=== PATIENT | female | born 1945 | race African-American/Black ===

== ENCOUNTER 2020-07-02 15:27 | Inpatient (IN) | payer MEDICARE ==
[~2020-07-02] VITALS: Ht 170.2 cm; Wt 148.5 kg
[2020-07-02 16:36] LABS: BASO # 0.1 x10^3/uL (0.0-0.2); BASO % 1 % (0-3); EOS # 0.3 x10^3/uL (0.0-0.7); EOS % 4 % (0-3); HEMATOCRIT 42.4 % (36.0-47.0); HEMOGLOBIN 13.6 g/dL (12.0-15.5); LYMPH # 0.8 x10^3/uL (1.0-4.8); LYMPH % 10 % (24-48); MEAN CORPUSCULAR HEMOGLOBIN 27 pg (25-35); MEAN CORPUSCULAR HGB CONC 32 g/dL (31-37); MEAN CORPUSCULAR VOLUME 83 fL (79-100); MONO # 0.7 x10^3/uL (0.0-1.1); MONO % 9 % (0-9); NEUT # 6.1 x10^3/uL (1.8-7.7); NEUT % 76 % (31-73); PLATELET COUNT 202 x10^3/uL (140-400); WHITE BLOOD COUNT 8.1 x10^3/uL (4.0-11.0)
[2020-07-02 16:52] LABS: CALCIUM 9.5 mg/dL (8.5-10.1); CREATININE 0.8 mg/dL (0.6-1.0); GFR 84.2; POTASSIUM 3.9 mmol/L (3.5-5.1)
--- NOTE | 2020-07-02 16:52 | RAD ---
AP chest. HISTORY: Short of air AP view was taken of the chest. Heart is normal in size. There is no effusion. There is arthritis in both shoulders. There are mild interstitial changes from interstitial infiltrates or edema or fibrosi s. IMPRESSION: 1. Bilateral bilateral interstitial changes from infiltrates or fibrosis, previous study unavailable for comparison. Electronically signed by: Lexx Villafana MD (07/02/2020 4:49 PM) [id number]
[2020-07-02 17:00] LABS: ALBUMIN 3.5 g/dL (3.4-5.0); ALBUMIN/GLOBULIN RATIO 0.7 (1.0-1.7); MAGNESIUM 2.1 mg/dL (1.8-2.4); TOTAL BILIRUBIN 0.3 mg/dL (0.2-1.0); TOTAL PROTEIN 8.2 g/dL (6.4-8.2)
[2020-07-02 17:16] LABS: BILIRUBIN,URINE NEGATIVE (NEG); CLARITY,URINE CLEAR; COLOR,URINE YELLOW; NITRITE,URINE NEGATIVE (NEG); PROTEIN,URINE NEGATIVE (NEG-TRACE)
[2020-07-02 17:23] LABS: BACTERIA,URINE MODERATE /HPF (0-FEW); RBC,URINE 0 /HPF (0-2); WBC,URINE OCC /HPF (0-4)
[2020-07-02 17:24] LABS: BARBITURATES NEG (NEG); BENZODIAZEPINES NEG (NEG); CANNABINOIDS NEG (NEG); COCAINE NEG (NEG); METHADONE NEG (NEG); OPIATES NEG (NEG); PHENCYCLIDINE NEG (NEG)
[2020-07-02 17:25] LABS: AMPHETAMINE/METHAMPHETAMINE NEG (NEG)
[2020-07-02] MEDS ORDERED: IBUP200T44 PO (18:34)
[2020-07-02] MEDS ORDERED: GABA600T PO (18:34)
[2020-07-02] MEDS ORDERED: ONDANSETRON PF 4 MG/2 ML VIAL. IV PRN (19:00)
[2020-07-02] MEDS ORDERED: IBUPROFEN 200 MG TABLET. PO ONE (19:00)
[2020-07-02] MEDS ORDERED: cefTRIAXone IV Push 1 GM VIAL. IVP ONE (19:00)
[2020-07-02] MEDS ORDERED: MORPHINE SULFATE 4 MG/ML VIAL. IV PRN (19:00)
[2020-07-02] MEDS ORDERED: ACETAMINOPHEN 325 MG TABLET. PO PRN (19:00)
--- NOTE | 2020-07-02 19:03 | PHYS DOC ---
Past Medical History Past Medical History: Arthritis, CHF, COPD, Hypertension Past Surgical History: Hip Replacement Smoking Status: Former Smoker Alcohol Use: None General Adult EDM: Chief Complaint: SHORTNESS OF BREATH HPI: HPI: Patient is a 75 year old female with history of CHF, COPD on oxygen 2 L at home. Hypertension, who presents to the ED today complaining of shortness of breath for 2 months. Patient states symptoms got worse in the last 1 to 2 weeks. Denies any fever, denies any chest pain. She is also complaining of left eye redness for 1 week. Review of Systems: Review of Systems: Constitutional: Denies fever or chills. [] Eyes: Reports left eye redness. Denies change in visual acuity. [] HENT: Denies nasal congestion or sore throat. [] Respiratory: Reports shortness of breath, reports cough Cardiovascular: Denies any chest pain GI: Denies abdominal pain, nausea, vomiting, bloody stools or diarrhea. [] : Denies dysuria. [] Musculoskeletal: Denies back pain or joint pain. [] Integument: Denies rash. [] Neurologic: Denies headache, focal weakness or sensory changes. [] Psychiatric: Denies depression or anxiety. [] Heart Score: Risk Factors: Risk Factors: DM, Current or recent (<one month) smoker, HTN, HLP, family history of CAD, obesity. Risk Scores: Score 0 - 3: 2.5% MACE over next 6 weeks - Discharge Home Score 4 - 6: 20.3% MACE over next 6 weeks - Admit for Clinical Observation Score 7 - 10: 72.7% MACE over next 6 weeks - Early Invasive Strategies Current Medications: Current Medications Medications (Trade) Dose Ordered Sig/Mehul Start Time Stop Time Status Last Admin Dose Admin Acetaminophen (Tylenol) 650 mg PRN Q4HRS PRN 07/02/20 19:00 07/03/20 18:59 UNV Azithromycin 250 ml @ 250 mls/hr 1X ONCE 07/02/20 19:00 07/02/20 19:59 UNV Ceftriaxone Sodium (Rocephin) 1 gm 1X ONCE 07/02/20 19:00 07/02/20 19:01 UNV Ibuprofen (Motrin) 600 mg 1X ONCE 07/02/20 19:00 07/02/20 19:01 UNV Morphine Sulfate (Morphine Sulfate) 4 mg PRN Q2HR PRN 07/02/20 19:00 07/03/20 18:59 UNV Ondansetron HCl (Zofran) 4 mg PRN Q8HRS PRN 07/02/20 19:00 07/03/20 18:59 UNV Physical Exam: PE: Constitutional: Well developed, well nourished, no acute distress, non-toxic appearance. [] HENT: Normocephalic, atraumatic, bilateral external ears normal, oropharynx moist, no oral exudates, nose normal. [] Eyes: PERRLA, EOMI, left conjunctive is moderately injected, no discharge. [] Neck: Normal range of motion, no tenderness, supple, no stridor. [] Cardiovascular:Heart rate regular rhythm, no murmur [] Lungs & Thorax: Coarse lung sounds Abdomen: Bowel sounds normal, soft, no tenderness, no masses, no pulsatile masses. [] Skin: Warm, dry, no erythema, no rash. [] Back: No tenderness, no CVA tenderness. [] Extremities: No tenderness, no cyanosis, no clubbing, ROM intact, no edema. [] Neurologic: Alert and oriented X 3, normal motor function, normal sensory function, no focal deficits noted. [] Psychologic: Affect normal, judgement normal, mood normal. [] Current Patient Data: Labs: Laboratory Tests Test 07/02/20 15:45 07/02/20 16:25 07/02/20 16:50 Lactic Acid Level 1.1 mmol/L (0.4-2.0) White Blood Count 8.1 x10^3/uL (4.0-11.0) Red Blood Count 5.10 x10^6/uL (3.50-5.40) Hemoglobin 13.6 g/dL (12.0-15.5) Hematocrit 42.4 % (36.0-47.0) Mean Corpuscular Volume 83 fL (79-100) Mean Corpuscular Hemoglobin 27 pg (25-35) Mean Corpuscular Hemoglobin Concent 32 g/dL (31-37) Red Cell Distribution Width 16.0 % (11.5-14.5) H Platelet Count 202 x10^3/uL (140-400) Neutrophils (%) (Auto) 76 % (31-73) H Lymphocytes (%) (Auto) 10 % (24-48) L Monocytes (%) (Auto) 9 % (0-9) Eosinophils (%) (Auto) 4 % (0-3) H Basophils (%) (Auto) 1 % (0-3) Neutrophils # (Auto) 6.1 x10^3/uL (1.8-7.7) Lymphocytes # (Auto) 0.8 x10^3/uL (1.0-4.8) L Monocytes # (Auto) 0.7 x10^3/uL (0.0-1.1) Eosinophils # (Auto) 0.3 x10^3/uL (0.0-0.7) Basophils # (Auto) 0.1 x10^3/uL (0.0-0.2) Sodium Level 145 mmol/L (136-145) Potassium Level 3.9 mmol/L (3.5-5.1) Chloride Level 103 mmol/L (98-107) Carbon Dioxide Level 35 mmol/L (21-32) H Anion Gap 7 (6-14) Blood Urea Nitrogen 23 mg/dL (7-20) H Creatinine 0.8 mg/dL (0.6-1.0) Estimated GFR (Cockcroft-Gault) 84.2 BUN/Creatinine Ratio 29 (6-20) H Glucose Level 105 mg/dL (70-99) H Calcium Level 9.5 mg/dL (8.5-10.1) Magnesium Level 2.1 mg/dL (1.8-2.4) Total Bilirubin 0.3 mg/dL (0.2-1.0) Aspartate Amino Transferase (AST) 21 U/L (15-37) Alanine Aminotransferase (ALT) 26 U/L (14-59) Alkaline Phosphatase 114 U/L (46-116) Creatine Kinase 365 U/L (26-192) H Creatine Kinase MB (Mass) 4.3 ng/mL (0.0-3.6) H Creatine Kinase MB Relative Index 1.2 % (0-4) Troponin I Quantitative 0.152 ng/mL (0.000-0.055) LK-Qfz-J-Type Natriuretic Peptide 648 pg/mL (0-449) H Total Protein 8.2 g/dL (6.4-8.2) Albumin 3.5 g/dL (3.4-5.0) Albumin/Globulin Ratio 0.7 (1.0-1.7) L Urine Collection Type Unknown Urine Color Yellow Urine Clarity Clear Urine pH 6.0 (<5.0-8.0) Urine Specific [place] 1.020 (1.000-1.030) Urine Protein Negative mg/dL (NEG-TRACE) Urine Glucose (UA) Negative mg/dL (NEG) Urine Ketones (Stick) Negative mg/dL (NEG) Urine Blood Negative (NEG) Urine Nitrite Negative (NEG) Urine Bilirubin Negative (NEG) Urine Urobilinogen Dipstick 1.0 mg/dL (0.2 mg/dL) Urine Leukocyte Esterase Negative (NEG) Urine RBC 0 /HPF (0-2) Urine WBC Occ /HPF (0-4) Urine Squamous Epithelial Cells Mod /LPF Urine Bacteria Moderate /HPF (0-FEW) Urine Opiates Screen Neg (NEG) Urine Methadone Screen Neg (NEG) Urine Barbiturates Neg (NEG) Urine Phencyclidine Screen Neg (NEG) Urine Amphetamine/Methamphetamine Neg (NEG) Urine Benzodiazepines Screen Neg (NEG) Urine Cocaine Screen Neg (NEG) Urine Cannabinoids Screen Neg (NEG) Urine Ethyl Alcohol Neg (NEG) Laboratory Tests 07/02/20 16:25 Laboratory Tests 07/02/20 16:25 Vital Signs: Vital Signs Date Time Temp Pulse Resp B/P (MAP) Pulse Ox O2 Delivery O2 Flow Rate FiO2 07/02/20 16:09 98.9 87 22 149/67 (94) 92 Nasal Cannula 2.0 98.9 EKG: EK interpreted by Dr. Brizuela sinus rhythm heart rate 85 no STEMI [] Radiology/Procedures: Radiology/Procedures: []PROCEDURE: PORTABLE CHEST 1V AP chest. HISTORY: Short of air AP view was taken of the chest. Heart is normal in size. There is no effusion. There is arthritis in both shoulders. There are mild interstitial changes from interstitial infiltrates or edema or fibrosis. IMPRESSION: 1. Bilateral bilateral interstitial changes from infiltrates or fibrosis, previo us study unavailable for comparison. Electronically signed by: Lexx Villafana MD (07/02/2020 4:49 PM) [id number] DICTATED and SIGNED BY: LEXX VILLAFANA MD DATE: 07/02/20 [id number] Course & Med Decision Making: Course & Med Decision Making Pertinent Labs and Imaging studies reviewed. (See chart for details) This is a 75-year-old female patient presenting to the ED today complaining of shortness of breath for 2 months and left eye redness for 1 week. Patient is afebrile on arrival to the ED. Currently on oxygen 2 L which she uses during the night but not during the day, O2 sats 92%. CBC, CMP with no acute findings. Chest x-ray noted for bilateral interstitial infiltrates. Tested for COVID-19. Troponin 0.152, patient does not have any chest pain. I spoke to the terminal operations supervisor Dr. Fang they will f/u with patient in AM Dragon Disclaimer: Dragbillie Disclaimer: This electronic medical record was generated, in whole or in part, using a voice recognition dictation system. Departure Departure Impression: Primary Impression: Bilateral pulmonary infiltrates on chest x-ray Additional Impressions: Person under investigation for COVID-19 Bacterial conjunctivitis of left eye Elevated troponin Disposition: ADMITTED INPT THIS HOSP Condition: STABLE Referrals: UNKNOWN PCP NAME (PCP) CLAUDIA PETERSEN APRN Jul 02, 2020 19:03
[2020-07-02] MEDS ORDERED: AZITHRMYCN 500MG IVPB FOR OMNI 250 ML IV ONE (20:00)
[2020-07-02] MEDS: TOBRAMYCIN 0.3% OPHTH SOLUTION 5ML BOTTLE. OS SCH (20:19)
[2020-07-02] MEDS ORDERED: IV NORMAL SALINE 1000ML BAG 1,000 ML IV ONE (21:30)
[2020-07-02] MEDS ORDERED: MAGNESIUM HYDROXIDE 2,400 MG/30 ML ORAL.SUSP. PO PRN (21:30)
[2020-07-02] MEDS ORDERED: ZOLPIDEM 5 MG TABLET. PO PRN (21:30)
[2020-07-02] MEDS ORDERED: BISACODYL 10 MG SUPP.RECT. PR PRN (21:30)
[2020-07-02] MEDS ORDERED: HYDROmorphone 2 MG/ML VIAL IV PRN (21:30)
--- NOTE | 2020-07-02 21:31 | PDOC1 ---
History and Physical Date of Admission Date of Admission DATE: 07/02/20 TIME: 21:11 Identification/Chief Complaint Chief Complaint Cough, shortness of breath Source Source: Patient History of Present Illness History of Present Illness Patient 75-year-old female with past medical history of undiagnosed COPD on 2 L at night, CHF, who presents to the ER with complaints of shortness of breath for the past 2 months. She states her symptoms are worsening over the past 2 weeks. She reports associated productive cough over this time. Patient admits to roughly 10-year history of smoking in the 60's. Of note she also complains of left arm erythema with clear drainage for the past week. Upon evaluation in the ED patient's troponin was initially elevated at 0.152, with repeat 0.158. Cardiology was notified in the ED, and recommended medicine admit for further evaluation. Patient denies any chest pain or known sick contacts. Past Medical History Past Medical History Obesity, COPD, CHF, depression, hypertension, hyperlipidemia, hypothyroidism, seizures, schizophrenia Past Surgical History Past Surgical History Bilateral hip replacement Family History Family History: Coronary Artery Disease Social History Smoke: Quit ALCOHOL: none Drugs: None Current Problem List Problem List Problems Medical Problems: (1) Bacterial conjunctivitis of left eye Status: Acute (2) Bilateral pulmonary infiltrates on chest x-ray Status: Acute (3) Elevated troponin Status: Acute (4) Person under investigation for COVID-19 Status: Acute Current Medications Current Medications Current Medications Ceftriaxone Sodium (Rocephin) 1 gm 1X ONCE IVP Last administered on 07/02/20at 20:17; Start 07/02/20 at 19:00; Stop 07/02/20 at 20:04; Status DC Azithromycin 250 ml @ 250 mls/hr 1X ONCE IV Last administered on 07/02/20at 20:19; Start 07/02/20 at 20:00; Stop 07/02/20 at 20:59; Status DC Ibuprofen (Motrin) 600 mg 1X ONCE PO ; Start 07/02/20 at 19:00; Stop 07/02/20 at 20:04; Status DC Ondansetron HCl (Zofran) 4 mg PRN Q8HRS PRN IV NAUSEA/VOMITING; Start 07/02/20 at 19:00; Stop 07/03/20 at 18:59 Morphine Sulfate (Morphine Sulfate) 4 mg PRN Q2HR PRN IV PAIN; Start 07/02/20 at 19:00; Stop 07/03/20 at 18:59 Acetaminophen (Tylenol) 650 mg PRN Q4HRS PRN PO FEVER > 100.3'F; Start 07/02/20 at 19:00; Stop 07/03/20 at 18:59 Tobramycin Sulfate (Tobrex Ophth Soln) 1 drop Q4HRS W/A OS Last administered on 07/02/20at 20:19; Start 07/02/20 at 20:00 Albuterol Sulfate (Ventolin Hfa) 2 puff PRN Q4HRS PRN INH WHEEZES; Start 07/02/20 at 21:15 Active Scripts Active Reported Motrin Ib (Ibuprofen) 200 Mg Tablet 600 Mg PO Q6HRS PRN Neurontin (Gabapentin) 600 Mg Tablet 900 Mg PO TID Allergies Allergies: Coded Allergies: No Known Drug Allergies (Unverified , 07/02/20) ROS Review of System GENERAL: No history of weight change, weakness or fevers. SKIN: No bruising, hair changes or rashes. EYES: No blurred, double or loss of vision. NOSE AND THROAT: No history of nosebleeds, hoarseness or sore throat. HEART: Denies chest pain, denies palpitations. LUNGS: Cough, shortness of breath. Denies hemoptysis. GASTROINTESTINAL: Denies nausea, vomiting, abdominal pain. GENITOURINARY: Denies dysuria, frequency, urgency, hematuria. NEUROLOGIC: Denies history of numbness, tingling, tremor or weakness. PSYCHIATRIC: Denies anxiety, denies depression. ENDOCRINE: No history of heat or cold intolerance, polyuria or polydipsia. EXTREMITIES: Denies muscle weakness, joint pain, pain on walking or stiffness. Physical Exam Physical Exam General: Alert, Oriented X3, Cooperative, mild distress, morbidly obese HEENT: Atraumatic, EOMI Lungs: Bilateral expiratory wheezing, bibasilar rales Heart: RRR, no rubs Cardiovascular: S1, S2 Abdomen: Normal bowel sounds, Soft, No tenderness Extremities: +1 bilateral leg edema Skin: No breakdown, No significant lesion Neuro: Normal speech, Sensation intact Psych/Mental Status: Mental status NL, Mood NL Vitals Vitals Vital Signs Date Time Temp Pulse Resp B/P (MAP) Pulse Ox O2 Delivery O2 Flow Rate FiO2 07/02/20 20:10 86 135/76 (95) 93 Nasal Cannula 2.0 07/02/20 16:09 98.9 22 98.9 Labs Labs Laboratory Tests Test 07/02/20 15:45 07/02/20 16:25 07/02/20 16:50 07/02/20 19:15 Lactic Acid Level 1.1 mmol/L (0.4-2.0) White Blood Count 8.1 x10^3/uL (4.0-11.0) Red Blood Count 5.10 x10^6/uL (3.50-5.40) Hemoglobin 13.6 g/dL (12.0-15.5) Hematocrit 42.4 % (36.0-47.0) Mean Corpuscular Volume 83 fL (79-100) Mean Corpuscular Hemoglobin 27 pg (25-35) Mean Corpuscular Hemoglobin Concent 32 g/dL (31-37) Red Cell Distribution Width 16.0 % (11.5-14.5) Platelet Count 202 x10^3/uL (140-400) Neutrophils (%) (Auto) 76 % (31-73) Lymphocytes (%) (Auto) 10 % (24-48) Monocytes (%) (Auto) 9 % (0-9) Eosinophils (%) (Auto) 4 % (0-3) Basophils (%) (Auto) 1 % (0-3) Neutrophils # (Auto) 6.1 x10^3/uL (1.8-7.7) Lymphocytes # (Auto) 0.8 x10^3/uL (1.0-4.8) Monocytes # (Auto) 0.7 x10^3/uL (0.0-1.1) Eosinophils # (Auto) 0.3 x10^3/uL (0.0-0.7) Basophils # (Auto) 0.1 x10^3/uL (0.0-0.2) Sodium Level 145 mmol/L (136-145) Potassium Level 3.9 mmol/L (3.5-5.1) Chloride Level 103 mmol/L (98-107) Carbon Dioxide Level 35 mmol/L (21-32) Anion Gap 7 (6-14) Blood Urea Nitrogen 23 mg/dL (7-20) Creatinine 0.8 mg/dL (0.6-1.0) Estimated GFR (Cockcroft-Gault) 84.2 BUN/Creatinine Ratio 29 (6-20) Glucose Level 105 mg/dL (70-99) Calcium Level 9.5 mg/dL (8.5-10.1) Magnesium Level 2.1 mg/dL (1.8-2.4) Total Bilirubin 0.3 mg/dL (0.2-1.0) Aspartate Amino Transf (AST/SGOT) 21 U/L (15-37) Alanine Aminotransferase (ALT/SGPT) 26 U/L (14-59) Alkaline Phosphatase 114 U/L (46-116) Creatine Kinase 365 U/L (26-192) Creatine Kinase MB (Mass) 4.3 ng/mL (0.0-3.6) Creatine Kinase MB Relative Index 1.2 % (0-4) Troponin I Quantitative 0.152 ng/mL (0.000-0.055) 0.158 ng/mL (0.000-0.055) VJ-Hil-H-Type Natriuretic Peptide 648 pg/mL (0-449) Total Protein 8.2 g/dL (6.4-8.2) Albumin 3.5 g/dL (3.4-5.0) Albumin/Globulin Ratio 0.7 (1.0-1.7) Urine Collection Type Unknown Urine Color Yellow Urine Clarity Clear Urine pH 6.0 (<5.0-8.0) Urine Specific [place] 1.020 (1.000-1.030) Urine Protein Negative mg/dL (NEG-TRACE) Urine Glucose (UA) Negative mg/dL (NEG) Urine Ketones (Stick) Negative mg/dL (NEG) Urine Blood Negative (NEG) Urine Nitrite Negative (NEG) Urine Bilirubin Negative (NEG) Urine Urobilinogen Dipstick 1.0 mg/dL (0.2 mg/dL) Urine Leukocyte Esterase Negative (NEG) Urine RBC 0 /HPF (0-2) Urine WBC Occ /HPF (0-4) Urine Squamous Epithelial Cells Mod /LPF Urine Bacteria Moderate /HPF (0-FEW) Urine Opiates Screen Neg (NEG) Urine Methadone Screen Neg (NEG) Urine Barbiturates Neg (NEG) Urine Phencyclidine Screen Neg (NEG) Urine Amphetamine/Methamphetamine Neg (NEG) Urine Benzodiazepines Screen Neg (NEG) Urine Cocaine Screen Neg (NEG) Urine Cannabinoids Screen Neg (NEG) Urine Ethyl Alcohol Neg (NEG) Laboratory Tests Test 07/02/20 15:45 07/02/20 16:25 07/02/20 16:50 07/02/20 19:15 Lactic Acid Level 1.1 mmol/L (0.4-2.0) White Blood Count 8.1 x10^3/uL (4.0-11.0) Red Blood Count 5.10 x10^6/uL (3.50-5.40) Hemoglobin 13.6 g/dL (12.0-15.5) Hematocrit 42.4 % (36.0-47.0) Mean Corpuscular Volume 83 fL (79-100) Mean Corpuscular Hemoglobin 27 pg (25-35) Mean Corpuscular Hemoglobin Concent 32 g/dL (31-37) Red Cell Distribution Width 16.0 % (11.5-14.5) Platelet Count 202 x10^3/uL (140-400) Neutrophils (%) (Auto) 76 % (31-73) Lymphocytes (%) (Auto) 10 % (24-48) Monocytes (%) (Auto) 9 % (0-9) Eosinophils (%) (Auto) 4 % (0-3) Basophils (%) (Auto) 1 % (0-3) Neutrophils # (Auto) 6.1 x10^3/uL (1.8-7.7) Lymphocytes # (Auto) 0.8 x10^3/uL (1.0-4.8) Monocytes # (Auto) 0.7 x10^3/uL (0.0-1.1) Eosinophils # (Auto) 0.3 x10^3/uL (0.0-0.7) Basophils # (Auto) 0.1 x10^3/uL (0.0-0.2) Sodium Level 145 mmol/L (136-145) Potassium Level 3.9 mmol/L (3.5-5.1) Chloride Level 103 mmol/L (98-107) Carbon Dioxide Level 35 mmol/L (21-32) Anion Gap 7 (6-14) Blood Urea Nitrogen 23 mg/dL (7-20) Creatinine 0.8 mg/dL (0.6-1.0) Estimated GFR (Cockcroft-Gault) 84.2 BUN/Creatinine Ratio 29 (6-20) Glucose Level 105 mg/dL (70-99) Calcium Level 9.5 mg/dL (8.5-10.1) Magnesium Level 2.1 mg/dL (1.8-2.4) Total Bilirubin 0.3 mg/dL (0.2-1.0) Aspartate Amino Transf (AST/SGOT) 21 U/L (15-37) Alanine Aminotransferase (ALT/SGPT) 26 U/L (14-59) Alkaline Phosphatase 114 U/L (46-116) Creatine Kinase 365 U/L (26-192) Creatine Kinase MB (Mass) 4.3 ng/mL (0.0-3.6) Creatine Kinase MB Relative Index 1.2 % (0-4) Troponin I Quantitative 0.152 ng/mL (0.000-0.055) 0.158 ng/mL (0.000-0.055) PR-Bgt-R-Type Natriuretic Peptide 648 pg/mL (0-449) Total Protein 8.2 g/dL (6.4-8.2) Albumin 3.5 g/dL (3.4-5.0) Albumin/Globulin Ratio 0.7 (1.0-1.7) Urine Collection Type Unknown Urine Color Yellow Urine Clarity Clear Urine pH 6.0 (<5.0-8.0) Urine Specific [place] 1.020 (1.000-1.030) Urine Protein Negative mg/dL (NEG-TRACE) Urine Glucose (UA) Negative mg/dL (NEG) Urine Ketones (Stick) Negative mg/dL (NEG) Urine Blood Negative (NEG) Urine Nitrite Negative (NEG) Urine Bilirubin Negative (NEG) Urine Urobilinogen Dipstick 1.0 mg/dL (0.2 mg/dL) Urine Leukocyte Esterase Negative (NEG) Urine RBC 0 /HPF (0-2) Urine WBC Occ /HPF (0-4) Urine Squamous Epithelial Cells Mod /LPF Urine Bacteria Moderate /HPF (0-FEW) Urine Opiates Screen Neg (NEG) Urine Methadone Screen Neg (NEG) Urine Barbiturates Neg (NEG) Urine Phencyclidine Screen Neg (NEG) Urine Amphetamine/Methamphetamine Neg (NEG) Urine Benzodiazepines Screen Neg (NEG) Urine Cocaine Screen Neg (NEG) Urine Cannabinoids Screen Neg (NEG) Urine Ethyl Alcohol Neg (NEG) Images Images AP chest. HISTORY: Short of air AP view was taken of the chest. Heart is normal in size. There is no effusion. There is arthritis in both shoulders. There are mild interstitial changes from interstitial infiltrates or edema or fibrosis. IMPRESSION: 1. Bilateral bilateral interstitial changes from infiltrates or fibrosis, previous study unavailable for comparison. VTE Prophylaxis Ordered VTE Prophylaxis Devices: No VTE Pharmacological Prophylaxi: Yes Assessment/Plan Assessment/Plan COPD exacerbation Acute respiratory failure with hypoxia Elevated troponins COVID-19 PUI Conjunctivitis Dehydration Plan: Consultations placed to cardiology for evaluation of elevated troponins; likely demand ischemia as to troponins have been elevated but stable Continue to trend troponins We will treat patient with antibiotics and steroids COVID-19 pending Doxycycline 100 mg twice daily, Decadron 6 mg daily Consult to pulmonology for further recommendations Oxygen and supportive care Will consider initiating remdesivir when confirmed COVID-19 positive, however patient was insistent upon leaving the hospital before Tima We will order 6-minute walk for the morning and patient may be able to discharge home on home oxygen. Influenza pending IV normal saline FEN - Cardiac diet PPX - Lovenox FULL CODE Dispo - inpatient for above Justifications for Admission Other Justification THAIS BAUTISTA MD Jul 02, 2020 21:31
[2020-07-02] MEDS: ENOXAPARIN 40 MG/0.4 ML SYRINGE. SQ SCH (21:38)
[2020-07-02 23:20] VITALS: BP 147/72
[2020-07-03] VITALS (7 sets, daily range): BP systolic 101–145; BP diastolic 60–87
[2020-07-03] MEDS ORDERED: guaiFENesin ORAL 200 MG/10 ML LIQUID. PO PRN
[2020-07-03] MEDS: IBUPROFEN 200 MG TABLET. PO PRN ×4 (00:25→22:10)
[2020-07-03] MEDS ORDERED: METF-658 PO (01:39)
[2020-07-03] MEDS ORDERED: ASCO500C PO (01:39)
[2020-07-03] MEDS ORDERED: FURO-69 PO (01:39)
[2020-07-03] MEDS ORDERED: VITA400C37 PO (01:39)
[2020-07-03] MEDS ORDERED: ASPI-630 PO (01:39)
[2020-07-03] MEDS ORDERED: VITAMIN D PO (01:39)
[2020-07-03] MEDS ORDERED: DILT360C PO (01:39)
[2020-07-03] MEDS ORDERED: LISI10TA16 PO (01:39)
[2020-07-03] MEDS ORDERED: HYDR-2145 PO (01:39)
[2020-07-03] MEDS: TOBRAMYCIN 0.3% OPHTH SOLUTION 5ML BOTTLE. OS SCH ×6 (01:57→22:00)
[2020-07-03] MEDS: ALBUTEROL SULFATE 8GM INHALER. INH PRN ×4 (01:57→17:22)
[2020-07-03] MEDS: GABAPENTIN 300 MG CAPSULE. PO SCH ×4 (01:57→20:45)
[2020-07-03] MEDS: BENZONATATE 100 MG CAPSULE. PO PRN (01:57)
[2020-07-03] MEDS ORDERED: DEXTROSE 50% 25 GM / 50ML DISP.SYRIN. IV PRN (02:30)
[2020-07-03] MEDS ORDERED: ROPI5TAB4 PO (02:32)
[2020-07-03] MEDS: PRAMIPEXOLE 0.25 MG TABLET. PO SCH ×2 (05:34→20:45)
[2020-07-03] MEDS: INSULIN LISPRO 300 UNITS/3 ML VIAL. SQ SCH ×3 (08:00→17:00)
[2020-07-03] MEDS: ASPIRIN CHEWABLE 81 MG TABLET. PO SCH (09:01)
[2020-07-03] MEDS: FUROSEMIDE 20 MG TABLET PO SCH (09:01)
[2020-07-03] MEDS: LISINOPRIL 10 MG TABLET PO SCH (09:01)
[2020-07-03] MEDS: hydroCHLOROthiazide 25 MG TABLET PO SCH (09:01)
[2020-07-03] MEDS: DOXYCYCLINE HYCLATE 100 MG TABLET PO SCH ×2 (09:02→20:45)
[2020-07-03] MEDS: MORPHINE SULFATE 2 MG/ML VIAL. IV PRN ×2 (09:16→20:49)
[2020-07-03] MEDS ORDERED: methylPREDNISolone SOD SUCC PF 125 MG/2 ML VIAL. IV ONE (10:30)
[2020-07-03] MEDS ORDERED: FUROSEMIDE 40 MG/4 ML VIAL. IVP ONE (10:30)
[2020-07-03] MEDS ORDERED: POTASSIUM CHLORIDE 20 MEQ TABLET.ER. PO ONE (10:30)
--- NOTE | 2020-07-03 10:36 | CONS ---
DATE OF CONSULTATION: PULMONARY CONSULTATION ATTENDING PHYSICIAN: Dr. Carlos Reese. REASON FOR CONSULTATION: Dyspnea, respiratory failure, audible wheezing. HISTORY OF PRESENT ILLNESS: The patient is a 75-year-old obese patient with a BMI of 53. She has history of questionable COPD. She is on oxygen 2 liters at night and history of congestive heart failure. She was brought into the hospital with increasing shortness of breath for the last 2 months. The symptoms have worsened in the last 2 weeks. There is cough, which has been nonproductive. No fever, no chills. She said she only smoked for about 10 years in her 60s. The patient was noted to have audible wheezing when we arrived in the room. She has been receiving albuterol inhaler as she is a COVID suspect. The patient's saturations were 89-95% on 3 liters. She is afebrile. Denies any chest pain, no headache, no nausea, vomiting or diarrhea. Consultation requested for further evaluation and management. PAST MEDICAL HISTORY: Significant for morbid obesity; history of congestive heart failure, unknown EF; morbid obesity with a BMI of 53; depression; hypertension; hyperlipidemia; hypothyroidism; and schizophrenia. PAST SURGICAL HISTORY: Bilateral hip replacement. FAMILY HISTORY: Coronary artery disease. Noncontributory to the lungs. SOCIAL HISTORY: Smoked for 10 years, quit in the 60s. REVIEW OF SYSTEMS: Twelve-point system obtained. Pertinent positives discussed in my history of present illness, otherwise noncontributory. All systems that were negative were reviewed as well. MEDICATIONS: All reviewed as listed in the MRAD. PHYSICAL EXAMINATION: VITAL SIGNS: Reviewed. Blood pressure is 136/74, afebrile, pulse ox is 89-95% on 3 liters. NECK: Supple. LUNGS: With audible wheezing. CARDIOVASCULAR: With a regular rate. ABDOMEN: Soft, obese. EXTREMITIES: With trace pitting edema. LABORATORY DATA: Reviewed. White cell count 8.1, hemoglobin 13.6, platelets are 202. BUN 23 and creatinine 0.8. CPK 365. Troponin 0.158. IMPRESSION: 1. Acute hypoxic respiratory failure with audible wheezing and chest x-ray consistent with bilateral interstitial infiltrates. The findings are highly suggestive of cardiac asthma. She has no significant history of pulmonary asthma and no significant tobacco history. 2. Abnormal chest x-ray with bilateral interstitial infiltrates. No old x-ray available for comparison. This is likely secondary to congestive heart failure. 3. Morbid obesity with a body mass index of 53. She is at risk for sleep apnea. She also likely has obesity hypoventilation syndrome. Her bicarbonate is 35. I suspect she may have worsening hypercapnia. will get ABG 4. History of diastolic heart failure, details unknown. We will obtain an echocardiogram. 5. Low suspicion for COVID. RECOMMENDATIONS: 1. I will continue with present oxygen to keep saturation 92 and above. 2. Obtain arterial blood gases stat/ Will likely need BIPAP 3. IV Solu-Medrol. 4. Albuterol 2 puffs q. 4 hours until wheezing gets better and once COVID ruled out, start nebulizer. 5. We will discontinue oral Lasix and give her IV Lasix. 6. Empiric antibiotics for now. 7. Obtain echocardiogram. 8. Lovenox for DVT prophylaxis. 9. d/w RN/RT in detail 10. She would benefit from sleep study as an outpatient. Discussed with RN. SAMANTHA MARSH MD DR: MILTON/kortney JOB#: [id number] / [id number] CARLO
[2020-07-03 10:54] LABS: BASO # 0.1 x10^3/uL (0.0-0.2); BASO % 1 % (0-3); EOS # 0.4 x10^3/uL (0.0-0.7); EOS % 6 % (0-3); HEMATOCRIT 41.5 % (36.0-47.0); HEMOGLOBIN 12.9 g/dL (12.0-15.5); LYMPH # 0.7 x10^3/uL (1.0-4.8); LYMPH % 11 % (24-48); MEAN CORPUSCULAR HEMOGLOBIN 26 pg (25-35); MEAN CORPUSCULAR HGB CONC 31 g/dL (31-37); MEAN CORPUSCULAR VOLUME 84 fL (79-100); MONO # 0.7 x10^3/uL (0.0-1.1); MONO % 11 % (0-9); NEUT # 4.6 x10^3/uL (1.8-7.7); NEUT % 71 % (31-73); PLATELET COUNT 195 x10^3/uL (140-400); RED BLOOD COUNT 4.96 x10^6/uL (3.50-5.40); WHITE BLOOD COUNT 6.4 x10^3/uL (4.0-11.0)
[2020-07-03 11:07] LABS: BASE EXCESS ABG 5 mmol/L (-3-3); HCO3 ABG 36 mmol/L (21-28); PO2 ABG 62 mmHg (65-108); SAT O2 ABG 90 % (92-99)
[2020-07-03] MEDS: IPRATROPIUM/ALBUTEROL 20/100mcg/INH INHALER. INH SCH ×2 (11:28→17:22)
[2020-07-03 11:31] LABS: FIO2 ABG 32: SIMPLE MASK; PCO2 ABG 86 mmHg (35-46)
[2020-07-03 11:33] LABS: ALBUMIN/GLOBULIN RATIO 0.7 (1.0-1.7); CALCIUM 8.5 mg/dL (8.5-10.1); CREATININE 0.6 mg/dL (0.6-1.0); GFR 117.3; POTASSIUM 4.3 mmol/L (3.5-5.1); TOTAL BILIRUBIN 0.3 mg/dL (0.2-1.0); TOTAL PROTEIN 7.5 g/dL (6.4-8.2)
[2020-07-03] MEDS: LACTOBACILLUS RHAMNOSUS GG 1 CAPSULE. PO SCH ×2 (12:00→20:45)
--- NOTE | 2020-07-03 12:23 | PDOC ---
[employer] PROGRESS NOTE Date of Service DOS: DATE: 07/03/20 TIME: 12:21 Chief Complaint Chief Complaint COPD exacerbation Acute respiratory failure with hypoxia Elevated troponins COVID-19 PUI Conjunctivitis Dehydration Plan: Consultations placed to cardiology for evaluation of elevated troponins; likely demand ischemia as to troponins have been elevated but stable Continue to trend troponins We will treat patient with antibiotics and steroids COVID-19 pending Doxycycline 100 mg twice daily, Decadron 6 mg daily Appreciate pulmonology recommendationsstart IV steroids, IV Lasix, pending echocardiogram, Combivent inhaler until Covid negative then start nebulizer if negative Oxygen and supportive care Will consider initiating remdesivir when confirmed COVID-19 positive, however patient was insistent upon leaving the hospital before [facility] We will order 6-minute walk for the morning and patient may be able to discharge home on home oxygen. Influenza pending IV normal saline FEN - Cardiac diet PPX - Lovenox FULL CODE Dispo - inpatient for above History of Present Illness History of Present Illness 07/03/2020 No acute events overnight. Patient continues to be short of breath and wheezing. Currently on 10 L nonrebreathing mask. Patient's chart, labs, images were reviewed and discussed with RN 75-year-old female with past medical history of undiagnosed COPD on 2 L at night, CHF, who presents to the ER with complaints of shortness of breath for the past 2 months. She states her symptoms are worsening over the past 2 weeks. She reports associated productive cough over this time. Patient admits to roughly 10-year history of smoking in the 60's. Of note she also complains of left arm erythema with clear drainage for the past week. Upon evaluation in the ED patient's troponin was initially elevated at 0.152, with repeat 0.158. Cardiology was notified in the ED, and recommended medicine admit for further evaluation. Patient denies any chest pain or known sick contacts. Vitals/I&O Vitals/I&O: Vital Signs Date Time Temp Pulse Resp B/P (MAP) Pulse Ox O2 Delivery O2 Flow Rate FiO2 07/03/20 11:13 97.9 93 16 126/67 (86) 82 Simple Mask 3.0 97.9 I & O 07/02/20 07/02/20 07/03/20 15:00 23:00 07:00 Intake Total 360 ml Output Total 750 ml Balance -390 ml Physical Exam General: Alert, Oriented X3, Cooperative Heart: No murmurs Lungs: Wheezing Abdomen: No tenderness, No hepatosplenomegaly Extremities: No edema Skin: No significant lesion Labs Labs: Laboratory Tests Test 07/02/20 15:45 07/02/20 16:25 07/02/20 16:50 07/02/20 19:15 Lactic Acid Level 1.1 mmol/L (0.4-2.0) White Blood Count 8.1 x10^3/uL (4.0-11.0) Red Blood Count 5.10 x10^6/uL (3.50-5.40) Hemoglobin 13.6 g/dL (12.0-15.5) Hematocrit 42.4 % (36.0-47.0) Mean Corpuscular Volume 83 fL (79-100) Mean Corpuscular Hemoglobin 27 pg (25-35) Mean Corpuscular Hemoglobin Concent 32 g/dL (31-37) Red Cell Distribution Width 16.0 % (11.5-14.5) Platelet Count 202 x10^3/uL (140-400) Neutrophils (%) (Auto) 76 % (31-73) Lymphocytes (%) (Auto) 10 % (24-48) Monocytes (%) (Auto) 9 % (0-9) Eosinophils (%) (Auto) 4 % (0-3) Basophils (%) (Auto) 1 % (0-3) Neutrophils # (Auto) 6.1 x10^3/uL (1.8-7.7) Lymphocytes # (Auto) 0.8 x10^3/uL (1.0-4.8) Monocytes # (Auto) 0.7 x10^3/uL (0.0-1.1) Eosinophils # (Auto) 0.3 x10^3/uL (0.0-0.7) Basophils # (Auto) 0.1 x10^3/uL (0.0-0.2) Sodium Level 145 mmol/L (136-145) Potassium Level 3.9 mmol/L (3.5-5.1) Chloride Level 103 mmol/L (98-107) Carbon Dioxide Level 35 mmol/L (21-32) Anion Gap 7 (6-14) Blood Urea Nitrogen 23 mg/dL (7-20) Creatinine 0.8 mg/dL (0.6-1.0) Estimated GFR (Cockcroft-Gault) 84.2 BUN/Creatinine Ratio 29 (6-20) Glucose Level 105 mg/dL (70-99) Calcium Level 9.5 mg/dL (8.5-10.1) Magnesium Level 2.1 mg/dL (1.8-2.4) Total Bilirubin 0.3 mg/dL (0.2-1.0) Aspartate Amino Transf (AST/SGOT) 21 U/L (15-37) Alanine Aminotransferase (ALT/SGPT) 26 U/L (14-59) Alkaline Phosphatase 114 U/L (46-116) Creatine Kinase 365 U/L (26-192) Creatine Kinase MB (Mass) 4.3 ng/mL (0.0-3.6) Creatine Kinase MB Relative Index 1.2 % (0-4) Troponin I Quantitative 0.152 ng/mL (0.000-0.055) 0.158 ng/mL (0.000-0.055) [id number]-Type Natriuretic Peptide 648 pg/mL (0-449) Total Protein 8.2 g/dL (6.4-8.2) Albumin 3.5 g/dL (3.4-5.0) Albumin/Globulin Ratio 0.7 (1.0-1.7) Urine Collection Type Unknown Urine Color Yellow Urine Clarity Clear Urine pH 6.0 (<5.0-8.0) Urine Specific [place] 1.020 (1.000-1.030) Urine Protein Negative mg/dL (NEG-TRACE) Urine Glucose (UA) Negative mg/dL (NEG) Urine Ketones (Stick) Negative mg/dL (NEG) Urine Blood Negative (NEG) Urine Nitrite Negative (NEG) Urine Bilirubin Negative (NEG) Urine Urobilinogen Dipstick 1.0 mg/dL (0.2 mg/dL) Urine Leukocyte Esterase Negative (NEG) Urine RBC 0 /HPF (0-2) Urine WBC Occ /HPF (0-4) Urine Squamous Epithelial Cells Mod /LPF Urine Bacteria Moderate /HPF (0-FEW) Urine Opiates Screen Neg (NEG) Urine Methadone Screen Neg (NEG) Urine Barbiturates Neg (NEG) Urine Phencyclidine Screen Neg (NEG) Urine Amphetamine/Methamphetamine Neg (NEG) Urine Benzodiazepines Screen Neg (NEG) Urine Cocaine Screen Neg (NEG) Urine Cannabinoids Screen Neg (NEG) Urine Ethyl Alcohol Neg (NEG) Test 07/03/20 00:23 07/03/20 09:59 07/03/20 10:43 Troponin I Quantitative 0.146 ng/mL (0.000-0.055) White Blood Count 6.4 x10^3/uL (4.0-11.0) Red Blood Count 4.96 x10^6/uL (3.50-5.40) Hemoglobin 12.9 g/dL (12.0-15.5) Hematocrit 41.5 % (36.0-47.0) Mean Corpuscular Volume 84 fL (79-100) Mean Corpuscular Hemoglobin 26 pg (25-35) Mean Corpuscular Hemoglobin Concent 31 g/dL (31-37) Red Cell Distribution Width 16.0 % (11.5-14.5) Platelet Count 195 x10^3/uL (140-400) Neutrophils (%) (Auto) 71 % (31-73) Lymphocytes (%) (Auto) 11 % (24-48) Monocytes (%) (Auto) 11 % (0-9) Eosinophils (%) (Auto) 6 % (0-3) Basophils (%) (Auto) 1 % (0-3) Neutrophils # (Auto) 4.6 x10^3/uL (1.8-7.7) Lymphocytes # (Auto) 0.7 x10^3/uL (1.0-4.8) Monocytes # (Auto) 0.7 x10^3/uL (0.0-1.1) Eosinophils # (Auto) 0.4 x10^3/uL (0.0-0.7) Basophils # (Auto) 0.1 x10^3/uL (0.0-0.2) Sodium Level 144 mmol/L (136-145) Potassium Level 4.3 mmol/L (3.5-5.1) Chloride Level 105 mmol/L (98-107) Carbon Dioxide Level 33 mmol/L (21-32) Anion Gap 6 (6-14) Blood Urea Nitrogen 16 mg/dL (7-20) Creatinine 0.6 mg/dL (0.6-1.0) Estimated GFR (Cockcroft-Gault) 117.3 BUN/Creatinine Ratio 27 (6-20) Glucose Level 107 mg/dL (70-99) Calcium Level 8.5 mg/dL (8.5-10.1) Total Bilirubin 0.3 mg/dL (0.2-1.0) Aspartate Amino Transf (AST/SGOT) 18 U/L (15-37) Alanine Aminotransferase (ALT/SGPT) 25 U/L (14-59) Alkaline Phosphatase 109 U/L (46-116) Total Protein 7.5 g/dL (6.4-8.2) Albumin 3.0 g/dL (3.4-5.0) Albumin/Globulin Ratio 0.7 (1.0-1.7) O2 Saturation 90 % (92-99) Arterial Blood pH 7.24 (7.35-7.45) Arterial Blood pCO2 at Patient Temp 86 mmHg (35-46) Arterial Blood pO2 at Patient Temp 62 mmHg (65-108) Arterial Blood HCO3 36 mmol/L (21-28) Arterial Blood Base Excess 5 mmol/L (-3-3) FiO2 32: simple mask Assessment and Plan Assessmemt and Plan Problems Medical Problems: (1) Bacterial conjunctivitis of left eye Status: Acute (2) Bilateral pulmonary infiltrates on chest x-ray Status: Acute (3) Elevated troponin Status: Acute (4) Person under investigation for COVID-19 Status: Acute Comment Review of Relevant I have reviewed the following items tucker (where applicable) has been applied. Medications: Current Medications Medications (Trade) Dose Ordered Sig/Mehul Route PRN Reason Start Time Stop Time Status Last Admin Dose Admin Ceftriaxone Sodium (Rocephin) 1 gm 1X ONCE IVP 07/02/20 19:00 07/02/20 20:04 DC 07/02/20 20:17 Azithromycin 250 ml @ 250 mls/hr 1X ONCE IV 07/02/20 20:00 07/02/20 20:59 DC 07/02/20 20:19 Acetaminophen (Tylenol) 650 mg PRN Q4HRS PRN PO FEVER > 100.3'F 07/02/20 19:00 07/03/20 02:35 DC 07/02/20 21:49 Tobramycin Sulfate (Tobrex Ophth Soln) 1 drop Q4HRS W/A OS 07/02/20 20:00 07/03/20 09:03 Albuterol Sulfate (Ventolin Hfa) 2 puff PRN Q4HRS PRN INH WHEEZES 07/02/20 21:15 07/03/20 09:16 Doxycycline Hyclate (Vibra-Tab) 100 mg BID PO 07/03/20 09:00 07/08/20 08:59 07/03/20 09:02 Sodium Chloride 1,000 ml @ 100 mls/hr 1X ONCE IV 07/02/20 21:30 07/03/20 07:29 DC 07/02/20 21:39 Enoxaparin Sodium (Lovenox 40mg Syringe) 40 mg Q24H SQ 07/02/20 21:30 07/02/20 21:38 Ibuprofen (Motrin) 600 mg PRN Q6HRS PRN PO INFLAMMATION 07/02/20 23:00 07/03/20 05:32 Gabapentin (Neurontin) 900 mg TID PO 07/03/20 01:30 07/03/20 09:01 Pramipexole Dihydrochloride (miraPEX) 0.25 mg QHS PO 07/03/20 05:30 07/03/20 05:34 Benzonatate (Tessalon Perle) 100 mg PRN TID PRN PO COUGH 0900 1400 2100 07/03/20 00:00 07/03/20 01:57 Lorazepam (Ativan) 1 mg PRN Q6HRS PRN PO ANXIETY / AGITATION 07/03/20 01:45 07/03/20 01:57 Aspirin (Aspirin Chewable) 81 mg DAILYWBKFT PO 07/03/20 08:00 07/03/20 09:01 Furosemide (Lasix) 20 mg DAILY PO 07/03/20 09:00 07/03/20 09:01 Hydrochlorothiazide (Hydrodiuril) 25 mg DAILY PO 07/03/20 09:00 07/03/20 09:01 Lisinopril (Prinivil) 10 mg DAILY PO 07/03/20 09:00 07/03/20 09:01 Diltiazem HCl (Cardizem 24hr Cd) 360 mg DAILY PO 07/03/20 09:00 07/03/20 09:01 Albuterol/ Ipratropium (Combivent Respimat 20-100 Mcg) 1 puff Q6HRS INH 07/03/20 12:00 07/03/20 11:28 Methylprednisolone Sodium Succinate (SOLU-Medrol 125MG VIAL) 125 mg 1X ONCE IV 07/03/20 10:30 07/03/20 10:31 DC 07/03/20 11:26 Furosemide (Lasix) 60 mg 1X ONCE IVP 07/03/20 10:30 07/03/20 10:31 DC 07/03/20 11:27 Potassium Chloride (Klor-Con) 20 meq 1X ONCE PO 07/03/20 10:30 07/03/20 10:31 DC 07/03/20 11:27 Justifications for Admission Other Justification Acute respiratory failure with hypoxia, COVID-19 JJ LÓPEZ MD Jul 03, 2020 12:22
--- NOTE | 2020-07-03 12:37 | PDOC2 ---
RYAN LU REFINING STILL OPERATOR 07/03/20 1236: CARDIAC CONSULT DATE OF CONSULT Date of Consult DATE: 07/03/20 TIME: 12:23 REASON FOR CONSULT Reason for Consult: Elevated troponin REFERRING PHYSICIAN Referring Physician: Romeo SOURCE Source: Chart review, Patient HISTORY OF PRESENT ILLNESS HISTORY OF PRESENT ILLNESS This is a pleasant 75 yo female admitted for complains of shortness of breath. Her SOA started after Thanksgiving and it got worse about a week ago with coughing and also increased wheezing. No chest pain. Even with inhalers she has been short of breath. She has not been tested for CODY. She is basically lives alone and has a caregiver that helps her with errands. She does not see any outp corrugator operator. She has been gaining wt and is WC bound and debilitated due to bad OA to her hip and back pain. Denies any chest pain or palpitations but intermittently has leg swelling. No hx of VTE, CAD and no arrhythmias. Denies any fever or chills and no anosmia or ageusia. PAST MEDICAL HISTORY Cardiovascular: HTN Pulmonary: COPD CENTRAL NERVOUS SYSTEM: Periperal neuropathy, Other (No pertinent history) GI: No pertinent hx Heme/Onc: No pertinent hx Hepatobiliary: No pertinent hx Psych: No pertinent hx Musculoskeletal: low back pain, Osteoarthritis, Other (WC bound) Rheumatologic: No pertinent hx Infectious disease: No pertinent hx ENT: No pertinent hx, Other (conjunctivitis) Renal/: No pertinent hx Endocrine: Diabetes (2) Dermatology: No pertinent hx PAST SURGICAL HISTORY Past Surgical History: Total hip replacement (right) FAMILY HISTORY Family History: Heart Disease SOCIAL HISTORY Smoke: Quit (remotely) ALCOHOL: none Drugs: None Lives: Alone CURRENT MEDICATIONS CURRENT MEDICATIONS Current Medications Medications (Trade) Dose Ordered Sig/Mehul Route PRN Reason Start Time Stop Time Status Last Admin Dose Admin Ceftriaxone Sodium (Rocephin) 1 gm 1X ONCE IVP 07/02/20 19:00 07/02/20 20:04 DC 07/02/20 20:17 Azithromycin 250 ml @ 250 mls/hr 1X ONCE IV 07/02/20 20:00 07/02/20 20:59 DC 07/02/20 20:19 Acetaminophen (Tylenol) 650 mg PRN Q4HRS PRN PO FEVER > 100.3'F 07/02/20 19:00 07/03/20 02:35 DC 07/02/20 21:49 Tobramycin Sulfate (Tobrex Ophth Soln) 1 drop Q4HRS W/A OS 07/02/20 20:00 07/03/20 09:03 Albuterol Sulfate (Ventolin Hfa) 2 puff PRN Q4HRS PRN INH WHEEZES 07/02/20 21:15 07/03/20 09:16 Doxycycline Hyclate (Vibra-Tab) 100 mg BID PO 07/03/20 09:00 07/08/20 08:59 07/03/20 09:02 Sodium Chloride 1,000 ml @ 100 mls/hr 1X ONCE IV 07/02/20 21:30 07/03/20 07:29 DC 07/02/20 21:39 Enoxaparin Sodium (Lovenox 40mg Syringe) 40 mg Q24H SQ 07/02/20 21:30 07/02/20 21:38 Ibuprofen (Motrin) 600 mg PRN Q6HRS PRN PO INFLAMMATION 07/02/20 23:00 07/03/20 05:32 Gabapentin (Neurontin) 900 mg TID PO 07/03/20 01:30 07/03/20 09:01 Pramipexole Dihydrochloride (miraPEX) 0.25 mg QHS PO 07/03/20 05:30 07/03/20 05:34 Benzonatate (Tessalon Perle) 100 mg PRN TID PRN PO COUGH 0900 1400 2100 07/03/20 00:00 07/03/20 01:57 Lorazepam (Ativan) 1 mg PRN Q6HRS PRN PO ANXIETY / AGITATION 07/03/20 01:45 07/03/20 01:57 Aspirin (Aspirin Chewable) 81 mg DAILYWBKFT PO 07/03/20 08:00 07/03/20 09:01 Furosemide (Lasix) 20 mg DAILY PO 07/03/20 09:00 07/03/20 09:01 Hydrochlorothiazide (Hydrodiuril) 25 mg DAILY PO 07/03/20 09:00 07/03/20 09:01 Lisinopril (Prinivil) 10 mg DAILY PO 07/03/20 09:00 07/03/20 09:01 Diltiazem HCl (Cardizem 24hr Cd) 360 mg DAILY PO 07/03/20 09:00 07/03/20 09:01 Albuterol/ Ipratropium (Combivent Respimat 20-100 Mcg) 1 puff Q6HRS INH 07/03/20 12:00 07/03/20 11:28 Methylprednisolone Sodium Succinate (SOLU-Medrol 125MG VIAL) 125 mg 1X ONCE IV 07/03/20 10:30 07/03/20 10:31 DC 07/03/20 11:26 Furosemide (Lasix) 60 mg 1X ONCE IVP 07/03/20 10:30 07/03/20 10:31 DC 07/03/20 11:27 Potassium Chloride (Klor-Con) 20 meq 1X ONCE PO 07/03/20 10:30 07/03/20 10:31 DC 07/03/20 11:27 ALLERGIES ALLERGIES: Coded Allergies: No Known Drug Allergies (Unverified , 07/02/20) ROS Review of System 14 point ROS evaluated with pertinent positives noted per HPI PHYSICAL EXAM General: Alert, Oriented X3, Cooperative, No acute distress HEENT: Atraumatic, Mucous membr. moist/pink Lungs: Other (diminished with crackles) Heart: Regular rate (SR no ectopies), Other (distant heart sounds) Extremities: No cyanosis, Other (trace to 1+ bilateral LE pitting edema) Skin: No breakdown, No significant lesion Neuro: Normal speech, Sensation intact Psych/Mental Status: Mental status NL, Mood NL MUSCULOSKELETAL: Osteoarthritic changes both hands VITALS/I&O VITALS/I&O: Vital Signs Date Time Temp Pulse Resp B/P (MAP) Pulse Ox O2 Delivery O2 Flow Rate FiO2 07/03/20 11:13 97.9 93 16 126/67 (86) 82 Simple Mask 3.0 97.9 I & O 07/02/20 07/02/20 07/03/20 15:00 23:00 07:00 Intake Total 360 ml Output Total 750 ml Balance -390 ml LABS Lab: Laboratory Tests Test 07/02/20 15:45 07/02/20 16:25 07/02/20 16:50 07/02/20 19:15 Lactic Acid Level 1.1 mmol/L (0.4-2.0) White Blood Count 8.1 x10^3/uL (4.0-11.0) Red Blood Count 5.10 x10^6/uL (3.50-5.40) Hemoglobin 13.6 g/dL (12.0-15.5) Hematocrit 42.4 % (36.0-47.0) Mean Corpuscular Volume 83 fL (79-100) Mean Corpuscular Hemoglobin 27 pg (25-35) Mean Corpuscular Hemoglobin Concent 32 g/dL (31-37) Red Cell Distribution Width 16.0 % (11.5-14.5) H Platelet Count 202 x10^3/uL (140-400) Neutrophils (%) (Auto) 76 % (31-73) H Lymphocytes (%) (Auto) 10 % (24-48) L Monocytes (%) (Auto) 9 % (0-9) Eosinophils (%) (Auto) 4 % (0-3) H Basophils (%) (Auto) 1 % (0-3) Neutrophils # (Auto) 6.1 x10^3/uL (1.8-7.7) Lymphocytes # (Auto) 0.8 x10^3/uL (1.0-4.8) L Monocytes # (Auto) 0.7 x10^3/uL (0.0-1.1) Eosinophils # (Auto) 0.3 x10^3/uL (0.0-0.7) Basophils # (Auto) 0.1 x10^3/uL (0.0-0.2) Sodium Level 145 mmol/L (136-145) Potassium Level 3.9 mmol/L (3.5-5.1) Chloride Level 103 mmol/L (98-107) Carbon Dioxide Level 35 mmol/L (21-32) H Anion Gap 7 (6-14) Blood Urea Nitrogen 23 mg/dL (7-20) H Creatinine 0.8 mg/dL (0.6-1.0) Estimated GFR (Cockcroft-Gault) 84.2 BUN/Creatinine Ratio 29 (6-20) H Glucose Level 105 mg/dL (70-99) H Calcium Level 9.5 mg/dL (8.5-10.1) Magnesium Level 2.1 mg/dL (1.8-2.4) Total Bilirubin 0.3 mg/dL (0.2-1.0) Aspartate Amino Transferase (AST) 21 U/L (15-37) Alanine Aminotransferase (ALT) 26 U/L (14-59) Alkaline Phosphatase 114 U/L (46-116) Creatine Kinase 365 U/L (26-192) H Creatine Kinase MB (Mass) 4.3 ng/mL (0.0-3.6) H Creatine Kinase MB Relative Index 1.2 % (0-4) Troponin I Quantitative 0.152 ng/mL (0.000-0.055) 0.158 ng/mL (0.000-0.055) [id number]-Type Natriuretic Peptide 648 pg/mL (0-449) H Total Protein 8.2 g/dL (6.4-8.2) Albumin 3.5 g/dL (3.4-5.0) Albumin/Globulin Ratio 0.7 (1.0-1.7) L Urine Collection Type Unknown Urine Color Yellow Urine Clarity Clear Urine pH 6.0 (<5.0-8.0) Urine Specific [place] 1.020 (1.000-1.030) Urine Protein Negative mg/dL (NEG-TRACE) Urine Glucose (UA) Negative mg/dL (NEG) Urine Ketones (Stick) Negative mg/dL (NEG) Urine Blood Negative (NEG) Urine Nitrite Negative (NEG) Urine Bilirubin Negative (NEG) Urine Urobilinogen Dipstick 1.0 mg/dL (0.2 mg/dL) Urine Leukocyte Esterase Negative (NEG) Urine RBC 0 /HPF (0-2) Urine WBC Occ /HPF (0-4) Urine Squamous Epithelial Cells Mod /LPF Urine Bacteria Moderate /HPF (0-FEW) Urine Opiates Screen Neg (NEG) Urine Methadone Screen Neg (NEG) Urine Barbiturates Neg (NEG) Urine Phencyclidine Screen Neg (NEG) Urine Amphetamine/Methamphetamine Neg (NEG) Urine Benzodiazepines Screen Neg (NEG) Urine Cocaine Screen Neg (NEG) Urine Cannabinoids Screen Neg (NEG) Urine Ethyl Alcohol Neg (NEG) Test 07/03/20 00:23 07/03/20 09:59 07/03/20 10:43 Troponin I Quantitative 0.146 ng/mL (0.000-0.055) White Blood Count 6.4 x10^3/uL (4.0-11.0) Red Blood Count 4.96 x10^6/uL (3.50-5.40) Hemoglobin 12.9 g/dL (12.0-15.5) Hematocrit 41.5 % (36.0-47.0) Mean Corpuscular Volume 84 fL (79-100) Mean Corpuscular Hemoglobin 26 pg (25-35) Mean Corpuscular Hemoglobin Concent 31 g/dL (31-37) Red Cell Distribution Width 16.0 % (11.5-14.5) H Platelet Count 195 x10^3/uL (140-400) Neutrophils (%) (Auto) 71 % (31-73) Lymphocytes (%) (Auto) 11 % (24-48) L Monocytes (%) (Auto) 11 % (0-9) H Eosinophils (%) (Auto) 6 % (0-3) H Basophils (%) (Auto) 1 % (0-3) Neutrophils # (Auto) 4.6 x10^3/uL (1.8-7.7) Lymphocytes # (Auto) 0.7 x10^3/uL (1.0-4.8) L Monocytes # (Auto) 0.7 x10^3/uL (0.0-1.1) Eosinophils # (Auto) 0.4 x10^3/uL (0.0-0.7) Basophils # (Auto) 0.1 x10^3/uL (0.0-0.2) Sodium Level 144 mmol/L (136-145) Potassium Level 4.3 mmol/L (3.5-5.1) Chloride Level 105 mmol/L (98-107) Carbon Dioxide Level 33 mmol/L (21-32) H Anion Gap 6 (6-14) Blood Urea Nitrogen 16 mg/dL (7-20) Creatinine 0.6 mg/dL (0.6-1.0) Estimated GFR (Cockcroft-Gault) 117.3 BUN/Creatinine Ratio 27 (6-20) H Glucose Level 107 mg/dL (70-99) H Calcium Level 8.5 mg/dL (8.5-10.1) Total Bilirubin 0.3 mg/dL (0.2-1.0) Aspartate Amino Transferase (AST) 18 U/L (15-37) Alanine Aminotransferase (ALT) 25 U/L (14-59) Alkaline Phosphatase 109 U/L (46-116) Total Protein 7.5 g/dL (6.4-8.2) Albumin 3.0 g/dL (3.4-5.0) L Albumin/Globulin Ratio 0.7 (1.0-1.7) L O2 Saturation 90 % (92-99) L Arterial Blood pH 7.24 (7.35-7.45) L Arterial Blood pCO2 at Patient Temp 86 mmHg (35-46) *H Arterial Blood pO2 at Patient Temp 62 mmHg (65-108) L Arterial Blood HCO3 36 mmol/L (21-28) H Arterial Blood Base Excess 5 mmol/L (-3-3) H FiO2 32: simple mask Laboratory Tests 07/02/20 16:25 07/03/20 09:59 Laboratory Tests 07/02/20 16:25 07/03/20 09:59 ASSESSMENT/PLAN ASSESSMENT/PLAN 1. Acute on chronic hypercapnic respiratory failure: likely underlying CODY 2. Possible underlying COPD 3. PUI: + for dyspnea and conjunctivitis. Covid-19 pending 4. Mild acute likely on chronic diastolic CHF 5. Mild troponin elevation : peaked at 0.15, no acute EKG changes and no CP. S uspect demand mediated 5. HTN: controlled 6. DM2 7. Morbid obesity with significant debility: lives alone Recommendations 1. SS consult, will likely need SNU placement 2. Continue home secondary prevention measures. ASA 3. TTE if covid negative. Check TSH, lipids 4. Will outpt CODY workup 5. Will need outpt ischemic workup given her risk factors. HENRI RAYMOND MD 07/03/20 1240: CARDIAC CONSULT ASSESSMENT/PLAN ASSESSMENT/PLAN Patient seen and evaluated Acute on chronic hypercapnic respiratory failure. Covid testing pending. Underlying COPD. Continuing present treatment. Pulmonary evaluation pending. PUI. Testing pending. Minimally elevated troponin at 0.15. No ischemic EKG changes. No chest pain. Consistent with demand mediated ischemia. We will continue present medications. Future echo depending on Covid testing. Controlled hypertension. Continue present medications. Morbid obesity. Diabetes mellitus. As per the primary service. Thank you for allowing us to participate in the care of your patient. RYAN LU APRN Jul 03, 2020 12:36 HENRI RAYMOND MD Jul 03, 2020 12:40
[2020-07-03 12:39] LABS: INFLUENZA A PATIENT NEGATIVE (NEGATIVE); INFLUENZA B PATIENT NEGATIVE (NEGATIVE)
[2020-07-03 13:07] LABS: CHOLESTEROL/HDL RATIO 3.9
--- NOTE | 2020-07-03 14:07 | NUR ---
SW following for discharge planning. Spoke with RN and reviewed chart. SW consulted as pt lives alone and is at high risk for readmission. SW requested PT/OT orders. Pt is COVID pending, 3l 02, IV pain medication. Pt has home 02 per RN. AI attempted to call daughter Chiara ([phone]) but there was no answer. AI following. Addendum: 07/07/20 at 1347 by LYNNETTE CLOUD COVID result negative. Pt transferred to CVICU. yair Harris to follow.
[2020-07-03] MEDS: methylPREDNISolone SOD SUCC PF 40 MG/ML VIAL. IV SCH ×2 (14:11→22:00)
[2020-07-03 15:56] LABS: BASE EXCESS ABG 4 mmol/L (-3-3); HCO3 ABG 34 mmol/L (21-28); PO2 ABG 75 mmHg (65-108); SAT O2 ABG 94 % (92-99)
[2020-07-03 15:59] LABS: FIO2 ABG 50% BIPAP; PCO2 ABG 79 mmHg (35-46)
[2020-07-03 19:38] LABS: BASE EXCESS ABG 5 mmol/L (-3-3); HCO3 ABG 33 mmol/L (21-28); PO2 ABG 73 mmHg (65-108); SAT O2 ABG 95 % (92-99)
[2020-07-03 19:43] LABS: PCO2 ABG 63 mmHg (35-46)
[2020-07-03 19:44] LABS: FIO2 ABG 40
[2020-07-03] MEDS: ENOXAPARIN 40 MG/0.4 ML SYRINGE. SQ SCH (20:46)
[2020-07-03 23:13] LABS: HEMOGLOBIN A1C 6.1 % (4.8-5.6)
--- NOTE | 2020-07-04 01:03 | NUR ---
UPON ARRIVAL TO CHECK ON PT'S BIPAP PT WAS OFF BIPAP ON 4 LNC. RN WAS GIVING PT COFFEE. PER EDY BORGES PT HAD BEEN OFF BIPAP SINCE AROUND 2100, DR MARSH SAID SHE COULD BE OFF FOR MEALS; AND NEEDS TO WEAR BIPAP AT NIGHT. WILL CONTINUE TO MONITOR
[2020-07-04 03:00] VITALS: BP 117/73
[2020-07-04 05:41] LABS: BASO % 0 % (0-3); EOS % 0 % (0-3); HEMATOCRIT 41.9 % (36.0-47.0); HEMOGLOBIN 12.9 g/dL (12.0-15.5); LYMPH # 0.5 x10^3/uL (1.0-4.8); LYMPH % 8 % (24-48); MEAN CORPUSCULAR HEMOGLOBIN 26 pg (25-35); MEAN CORPUSCULAR HGB CONC 31 g/dL (31-37); MEAN CORPUSCULAR VOLUME 84 fL (79-100); MONO # 0.1 x10^3/uL (0.0-1.1); MONO % 1 % (0-9); NEUT # 6.2 x10^3/uL (1.8-7.7); NEUT % 91 % (31-73); PLATELET COUNT 231 x10^3/uL (140-400); RED CELL DISTRIBUTION WIDTH 15.9 % (11.5-14.5); WHITE BLOOD COUNT 6.8 x10^3/uL (4.0-11.0)
[2020-07-04 05:57] LABS: CALCIUM 9.1 mg/dL (8.5-10.1); CREATININE 0.9 mg/dL (0.6-1.0); GFR 73.5; POTASSIUM 4.7 mmol/L (3.5-5.1)
[2020-07-04] MEDS: TOBRAMYCIN 0.3% OPHTH SOLUTION 5ML BOTTLE. OS SCH ×5 (05:59→22:00)
[2020-07-04] MEDS: IPRATROPIUM/ALBUTEROL 20/100mcg/INH INHALER. INH SCH ×4 (06:00→17:40)
[2020-07-04] MEDS: methylPREDNISolone SOD SUCC PF 40 MG/ML VIAL. IV SCH ×3 (06:05→21:02)
[2020-07-04 07:00] VITALS: BP 158/76
--- NOTE | 2020-07-04 08:22 | PDOC ---
PULMONARY PROGRESS NOTES DATE: 07/04/20 TIME: 08:18 Subjective feels better used BIPAP most of yesterday ABG better Vitals Vital Signs Date Time Temp Pulse Resp B/P (MAP) Pulse Ox O2 Delivery O2 Flow Rate FiO2 07/04/20 05:21 91 BiPAP/CPAP 07/04/20 04:00 3.0 07/04/20 03:00 97.9 74 20 117/73 (88) 97.9 General: Alert, No acute distress Lungs: Wheezing (improved) Cardiovascular: S1 Abdomen: Soft, Other (obese) Extremities: Other (trace) Skin: Warm Labs Laboratory Tests Test 07/02/20 15:45 07/02/20 15:50 07/02/20 16:25 07/02/20 16:50 Lactic Acid Level 1.1 mmol/L (0.4-2.0) Coronavirus (PCR) Not detected (Not Detected) Influenza Type A Antigen Negative (NEGATIVE) Influenza Type B Antigen Negative (NEGATIVE) White Blood Count 8.1 x10^3/uL (4.0-11.0) Red Blood Count 5.10 x10^6/uL (3.50-5.40) Hemoglobin 13.6 g/dL (12.0-15.5) Hematocrit 42.4 % (36.0-47.0) Mean Corpuscular Volume 83 fL (79-100) Mean Corpuscular Hemoglobin 27 pg (25-35) Mean Corpuscular Hemoglobin Concent 32 g/dL (31-37) Red Cell Distribution Width 16.0 % (11.5-14.5) Platelet Count 202 x10^3/uL (140-400) Neutrophils (%) (Auto) 76 % (31-73) Lymphocytes (%) (Auto) 10 % (24-48) Monocytes (%) (Auto) 9 % (0-9) Eosinophils (%) (Auto) 4 % (0-3) Basophils (%) (Auto) 1 % (0-3) Neutrophils # (Auto) 6.1 x10^3/uL (1.8-7.7) Lymphocytes # (Auto) 0.8 x10^3/uL (1.0-4.8) Monocytes # (Auto) 0.7 x10^3/uL (0.0-1.1) Eosinophils # (Auto) 0.3 x10^3/uL (0.0-0.7) Basophils # (Auto) 0.1 x10^3/uL (0.0-0.2) Sodium Level 145 mmol/L (136-145) Potassium Level 3.9 mmol/L (3.5-5.1) Chloride Level 103 mmol/L (98-107) Carbon Dioxide Level 35 mmol/L (21-32) Anion Gap 7 (6-14) Blood Urea Nitrogen 23 mg/dL (7-20) Creatinine 0.8 mg/dL (0.6-1.0) Estimated GFR (Cockcroft-Gault) 84.2 BUN/Creatinine Ratio 29 (6-20) Glucose Level 105 mg/dL (70-99) Calcium Level 9.5 mg/dL (8.5-10.1) Magnesium Level 2.1 mg/dL (1.8-2.4) Total Bilirubin 0.3 mg/dL (0.2-1.0) Aspartate Amino Transf (AST/SGOT) 21 U/L (15-37) Alanine Aminotransferase (ALT/SGPT) 26 U/L (14-59) Alkaline Phosphatase 114 U/L (46-116) Creatine Kinase 365 U/L (26-192) Creatine Kinase MB (Mass) 4.3 ng/mL (0.0-3.6) Creatine Kinase MB Relative Index 1.2 % (0-4) Troponin I Quantitative 0.152 ng/mL (0.000-0.055) ZD-Uca-R-Type Natriuretic Peptide 648 pg/mL (0-449) Total Protein 8.2 g/dL (6.4-8.2) Albumin 3.5 g/dL (3.4-5.0) Albumin/Globulin Ratio 0.7 (1.0-1.7) Urine Collection Type Unknown Urine Color Yellow Urine Clarity Clear Urine pH 6.0 (<5.0-8.0) Urine Specific [place] 1.020 (1.000-1.030) Urine Protein Negative mg/dL (NEG-TRACE) Urine Glucose (UA) Negative mg/dL (NEG) Urine Ketones (Stick) Negative mg/dL (NEG) Urine Blood Negative (NEG) Urine Nitrite Negative (NEG) Urine Bilirubin Negative (NEG) Urine Urobilinogen Dipstick 1.0 mg/dL (0.2 mg/dL) Urine Leukocyte Esterase Negative (NEG) Urine RBC 0 /HPF (0-2) Urine WBC Occ /HPF (0-4) Urine Squamous Epithelial Cells Mod /LPF Urine Bacteria Moderate /HPF (0-FEW) Urine Opiates Screen Neg (NEG) Urine Methadone Screen Neg (NEG) Urine Barbiturates Neg (NEG) Urine Phencyclidine Screen Neg (NEG) Urine Amphetamine/Methamphetamine Neg (NEG) Urine Benzodiazepines Screen Neg (NEG) Urine Cocaine Screen Neg (NEG) Urine Cannabinoids Screen Neg (NEG) Urine Ethyl Alcohol Neg (NEG) Test 07/02/20 19:15 07/03/20 00:23 07/03/20 09:59 07/03/20 10:43 Troponin I Quantitative 0.158 ng/mL (0.000-0.055) 0.146 ng/mL (0.000-0.055) White Blood Count 6.4 x10^3/uL (4.0-11.0) Red Blood Count 4.96 x10^6/uL (3.50-5.40) Hemoglobin 12.9 g/dL (12.0-15.5) Hematocrit 41.5 % (36.0-47.0) Mean Corpuscular Volume 84 fL (79-100) Mean Corpuscular Hemoglobin 26 pg (25-35) Mean Corpuscular Hemoglobin Concent 31 g/dL (31-37) Red Cell Distribution Width 16.0 % (11.5-14.5) Platelet Count 195 x10^3/uL (140-400) Neutrophils (%) (Auto) 71 % (31-73) Lymphocytes (%) (Auto) 11 % (24-48) Monocytes (%) (Auto) 11 % (0-9) Eosinophils (%) (Auto) 6 % (0-3) Basophils (%) (Auto) 1 % (0-3) Neutrophils # (Auto) 4.6 x10^3/uL (1.8-7.7) Lymphocytes # (Auto) 0.7 x10^3/uL (1.0-4.8) Monocytes # (Auto) 0.7 x10^3/uL (0.0-1.1) Eosinophils # (Auto) 0.4 x10^3/uL (0.0-0.7) Basophils # (Auto) 0.1 x10^3/uL (0.0-0.2) Sodium Level 144 mmol/L (136-145) Potassium Level 4.3 mmol/L (3.5-5.1) Chloride Level 105 mmol/L (98-107) Carbon Dioxide Level 33 mmol/L (21-32) Anion Gap 6 (6-14) Blood Urea Nitrogen 16 mg/dL (7-20) Creatinine 0.6 mg/dL (0.6-1.0) Estimated GFR (Cockcroft-Gault) 117.3 BUN/Creatinine Ratio 27 (6-20) Glucose Level 107 mg/dL (70-99) Hemoglobin A1c 6.1 % (4.8-5.6) Calcium Level 8.5 mg/dL (8.5-10.1) Total Bilirubin 0.3 mg/dL (0.2-1.0) Aspartate Amino Transf (AST/SGOT) 18 U/L (15-37) Alanine Aminotransferase (ALT/SGPT) 25 U/L (14-59) Alkaline Phosphatase 109 U/L (46-116) Total Protein 7.5 g/dL (6.4-8.2) Albumin 3.0 g/dL (3.4-5.0) Albumin/Globulin Ratio 0.7 (1.0-1.7) Triglycerides Level 133 mg/dL (0-150) Cholesterol Level 211 mg/dL (0-200) LDL Cholesterol, Calculated 130 mg/dL (0-100) VLDL Cholesterol, Calculated 27 mg/dL (0-40) Non-HDL Cholesterol Calculated 157 mg/dL (0-129) HDL Cholesterol 54 mg/dL (40-60) Cholesterol/HDL Ratio 3.9 Thyroid Stimulating Hormone (TSH) 1.819 uIU/mL (0.358-3.74) O2 Saturation 90 % (92-99) Arterial Blood pH 7.24 (7.35-7.45) Arterial Blood pCO2 at Patient Temp 86 mmHg (35-46) Arterial Blood pO2 at Patient Temp 62 mmHg (65-108) Arterial Blood HCO3 36 mmol/L (21-28) Arterial Blood Base Excess 5 mmol/L (-3-3) FiO2 32: simple mask Test 07/03/20 15:40 07/03/20 19:35 07/03/20 20:47 07/04/20 04:30 O2 Saturation 94 % (92-99) 95 % (92-99) Arterial Blood pH 7.26 (7.35-7.45) 7.34 (7.35-7.45) Arterial Blood pCO2 at Patient Temp 79 mmHg (35-46) 63 mmHg (35-46) Arterial Blood pO2 at Patient Temp 75 mmHg (65-108) 73 mmHg (65-108) Arterial Blood HCO3 34 mmol/L (21-28) 33 mmol/L (21-28) Arterial Blood Base Excess 4 mmol/L (-3-3) 5 mmol/L (-3-3) FiO2 50% bipap 40 Glucose (Fingerstick) 198 mg/dL (70-99) White Blood Count 6.8 x10^3/uL (4.0-11.0) Red Blood Count 5.00 x10^6/uL (3.50-5.40) Hemoglobin 12.9 g/dL (12.0-15.5) Hematocrit 41.9 % (36.0-47.0) Mean Corpuscular Volume 84 fL (79-100) Mean Corpuscular Hemoglobin 26 pg (25-35) Mean Corpuscular Hemoglobin Concent 31 g/dL (31-37) Red Cell Distribution Width 15.9 % (11.5-14.5) Platelet Count 231 x10^3/uL (140-400) Neutrophils (%) (Auto) 91 % (31-73) Lymphocytes (%) (Auto) 8 % (24-48) Monocytes (%) (Auto) 1 % (0-9) Eosinophils (%) (Auto) 0 % (0-3) Basophils (%) (Auto) 0 % (0-3) Neutrophils # (Auto) 6.2 x10^3/uL (1.8-7.7) Lymphocytes # (Auto) 0.5 x10^3/uL (1.0-4.8) Monocytes # (Auto) 0.1 x10^3/uL (0.0-1.1) Eosinophils # (Auto) 0.0 x10^3/uL (0.0-0.7) Basophils # (Auto) 0.0 x10^3/uL (0.0-0.2) Sodium Level 141 mmol/L (136-145) Potassium Level 4.7 mmol/L (3.5-5.1) Chloride Level 103 mmol/L (98-107) Carbon Dioxide Level 33 mmol/L (21-32) Anion Gap 5 (6-14) Blood Urea Nitrogen 25 mg/dL (7-20) Creatinine 0.9 mg/dL (0.6-1.0) Estimated GFR (Cockcroft-Gault) 73.5 Glucose Level 146 mg/dL (70-99) Calcium Level 9.1 mg/dL (8.5-10.1) Laboratory Tests Test 07/03/20 09:59 07/03/20 10:43 07/03/20 15:40 07/03/20 19:35 White Blood Count 6.4 x10^3/uL (4.0-11.0) Red Blood Count 4.96 x10^6/uL (3.50-5.40) Hemoglobin 12.9 g/dL (12.0-15.5) Hematocrit 41.5 % (36.0-47.0) Mean Corpuscular Volume 84 fL (79-100) Mean Corpuscular Hemoglobin 26 pg (25-35) Mean Corpuscular Hemoglobin Concent 31 g/dL (31-37) Red Cell Distribution Width 16.0 % (11.5-14.5) Platelet Count 195 x10^3/uL (140-400) Neutrophils (%) (Auto) 71 % (31-73) Lymphocytes (%) (Auto) 11 % (24-48) Monocytes (%) (Auto) 11 % (0-9) Eosinophils (%) (Auto) 6 % (0-3) Basophils (%) (Auto) 1 % (0-3) Neutrophils # (Auto) 4.6 x10^3/uL (1.8-7.7) Lymphocytes # (Auto) 0.7 x10^3/uL (1.0-4.8) Monocytes # (Auto) 0.7 x10^3/uL (0.0-1.1) Eosinophils # (Auto) 0.4 x10^3/uL (0.0-0.7) Basophils # (Auto) 0.1 x10^3/uL (0.0-0.2) Sodium Level 144 mmol/L (136-145) Potassium Level 4.3 mmol/L (3.5-5.1) Chloride Level 105 mmol/L (98-107) Carbon Dioxide Level 33 mmol/L (21-32) Anion Gap 6 (6-14) Blood Urea Nitrogen 16 mg/dL (7-20) Creatinine 0.6 mg/dL (0.6-1.0) Estimated GFR (Cockcroft-Gault) 117.3 BUN/Creatinine Ratio 27 (6-20) Glucose Level 107 mg/dL (70-99) Hemoglobin A1c 6.1 % (4.8-5.6) Calcium Level 8.5 mg/dL (8.5-10.1) Total Bilirubin 0.3 mg/dL (0.2-1.0) Aspartate Amino Transf (AST/SGOT) 18 U/L (15-37) Alanine Aminotransferase (ALT/SGPT) 25 U/L (14-59) Alkaline Phosphatase 109 U/L (46-116) Total Protein 7.5 g/dL (6.4-8.2) Albumin 3.0 g/dL (3.4-5.0) Albumin/Globulin Ratio 0.7 (1.0-1.7) Triglycerides Level 133 mg/dL (0-150) Cholesterol Level 211 mg/dL (0-200) LDL Cholesterol, Calculated 130 mg/dL (0-100) VLDL Cholesterol, Calculated 27 mg/dL (0-40) Non-HDL Cholesterol Calculated 157 mg/dL (0-129) HDL Cholesterol 54 mg/dL (40-60) Cholesterol/HDL Ratio 3.9 Thyroid Stimulating Hormone (TSH) 1.819 uIU/mL (0.358-3.74) O2 Saturation 90 % (92-99) 94 % (92-99) 95 % (92-99) Arterial Blood pH 7.24 (7.35-7.45) 7.26 (7.35-7.45) 7.34 (7.35-7.45) Arterial Blood pCO2 at Patient Temp 86 mmHg (35-46) 79 mmHg (35-46) 63 mmHg (35-46) Arterial Blood pO2 at Patient Temp 62 mmHg (65-108) 75 mmHg (65-108) 73 mmHg (65-108) Arterial Blood HCO3 36 mmol/L (21-28) 34 mmol/L (21-28) 33 mmol/L (21-28) Arterial Blood Base Excess 5 mmol/L (-3-3) 4 mmol/L (-3-3) 5 mmol/L (-3-3) FiO2 32: simple mask 50% bipap 40 Test 07/03/20 20:47 07/04/20 04:30 Glucose (Fingerstick) 198 mg/dL (70-99) White Blood Count 6.8 x10^3/uL (4.0-11.0) Red Blood Count 5.00 x10^6/uL (3.50-5.40) Hemoglobin 12.9 g/dL (12.0-15.5) Hematocrit 41.9 % (36.0-47.0) Mean Corpuscular Volume 84 fL (79-100) Mean Corpuscular Hemoglobin 26 pg (25-35) Mean Corpuscular Hemoglobin Concent 31 g/dL (31-37) Red Cell Distribution Width 15.9 % (11.5-14.5) Platelet Count 231 x10^3/uL (140-400) Neutrophils (%) (Auto) 91 % (31-73) Lymphocytes (%) (Auto) 8 % (24-48) Monocytes (%) (Auto) 1 % (0-9) Eosinophils (%) (Auto) 0 % (0-3) Basophils (%) (Auto) 0 % (0-3) Neutrophils # (Auto) 6.2 x10^3/uL (1.8-7.7) Lymphocytes # (Auto) 0.5 x10^3/uL (1.0-4.8) Monocytes # (Auto) 0.1 x10^3/uL (0.0-1.1) Eosinophils # (Auto) 0.0 x10^3/uL (0.0-0.7) Basophils # (Auto) 0.0 x10^3/uL (0.0-0.2) Sodium Level 141 mmol/L (136-145) Potassium Level 4.7 mmol/L (3.5-5.1) Chloride Level 103 mmol/L (98-107) Carbon Dioxide Level 33 mmol/L (21-32) Anion Gap 5 (6-14) Blood Urea Nitrogen 25 mg/dL (7-20) Creatinine 0.9 mg/dL (0.6-1.0) Estimated GFR (Cockcroft-Gault) 73.5 Glucose Level 146 mg/dL (70-99) Calcium Level 9.1 mg/dL (8.5-10.1) Medications Active Scripts Medications Dose Route/Sig Max Daily Dose Days Date Category [Vitamin D] PO DAILY 07/03/20 Reported Vitamin E (Vitamin E Acetate) 400 Unit Capsule 400 Unit PO DAILY 07/03/20 Reported Vitamin C (Ascorbic Acid) 500 Mg Capsule.er 1 Cap PO DAILY 30 07/03/20 Reported Metformin Hcl Er (Metformin Hcl) 500 Mg Tab.er.24h 500 Mg PO DAILYWBKFT 07/03/20 Reported Lasix (Furosemide) 20 Mg Tablet 1 Tab PO DAILY 30 07/03/20 Reported Aspirin 81 Mg Tab.chew 1 Tab PO DAILY 07/03/20 Reported Cardizem Cd (Diltiazem Hcl) 360 Mg Cap.er.24h 1 Cap PO DAILY 07/03/20 Reported Lisinopril 10 Mg Tablet 1 Tab PO DAILY 07/03/20 Reported Hydrochlorothiazide Tablet (Hydrochlorothiazide) 25 Mg Tablet 25 Mg PO DAILY 07/03/20 Reported Motrin Ib (Ibuprofen) 200 Mg Tablet 600 Mg PO Q6HRS PRN 07/02/20 Reported Neurontin (Gabapentin) 600 Mg Tablet 900 Mg PO TID 07/02/20 Reported Impression . 1. Acute hypoxic and acute on chronic hypercapnic respiratory failure with audible wheezing and chest x-ray consistent with bilateral interstitial infiltrates. The findings are highly suggestive of cardiac asthma. She has no significant history of pulmonary asthma and no significant tobacco history. 2. Abnormal chest x-ray with bilateral interstitial infiltrates. No old x-ray available for comparison. This is likely secondary to congestive heart failure. 3. Morbid obesity with a body mass index of 53. She is at risk for sleep apnea. She also likely has obesity hypoventilation syndrome. Her bicarbonate is 35. had worsening hypercapnia. Rx with BIPAP 4. History of diastolic heart failure, details unknown. We will obtain an echocardiogram. 5. Low suspicion for COVID. Plan . : 1. I will continue with present oxygen to keep saturation 92 and above.bipap qhs and prn 2. ABG improved 3. IV Solu-Medrol. 4. Albuterol 2 puffs q. 4 hours until wheezing gets better COVID ruled out, start nebulizer. 5. prn IV Lasix. f/u cxr today 6. Empiric antibiotics for now. 7. Obtain echocardiogram. 8. Lovenox for DVT prophylaxis. 9. d/w RN/RT in detail 10. She would benefit from sleep study as an outpatient. Discussed with RN. SAMANTHA MARSH MD Jul 04, 2020 08:22
[2020-07-04] MEDS: INSULIN LISPRO 300 UNITS/3 ML VIAL. SQ SCH ×3 (09:30→16:57)
[2020-07-04] MEDS: LACTOBACILLUS RHAMNOSUS GG 1 CAPSULE. PO SCH ×2 (09:32→21:01)
[2020-07-04] MEDS: ASPIRIN CHEWABLE 81 MG TABLET. PO SCH (09:33)
[2020-07-04] MEDS: LISINOPRIL 10 MG TABLET PO SCH (09:34)
[2020-07-04] MEDS: hydroCHLOROthiazide 25 MG TABLET PO SCH (09:34)
[2020-07-04] MEDS: GABAPENTIN 300 MG CAPSULE. PO SCH ×3 (09:34→21:00)
[2020-07-04] MEDS: DOXYCYCLINE HYCLATE 100 MG TABLET PO SCH ×2 (09:34→21:01)
[2020-07-04] MEDS: FUROSEMIDE 20 MG TABLET PO SCH (09:36)
--- NOTE | 2020-07-04 10:14 | RAD ---
EXAM: CHEST 1 VIEW History: Shortness of breath COMPARISON: 07/02/2020 TECHNIQUE: Single portable radiograph of the chest FINDINGS: Mild cardiomegaly. Patchy bilateral lung airspace opacities likely improved since prior ex am. The costophrenic sulci are clear and well demarcated. IMPRESSION: 1. Patchy bilateral lung airspace opacities likely improved since prior exam. Follow-up to complete resolution. 2. Mild cardiomegaly. Electronically signed by: Sukhdeep Balderas MD (07/04/2020 10:12 AM) [id number]
[2020-07-04 10:31] VITALS: BP 175/90
--- NOTE | 2020-07-04 13:24 | PDOC ---
[facility] PROGRESS NOTE Date of Service DOS: DATE: 07/04/20 TIME: 13:22 Chief Complaint Chief Complaint COPD exacerbation Acute respiratory failure with hypoxia Elevated troponins COVID-19 PUI Conjunctivitis Dehydration Plan: Consultations placed to cardiology for evaluation of elevated troponins; likely demand ischemia as to troponins have been elevated but stable Continue to trend troponins We will treat patient with antibiotics and steroids COVID-19 pending Doxycycline 100 mg twice daily, Decadron 6 mg daily Appreciate pulmonology recommendationsstart IV steroids, IV Lasix, pending echocardiogram, Combivent inhaler until Covid negative then start nebulizer if negative Oxygen and supportive care Will consider initiating remdesivir when confirmed COVID-19 positive, however patient was insistent upon leaving the hospital before T[facility] We will order 6-minute walk for the morning and patient may be able to discharge home on home oxygen. Influenza pending IV normal saline FEN - Cardiac diet PPX - Lovenox FULL CODE Dispo - inpatient for above History of Present Illness History of Present Illness 07/04/2020 Patient needs to be on BiPAP through the day. Improved ABG. Still having some wheezing. Patient's chart, labs, images were reviewed and discussed with RN 07/03/2020 No acute events overnight. Patient continues to be short of breath and wheezing. Currently on 10 L nonrebreathing mask. Patient's chart, labs, images were reviewed and discussed with RN 75-year-old female with past medical history of undiagnosed COPD on 2 L at night, CHF, who presents to the ER with complaints of shortness of breath for the past 2 months. She states her symptoms are worsening over the past 2 weeks. She reports associated productive cough over this time. Patient admits to roughly 10-year history of smoking in the 60's. Of note she also complains of left arm erythema with clear drainage for the past week. Upon evaluation in the ED patient's troponin was initially elevated at 0.152, with repeat 0.158. Cardiology was notified in the ED, and recommended medicine admit for further evaluation. Patient denies any chest pain or known sick contacts. Vitals/I&O Vitals/I&O: Vital Signs Date Time Temp Pulse Resp B/P (MAP) Pulse Ox O2 Delivery O2 Flow Rate FiO2 07/04/20 12:00 3.0 07/04/20 10:31 96.1 83 18 175/90 (118 90 96.1 07/04/20 08:00 Nasal Cannula I & O 07/03/20 07/03/20 07/04/20 15:00 23:00 07:00 Intake Total 360 ml 240 ml 720 ml Output Total 400 ml 800 ml Balance -40 ml -560 ml 720 ml Physical Exam General: Alert, Oriented X3, Cooperative, No acute distress Heart: Regular rate, Other Lungs: Wheezing (improved) Abdomen: No tenderness, No hepatosplenomegaly Extremities: No cyanosis, Other Skin: No breakdown, No significant lesion Labs Labs: Laboratory Tests Test 07/03/20 15:40 07/03/20 19:35 07/03/20 20:47 07/04/20 04:30 O2 Saturation 94 % (92-99) 95 % (92-99) Arterial Blood pH 7.26 (7.35-7.45) 7.34 (7.35-7.45) Arterial Blood pCO2 at Patient Temp 79 mmHg (35-46) 63 mmHg (35-46) Arterial Blood pO2 at Patient Temp 75 mmHg (65-108) 73 mmHg (65-108) Arterial Blood HCO3 34 mmol/L (21-28) 33 mmol/L (21-28) Arterial Blood Base Excess 4 mmol/L (-3-3) 5 mmol/L (-3-3) FiO2 50% bipap 40 Glucose (Fingerstick) 198 mg/dL (70-99) White Blood Count 6.8 x10^3/uL (4.0-11.0) Red Blood Count 5.00 x10^6/uL (3.50-5.40) Hemoglobin 12.9 g/dL (12.0-15.5) Hematocrit 41.9 % (36.0-47.0) Mean Corpuscular Volume 84 fL (79-100) Mean Corpuscular Hemoglobin 26 pg (25-35) Mean Corpuscular Hemoglobin Concent 31 g/dL (31-37) Red Cell Distribution Width 15.9 % (11.5-14.5) Platelet Count 231 x10^3/uL (140-400) Neutrophils (%) (Auto) 91 % (31-73) Lymphocytes (%) (Auto) 8 % (24-48) Monocytes (%) (Auto) 1 % (0-9) Eosinophils (%) (Auto) 0 % (0-3) Basophils (%) (Auto) 0 % (0-3) Neutrophils # (Auto) 6.2 x10^3/uL (1.8-7.7) Lymphocytes # (Auto) 0.5 x10^3/uL (1.0-4.8) Monocytes # (Auto) 0.1 x10^3/uL (0.0-1.1) Eosinophils # (Auto) 0.0 x10^3/uL (0.0-0.7) Basophils # (Auto) 0.0 x10^3/uL (0.0-0.2) Sodium Level 141 mmol/L (136-145) Potassium Level 4.7 mmol/L (3.5-5.1) Chloride Level 103 mmol/L (98-107) Carbon Dioxide Level 33 mmol/L (21-32) Anion Gap 5 (6-14) Blood Urea Nitrogen 25 mg/dL (7-20) Creatinine 0.9 mg/dL (0.6-1.0) Estimated GFR (Cockcroft-Gault) 73.5 Glucose Level 146 mg/dL (70-99) Calcium Level 9.1 mg/dL (8.5-10.1) Test 07/04/20 11:06 Glucose (Fingerstick) 178 mg/dL (70-99) Assessment and Plan Assessmemt and Plan Problems Medical Problems: (1) Bacterial conjunctivitis of left eye Status: Acute (2) Bilateral pulmonary infiltrates on chest x-ray Status: Acute (3) Elevated troponin Status: Acute (4) Person under investigation for COVID-19 Status: Acute Comment Review of Relevant I have reviewed the following items tucker (where applicable) has been applied. Medications: Current Medications Medications (Trade) Dose Ordered Sig/Mehul Route PRN Reason Start Time Stop Time Status Last Admin Dose Admin Methylprednisolone Sodium Succinate (SOLU-Medrol 40MG VIAL) 60 mg Q8HRS IV 07/03/20 14:00 07/04/20 06:05 Justifications for Admission Other Justification Acute respiratory failure with hypoxia, COVID-19 JJ LÓPEZ MD Jul 04, 2020 13:24
[2020-07-04] MEDS: MORPHINE SULFATE 2 MG/ML VIAL. IV PRN (14:04)
[2020-07-04 14:32] VITALS: BP 148/74
--- NOTE | 2020-07-04 14:39 | PDOC ---
PROGRESS NOTES Date of Service: DATE: 07/04/20 TIME: 14:35 Subjective Subjective Patient needing BiPAP Objective Objective Vital Signs Date Time Temp Pulse Resp B/P (MAP) Pulse Ox O2 Delivery O2 Flow Rate FiO2 07/04/20 14:32 97.0 86 18 148/74 (98) 90 3.0 97.0 07/04/20 08:00 Nasal Cannula Intake and Output 07/04/20 07:00 Intake Total 1320 ml Output Total 1200 ml Balance 120 ml Intake Oral 1320 ml Output Urine Total 1200 ml Physical Exam Abdomen: Soft Heart: Regular rate, Other Extremities: No cyanosis, Other General: Alert HEENT: Atraumatic Lungs: Other Neuro: Normal speech Psych/Mental Status: Mood NL Skin: No breakdown, No significant lesion Assessment Assessment 1. Acute on chronic hypercapnic respiratory failure: Covid test pending. Pulmonary team following. 2. Acute on chronic diastolic heart failure, improving with diuresis. Check 2D echo if Covid negative 3. Mild troponin elevation : Most probably demand ischemia. Patient denied any chest pain. Ischemic work-up could be considered as an outpatient. 4. HTN: controlled 5. DM2 6. Morbid obesity with significant debility: lives alone Plan Plan of Care Problems Medical Problems: (1) Bacterial conjunctivitis of left eye Status: Acute (2) Bilateral pulmonary infiltrates on chest x-ray Status: Acute (3) Elevated troponin Status: Acute (4) Person under investigation for COVID-19 Status: Acute Comment Review of Relevant I have reviewed the following items tucker (where applicable) has been applied. Labs Laboratory Tests Test 07/03/20 15:40 07/03/20 19:35 07/03/20 20:47 07/04/20 04:30 O2 Saturation 94 % (92-99) 95 % (92-99) Arterial Blood pH 7.26 (7.35-7.45) 7.34 (7.35-7.45) Arterial Blood pCO2 at Patient Temp 79 mmHg (35-46) 63 mmHg (35-46) Arterial Blood pO2 at Patient Temp 75 mmHg (65-108) 73 mmHg (65-108) Arterial Blood HCO3 34 mmol/L (21-28) 33 mmol/L (21-28) Arterial Blood Base Excess 4 mmol/L (-3-3) 5 mmol/L (-3-3) FiO2 50% bipap 40 Glucose (Fingerstick) 198 mg/dL (70-99) White Blood Count 6.8 x10^3/uL (4.0-11.0) Red Blood Count 5.00 x10^6/uL (3.50-5.40) Hemoglobin 12.9 g/dL (12.0-15.5) Hematocrit 41.9 % (36.0-47.0) Mean Corpuscular Volume 84 fL (79-100) Mean Corpuscular Hemoglobin 26 pg (25-35) Mean Corpuscular Hemoglobin Concent 31 g/dL (31-37) Red Cell Distribution Width 15.9 % (11.5-14.5) Platelet Count 231 x10^3/uL (140-400) Neutrophils (%) (Auto) 91 % (31-73) Lymphocytes (%) (Auto) 8 % (24-48) Monocytes (%) (Auto) 1 % (0-9) Eosinophils (%) (Auto) 0 % (0-3) Basophils (%) (Auto) 0 % (0-3) Neutrophils # (Auto) 6.2 x10^3/uL (1.8-7.7) Lymphocytes # (Auto) 0.5 x10^3/uL (1.0-4.8) Monocytes # (Auto) 0.1 x10^3/uL (0.0-1.1) Eosinophils # (Auto) 0.0 x10^3/uL (0.0-0.7) Basophils # (Auto) 0.0 x10^3/uL (0.0-0.2) Sodium Level 141 mmol/L (136-145) Potassium Level 4.7 mmol/L (3.5-5.1) Chloride Level 103 mmol/L (98-107) Carbon Dioxide Level 33 mmol/L (21-32) Anion Gap 5 (6-14) Blood Urea Nitrogen 25 mg/dL (7-20) Creatinine 0.9 mg/dL (0.6-1.0) Estimated GFR (Cockcroft-Gault) 73.5 Glucose Level 146 mg/dL (70-99) Calcium Level 9.1 mg/dL (8.5-10.1) Test 07/04/20 11:06 Glucose (Fingerstick) 178 mg/dL (70-99) Microbiology 07/03/20 Blood Culture - Preliminary, Resulted NO GROWTH AFTER 1 DAY 07/02/20 Urine Culture - Preliminary, Resulted Vitals/I & O Vital Sign - Last 24 Hours 07/03/20 07/03/20 07/03/20 07/03/20 15:14 15:38 16:00 16:16 Temp 97.8 97.8 Pulse 76 Resp 16 28 B/P (MAP) 101/60 (74) Pulse Ox 93 94 O2 Delivery Simple Mask BiPAP/CPAP BiPAP/CPAP O2 Flow Rate 3.0 3.0 07/03/20 07/03/20 07/03/20 07/03/20 16:46 19:00 19:30 20:00 Temp 98.4 98.4 Pulse 83 Resp 26 20 B/P (MAP) 128/72 (90) Pulse Ox 98 97 O2 Delivery BiPAP/CPAP BiPAP/CPAP O2 Flow Rate 3.0 07/03/20 07/03/20 07/03/20 07/03/20 20:00 20:49 21:19 23:00 Temp 99.4 99.4 Pulse 93 Resp 20 20 20 B/P (MAP) 123/68 (86) Pulse Ox 92 93 O2 Delivery Bi-pap BiPAP/CPAP Nasal Cannula O2 Flow Rate 4.0 07/04/20 07/04/20 07/04/20 07/04/20 00:00 00:40 02:14 03:00 Temp 97.9 97.9 Pulse 74 Resp 20 B/P (MAP) 117/73 (88) Pulse Ox 92 91 98 O2 Delivery Nasal Cannula BiPAP/CPAP O2 Flow Rate 3.0 4.0 07/04/20 07/04/20 07/04/20 07/04/20 04:00 05:21 07:00 07:00 Temp 98.0 98.0 Pulse 90 Resp 18 B/P (MAP) 158/76 (103) Pulse Ox 91 100 O2 Delivery BiPAP/CPAP O2 Flow Rate 3.0 3.0 07/04/20 07/04/20 07/04/20 07/04/20 08:00 08:00 09:33 09:34 Pulse 90 90 B/P (MAP) 158/76 158/76 O2 Delivery Nasal Cannula O2 Flow Rate 5.0 3.0 07/04/20 07/04/20 07/04/20/25/20 10:31 10:31 12:00 14:32 Temp 96.1 97.0 96.1 97.0 Pulse 83 86 Resp 18 18 B/P (MAP) 175/90 (118) 148/74 (98) Pulse Ox 90 90 O2 Flow Rate 3.0 3.0 3.0 Intake and Output 07/03/20 07/03/20 07/04/20 15:00 23:00 07:00 Intake Total 360 ml 240 ml 720 ml Output Total 400 ml 800 ml Balance -40 ml -560 ml 720 ml GAURAV VENEGAS MD Jul 04, 2020 14:39
[2020-07-04] MEDS: IBUPROFEN 200 MG TABLET. PO PRN (16:53)
[2020-07-04 19:00] VITALS: BP 127/66
[2020-07-04] MEDS: BENZONATATE 100 MG CAPSULE. PO PRN (21:00)
[2020-07-04] MEDS: PRAMIPEXOLE 0.25 MG TABLET. PO SCH (21:01)
[2020-07-04] MEDS: ENOXAPARIN 40 MG/0.4 ML SYRINGE. SQ SCH (21:01)
[2020-07-04] MEDS: ALBUTEROL SULFATE 8GM INHALER. INH PRN (21:03)
[2020-07-04 23:00] VITALS: BP 136/83
[2020-07-05 03:00] VITALS: BP 154/70
[2020-07-05 05:04] LABS: BASO % 0 % (0-3); EOS % 0 % (0-3); HEMATOCRIT 43.7 % (36.0-47.0); HEMOGLOBIN 13.4 g/dL (12.0-15.5); LYMPH # 0.4 x10^3/uL (1.0-4.8); LYMPH % 5 % (24-48); MEAN CORPUSCULAR HEMOGLOBIN 26 pg (25-35); MEAN CORPUSCULAR HGB CONC 31 g/dL (31-37); MEAN CORPUSCULAR VOLUME 84 fL (79-100); MONO # 0.2 x10^3/uL (0.0-1.1); MONO % 3 % (0-9); NEUT # 8.5 x10^3/uL (1.8-7.7); NEUT % 93 % (31-73); PLATELET COUNT 237 x10^3/uL (140-400); RED BLOOD COUNT 5.19 x10^6/uL (3.50-5.40); WHITE BLOOD COUNT 9.2 x10^3/uL (4.0-11.0)
[2020-07-05] MEDS: IPRATROPIUM/ALBUTEROL 20/100mcg/INH INHALER. INH SCH ×5 (05:49→22:55)
[2020-07-05] MEDS: TOBRAMYCIN 0.3% OPHTH SOLUTION 5ML BOTTLE. OS SCH ×5 (05:49→20:17)
[2020-07-05] MEDS: methylPREDNISolone SOD SUCC PF 40 MG/ML VIAL. IV SCH ×3 (05:49→20:16)
[2020-07-05 05:58] LABS: % BANDS 1 % (0-9); % LYMPHS 4 % (24-48); % MONOS 1 % (0-10); % SEGS 94 % (35-66); PLT ESTIMATE ADEQUATE (ADEQUATE)
[2020-07-05 07:59] VITALS: BP 135/80
[2020-07-05] MEDS: INSULIN LISPRO 300 UNITS/3 ML VIAL. SQ SCH ×3 (08:00→17:00)
[2020-07-05] MEDS: IBUPROFEN 200 MG TABLET. PO PRN ×2 (08:27→20:16)
[2020-07-05] MEDS: ACETAMINOPHEN 325 MG TABLET. PO PRN ×2 (08:27→20:17)
[2020-07-05] MEDS: LISINOPRIL 10 MG TABLET PO SCH (09:00)
[2020-07-05] MEDS: DOXYCYCLINE HYCLATE 100 MG TABLET PO SCH ×2 (09:00→20:16)
[2020-07-05] MEDS: FUROSEMIDE 20 MG TABLET PO SCH (09:01)
[2020-07-05] MEDS: LACTOBACILLUS RHAMNOSUS GG 1 CAPSULE. PO SCH ×2 (09:01→20:16)
[2020-07-05] MEDS: hydroCHLOROthiazide 25 MG TABLET PO SCH (09:01)
[2020-07-05] MEDS: GABAPENTIN 300 MG CAPSULE. PO SCH ×3 (09:02→20:17)
[2020-07-05] MEDS: ASPIRIN CHEWABLE 81 MG TABLET. PO SCH (09:02)
--- NOTE | 2020-07-05 09:28 | PDOC ---
PROGRESS NOTES Date of Service: DATE: 07/05/20 TIME: 09:27 Subjective Subjective No new complaints, saturating at 93% on 3 L oxygen Objective Objective Vital Signs Date Time Temp Pulse Resp B/P (MAP) Pulse Ox O2 Delivery O2 Flow Rate FiO2 07/05/20 09:01 58 154/70 07/05/20 07:20 93 Nasal Cannula 5.0 07/05/20 03:00 98.6 18 98.6 Intake and Output 07/05/20 07:00 Output Total 900 ml Balance -900 ml Output Urine Total 900 ml # Voids 1 Physical Exam Abdomen: Soft Heart: Regular rate, Other Extremities: No cyanosis, Other General: Alert HEENT: Atraumatic Lungs: Other Neuro: Normal speech Psych/Mental Status: Mood NL Skin: No breakdown, No significant lesion Assessment Assessment 1. Acute on chronic hypercapnic respiratory failure: Covid test negative. Pulmonary team following. 2. Acute on chronic diastolic heart failure, improving with diuresis. Check 2D echo to assess LV systolic function 3. Mild troponin elevation : Most probably demand ischemia. Patient denied any chest pain. Ischemic work-up could be considered as an outpatient. 4. HTN: controlled 5. DM2: Per IM 6. Morbid obesity with significant debility: lives alone Plan Plan of Care Problems Medical Problems: (1) Bacterial conjunctivitis of left eye Status: Acute (2) Bilateral pulmonary infiltrates on chest x-ray Status: Acute (3) Elevated troponin Status: Acute (4) Person under investigation for COVID-19 Status: Acute Comment Review of Relevant I have reviewed the following items tucker (where applicable) has been applied. Labs Laboratory Tests Test 07/04/20 11:06 07/04/20 16:06 07/04/20 20:08 07/05/20 04:30 Glucose (Fingerstick) 178 mg/dL (70-99) 162 mg/dL (70-99) 272 mg/dL (70-99) White Blood Count 9.2 x10^3/uL (4.0-11.0) Red Blood Count 5.19 x10^6/uL (3.50-5.40) Hemoglobin 13.4 g/dL (12.0-15.5) Hematocrit 43.7 % (36.0-47.0) Mean Corpuscular Volume 84 fL (79-100) Mean Corpuscular Hemoglobin 26 pg (25-35) Mean Corpuscular Hemoglobin Concent 31 g/dL (31-37) Red Cell Distribution Width 16.0 % (11.5-14.5) Platelet Count 237 x10^3/uL (140-400) Neutrophils (%) (Auto) 93 % (31-73) Lymphocytes (%) (Auto) 5 % (24-48) Monocytes (%) (Auto) 3 % (0-9) Eosinophils (%) (Auto) 0 % (0-3) Basophils (%) (Auto) 0 % (0-3) Neutrophils # (Auto) 8.5 x10^3/uL (1.8-7.7) Lymphocytes # (Auto) 0.4 x10^3/uL (1.0-4.8) Monocytes # (Auto) 0.2 x10^3/uL (0.0-1.1) Eosinophils # (Auto) 0.0 x10^3/uL (0.0-0.7) Basophils # (Auto) 0.0 x10^3/uL (0.0-0.2) Segmented Neutrophils % 94 % (35-66) Band Neutrophils % 1 % (0-9) Lymphocytes % 4 % (24-48) Monocytes % 1 % (0-10) Platelet Estimate Adequate (ADEQUATE) Microbiology 07/03/20 Blood Culture - Preliminary, Resulted NO GROWTH AFTER 2 DAYS 07/02/20 Urine Culture - Final, Complete 07/02/20 Antimicrobic Susceptibility - Final, Complete Vitals/I & O Vital Sign - Last 24 Hours 07/04/20 07/04/20 07/04/20 07/04/20 09:33 09:34 10:31 10:31 Temp 96.1 96.1 Pulse 90 90 83 Resp 18 B/P (MAP) 158/76 158/76 175/90 (118) Pulse Ox 90 O2 Flow Rate 3.0 07/04/20 07/04/20 07/04/20 07/04/20 12:00 14:32 16:00 19:00 Temp 97.0 98.6 97.0 98.6 Pulse 86 83 Resp 18 18 B/P (MAP) 148/74 (98) 127/66 (86) Pulse Ox 90 94 O2 Delivery Nasal Cannula O2 Flow Rate 3.0 3.0 3.0 3.0 07/04/20 07/04/20 07/05/20 07/05/20 20:00 23:00 00:15 03:00 Temp 98.6 98.6 Pulse 80 58 Resp 18 18 B/P (MAP) 136/83 (100) 154/70 (98) Pulse Ox 94 94 93 O2 Delivery Room Air Nasal Cannula Nasal Cannula Room Air O2 Flow Rate 3.0 4.0 4.0 07/05/20 07/05/20 07/05/20 07/05/20 04:09 07:20 09:00 09:01 Pulse 58 58 B/P (MAP) 154/70 154/70 Pulse Ox 91 93 O2 Delivery BiPAP/CPAP Nasal Cannula O2 Flow Rate 5.0 Intake and Output 07/04/20 07/04/20 07/05/20 15:00 23:00 07:00 Output Total 900 ml Balance -900 ml GAURAV VENEGAS MD Jul 05, 2020 09:28
--- NOTE | 2020-07-05 10:06 | PDOC ---
PULMONARY PROGRESS NOTES DATE: 07/05/20 TIME: 10:04 Subjective no increase soa used BIPAP 4hrs last night Vitals Vital Signs Date Time Temp Pulse Resp B/P (MAP) Pulse Ox O2 Delivery O2 Flow Rate FiO2 07/05/20 09:01 58 154/70 07/05/20 07:59 97.5 22 93 Nasal Cannula 5.0 97.5 General: Alert, No acute distress Lungs: Wheezing (improved) Cardiovascular: S1 Abdomen: Soft, Other (obese) Extremities: Other (trace) Skin: Warm Labs Laboratory Tests Test 07/03/20 10:43 07/03/20 15:40 07/03/20 19:35 07/03/20 20:47 O2 Saturation 90 % (92-99) 94 % (92-99) 95 % (92-99) Arterial Blood pH 7.24 (7.35-7.45) 7.26 (7.35-7.45) 7.34 (7.35-7.45) Arterial Blood pCO2 at Patient Temp 86 mmHg (35-46) 79 mmHg (35-46) 63 mmHg (35-46) Arterial Blood pO2 at Patient Temp 62 mmHg (65-108) 75 mmHg (65-108) 73 mmHg (65-108) Arterial Blood HCO3 36 mmol/L (21-28) 34 mmol/L (21-28) 33 mmol/L (21-28) Arterial Blood Base Excess 5 mmol/L (-3-3) 4 mmol/L (-3-3) 5 mmol/L (-3-3) FiO2 32: simple mask 50% bipap 40 Glucose (Fingerstick) 198 mg/dL (70-99) Test 07/04/20 04:30 07/04/20 08:00 07/04/20 11:06 07/04/20 16:06 White Blood Count 6.8 x10^3/uL (4.0-11.0) Red Blood Count 5.00 x10^6/uL (3.50-5.40) Hemoglobin 12.9 g/dL (12.0-15.5) Hematocrit 41.9 % (36.0-47.0) Mean Corpuscular Volume 84 fL (79-100) Mean Corpuscular Hemoglobin 26 pg (25-35) Mean Corpuscular Hemoglobin Concent 31 g/dL (31-37) Red Cell Distribution Width 15.9 % (11.5-14.5) Platelet Count 231 x10^3/uL (140-400) Neutrophils (%) (Auto) 91 % (31-73) Lymphocytes (%) (Auto) 8 % (24-48) Monocytes (%) (Auto) 1 % (0-9) Eosinophils (%) (Auto) 0 % (0-3) Basophils (%) (Auto) 0 % (0-3) Neutrophils # (Auto) 6.2 x10^3/uL (1.8-7.7) Lymphocytes # (Auto) 0.5 x10^3/uL (1.0-4.8) Monocytes # (Auto) 0.1 x10^3/uL (0.0-1.1) Eosinophils # (Auto) 0.0 x10^3/uL (0.0-0.7) Basophils # (Auto) 0.0 x10^3/uL (0.0-0.2) Sodium Level 141 mmol/L (136-145) Potassium Level 4.7 mmol/L (3.5-5.1) Chloride Level 103 mmol/L (98-107) Carbon Dioxide Level 33 mmol/L (21-32) Anion Gap 5 (6-14) Blood Urea Nitrogen 25 mg/dL (7-20) Creatinine 0.9 mg/dL (0.6-1.0) Estimated GFR (Cockcroft-Gault) 73.5 Glucose Level 146 mg/dL (70-99) Calcium Level 9.1 mg/dL (8.5-10.1) Glucose (Fingerstick) 202 mg/dL (70-99) 178 mg/dL (70-99) 162 mg/dL (70-99) Test 07/04/20 20:08 07/05/20 04:30 Glucose (Fingerstick) 272 mg/dL (70-99) White Blood Count 9.2 x10^3/uL (4.0-11.0) Red Blood Count 5.19 x10^6/uL (3.50-5.40) Hemoglobin 13.4 g/dL (12.0-15.5) Hematocrit 43.7 % (36.0-47.0) Mean Corpuscular Volume 84 fL (79-100) Mean Corpuscular Hemoglobin 26 pg (25-35) Mean Corpuscular Hemoglobin Concent 31 g/dL (31-37) Red Cell Distribution Width 16.0 % (11.5-14.5) Platelet Count 237 x10^3/uL (140-400) Neutrophils (%) (Auto) 93 % (31-73) Lymphocytes (%) (Auto) 5 % (24-48) Monocytes (%) (Auto) 3 % (0-9) Eosinophils (%) (Auto) 0 % (0-3) Basophils (%) (Auto) 0 % (0-3) Neutrophils # (Auto) 8.5 x10^3/uL (1.8-7.7) Lymphocytes # (Auto) 0.4 x10^3/uL (1.0-4.8) Monocytes # (Auto) 0.2 x10^3/uL (0.0-1.1) Eosinophils # (Auto) 0.0 x10^3/uL (0.0-0.7) Basophils # (Auto) 0.0 x10^3/uL (0.0-0.2) Segmented Neutrophils % 94 % (35-66) Band Neutrophils % 1 % (0-9) Lymphocytes % 4 % (24-48) Monocytes % 1 % (0-10) Platelet Estimate Adequate (ADEQUATE) Laboratory Tests Test 07/04/20 11:06 07/04/20 16:06 07/04/20 20:08 07/05/20 04:30 Glucose (Fingerstick) 178 mg/dL (70-99) 162 mg/dL (70-99) 272 mg/dL (70-99) White Blood Count 9.2 x10^3/uL (4.0-11.0) Red Blood Count 5.19 x10^6/uL (3.50-5.40) Hemoglobin 13.4 g/dL (12.0-15.5) Hematocrit 43.7 % (36.0-47.0) Mean Corpuscular Volume 84 fL (79-100) Mean Corpuscular Hemoglobin 26 pg (25-35) Mean Corpuscular Hemoglobin Concent 31 g/dL (31-37) Red Cell Distribution Width 16.0 % (11.5-14.5) Platelet Count 237 x10^3/uL (140-400) Neutrophils (%) (Auto) 93 % (31-73) Lymphocytes (%) (Auto) 5 % (24-48) Monocytes (%) (Auto) 3 % (0-9) Eosinophils (%) (Auto) 0 % (0-3) Basophils (%) (Auto) 0 % (0-3) Neutrophils # (Auto) 8.5 x10^3/uL (1.8-7.7) Lymphocytes # (Auto) 0.4 x10^3/uL (1.0-4.8) Monocytes # (Auto) 0.2 x10^3/uL (0.0-1.1) Eosinophils # (Auto) 0.0 x10^3/uL (0.0-0.7) Basophils # (Auto) 0.0 x10^3/uL (0.0-0.2) Segmented Neutrophils % 94 % (35-66) Band Neutrophils % 1 % (0-9) Lymphocytes % 4 % (24-48) Monocytes % 1 % (0-10) Platelet Estimate Adequate (ADEQUATE) Medications Active Scripts Medications Dose Route/Sig Max Daily Dose Days Date Category [Vitamin D] PO DAILY 07/03/20 Reported Vitamin E (Vitamin E Acetate) 400 Unit Capsule 400 Unit PO DAILY 07/03/20 Reported Vitamin C (Ascorbic Acid) 500 Mg Capsule.er 1 Cap PO DAILY 30 07/03/20 Reported Metformin Hcl Er (Metformin Hcl) 500 Mg Tab.er.24h 500 Mg PO DAILYWBKFT 07/03/20 Reported Lasix (Furosemide) 20 Mg Tablet 1 Tab PO DAILY 30 07/03/20 Reported Aspirin 81 Mg Tab.chew 1 Tab PO DAILY 07/03/20 Reported Cardizem Cd (Diltiazem Hcl) 360 Mg Cap.er.24h 1 Cap PO DAILY 07/03/20 Reported Lisinopril 10 Mg Tablet 1 Tab PO DAILY 07/03/20 Reported Hydrochlorothiazide Tablet (Hydrochlorothiazide) 25 Mg Tablet 25 Mg PO DAILY 07/03/20 Reported Motrin Ib (Ibuprofen) 200 Mg Tablet 600 Mg PO Q6HRS PRN 07/02/20 Reported Neurontin (Gabapentin) 600 Mg Tablet 900 Mg PO TID 07/02/20 Reported Impression . 1. Acute hypoxic and acute on chronic hypercapnic respiratory failure with audible wheezing and chest x-ray consistent with bilateral interstitial infiltrates. The findings are highly suggestive of cardiac asthma. She has no significant history of pulmonary asthma and no significant tobacco history. better with diuresis 2. Abnormal chest x-ray with bilateral interstitial infiltrates. No old x-ray available for comparison. This is likely secondary to diastolic congestive heart failure. 3. Morbid obesity with a body mass index of 53. She is at risk for sleep apnea. She also likely has obesity hypoventilation syndrome. Her bicarbonate is 35. had worsening hypercapnia. Rx with BIPAP 4. History of diastolic heart failure, details unknown. We will obtain an echocardiogram. 5. Low suspicion for COVID., ruled out Plan . : 1. I will continue with present oxygen to keep saturation 92 and above.bipap qhs and prn 2. ABG improved 3. IV Solu-Medrol. 4. Albuterol nebs 5. prn IV Lasix. f/u cxr 07/04 ,improving CHF 6. Empiric antibiotics for now. 7. Obtain echocardiogram. 8. Lovenox for DVT prophylaxis. 9. d/w RN 10. She would benefit from sleep study as an outpatient. Discussed with RN. SAMANTHA MARSH MD Jul 05, 2020 10:06
--- NOTE | 2020-07-05 10:37 | PDOC ---
[facility] PROGRESS NOTE Date of Service DOS: DATE: 07/05/20 TIME: 10:36 Chief Complaint Chief Complaint COPD exacerbation Acute respiratory failure with hypoxia Elevated troponins COVID-19 PUInegative PCR Conjunctivitis Dehydration OHS/OSApatient would benefit from outpatient polysomnography Plan: Consultations placed to cardiology for evaluation of elevated troponins; likely demand ischemia as to troponins have been elevated but stable Continue to trend troponins We will treat patient with antibiotics and steroids COVID-19 pending Doxycycline 100 mg twice daily, Decadron 6 mg daily Appreciate pulmonology recommendationsstart IV steroids, IV Lasix, pending echocardiogram, Combivent inhaler until Covid negative then start nebulizer if negative Oxygen and supportive care Will consider initiating remdesivir when confirmed COVID-19 positive, however patient was insistent upon leaving the hospital before T[facility] We will order 6-minute walk for the morning and patient may be able to discharge home on home oxygen. Influenza pending IV normal saline FEN - Cardiac diet PPX - Lovenox FULL CODE Dispo - inpatient for above okay to transfer out of the Covid unit History of Present Illness History of Present Illness 07/05/2020 No acute events overnight. Patient is tolerating BiPAP at night for at least 4 hours as reported. Patient is currently on 93% on 3 L nasal cannula. Patient's chart, labs, images were reviewed and discussed with RN 07/04/2020 Patient needs to be on BiPAP through the day. Improved ABG. Still having some wheezing. Patient's chart, labs, images were reviewed and discussed with RN 07/03/2020 No acute events overnight. Patient continues to be short of breath and wheezing. Currently on 10 L nonrebreathing mask. Patient's chart, labs, images were reviewed and discussed with RN 75-year-old female with past medical history of undiagnosed COPD on 2 L at night, CHF, who presents to the ER with complaints of shortness of breath for the past 2 months. She states her symptoms are worsening over the past 2 weeks. She reports associated productive cough over this time. Patient admits to roughly 10-year history of smoking in the 60's. Of note she also complains of left arm erythema with clear drainage for the past week. Upon evaluation in the ED patient's troponin was initially elevated at 0.152, with repeat 0.158. Cardiology was notified in the ED, and recommended medicine admit for further evaluation. Patient denies any chest pain or known sick contacts. Vitals/I&O Vitals/I&O: Vital Signs Date Time Temp Pulse Resp B/P (MAP) Pulse Ox O2 Delivery O2 Flow Rate FiO2 07/05/20 09:01 58 154/70 07/05/20 07:59 97.5 22 93 Nasal Cannula 5.0 97.5 I & O 07/04/20 07/04/20 07/05/20 14:59 22:59 06:59 Output Total 900 ml Balance -900 ml Physical Exam General: Alert Heart: Regular rate, Other Lungs: Wheezing (improved) Abdomen: Soft Extremities: No cyanosis, Other Skin: No breakdown, No significant lesion Labs Labs: Laboratory Tests Test 07/04/20 11:06 07/04/20 16:06 07/04/20 20:08 07/05/20 04:30 Glucose (Fingerstick) 178 mg/dL (70-99) 162 mg/dL (70-99) 272 mg/dL (70-99) White Blood Count 9.2 x10^3/uL (4.0-11.0) Red Blood Count 5.19 x10^6/uL (3.50-5.40) Hemoglobin 13.4 g/dL (12.0-15.5) Hematocrit 43.7 % (36.0-47.0) Mean Corpuscular Volume 84 fL (79-100) Mean Corpuscular Hemoglobin 26 pg (25-35) Mean Corpuscular Hemoglobin Concent 31 g/dL (31-37) Red Cell Distribution Width 16.0 % (11.5-14.5) Platelet Count 237 x10^3/uL (140-400) Neutrophils (%) (Auto) 93 % (31-73) Lymphocytes (%) (Auto) 5 % (24-48) Monocytes (%) (Auto) 3 % (0-9) Eosinophils (%) (Auto) 0 % (0-3) Basophils (%) (Auto) 0 % (0-3) Neutrophils # (Auto) 8.5 x10^3/uL (1.8-7.7) Lymphocytes # (Auto) 0.4 x10^3/uL (1.0-4.8) Monocytes # (Auto) 0.2 x10^3/uL (0.0-1.1) Eosinophils # (Auto) 0.0 x10^3/uL (0.0-0.7) Basophils # (Auto) 0.0 x10^3/uL (0.0-0.2) Segmented Neutrophils % 94 % (35-66) Band Neutrophils % 1 % (0-9) Lymphocytes % 4 % (24-48) Monocytes % 1 % (0-10) Platelet Estimate Adequate (ADEQUATE) Assessment and Plan Assessmemt and Plan Problems Medical Problems: (1) Bacterial conjunctivitis of left eye Status: Acute (2) Bilateral pulmonary infiltrates on chest x-ray Status: Acute (3) Elevated troponin Status: Acute (4) Person under investigation for COVID-19 Status: Acute Comment Review of Relevant I have reviewed the following items tucker (where applicable) has been applied. Justifications for Admission Other Justification Acute respiratory failure with hypoxia, COVID-19 JJ LÓPEZ MD Jul 05, 2020 10:37
[2020-07-05 11:59] VITALS: BP 131/69
[2020-07-05] MEDS: ALBUTEROL SULFATE 8GM INHALER. INH PRN ×2 (12:59→23:04)
[2020-07-05 15:59] VITALS: BP 143/97
[2020-07-05] MEDS ORDERED: PRAMIPEXOLE 0.25 MG TABLET. PO ONE (16:00)
[2020-07-05 19:54] VITALS: BP 125/56
[2020-07-05] MEDS: ENOXAPARIN 40 MG/0.4 ML SYRINGE. SQ SCH (20:15)
[2020-07-05] MEDS: BENZONATATE 100 MG CAPSULE. PO PRN (20:17)
[2020-07-05] MEDS: PRAMIPEXOLE 0.25 MG TABLET. PO SCH (20:17)
[2020-07-05] MEDS: CALCIUM CARBONATE 500 MG TAB.CHEW PO PRN (21:10)
[2020-07-05] MEDS: ONDANSETRON PF 4 MG/2 ML VIAL. IVP PRN (21:56)
[2020-07-05] MEDS: MAG HYDROX/ALUMINUM HYD/SIMETH 30 ML ORAL.SUSP PO PRN (22:54)
[2020-07-05 23:58] VITALS: BP 176/74
[2020-07-06] MEDS: CALCIUM CARBONATE 500 MG TAB.CHEW PO PRN (00:15)
--- NOTE | 2020-07-06 00:38 | NUR ---
Pt. notified of transfer to [facility] due to negative covid result. Report given to Galilea.
--- NOTE | 2020-07-06 00:40 | NUR ---
pt transferred via bed accompanied by staff to rm [id number] from [id number] d/t covid negative test. pt is a/ox4 denies pain at this time vss, assessment same as previous, call light in place will cont to monitor pt safe and status. pmrn
[2020-07-06 03:35] VITALS: BP 131/76
[2020-07-06] MEDS: TOBRAMYCIN 0.3% OPHTH SOLUTION 5ML BOTTLE. OS SCH ×5 (06:10→21:52)
[2020-07-06] MEDS: IPRATROPIUM/ALBUTEROL 20/100mcg/INH INHALER. INH SCH ×3 (06:10→18:03)
[2020-07-06] MEDS: IBUPROFEN 200 MG TABLET. PO PRN ×2 (06:11→21:51)
[2020-07-06] MEDS: methylPREDNISolone SOD SUCC PF 40 MG/ML VIAL. IV SCH ×3 (06:13→21:47)
[2020-07-06 07:59] VITALS: BP 136/75
[2020-07-06] MEDS: INSULIN LISPRO 300 UNITS/3 ML VIAL. SQ SCH ×3 (08:00→17:00)
[2020-07-06 08:55] LABS: BASO % 0 % (0-3); EOS % 0 % (0-3); HEMATOCRIT 44.6 % (36.0-47.0); HEMOGLOBIN 13.7 g/dL (12.0-15.5); LYMPH # 0.3 x10^3/uL (1.0-4.8); LYMPH % 4 % (24-48); MEAN CORPUSCULAR HEMOGLOBIN 26 pg (25-35); MEAN CORPUSCULAR HGB CONC 31 g/dL (31-37); MEAN CORPUSCULAR VOLUME 84 fL (79-100); MONO # 0.2 x10^3/uL (0.0-1.1); MONO % 3 % (0-9); NEUT % 93 % (31-73); PLATELET COUNT 249 x10^3/uL (140-400); RED BLOOD COUNT 5.31 x10^6/uL (3.50-5.40); RED CELL DISTRIBUTION WIDTH 16.1 % (11.5-14.5); WHITE BLOOD COUNT 7.6 x10^3/uL (4.0-11.0)
[2020-07-06] MEDS: LISINOPRIL 10 MG TABLET PO SCH (09:24)
[2020-07-06] MEDS: GABAPENTIN 300 MG CAPSULE. PO SCH ×3 (09:24→21:46)
[2020-07-06] MEDS: FUROSEMIDE 20 MG TABLET PO SCH (09:24)
[2020-07-06] MEDS: ASPIRIN CHEWABLE 81 MG TABLET. PO SCH (09:25)
[2020-07-06] MEDS: hydroCHLOROthiazide 25 MG TABLET PO SCH (09:25)
[2020-07-06] MEDS: LACTOBACILLUS RHAMNOSUS GG 1 CAPSULE. PO SCH ×2 (09:25→21:46)
[2020-07-06] MEDS: DOXYCYCLINE HYCLATE 100 MG TABLET PO SCH ×2 (09:25→21:47)
[2020-07-06] MEDS: ACETAMINOPHEN 325 MG TABLET. PO PRN (09:31)
[2020-07-06 10:09] LABS: CALCIUM 9.4 mg/dL (8.5-10.1); CREATININE 0.7 mg/dL (0.6-1.0); GFR 98.2; MAGNESIUM 3.1 mg/dL (1.8-2.4); POTASSIUM 4.9 mmol/L (3.5-5.1)
[2020-07-06 11:59] VITALS: BP 148/89
--- NOTE | 2020-07-06 12:04 | PDOC ---
PROGRESS NOTES Date of Service: DATE: 07/06/20 TIME: 12:03 Subjective Subjective c/o dyspnea, denied any chest pain Objective Objective Vital Signs Date Time Temp Pulse Resp B/P (MAP) Pulse Ox O2 Delivery O2 Flow Rate FiO2 07/06/20 09:26 70 136/75 07/06/20 07:59 98.2 20 96 Nasal Cannula 5.0 98.2 Intake and Output 07/06/20 07:00 Intake Total 100 ml Output Total 1150 ml Balance -1050 ml Intake Oral 100 ml Output Urine Total 1150 ml # Voids 1 Physical Exam Abdomen: Soft Heart: Regular rate, Other Extremities: No cyanosis, Other General: Alert HEENT: Atraumatic Lungs: Other (Bilateral expiratory rhonchi) Neuro: Normal speech Psych/Mental Status: Mood NL Skin: No breakdown, No significant lesion Assessment Assessment 1. Acute on chronic hypercapnic respiratory failure: Covid test negative. Pulmonary team following. 2. Acute on chronic diastolic heart failure, improved with diuresis. Check 2D echo to assess LV systolic function 3. Mild troponin elevation : Most probably demand ischemia. Patient denied any chest pain. Ischemic work-up could be considered as an outpatient. 4. HTN: controlled 5. DM2: Per IM 6. Morbid obesity with significant debility: lives alone Plan Plan of Care Problems Medical Problems: (1) Bacterial conjunctivitis of left eye Status: Acute (2) Bilateral pulmonary infiltrates on chest x-ray Status: Acute (3) Elevated troponin Status: Acute (4) Person under investigation for COVID-19 Status: Acute Comment Review of Relevant I have reviewed the following items tucker (where applicable) has been applied. Labs Laboratory Tests Test 07/05/20 12:28 07/06/20 08:35 07/06/20 08:37 Glucose (Fingerstick) 134 mg/dL (70-99) 147 mg/dL (70-99) White Blood Count 7.6 x10^3/uL (4.0-11.0) Red Blood Count 5.31 x10^6/uL (3.50-5.40) Hemoglobin 13.7 g/dL (12.0-15.5) Hematocrit 44.6 % (36.0-47.0) Mean Corpuscular Volume 84 fL (79-100) Mean Corpuscular Hemoglobin 26 pg (25-35) Mean Corpuscular Hemoglobin Concent 31 g/dL (31-37) Red Cell Distribution Width 16.1 % (11.5-14.5) Platelet Count 249 x10^3/uL (140-400) Neutrophils (%) (Auto) 93 % (31-73) Lymphocytes (%) (Auto) 4 % (24-48) Monocytes (%) (Auto) 3 % (0-9) Eosinophils (%) (Auto) 0 % (0-3) Basophils (%) (Auto) 0 % (0-3) Neutrophils # (Auto) 7.0 x10^3/uL (1.8-7.7) Lymphocytes # (Auto) 0.3 x10^3/uL (1.0-4.8) Monocytes # (Auto) 0.2 x10^3/uL (0.0-1.1) Eosinophils # (Auto) 0.0 x10^3/uL (0.0-0.7) Basophils # (Auto) 0.0 x10^3/uL (0.0-0.2) Sodium Level 144 mmol/L (136-145) Potassium Level 4.9 mmol/L (3.5-5.1) Chloride Level 104 mmol/L (98-107) Carbon Dioxide Level 35 mmol/L (21-32) Anion Gap 5 (6-14) Blood Urea Nitrogen 37 mg/dL (7-20) Creatinine 0.7 mg/dL (0.6-1.0) Estimated GFR (Cockcroft-Gault) 98.2 Glucose Level 154 mg/dL (70-99) Calcium Level 9.4 mg/dL (8.5-10.1) Magnesium Level 3.1 mg/dL (1.8-2.4) Microbiology 07/03/20 Blood Culture - Preliminary, Resulted NO GROWTH AFTER 3 DAYS 07/02/20 Urine Culture - Final, Complete 07/02/20 Antimicrobic Susceptibility - Final, Complete Medications Current Medications Pramipexole Dihydrochloride (miraPEX) 0.125 mg 1X ONCE PO Last administered on 07/05/20at 16:24; Start 07/05/20 at 16:00; Stop 07/05/20 at 16:01; Status DC Pramipexole Dihydrochloride (miraPEX) 0.125 mg 1X PRN PO RESTLESS LEGS; Start 07/06/20 at 11:45 Vitals/I & O Vital Sign - Last 24 Hours 07/05/20 07/05/20 07/05/20 07/05/20 15:59 19:00 19:54 21:20 Temp 97.6 98.4 97.6 98.4 Pulse 79 74 Resp 22 18 B/P (MAP) 143/97 (112) 125/56 (79) Pulse Ox 91 91 96 O2 Delivery Nasal Cannula Nasal Cannula Nasal Cannula O2 Flow Rate 2.0 5.0 3.0 5.0 07/05/20 07/05/20 07/06/20 07/06/20 23:58 23:58 03:35 07:56 Temp 98.0 98.0 98.0 98.0 Pulse 72 75 Resp 18 18 B/P (MAP) 176/74 (108) 176/ 131/76 (94) Pulse Ox 93 93 96 O2 Delivery Nasal Cannula Nasal Cannula Nasal Cannula O2 Flow Rate 3.0 5.0 5.0 07/06/20 07/06/20 07/06/20 07:59 09:24 09:26 Temp 98.2 98.2 Pulse 70 70 70 Resp 20 B/P (MAP) 136/75 (95) 136/75 136/75 Pulse Ox 96 O2 Delivery Nasal Cannula O2 Flow Rate 5.0 Intake and Output 07/05/20 07/05/20 07/06/20 15:00 23:00 07:00 Intake Total 100 ml Output Total 1150 ml Balance -1050 ml GAURAV VENEGAS MD Jul 06, 2020 12:04
--- NOTE | 2020-07-06 12:05 | PDOC ---
[employer] PROGRESS NOTE Date of Service DOS: DATE: 07/06/20 TIME: 12:04 Chief Complaint Chief Complaint COPD exacerbation Acute respiratory failure with hypoxia Elevated troponins COVID-19 PUInegative PCR Conjunctivitis Dehydration OHS/OSApatient would benefit from outpatient polysomnography Plan: Consultations placed to cardiology for evaluation of elevated troponins; likely demand ischemia as to troponins have been elevated but stable Continue to trend troponins We will treat patient with antibiotics and steroids COVID-19 pending Doxycycline 100 mg twice daily, Decadron 6 mg daily Appreciate pulmonology recommendationsstart IV steroids, IV Lasix, pending echocardiogram, Combivent inhaler until Covid negative then start nebulizer if negative Oxygen and supportive care Will consider initiating remdesivir when confirmed COVID-19 positive, however patient was insistent upon leaving the hospital before Tima We will order 6-minute walk for the morning and patient may be able to discharge home on home oxygen. Influenza pending IV normal saline FEN - Cardiac diet PPX - Lovenox FULL CODE Dispo - inpatient for above okay to transfer out of the [facility] unit History of Present Illness History of Present Illness 07/06/[address] from [facility] floor to ICU overnight. Patient is tolerating 96% on 5 L nasal cannula. Patient's chart, labs, images were reviewed and discussed with RN 07/05/2020 No acute events overnight. Patient is tolerating BiPAP at night for at least 4 hours as reported. Patient is currently on 93% on 3 L nasal cannula. Patient's chart, labs, images were reviewed and discussed with RN 07/04/2020 Patient needs to be on BiPAP through the day. Improved ABG. Still having some wheezing. Patient's chart, labs, images were reviewed and discussed with RN 07/03/2020 No acute events overnight. Patient continues to be short of breath and wheezing. Currently on 10 L nonrebreathing mask. Patient's chart, labs, images were reviewed and discussed with RN 75-year-old female with past medical history of undiagnosed COPD on 2 L at night, CHF, who presents to the ER with complaints of shortness of breath for the past 2 months. She states her symptoms are worsening over the past 2 weeks. She reports associated productive cough over this time. Patient admits to roughly 10-year history of smoking in the 60's. Of note she also complains of left arm erythema with clear drainage for the past week. Upon evaluation in the ED patient's troponin was initially elevated at 0.152, with repeat 0.158. Cardiology was notified in the ED, and recommended medicine admit for further evaluation. Patient denies any chest pain or known sick contacts. Vitals/I&O Vitals/I&O: Vital Signs Date Time Temp Pulse Resp B/P (MAP) Pulse Ox O2 Delivery O2 Flow Rate FiO2 07/06/20 09:26 70 136/75 07/06/20 07:59 98.2 20 96 Nasal Cannula 5.0 98.2 I & O 07/05/20 07/05/20 07/06/20 15:00 23:00 07:00 Intake Total 100 ml Output Total 1150 ml Balance -1050 ml Physical Exam General: Alert Heart: Regular rate, Other Lungs: Wheezing (improved) Abdomen: Soft Extremities: No cyanosis, Other Skin: No breakdown, No significant lesion Labs Labs: Laboratory Tests Test 07/05/20 12:28 07/06/20 08:35 07/06/20 08:37 Glucose (Fingerstick) 134 mg/dL (70-99) 147 mg/dL (70-99) White Blood Count 7.6 x10^3/uL (4.0-11.0) Red Blood Count 5.31 x10^6/uL (3.50-5.40) Hemoglobin 13.7 g/dL (12.0-15.5) Hematocrit 44.6 % (36.0-47.0) Mean Corpuscular Volume 84 fL (79-100) Mean Corpuscular Hemoglobin 26 pg (25-35) Mean Corpuscular Hemoglobin Concent 31 g/dL (31-37) Red Cell Distribution Width 16.1 % (11.5-14.5) Platelet Count 249 x10^3/uL (140-400) Neutrophils (%) (Auto) 93 % (31-73) Lymphocytes (%) (Auto) 4 % (24-48) Monocytes (%) (Auto) 3 % (0-9) Eosinophils (%) (Auto) 0 % (0-3) Basophils (%) (Auto) 0 % (0-3) Neutrophils # (Auto) 7.0 x10^3/uL (1.8-7.7) Lymphocytes # (Auto) 0.3 x10^3/uL (1.0-4.8) Monocytes # (Auto) 0.2 x10^3/uL (0.0-1.1) Eosinophils # (Auto) 0.0 x10^3/uL (0.0-0.7) Basophils # (Auto) 0.0 x10^3/uL (0.0-0.2) Sodium Level 144 mmol/L (136-145) Potassium Level 4.9 mmol/L (3.5-5.1) Chloride Level 104 mmol/L (98-107) Carbon Dioxide Level 35 mmol/L (21-32) Anion Gap 5 (6-14) Blood Urea Nitrogen 37 mg/dL (7-20) Creatinine 0.7 mg/dL (0.6-1.0) Estimated GFR (Cockcroft-Gault) 98.2 Glucose Level 154 mg/dL (70-99) Calcium Level 9.4 mg/dL (8.5-10.1) Magnesium Level 3.1 mg/dL (1.8-2.4) Assessment and Plan Assessmemt and Plan Problems Medical Problems: (1) Bacterial conjunctivitis of left eye Status: Acute (2) Bilateral pulmonary infiltrates on chest x-ray Status: Acute (3) Elevated troponin Status: Acute (4) Person under investigation for COVID-19 Status: Acute Comment Review of Relevant I have reviewed the following items tucker (where applicable) has been applied. Medications: Current Medications Medications (Trade) Dose Ordered Sig/Mehul Route PRN Reason Start Time Stop Time Status Last Admin Dose Admin Pramipexole Dihydrochloride (miraPEX) 0.125 mg 1X ONCE PO 07/05/20 16:00 07/05/20 16:01 DC 07/05/20 16:24 Justifications for Admission Other Justification Acute respiratory failure with hypoxia, COVID-19 JJ LÓEPZ MD Jul 06, 2020 12:05
[2020-07-06 15:59] VITALS: BP 158/88
[2020-07-06 19:00] VITALS: BP 138/54
[2020-07-06] MEDS: PRAMIPEXOLE 0.25 MG TABLET. PO SCH (21:46)
[2020-07-06] MEDS: ENOXAPARIN 40 MG/0.4 ML SYRINGE. SQ SCH (21:47)
[2020-07-06] MEDS: BENZONATATE 100 MG CAPSULE. PO PRN (21:51)
[2020-07-06 23:00] VITALS: BP 134/71
[2020-07-07] MEDS: IPRATROPIUM/ALBUTEROL 20/100mcg/INH INHALER. INH SCH ×4 (00:50→17:10)
[2020-07-07 03:00] VITALS: BP 166/80
[2020-07-07] MEDS: TOBRAMYCIN 0.3% OPHTH SOLUTION 5ML BOTTLE. OS SCH ×5 (06:02→21:30)
[2020-07-07] MEDS: methylPREDNISolone SOD SUCC PF 40 MG/ML VIAL. IV SCH ×3 (06:02→21:52)
[2020-07-07 07:00] VITALS: BP 141/89
[2020-07-07] MEDS: hydroCHLOROthiazide 25 MG TABLET PO SCH (08:36)
[2020-07-07] MEDS: ASPIRIN CHEWABLE 81 MG TABLET. PO SCH (08:36)
[2020-07-07] MEDS: LACTOBACILLUS RHAMNOSUS GG 1 CAPSULE. PO SCH ×2 (08:36→20:55)
[2020-07-07] MEDS: LISINOPRIL 10 MG TABLET PO SCH (08:37)
[2020-07-07] MEDS: DOXYCYCLINE HYCLATE 100 MG TABLET PO SCH ×2 (08:37→20:56)
[2020-07-07] MEDS: GABAPENTIN 300 MG CAPSULE. PO SCH ×3 (08:37→20:55)
[2020-07-07] MEDS: BENZONATATE 100 MG CAPSULE. PO PRN (08:37)
[2020-07-07] MEDS: FUROSEMIDE 20 MG TABLET PO SCH (08:38)
[2020-07-07] MEDS: INSULIN LISPRO 300 UNITS/3 ML VIAL. SQ SCH ×4 (08:40→21:33)
[2020-07-07 10:11] LABS: BASO % 0 % (0-3); EOS % 0 % (0-3); HEMATOCRIT 45.1 % (36.0-47.0); HEMOGLOBIN 13.9 g/dL (12.0-15.5); LYMPH # 0.3 x10^3/uL (1.0-4.8); LYMPH % 4 % (24-48); MEAN CORPUSCULAR HEMOGLOBIN 26 pg (25-35); MEAN CORPUSCULAR HGB CONC 31 g/dL (31-37); MEAN CORPUSCULAR VOLUME 85 fL (79-100); MONO # 0.2 x10^3/uL (0.0-1.1); MONO % 4 % (0-9); NEUT # 5.8 x10^3/uL (1.8-7.7); NEUT % 92 % (31-73); PLATELET COUNT 224 x10^3/uL (140-400); RED BLOOD COUNT 5.32 x10^6/uL (3.50-5.40); RED CELL DISTRIBUTION WIDTH 16.1 % (11.5-14.5); WHITE BLOOD COUNT 6.4 x10^3/uL (4.0-11.0)
--- NOTE | 2020-07-07 10:21 | PDOC ---
PULMONARY PROGRESS NOTES DATE: 07/07/20 TIME: 10:17 Subjective Remains on N/ C oxygen did not wear BIPAP overnight, states she can't handle the pressure no increased cough or SOA Vitals Vital Signs Date Time Temp Pulse Resp B/P (MAP) Pulse Ox O2 Delivery O2 Flow Rate FiO2 07/07/20 08:37 71 141/89 07/07/20 07:00 97.3 16 96 Nasal Cannula 5.0 97.3 ROS: No Nausea, No Chest Pain, No Increase Cough General: Alert, No acute distress Lungs: Wheezing (improved) Cardiovascular: S1 Abdomen: Soft, Other (obese) Extremities: Other (trace) Skin: Warm Labs Laboratory Tests Test 07/05/20 12:28 07/06/20 08:35 07/06/20 08:37 07/06/20 12:08 Glucose (Fingerstick) 134 mg/dL (70-99) 147 mg/dL (70-99) 163 mg/dL (70-99) White Blood Count 7.6 x10^3/uL (4.0-11.0) Red Blood Count 5.31 x10^6/uL (3.50-5.40) Hemoglobin 13.7 g/dL (12.0-15.5) Hematocrit 44.6 % (36.0-47.0) Mean Corpuscular Volume 84 fL (79-100) Mean Corpuscular Hemoglobin 26 pg (25-35) Mean Corpuscular Hemoglobin Concent 31 g/dL (31-37) Red Cell Distribution Width 16.1 % (11.5-14.5) Platelet Count 249 x10^3/uL (140-400) Neutrophils (%) (Auto) 93 % (31-73) Lymphocytes (%) (Auto) 4 % (24-48) Monocytes (%) (Auto) 3 % (0-9) Eosinophils (%) (Auto) 0 % (0-3) Basophils (%) (Auto) 0 % (0-3) Neutrophils # (Auto) 7.0 x10^3/uL (1.8-7.7) Lymphocytes # (Auto) 0.3 x10^3/uL (1.0-4.8) Monocytes # (Auto) 0.2 x10^3/uL (0.0-1.1) Eosinophils # (Auto) 0.0 x10^3/uL (0.0-0.7) Basophils # (Auto) 0.0 x10^3/uL (0.0-0.2) Sodium Level 144 mmol/L (136-145) Potassium Level 4.9 mmol/L (3.5-5.1) Chloride Level 104 mmol/L (98-107) Carbon Dioxide Level 35 mmol/L (21-32) Anion Gap 5 (6-14) Blood Urea Nitrogen 37 mg/dL (7-20) Creatinine 0.7 mg/dL (0.6-1.0) Estimated GFR (Cockcroft-Gault) 98.2 Glucose Level 154 mg/dL (70-99) Calcium Level 9.4 mg/dL (8.5-10.1) Magnesium Level 3.1 mg/dL (1.8-2.4) Test 07/06/20 17:34 07/06/20 20:41 07/07/20 07:35 Glucose (Fingerstick) 174 mg/dL (70-99) 213 mg/dL (70-99) 168 mg/dL (70-99) Laboratory Tests Test 07/06/20 12:08 07/06/20 17:34 07/06/20 20:41 07/07/20 07:35 Glucose (Fingerstick) 163 mg/dL (70-99) 174 mg/dL (70-99) 213 mg/dL (70-99) 168 mg/dL (70-99) Medications Active Scripts Medications Dose Route/Sig Max Daily Dose Days Date Category [Vitamin D] PO DAILY 07/03/20 Reported Vitamin E (Vitamin E Acetate) 400 Unit Capsule 400 Unit PO DAILY 07/03/20 Reported Vitamin C (Ascorbic Acid) 500 Mg Capsule.er 1 Cap PO DAILY 07/03/20 Reported Metformin Hcl Er (Metformin Hcl) 500 Mg Tab.er.24h 500 Mg PO DAILYWBKFT 07/03/20 Reported Lasix (Furosemide) 20 Mg Tablet 1 Tab PO DAILY 30 07/03/20 Reported Aspirin 81 Mg Tab.chew 1 Tab PO DAILY 07/03/20 Reported Cardizem Cd (Diltiazem Hcl) 360 Mg Cap.er.24h 1 Cap PO DAILY 07/03/20 Reported Lisinopril 10 Mg Tablet 1 Tab PO DAILY 12/24/20 Reported Hydrochlorothiazide Tablet (Hydrochlorothiazide) 25 Mg Tablet 25 Mg PO DAILY 07/03/20 Reported Motrin Ib (Ibuprofen) 200 Mg Tablet 600 Mg PO Q6HRS PRN 07/02/20 Reported Neurontin (Gabapentin) 600 Mg Tablet 900 Mg PO TID 07/02/20 Reported Impression . 1. Acute hypoxic and acute on chronic hypercapnic respiratory failure with audible wheezing and chest x-ray consistent with bilateral interstitial infiltrates. The findings are highly suggestive of cardiac asthma. She has no significant history of pulmonary asthma and no significant tobacco history. better with diuresis 2. Abnormal chest x-ray with bilateral interstitial infiltrates. No old x-ray available for comparison. This is likely secondary to diastolic congestive heart failure. 3. Morbid obesity with a body mass index of 53. She is at risk for sleep apnea. She also likely has obesity hypoventilation syndrome. Her bicarbonate is 35. had worsening hypercapnia. Rx with BIPAP 4. History of diastolic heart failure, details unknown. We will obtain an echocardiogram. 5. Low suspicion for COVID., ruled out Plan . Continue Supplemental oxygen to keep sats above 92 %, currently on 4 liters N/C BIPAP at night, will reduce pressure today 14/6 Continue IV steroids with slow taper NEBS Follow cardiology recs---Lasix PRN, obtain ECHO Cont. Doxy for full course PT/OT DVT/GI PPX D/W RN and RT SAMANTHA MARSH MD Jul 07, 2020 10:21
[2020-07-07 11:00] VITALS: BP 160/87
--- NOTE | 2020-07-07 11:56 | PDOC ---
[employer] PROGRESS NOTE Date of Service DOS: DATE: 07/07/20 TIME: 11:54 Chief Complaint Chief Complaint COPD exacerbation Acute respiratory failure with hypoxia Elevated troponins COVID-19 PUInegative PCR Conjunctivitis Dehydration OHS/OSApatient would benefit from outpatient polysomnography Super super morbid obesity Plan: Consultations placed to cardiology for evaluation of elevated troponins; likely demand ischemia as to troponins have been elevated but stable Continue to trend troponins We will treat patient with antibiotics and steroids COVID-19 pending Doxycycline 100 mg twice daily, Decadron 6 mg daily Appreciate pulmonology recommendationsstart IV steroids, IV Lasix, pending echocardiogram, Combivent inhaler until Covid negative then start nebulizer if negative Oxygen and supportive care Will consider initiating remdesivir when confirmed COVID-19 positive, however patient was insistent upon leaving the hospital before Tima We will order 6-minute walk for the morning and patient may be able to discharge home on home oxygen. Influenza pending IV normal saline FEN - Cardiac diet PPX - Lovenox FULL CODE Dispo - inpatient for above okay to transfer out of the [facility] unit History of Present Illness History of Present Illness 06/29/2020 No acute events overnight. Patient is tolerating 96% on 5 L nasal cannula. Did not use any BiPAP overnight. Patient complains of having generalized weakness and will want to have 1 more day in the hospital. Patient has little motivation to ambulate on her own. She mainly uses the walker to transition from bed to her wheelchair. She attributes this disability due to her foot drop. Encouraged patient to lose weight and to follow through with outpatient polysomnography. Patient's chart, labs, images were reviewed and discussed with RN 07/06/2020 Patient transferred from [facility] floor to ICU overnight. Patient is tolerating 96% on 5 L nasal cannula. Patient's chart, labs, images were reviewed and discussed with RN 07/05/2020 No acute events overnight. Patient is tolerating BiPAP at night for at least 4 hours as reported. Patient is currently on 93% on 3 L nasal cannula. Patient's chart, labs, images were reviewed and discussed with RN 07/04/2020 Patient needs to be on BiPAP through the day. Improved ABG. Still having some wheezing. Patient's chart, labs, images were reviewed and discussed with RN 07/03/2020 No acute events overnight. Patient continues to be short of breath and wheezing. Currently on 10 L nonrebreathing mask. Patient's chart, labs, images were reviewed and discussed with RN 75-year-old female with past medical history of undiagnosed COPD on 2 L at night, CHF, who presents to the ER with complaints of shortness of breath for the past 2 months. She states her symptoms are worsening over the past 2 weeks. She reports associated productive cough over this time. Patient admits to roughly 10-year history of smoking in the 60's. Of note she also complains of left arm erythema with clear drainage for the past week. Upon evaluation in the ED patient's troponin was initially elevated at 0.152, with repeat 0.158. Cardiology was notified in the ED, and recommended medicine admit for further evaluation. Patient denies any chest pain or known sick contacts. Vitals/I&O Vitals/I&O: Vital Signs Date Time Temp Pulse Resp B/P (MAP) Pulse Ox O2 Delivery O2 Flow Rate FiO2 07/07/20 11:00 97.0 79 18 160/87 (111) 95 Nasal Cannula 5.0 97.0 I & O 07/06/20 07/06/20 07/07/20 15:00 23:00 07:00 Intake Total 320 ml 350 ml 120 ml Output Total 400 ml 800 ml Balance 320 ml -50 ml -680 ml Physical Exam General: Alert Heart: Regular rate, Other Lungs: Wheezing (improved) Abdomen: Soft Extremities: No cyanosis, Other Skin: No breakdown, No significant lesion Labs Labs: Laboratory Tests Test 07/06/20 12:08 07/06/20 17:34 07/06/20 20:41 07/07/20 07:35 Glucose (Fingerstick) 163 mg/dL (70-99) 174 mg/dL (70-99) 213 mg/dL (70-99) 168 mg/dL (70-99) Test 07/07/20 09:30 07/07/20 11:50 White Blood Count 6.4 x10^3/uL (4.0-11.0) Red Blood Count 5.32 x10^6/uL (3.50-5.40) Hemoglobin 13.9 g/dL (12.0-15.5) Hematocrit 45.1 % (36.0-47.0) Mean Corpuscular Volume 85 fL (79-100) Mean Corpuscular Hemoglobin 26 pg (25-35) Mean Corpuscular Hemoglobin Concent 31 g/dL (31-37) Red Cell Distribution Width 16.1 % (11.5-14.5) Platelet Count 224 x10^3/uL (140-400) Neutrophils (%) (Auto) 92 % (31-73) Lymphocytes (%) (Auto) 4 % (24-48) Monocytes (%) (Auto) 4 % (0-9) Eosinophils (%) (Auto) 0 % (0-3) Basophils (%) (Auto) 0 % (0-3) Neutrophils # (Auto) 5.8 x10^3/uL (1.8-7.7) Lymphocytes # (Auto) 0.3 x10^3/uL (1.0-4.8) Monocytes # (Auto) 0.2 x10^3/uL (0.0-1.1) Eosinophils # (Auto) 0.0 x10^3/uL (0.0-0.7) Basophils # (Auto) 0.0 x10^3/uL (0.0-0.2) Glucose (Fingerstick) 158 mg/dL (70-99) Assessment and Plan Assessmemt and Plan Problems Medical Problems: (1) Bacterial conjunctivitis of left eye Status: Acute (2) Bilateral pulmonary infiltrates on chest x-ray Status: Acute (3) Elevated troponin Status: Acute (4) Person under investigation for COVID-19 Status: Acute Comment Review of Relevant I have reviewed the following items tucker (where applicable) has been applied. Justifications for Admission Other Justification Acute respiratory failure with hypoxia, COVID-19 JJ LÓPEZ MD Jul 07, 2020 11:56
--- NOTE | 2020-07-07 11:59 | NUR ---
SW following. Discussed with RN, pt from home alone, wheelchair bound, 5L oxygen (uses 2L at home), COVID-19 negative. PT/OT recommending SNU. Pt does not want to go to SNU, wants to go home. Dr. Fried advised he plans to discharge pt home tomorrow (07/08/2020) and will order a 6 minute walk prior to discharge to reassess pt's oxygen needs. SW will continue to follow.
--- NOTE | 2020-07-07 12:22 | PDOC ---
SUBHA COON HAND ORNAMENT MAKER 07/07/20 1222: CARDIO Progress Notes Date and Time Date of Service 07/07/20 Time of Evaluation 1220 Subjective Subjective: No Chest Pain, No Palpitations, No Dizziness, Other (SOA better) Vitals Vitals Vital Signs Date Time Temp Pulse Resp B/P (MAP) Pulse Ox O2 Delivery O2 Flow Rate FiO2 07/07/20 11:00 97.0 79 18 160/87 (111) 95 Nasal Cannula 5.0 97.0 Weight Weight [ ] Input and Output Intake and Output Intake and Output 07/07/20 07:00 Intake Total 790 ml Output Total 1200 ml Balance -410 ml Intake Oral 790 ml Output Urine Total 1200 ml Laboratory Labs Laboratory Tests Test 07/06/20 17:34 07/06/20 20:41 07/07/20 07:35 07/07/20 09:30 Glucose (Fingerstick) 174 mg/dL (70-99) 213 mg/dL (70-99) 168 mg/dL (70-99) White Blood Count 6.4 x10^3/uL (4.0-11.0) Red Blood Count 5.32 x10^6/uL (3.50-5.40) Hemoglobin 13.9 g/dL (12.0-15.5) Hematocrit 45.1 % (36.0-47.0) Mean Corpuscular Volume 85 fL (79-100) Mean Corpuscular Hemoglobin 26 pg (25-35) Mean Corpuscular Hemoglobin Concent 31 g/dL (31-37) Red Cell Distribution Width 16.1 % (11.5-14.5) Platelet Count 224 x10^3/uL (140-400) Neutrophils (%) (Auto) 92 % (31-73) Lymphocytes (%) (Auto) 4 % (24-48) Monocytes (%) (Auto) 4 % (0-9) Eosinophils (%) (Auto) 0 % (0-3) Basophils (%) (Auto) 0 % (0-3) Neutrophils # (Auto) 5.8 x10^3/uL (1.8-7.7) Lymphocytes # (Auto) 0.3 x10^3/uL (1.0-4.8) Monocytes # (Auto) 0.2 x10^3/uL (0.0-1.1) Eosinophils # (Auto) 0.0 x10^3/uL (0.0-0.7) Basophils # (Auto) 0.0 x10^3/uL (0.0-0.2) Test 07/07/20 11:50 Glucose (Fingerstick) 158 mg/dL (70-99) Microbiology Micro Microbiology 07/03/20 Blood Culture - Preliminary, Resulted NO GROWTH AFTER 4 DAYS 07/02/20 Urine Culture - Final, Complete 07/02/20 Antimicrobic Susceptibility - Final, Complete Physical Exam HEENT: Neck Supple W Full Motion Chest: Symmetric LUNGS: Other (diminished bases) Heart: RRR Abdomen: Soft N/T Extremities: Other (trace bilateral LE edema ) Neurology: alert, oriented, follow commands Assessment Assessment 1. Acute on chronic hypercapnic respiratory failure: Covid test negative. 2. Acute on chronic diastolic heart failure, improved with diuresis. 3. Mild troponin elevation: peak 0.1. Most probably demand ischemia. CP free. 4. HTN: controlled 5. DM2: Per IM 6. Hyperlipidemia 7. Morbid obesity with significant debility Recommendations Mild diuresis Check 2D echo to assess LV systolic function Continue ASA Add statin Consider outpatient ischemic evaluation Supportive care Justicifation of Admission Dx: Justifications for Admission: Justification of Admission Dx: Yes Comments: Acute on chronic respiratory failure Acute on chronic diastolic CHF HENRI RAYMOND MD 07/07/20 1647: CARDIO Progress Notes Assessment Assessment Patient seen and evaluated. I agree with our nurse practitioners assessment and plan. Acute on chronic hypercapnic respiratory failure: Covid test negative. Clinically improving. Acute on chronic diastolic heart failure, improved with diuresis. Echo pending. Mild troponin elevation: peak 0.1. Consistent with demand ischemia. CP free. HTN: controlled DM2: Per IM Hyperlipidemia. Statin. Morbid obesity with significant debility SUBHA COON APRN Jul 07, 2020 12:22 HENRI RAYMOND MD Jul 07, 2020 16:47
[2020-07-07 14:53] VITALS: BP 144/79
[2020-07-07] MEDS: MAG HYDROX/ALUMINUM HYD/SIMETH 30 ML ORAL.SUSP PO PRN (14:56)
[2020-07-07] MEDS ORDERED: FUROSEMIDE 40 MG/4 ML VIAL. IVP ONE (16:15)
--- NOTE | 2020-07-07 17:08 | CARD ---
MR#: [id number] Date of Study: 07/07/2020 Ordering Physician: SAMANTHA MARSH, Referring Physician: SAMANTHA MARSH, Tech: Lida Lopez APPROVED REPORT EXAM: Two-dimensional and M-mode echocardiogram with Doppler and color Doppler. Other Information Quality : AverageHR: 73bpm INDICATION COPD Congestive Heart Failure RISK FACTORS Hypertension Diabetes 2D DIMENSIONS Left Atrium(2D)3.7 (1.6-4.0cm)IVSd1.4 (0.7-1.1cm) Aortic Root(2D)3.0 (2.0-3.7cm)LVDd5.4 (3.9-5.9cm) LVOT Diameter2.0 (1.8-2.4cm)PWd1.1 (0.7-1.1cm) LVDs2.7 (2.5-4.0cm) Aortic Valve AoV Peak Mike.192.5cm/sAoV VTI41.6cm AO Peak GR.14.8mmHgLVOT VTI 33.92cm AO Mean GR.8mmHg Mitral Valve MV E Jadcqwyy139.6cm/sMV DECEL ODZV307vy MV A Vgkuykdw891.4cm/sE/A Ratio0.9 TDI Lateral E' P. V8.72cm/sMedial E' P. V8.72cm/s E/Lateral E'12.0E/Medial E'12.0 Tricuspid Valve TR P. Iydnhdpr708re/sRAP TDZPCDMG0eaKd TR Peak Gr.80jsLrWPDW14otGh Pulmonary Vein S1 Erbhvnqv62.8cm/sS2 Doedbhrz40.83cm/s D2 Qtvjkhmw65.8cm/s LEFT VENTRICLE The left ventricle is normal size. There is mild to moderate concentric left ventricular hypertrophy. The left ventricular systolic function is normal. The Ejection Fraction is 60%. There is normal LV s egmental wall motion. Transmitral Doppler flow pattern is Grade I-abnormal relaxation pattern. RIGHT VENTRICLE The right ventricle is mildly dilated. There is normal right ventricular wall thickness. The right ve ntricular systolic function is normal. ATRIA The left atrium is mildly dilated. The right atrium is mildly dilated. The interatrial septum is inta ct with no evidence for an atrial septal defect or patent foramen ovale as noted on 2-D or Doppler im aging. AORTIC VALVE The aortic valve is thickened but opens well. Doppler and Color Flow revealed no significant aortic r egurgitation. There is no significant aortic valvular stenosis. Calculated aortic valve area is 2.62 cm2 with maximum pressure gradient of 15 mmHg and mean pressure gradient of 8 mmHg. MITRAL VALVE Mitral annular calcification is mild. There is no evidence of mitral valve prolapse. There is no mitr al valve stenosis. Doppler and Color Flow revealed no mitral valve regurgitation noted. TRICUSPID VALVE The tricuspid valve is not well visualized. Doppler and Color Flow revealed trace tricuspid regurgita tion with an estimated PAP of 39 mmHg. There is no tricuspid valve stenosis. PULMONIC VALVE The pulmonic valve is not well visualized. Doppler and Color Flow revealed trace pulmonic valvular re gurgitation. GREAT VESSELS The aortic root is normal in size. The IVC is normal in size and collapses >50% with inspiration. PERICARDIAL EFFUSION There is no evidence of significant pericardial effusion. Critical Notification Critical Value: No <Conclusion> The left ventricular systolic function is normal. The Ejection Fraction is 60%. There is normal LV segmental wall motion. Transmitral Doppler flow pattern is Grade I-abnormal relaxation pattern. The right ventricle is mildly dilated. Trace tricuspid regurgitation with an estimated PAP of 39 mmHg. There is no evidence of significant pericardial effusion. Signed by : Cj Munson, Electronically Approved : 07/07/2020 17:07:58
[2020-07-07 19:10] VITALS: BP 144/68
[2020-07-07] MEDS: PRAMIPEXOLE 0.25 MG TABLET. PO SCH (20:55)
[2020-07-07] MEDS: ATORVASTATIN CALCIUM 40 MG TABLET. PO SCH (20:56)
[2020-07-07] MEDS: ENOXAPARIN 40 MG/0.4 ML SYRINGE. SQ SCH (20:56)
[2020-07-07] MEDS ORDERED: INSULIN LISPRO 300 UNITS/3 ML VIAL. SQ ONE (21:45)
[2020-07-07] MEDS: ONDANSETRON PF 4 MG/2 ML VIAL. IVP PRN (22:12)
[2020-07-07 23:00] VITALS: BP 124/61
[2020-07-08] MEDS: IPRATROPIUM/ALBUTEROL 20/100mcg/INH INHALER. INH SCH ×4 (00:12→20:17)
[2020-07-08 03:00] VITALS: BP 135/77
[2020-07-08] MEDS: TOBRAMYCIN 0.3% OPHTH SOLUTION 5ML BOTTLE. OS SCH ×5 (06:31→20:53)
[2020-07-08] MEDS: methylPREDNISolone SOD SUCC PF 40 MG/ML VIAL. IV SCH (06:31)
[2020-07-08 07:00] VITALS: BP 128/63
[2020-07-08] MEDS: INSULIN LISPRO 300 UNITS/3 ML VIAL. SQ SCH ×4 (07:30→21:00)
[2020-07-08 08:00] LABS: BASO % 0 % (0-3); EOS % 0 % (0-3); HEMATOCRIT 46.3 % (36.0-47.0); HEMOGLOBIN 14.3 g/dL (12.0-15.5); LYMPH # 0.3 x10^3/uL (1.0-4.8); LYMPH % 5 % (24-48); MEAN CORPUSCULAR HEMOGLOBIN 26 pg (25-35); MEAN CORPUSCULAR HGB CONC 31 g/dL (31-37); MEAN CORPUSCULAR VOLUME 85 fL (79-100); MONO # 0.3 x10^3/uL (0.0-1.1); MONO % 5 % (0-9); NEUT # 6.1 x10^3/uL (1.8-7.7); NEUT % 91 % (31-73); PLATELET COUNT 223 x10^3/uL (140-400); RED BLOOD COUNT 5.47 x10^6/uL (3.50-5.40); RED CELL DISTRIBUTION WIDTH 15.9 % (11.5-14.5); WHITE BLOOD COUNT 6.7 x10^3/uL (4.0-11.0)
[2020-07-08 08:20] LABS: CALCIUM 8.7 mg/dL (8.5-10.1); CREATININE 0.7 mg/dL (0.6-1.0); GFR 98.2; MAGNESIUM 2.9 mg/dL (1.8-2.4); POTASSIUM 4.5 mmol/L (3.5-5.1)
--- NOTE | 2020-07-08 09:07 | PDOC ---
SUBHA COON LEATHER CRAFTSMAN 07/08/20 0907: CARDIO Progress Notes Date and Time Date of Service 07/08/20 Time of Evaluation 1220 Subjective Subjective: No Chest Pain, No Palpitations, No Dizziness, Other (SOA better) Vitals Vitals Vital Signs Date Time Temp Pulse Resp B/P (MAP) Pulse Ox O2 Delivery O2 Flow Rate FiO2 07/08/20 07:00 97.5 73 20 128/63 (84) 94 Nasal Cannula 2.0 97.5 Weight Weight [ ] Input and Output Intake and Output Intake and Output 07/08/20 07:00 Intake Total 980 ml Output Total 1550 ml Balance -570 ml Intake Oral 980 ml Output Urine Total 1450 ml Emesis 100 ml # Voids 1 # Bowel Movements 1 Laboratory Labs Laboratory Tests Test 07/07/20 09:30 07/07/20 11:50 07/07/20 19:57 07/08/20 07:39 White Blood Count 6.4 x10^3/uL (4.0-11.0) 6.7 x10^3/uL (4.0-11.0) Red Blood Count 5.32 x10^6/uL (3.50-5.40) 5.47 x10^6/uL (3.50-5.40) Hemoglobin 13.9 g/dL (12.0-15.5) 14.3 g/dL (12.0-15.5) Hematocrit 45.1 % (36.0-47.0) 46.3 % (36.0-47.0) Mean Corpuscular Volume 85 fL (79-100) 85 fL (79-100) Mean Corpuscular Hemoglobin 26 pg (25-35) 26 pg (25-35) Mean Corpuscular Hemoglobin Concent 31 g/dL (31-37) 31 g/dL (31-37) Red Cell Distribution Width 16.1 % (11.5-14.5) 15.9 % (11.5-14.5) Platelet Count 224 x10^3/uL (140-400) 223 x10^3/uL (140-400) Neutrophils (%) (Auto) 92 % (31-73) 91 % (31-73) Lymphocytes (%) (Auto) 4 % (24-48) 5 % (24-48) Monocytes (%) (Auto) 4 % (0-9) 5 % (0-9) Eosinophils (%) (Auto) 0 % (0-3) 0 % (0-3) Basophils (%) (Auto) 0 % (0-3) 0 % (0-3) Neutrophils # (Auto) 5.8 x10^3/uL (1.8-7.7) 6.1 x10^3/uL (1.8-7.7) Lymphocytes # (Auto) 0.3 x10^3/uL (1.0-4.8) 0.3 x10^3/uL (1.0-4.8) Monocytes # (Auto) 0.2 x10^3/uL (0.0-1.1) 0.3 x10^3/uL (0.0-1.1) Eosinophils # (Auto) 0.0 x10^3/uL (0.0-0.7) 0.0 x10^3/uL (0.0-0.7) Basophils # (Auto) 0.0 x10^3/uL (0.0-0.2) 0.0 x10^3/uL (0.0-0.2) Glucose (Fingerstick) 158 mg/dL (70-99) 354 mg/dL (70-99) Sodium Level 142 mmol/L (136-145) Potassium Level 4.5 mmol/L (3.5-5.1) Chloride Level 102 mmol/L (98-107) Carbon Dioxide Level 36 mmol/L (21-32) Anion Gap 4 (6-14) Blood Urea Nitrogen 38 mg/dL (7-20) Creatinine 0.7 mg/dL (0.6-1.0) Estimated GFR (Cockcroft-Gault) 98.2 Glucose Level 152 mg/dL (70-99) Calcium Level 8.7 mg/dL (8.5-10.1) Magnesium Level 2.9 mg/dL (1.8-2.4) Test 07/08/20 07:47 Glucose (Fingerstick) 148 mg/dL (70-99) Microbiology Micro Microbiology 07/03/20 Blood Culture - Final, Complete NO GROWTH AFTER 5 DAYS 07/02/20 Urine Culture - Final, Complete 07/02/20 Antimicrobic Susceptibility - Final, Complete Physical Exam HEENT: Neck Supple W Full Motion Chest: Symmetric LUNGS: Other (diminished bases) Heart: RRR Abdomen: Soft N/T Extremities: Other (trace bilateral LE edema ) Neurology: alert, oriented, follow commands Assessment Assessment 1. Acute on chronic hypercapnic respiratory failure: Covid test negative. 2. Acute on chronic diastolic heart failure, improved with diuresis. Echo with LVEF 60% 3. Mild troponin elevation: peak 0.1. Most probably demand ischemia. CP free. 4. HTN: controlled 5. DM2: Per IM 6. Hyperlipidemia 7. Morbid obesity with significant debility Recommendations Lasix therapy Continue ASA, statin Consider outpatient ischemic evaluation Supportive care Justicifation of Admission Dx: Justifications for Admission: Justification of Admission Dx: Yes HENRI RAYMOND MD 07/08/20 1750: CARDIO Progress Notes Assessment Assessment Patient seen and examined I agree with our nurse practitioners assessment and plan. Acute on chronic hypercapnic respiratory failure: Covid test negative. Improved today. Acute on chronic diastolic heart failure, improved with diuresis. Echo with LVEF 60% Mild troponin elevation: peak 0.1. Most probably demand ischemia. CP free. Outpatient follow-up. HTN: controlled DM2: Per IM Hyperlipidemia SUBHA COON APRN Jul 08, 2020 09:07 HENRI RAYMOND MD Jul 08, 2020 17:50
[2020-07-08] MEDS: FUROSEMIDE 20 MG TABLET PO SCH (09:21)
[2020-07-08] MEDS: ASPIRIN CHEWABLE 81 MG TABLET. PO SCH (09:21)
[2020-07-08] MEDS: hydroCHLOROthiazide 25 MG TABLET PO SCH (09:21)
[2020-07-08] MEDS: LACTOBACILLUS RHAMNOSUS GG 1 CAPSULE. PO SCH ×2 (09:22→20:14)
[2020-07-08] MEDS: LISINOPRIL 10 MG TABLET PO SCH (09:22)
[2020-07-08] MEDS: GABAPENTIN 300 MG CAPSULE. PO SCH ×3 (09:27→20:15)
[2020-07-08] MEDS: ONDANSETRON PF 4 MG/2 ML VIAL. IVP PRN ×2 (10:07→20:53)
[2020-07-08 10:44] VITALS: BP 118/85
--- NOTE | 2020-07-08 11:56 | PDOC ---
[employer] PROGRESS NOTE Date of Service DOS: DATE: 07/08/20 TIME: 11:54 Chief Complaint Chief Complaint COPD exacerbation Acute respiratory failure with hypoxia Elevated troponins COVID-19 PUInegative PCR Conjunctivitis Dehydration OHS/OSApatient would benefit from outpatient polysomnography Super super morbid obesity Plan: Consultations placed to cardiology for evaluation of elevated troponins; likely demand ischemia as to troponins have been elevated but stable Continue to trend troponins We will treat patient with antibiotics and steroids COVID-19 pending Doxycycline 100 mg twice daily, Decadron 6 mg daily Appreciate pulmonology recommendationsstart IV steroids, IV Lasix, pending echocardiogram, Combivent inhaler until Covid negative then start nebulizer if negative Oxygen and supportive care Will consider initiating remdesivir when confirmed COVID-19 positive, however patient was insistent upon leaving the hospital before T[facility] We will order 6-minute walk for the morning and patient may be able to discharge home on home oxygen. Influenza pending IV normal saline FEN - Cardiac diet PPX - Lovenox FULL CODE Dispo - inpatient for above okay to transfer out of the [facility] unit History of Present Illness History of Present Illness 07/08/2020 No major events overnight. Patient did have an episode nausea vomiting last night. Unable to tolerate breakfast this morning. Will attempt to feed again for lunch. Patient is close to her home baseline oxygen requirements. Saturating 93% at 2-4 liters nasal cannula. Patient's chart, labs, images were reviewed and discussed with RN 07/07/2020 No acute events overnight. Patient is tolerating 96% on 5 L nasal cannula. Did not use any BiPAP overnight. Patient complains of having generalized weakness and will want to have 1 more day in the hospital. Patient has little motivation to ambulate on her own. She mainly uses the walker to transition from bed to her wheelchair. She attributes this disability due to her foot drop. Encouraged patient to lose weight and to follow through with outpatient polysomnography. Patient's chart, labs, images were reviewed and discussed with RN 07/06/2020 Patient transferred from [facility] floor to ICU overnight. Patient is tolerating 96% on 5 L nasal cannula. Patient's chart, labs, images were reviewed and discussed with RN 07/05/2020 No acute events overnight. Patient is tolerating BiPAP at night for at least 4 hours as reported. Patient is currently on 93% on 3 L nasal cannula. Patient's chart, labs, images were reviewed and discussed with RN 07/04/2020 Patient needs to be on BiPAP through the day. Improved ABG. Still having some wheezing. Patient's chart, labs, images were reviewed and discussed with RN 07/03/2020 No acute events overnight. Patient continues to be short of breath and wheezing. Currently on 10 L nonrebreathing mask. Patient's chart, labs, images were reviewed and discussed with RN 75-year-old female with past medical history of undiagnosed COPD on 2 L at night, CHF, who presents to the ER with complaints of shortness of breath for the past 2 months. She states her symptoms are worsening over the past 2 weeks. She reports associated productive cough over this time. Patient admits to roughly 10-year history of smoking in the 60's. Of note she also complains of left arm erythema with clear drainage for the past week. Upon evaluation in the ED patient's troponin was initially elevated at 0.152, with repeat 0.158. Cardiology was notified in the ED, and recommended medicine admit for further evaluation. Patient denies any chest pain or known sick contacts. Vitals/I&O Vitals/I&O: Vital Signs Date Time Temp Pulse Resp B/P (MAP) Pulse Ox O2 Delivery O2 Flow Rate FiO2 07/08/20 10:44 97.5 77 20 118/85 (96) 93 Nasal Cannula 2.0 97.5 I & O 07/07/20 07/07/20 07/08/20 14:59 22:59 06:59 Intake Total 740 ml 240 ml Output Total 1150 ml 400 ml Balance -410 ml -160 ml Physical Exam General: Alert Heart: Regular rate, Other Lungs: Wheezing (improved) Abdomen: Soft Extremities: No cyanosis, Other Skin: No breakdown, No significant lesion Labs Labs: Laboratory Tests Test 07/07/20 19:57 07/08/20 07:39 07/08/20 07:47 07/08/20 11:30 Glucose (Fingerstick) 354 mg/dL (70-99) 148 mg/dL (70-99) 126 mg/dL (70-99) White Blood Count 6.7 x10^3/uL (4.0-11.0) Red Blood Count 5.47 x10^6/uL (3.50-5.40) Hemoglobin 14.3 g/dL (12.0-15.5) Hematocrit 46.3 % (36.0-47.0) Mean Corpuscular Volume 85 fL (79-100) Mean Corpuscular Hemoglobin 26 pg (25-35) Mean Corpuscular Hemoglobin Concent 31 g/dL (31-37) Red Cell Distribution Width 15.9 % (11.5-14.5) Platelet Count 223 x10^3/uL (140-400) Neutrophils (%) (Auto) 91 % (31-73) Lymphocytes (%) (Auto) 5 % (24-48) Monocytes (%) (Auto) 5 % (0-9) Eosinophils (%) (Auto) 0 % (0-3) Basophils (%) (Auto) 0 % (0-3) Neutrophils # (Auto) 6.1 x10^3/uL (1.8-7.7) Lymphocytes # (Auto) 0.3 x10^3/uL (1.0-4.8) Monocytes # (Auto) 0.3 x10^3/uL (0.0-1.1) Eosinophils # (Auto) 0.0 x10^3/uL (0.0-0.7) Basophils # (Auto) 0.0 x10^3/uL (0.0-0.2) Sodium Level 142 mmol/L (136-145) Potassium Level 4.5 mmol/L (3.5-5.1) Chloride Level 102 mmol/L (98-107) Carbon Dioxide Level 36 mmol/L (21-32) Anion Gap 4 (6-14) Blood Urea Nitrogen 38 mg/dL (7-20) Creatinine 0.7 mg/dL (0.6-1.0) Estimated GFR (Cockcroft-Gault) 98.2 Glucose Level 152 mg/dL (70-99) Calcium Level 8.7 mg/dL (8.5-10.1) Magnesium Level 2.9 mg/dL (1.8-2.4) Assessment and Plan Assessmemt and Plan Problems Medical Problems: (1) Bacterial conjunctivitis of left eye Status: Acute (2) Bilateral pulmonary infiltrates on chest x-ray Status: Acute (3) Elevated troponin Status: Acute (4) Person under investigation for COVID-19 Status: Acute Comment Review of Relevant I have reviewed the following items tucker (where applicable) has been applied. Medications: Current Medications Medications (Trade) Dose Ordered Sig/Mehul Route PRN Reason Start Time Stop Time Status Last Admin Dose Admin Furosemide (Lasix) 40 mg 1X ONCE IVP 07/07/20 16:15 07/07/20 16:21 DC 07/07/20 16:53 Insulin Human Lispro (HumaLOG) 20 units 1X ONCE SQ 07/07/20 21:45 07/07/20 21:46 DC 07/07/20 22:00 Justifications for Admission Other Justification Acute respiratory failure with hypoxia, COVID-19 JJ LÓPEZ MD Jul 08, 2020 11:55
--- NOTE | 2020-07-08 12:37 | NUR ---
SS following up with discharge planning. SS reviewed pt chart and discussed with pt RN. Pt is currently requiring oxygen. Pt has home oxygen. PT/OT recommended [facility]. Pt having ECHO today. SS met with pt to discuss discharge planning and [facility] unit. Pt declining [facility] unit stating that she will not go due to COVID19. Pt agreeable to home healthcare with no preference of company. SS will continue to follow for discharge planning.
[2020-07-08 15:00] VITALS: BP 114/61
--- NOTE | 2020-07-08 15:47 | NUR ---
SS following up with discharge planning. Pt agreeable to [facility], ; fax [phone]. Referral phoned and faxed to [facility]. SS will continue to follow for discharge planning.
--- NOTE | 2020-07-08 15:58 | PDOC ---
PULMONARY PROGRESS NOTES DATE: 07/08/20 TIME: 15:55 Subjective Remains on N/ C oxygen did not wear BIPAP overnight N/V this am no increased cough or SOA Vitals Vital Signs Date Time Temp Pulse Resp B/P (MAP) Pulse Ox O2 Delivery O2 Flow Rate FiO2 07/08/20 15:00 97.6 72 22 114/61 (78) 92 Nasal Cannula 2.0 97.6 ROS: No Nausea, No Chest Pain, No Increase Cough General: Alert, No acute distress Lungs: Wheezing (improved) Cardiovascular: S1 Abdomen: Soft, Other (obese) Extremities: Other (trace) Skin: Warm Labs Laboratory Tests Test 07/06/20 17:34 07/06/20 20:41 07/07/20 07:35 07/07/20 09:30 Glucose (Fingerstick) 174 mg/dL (70-99) 213 mg/dL (70-99) 168 mg/dL (70-99) White Blood Count 6.4 x10^3/uL (4.0-11.0) Red Blood Count 5.32 x10^6/uL (3.50-5.40) Hemoglobin 13.9 g/dL (12.0-15.5) Hematocrit 45.1 % (36.0-47.0) Mean Corpuscular Volume 85 fL (79-100) Mean Corpuscular Hemoglobin 26 pg (25-35) Mean Corpuscular Hemoglobin Concent 31 g/dL (31-37) Red Cell Distribution Width 16.1 % (11.5-14.5) Platelet Count 224 x10^3/uL (140-400) Neutrophils (%) (Auto) 92 % (31-73) Lymphocytes (%) (Auto) 4 % (24-48) Monocytes (%) (Auto) 4 % (0-9) Eosinophils (%) (Auto) 0 % (0-3) Basophils (%) (Auto) 0 % (0-3) Neutrophils # (Auto) 5.8 x10^3/uL (1.8-7.7) Lymphocytes # (Auto) 0.3 x10^3/uL (1.0-4.8) Monocytes # (Auto) 0.2 x10^3/uL (0.0-1.1) Eosinophils # (Auto) 0.0 x10^3/uL (0.0-0.7) Basophils # (Auto) 0.0 x10^3/uL (0.0-0.2) Test 07/07/20 11:50 07/07/20 19:57 07/08/20 07:39 07/08/20 07:47 Glucose (Fingerstick) 158 mg/dL (70-99) 354 mg/dL (70-99) 148 mg/dL (70-99) White Blood Count 6.7 x10^3/uL (4.0-11.0) Red Blood Count 5.47 x10^6/uL (3.50-5.40) Hemoglobin 14.3 g/dL (12.0-15.5) Hematocrit 46.3 % (36.0-47.0) Mean Corpuscular Volume 85 fL (79-100) Mean Corpuscular Hemoglobin 26 pg (25-35) Mean Corpuscular Hemoglobin Concent 31 g/dL (31-37) Red Cell Distribution Width 15.9 % (11.5-14.5) Platelet Count 223 x10^3/uL (140-400) Neutrophils (%) (Auto) 91 % (31-73) Lymphocytes (%) (Auto) 5 % (24-48) Monocytes (%) (Auto) 5 % (0-9) Eosinophils (%) (Auto) 0 % (0-3) Basophils (%) (Auto) 0 % (0-3) Neutrophils # (Auto) 6.1 x10^3/uL (1.8-7.7) Lymphocytes # (Auto) 0.3 x10^3/uL (1.0-4.8) Monocytes # (Auto) 0.3 x10^3/uL (0.0-1.1) Eosinophils # (Auto) 0.0 x10^3/uL (0.0-0.7) Basophils # (Auto) 0.0 x10^3/uL (0.0-0.2) Sodium Level 142 mmol/L (136-145) Potassium Level 4.5 mmol/L (3.5-5.1) Chloride Level 102 mmol/L (98-107) Carbon Dioxide Level 36 mmol/L (21-32) Anion Gap 4 (6-14) Blood Urea Nitrogen 38 mg/dL (7-20) Creatinine 0.7 mg/dL (0.6-1.0) Estimated GFR (Cockcroft-Gault) 98.2 Glucose Level 152 mg/dL (70-99) Calcium Level 8.7 mg/dL (8.5-10.1) Magnesium Level 2.9 mg/dL (1.8-2.4) Test 07/08/20 11:30 Glucose (Fingerstick) 126 mg/dL (70-99) Laboratory Tests Test 07/07/20 19:57 07/08/20 07:39 07/08/20 07:47 07/08/20 11:30 Glucose (Fingerstick) 354 mg/dL (70-99) 148 mg/dL (70-99) 126 mg/dL (70-99) White Blood Count 6.7 x10^3/uL (4.0-11.0) Red Blood Count 5.47 x10^6/uL (3.50-5.40) Hemoglobin 14.3 g/dL (12.0-15.5) Hematocrit 46.3 % (36.0-47.0) Mean Corpuscular Volume 85 fL (79-100) Mean Corpuscular Hemoglobin 26 pg (25-35) Mean Corpuscular Hemoglobin Concent 31 g/dL (31-37) Red Cell Distribution Width 15.9 % (11.5-14.5) Platelet Count 223 x10^3/uL (140-400) Neutrophils (%) (Auto) 91 % (31-73) Lymphocytes (%) (Auto) 5 % (24-48) Monocytes (%) (Auto) 5 % (0-9) Eosinophils (%) (Auto) 0 % (0-3) Basophils (%) (Auto) 0 % (0-3) Neutrophils # (Auto) 6.1 x10^3/uL (1.8-7.7) Lymphocytes # (Auto) 0.3 x10^3/uL (1.0-4.8) Monocytes # (Auto) 0.3 x10^3/uL (0.0-1.1) Eosinophils # (Auto) 0.0 x10^3/uL (0.0-0.7) Basophils # (Auto) 0.0 x10^3/uL (0.0-0.2) Sodium Level 142 mmol/L (136-145) Potassium Level 4.5 mmol/L (3.5-5.1) Chloride Level 102 mmol/L (98-107) Carbon Dioxide Level 36 mmol/L (21-32) Anion Gap 4 (6-14) Blood Urea Nitrogen 38 mg/dL (7-20) Creatinine 0.7 mg/dL (0.6-1.0) Estimated GFR (Cockcroft-Gault) 98.2 Glucose Level 152 mg/dL (70-99) Calcium Level 8.7 mg/dL (8.5-10.1) Magnesium Level 2.9 mg/dL (1.8-2.4) Medications Active Scripts Medications Dose Route/Sig Max Daily Dose Days Date Category [Vitamin D] PO DAILY 07/03/20 Reported Vitamin E (Vitamin E Acetate) 400 Unit Capsule 400 Unit PO DAILY 07/03/20 Reported Vitamin C (Ascorbic Acid) 500 Mg Capsule.er 1 Cap PO DAILY 30 07/03/20 Reported Metformin Hcl Er (Metformin Hcl) 500 Mg Tab.er.24h 500 Mg PO DAILYWBKFT 07/03/20 Reported Lasix (Furosemide) 20 Mg Tablet 1 Tab PO DAILY 30 07/03/20 Reported Aspirin 81 Mg Tab.chew 1 Tab PO DAILY 07/03/20 Reported Cardizem Cd (Diltiazem Hcl) 360 Mg Cap.er.24h 1 Cap PO DAILY 07/03/20 Reported Lisinopril 10 Mg Tablet 1 Tab PO DAILY 07/03/20 Reported Hydrochlorothiazide Tablet (Hydrochlorothiazide) 25 Mg Tablet 25 Mg PO DAILY 07/03/20 Reported Motrin Ib (Ibuprofen) 200 Mg Tablet 600 Mg PO Q6HRS PRN 07/02/20 Reported Neurontin (Gabapentin) 600 Mg Tablet 900 Mg PO TID 07/02/20 Reported Comments ECHO <Conclusion> The left ventricular systolic function is normal. The Ejection Fraction is 60%. There is normal LV segmental wall motion. Transmitral Doppler flow pattern is Grade I-abnormal relaxation pattern. The right ventricle is mildly dilated. Trace tricuspid regurgitation with an estimated PAP of 39 mmHg. There is no evidence of significant pericardial effusion Impression . 1. Acute hypoxic and acute on chronic hypercapnic respiratory failure with audible wheezing and chest x-ray consistent with bilateral interstitial infiltrates. The findings are highly suggestive of cardiac asthma. She has no significant history of pulmonary asthma and no significant tobacco history. better with diuresis 2. Abnormal chest x-ray with bilateral interstitial infiltrates. No old x-ray available for comparison. This is likely secondary to diastolic congestive heart failure. 3. Morbid obesity with a body mass index of 53. She is at risk for sleep apnea. She also likely has obesity hypoventilation syndrome. Her bicarbonate is 35. had worsening hypercapnia. Rx with BIPAP 4. History of diastolic heart failure, details unknown. We will obtain an echocardiogram. 5. Low suspicion for COVID., ruled out Plan . Continue Supplemental oxygen to keep sats above 92 %, currently on 2 liters N/C BIPAP at night, as tolerated change steroids to po with taper NEBS Follow cardiology recs---Lasix PRN,ECHO reviewed EF WNL Cont. Doxy for full course Social work for D/C planning -- home health Recomend outpatient sleep study, pt. is unsure if this is something she wishes to do or not PT/OT DVT/GI PPX D/W RN and RT LESA PRADHAN MD Jul 08, 2020 15:58
[2020-07-08 19:56] VITALS: BP 110/88
[2020-07-08] MEDS: ATORVASTATIN CALCIUM 40 MG TABLET. PO SCH (20:14)
[2020-07-08] MEDS: PRAMIPEXOLE 0.25 MG TABLET. PO SCH (20:14)
[2020-07-08] MEDS: ALBUTEROL SULFATE 8GM INHALER. INH PRN (20:16)
[2020-07-08 23:38] VITALS: BP 126/68
[2020-07-09] MEDS: IPRATROPIUM/ALBUTEROL 20/100mcg/INH INHALER. INH SCH ×4 (00:20→16:37)
[2020-07-09 03:23] VITALS: BP 121/65
[2020-07-09] MEDS: TOBRAMYCIN 0.3% OPHTH SOLUTION 5ML BOTTLE. OS SCH ×5 (06:15→21:01)
[2020-07-09] MEDS: ONDANSETRON PF 4 MG/2 ML VIAL. IVP PRN ×3 (06:36→21:01)
[2020-07-09 07:00] VITALS: BP 114/87
[2020-07-09] MEDS: INSULIN LISPRO 300 UNITS/3 ML VIAL. SQ SCH ×4 (07:30→21:09)
[2020-07-09] MEDS: LISINOPRIL 10 MG TABLET PO SCH (08:59)
[2020-07-09] MEDS: LACTOBACILLUS RHAMNOSUS GG 1 CAPSULE. PO SCH ×2 (09:00→21:00)
[2020-07-09] MEDS: GABAPENTIN 300 MG CAPSULE. PO SCH ×3 (09:00→21:00)
[2020-07-09] MEDS: hydroCHLOROthiazide 25 MG TABLET PO SCH (09:00)
[2020-07-09] MEDS: ASPIRIN CHEWABLE 81 MG TABLET. PO SCH (09:01)
[2020-07-09] MEDS: FUROSEMIDE 20 MG TABLET PO SCH (09:01)
[2020-07-09] MEDS: predniSONE 20 MG TABLET PO SCH ×2 (09:01)
[2020-07-09] MEDS: ACETAMINOPHEN 325 MG TABLET. PO PRN (09:03)
[2020-07-09 09:45] LABS: BASE EXCESS ABG 9 mmol/L (-3-3); HCO3 ABG 36 mmol/L (21-28); PCO2 ABG 59 mmHg (35-46); PO2 ABG 64 mmHg (65-108); SAT O2 ABG 93 % (92-99)
[2020-07-09 09:46] LABS: FIO2 ABG 28/2LNC
--- NOTE | 2020-07-09 10:11 | PDOC ---
SUBHA COON MOLDED FRAMES ASSEMBLER 07/09/20 1011: CARDIO Progress Notes Date and Time Date of Service 07/09/20 Time of Evaluation 1015 Subjective Subjective: No Chest Pain, No Palpitations, No Dizziness, Other (SOA better, had BM today) Vitals Vitals Vital Signs Date Time Temp Pulse Resp B/P (MAP) Pulse Ox O2 Delivery O2 Flow Rate FiO2 07/09/20 09:00 70 114/87 07/09/20 08:00 Nasal Cannula 2.0 07/09/20 07:00 97.5 16 91 97.5 Weight Weight [ ] Input and Output Intake and Output Intake and Output 07/09/20 07:00 Intake Total 1080 ml Output Total 1750 ml Balance -670 ml Intake Oral 1080 ml Output Urine Total 1750 ml # Voids 1 # Bowel Movements 1 Laboratory Labs Laboratory Tests Test 07/08/20 11:30 07/08/20 16:34 07/08/20 20:43 07/09/20 07:20 Glucose (Fingerstick) 126 mg/dL (70-99) 125 mg/dL (70-99) 156 mg/dL (70-99) 121 mg/dL (70-99) Test 07/09/20 09:38 O2 Saturation 93 % (92-99) Arterial Blood pH 7.41 (7.35-7.45) Arterial Blood pCO2 at Patient Temp 59 mmHg (35-46) Arterial Blood pO2 at Patient Temp 64 mmHg (65-108) Arterial Blood HCO3 36 mmol/L (21-28) Arterial Blood Base Excess 9 mmol/L (-3-3) FiO2 28/2lnc Microbiology Micro Microbiology 07/03/20 Blood Culture - Final, Complete NO GROWTH AFTER 5 DAYS 07/02/20 Urine Culture - Final, Complete 07/02/20 Antimicrobic Susceptibility - Final, Complete Physical Exam HEENT: Neck Supple W Full Motion Chest: Symmetric LUNGS: Other (diminished bases) Heart: RRR Abdomen: Soft N/T Extremities: No Edema Neurology: alert, oriented, follow commands Assessment Assessment 1. Acute on chronic hypercapnic respiratory failure: Covid test negative. 2. Acute on chronic diastolic heart failure, improved with diuresis. Echo with LVEF 60% 3. Mild troponin elevation: peak 0.1. Most probably demand ischemia. CP free. 4. HTN: controlled 5. DM2: Per IM 6. Hyperlipidemia 7. Morbid obesity with significant debility Recommendations Oral Lasix therapy. Additional PRN Continue ASA, statin Consider outpatient ischemic evaluation Lung optimization as per pulm Follow up in our office with Dr. Raymond as scheduled. Supportive care Justicifation of Admission Dx: Justifications for Admission: Justification of Admission Dx: Yes HENRI RAYMOND MD 07/09/20 1640: CARDIO Progress Notes Assessment Assessment Patient seen and examined I agree with our nurse practitioner as above. Acute on chronic hypercapnic respiratory failure: Covid test negative. Continues to improve Acute on chronic diastolic heart failure, improved with diuresis. Echo with LVEF 60% Mild troponin elevation: peak 0.1. Most probably demand ischemia. CP free. Continue medical treatment. Outpatient follow-up. HTN: controlled Hyperlipidemia SUBHA COON APRN Jul 09, 2020 10:11 HENRI RAYMOND MD Jul 09, 2020 16:40
[2020-07-09 11:00] VITALS: BP 130/54
[2020-07-09] MEDS: CALCIUM CARBONATE 500 MG TAB.CHEW PO PRN ×2 (12:19→20:11)
--- NOTE | 2020-07-09 13:16 | PDOC ---
PULMONARY PROGRESS NOTES DATE: 07/09/20 TIME: 13:14 Subjective Remains on N/ C oxygen no increased cough or SOA Vitals Vital Signs Date Time Temp Pulse Resp B/P (MAP) Pulse Ox O2 Delivery O2 Flow Rate FiO2 07/09/20 11:00 97.7 71 20 130/54 (79) 92 Nasal Cannula 2.0 97.7 ROS: No Nausea, No Chest Pain, No Abdominal Pain, No Increase Cough General: Alert, No acute distress Lungs: Clear Cardiovascular: S1 Abdomen: Soft, Other (obese) Extremities: Other (trace) Skin: Warm Labs Laboratory Tests Test 07/07/20 19:57 07/08/20 07:39 07/08/20 07:47 07/08/20 11:30 Glucose (Fingerstick) 354 mg/dL (70-99) 148 mg/dL (70-99) 126 mg/dL (70-99) White Blood Count 6.7 x10^3/uL (4.0-11.0) Red Blood Count 5.47 x10^6/uL (3.50-5.40) Hemoglobin 14.3 g/dL (12.0-15.5) Hematocrit 46.3 % (36.0-47.0) Mean Corpuscular Volume 85 fL (79-100) Mean Corpuscular Hemoglobin 26 pg (25-35) Mean Corpuscular Hemoglobin Concent 31 g/dL (31-37) Red Cell Distribution Width 15.9 % (11.5-14.5) Platelet Count 223 x10^3/uL (140-400) Neutrophils (%) (Auto) 91 % (31-73) Lymphocytes (%) (Auto) 5 % (24-48) Monocytes (%) (Auto) 5 % (0-9) Eosinophils (%) (Auto) 0 % (0-3) Basophils (%) (Auto) 0 % (0-3) Neutrophils # (Auto) 6.1 x10^3/uL (1.8-7.7) Lymphocytes # (Auto) 0.3 x10^3/uL (1.0-4.8) Monocytes # (Auto) 0.3 x10^3/uL (0.0-1.1) Eosinophils # (Auto) 0.0 x10^3/uL (0.0-0.7) Basophils # (Auto) 0.0 x10^3/uL (0.0-0.2) Sodium Level 142 mmol/L (136-145) Potassium Level 4.5 mmol/L (3.5-5.1) Chloride Level 102 mmol/L (98-107) Carbon Dioxide Level 36 mmol/L (21-32) Anion Gap 4 (6-14) Blood Urea Nitrogen 38 mg/dL (7-20) Creatinine 0.7 mg/dL (0.6-1.0) Estimated GFR (Cockcroft-Gault) 98.2 Glucose Level 152 mg/dL (70-99) Calcium Level 8.7 mg/dL (8.5-10.1) Magnesium Level 2.9 mg/dL (1.8-2.4) Test 07/08/20 16:34 07/08/20 20:43 07/09/20 07:20 07/09/20 09:38 Glucose (Fingerstick) 125 mg/dL (70-99) 156 mg/dL (70-99) 121 mg/dL (70-99) O2 Saturation 93 % (92-99) Arterial Blood pH 7.41 (7.35-7.45) Arterial Blood pCO2 at Patient Temp 59 mmHg (35-46) Arterial Blood pO2 at Patient Temp 64 mmHg (65-108) Arterial Blood HCO3 36 mmol/L (21-28) Arterial Blood Base Excess 9 mmol/L (-3-3) FiO2 28/2lnc Test 07/09/20 11:38 Glucose (Fingerstick) 220 mg/dL (70-99) Laboratory Tests Test 07/08/20 16:34 07/08/20 20:43 07/09/20 07:20 07/09/20 09:38 Glucose (Fingerstick) 125 mg/dL (70-99) 156 mg/dL (70-99) 121 mg/dL (70-99) O2 Saturation 93 % (92-99) Arterial Blood pH 7.41 (7.35-7.45) Arterial Blood pCO2 at Patient Temp 59 mmHg (35-46) Arterial Blood pO2 at Patient Temp 64 mmHg (65-108) Arterial Blood HCO3 36 mmol/L (21-28) Arterial Blood Base Excess 9 mmol/L (-3-3) FiO2 28/2lnc Test 07/09/20 11:38 Glucose (Fingerstick) 220 mg/dL (70-99) Medications Active Scripts Medications Dose Route/Sig Max Daily Dose Days Date Category [Vitamin D] PO DAILY 07/03/20 Reported Vitamin E (Vitamin E Acetate) 400 Unit Capsule 400 Unit PO DAILY 07/03/20 Reported Vitamin C (Ascorbic Acid) 500 Mg Capsule.er 1 Cap PO DAILY 30 07/03/20 Reported Metformin Hcl Er (Metformin Hcl) 500 Mg Tab.er.24h 500 Mg PO DAILYWBKFT 07/03/20 Reported Lasix (Furosemide) 20 Mg Tablet 1 Tab PO DAILY 30 07/03/20 Reported Aspirin 81 Mg Tab.chew 1 Tab PO DAILY 07/03/20 Reported Cardizem Cd (Diltiazem Hcl) 360 Mg Cap.er.24h 1 Cap PO DAILY 07/03/20 Reported Lisinopril 10 Mg Tablet 1 Tab PO DAILY 07/03/20 Reported Hydrochlorothiazide Tablet (Hydrochlorothiazide) 25 Mg Tablet 25 Mg PO DAILY 07/03/20 Reported Motrin Ib (Ibuprofen) 200 Mg Tablet 600 Mg PO Q6HRS PRN 07/02/20 Reported Neurontin (Gabapentin) 600 Mg Tablet 900 Mg PO TID 07/02/20 Reported Comments ECHO <Conclusion> The left ventricular systolic function is normal. The Ejection Fraction is 60%. There is normal LV segmental wall motion. Transmitral Doppler flow pattern is Grade I-abnormal relaxation pattern. The right ventricle is mildly dilated. Trace tricuspid regurgitation with an estimated PAP of 39 mmHg. There is no evidence of significant pericardial effusion Impression . 1. Acute hypoxic and acute on chronic hypercapnic respiratory failure with audible wheezing and chest x-ray consistent with bilateral interstitial infiltrates. The findings are highly suggestive of cardiac asthma. She has no significant history of pulmonary asthma and no significant tobacco history. better with diuresis 2. Abnormal chest x-ray with bilateral interstitial infiltrates. No old x-ray available for comparison. This is likely secondary to diastolic congestive heart failure. 3. Morbid obesity with a body mass index of 53. She is at risk for sleep apnea. She also likely has obesity hypoventilation syndrome. Her bicarbonate is 35. had worsening hypercapnia. Rx with BIPAP 4. History of diastolic heart failure, details unknown. We will obtain an echocardiogram. 5. Low suspicion for COVID., ruled out Plan . Continue Supplemental oxygen to keep sats above 92 %, currently on 2 liters N/C BIPAP at night, as tolerated change steroids to po with taper NEBS Follow cardiology recs---Lasix PRN,ECHO reviewed EF WNL Social work for D/C planning -- home health Recommend outpatient sleep study PT/OT DVT/GI PPX D/W RN and RT LESA PRADHAN MD Jul 09, 2020 13:16
--- NOTE | 2020-07-09 13:45 | NUR ---
SS following up with discharge planning. SS reviewed pt chart and discussed with pt RN. Pt is currently requiring oxygen. Pt has home oxygen at home. COVID19 negative. PT/OT recommended fci unit. Pt declining fci unit and requesting home healthcare. Pt accepted with [facility], ; fax [phone]. SS discussed with physician. Pt having some nausea and dizziness today. Labs and orthostatics were ordered. SS will continue to follow for discharge planning.
--- NOTE | 2020-07-09 13:52 | PDOC ---
[employer] PROGRESS NOTE Date of Service DOS: DATE: 07/09/20 TIME: 13:50 Chief Complaint Chief Complaint COPD exacerbation Acute respiratory failure with hypoxia Elevated troponins COVID-19 PUInegative PCR Conjunctivitis Dehydration OHS/OSApatient would benefit from outpatient polysomnography Super super morbid obesity Plan: Consultations placed to cardiology for evaluation of elevated troponins; likely demand ischemia as to troponins have been elevated but stable Continue to trend troponins We will treat patient with antibiotics and steroids COVID-19 pending Doxycycline 100 mg twice daily, Decadron 6 mg daily Appreciate pulmonology recommendationsstart IV steroids, IV Lasix, pending echocardiogram, Combivent inhaler until Covid negative then start nebulizer if negative Oxygen and supportive care Will consider initiating remdesivir when confirmed COVID-19 positive, however patient was insistent upon leaving the hospital before [facility] We will order 6-minute walk for the morning and patient may be able to discharge home on home oxygen. Influenza pending IV normal saline FEN - Cardiac diet PPX - Lovenox FULL CODE Dispo - inpatient for above okay to transfer out of the Covid unit History of Present Illness History of Present Illness 07/09/2020 No acute events overnight. Patient once again did not wear her BiPAP machine overnight. She woke up with some nausea vomiting and was not able to eat her breakfast. ABG and CBC and labs were ordered. Encourage patient to work with physical therapy and get out of bed to chair at least twice a day. Patient is repeatedly saying I cannot get up and I have a high likelihood of having to come back because I just does not feel good. Patient's chart, labs, images were reviewed and discussed with RN 07/08/2020 No major events overnight. Patient did have an episode nausea vomiting last night. Unable to tolerate breakfast this morning. Will attempt to feed again for lunch. Patient is close to her home baseline oxygen requirements. Saturating 93% at 2-4 liters nasal cannula. Patient's chart, labs, images were reviewed and discussed with RN 07/07/2020 No acute events overnight. Patient is tolerating 96% on 5 L nasal cannula. Did not use any BiPAP overnight. Patient complains of having generalized weakness and will want to have 1 more day in the hospital. Patient has little motivation to ambulate on her own. She mainly uses the walker to transition from bed to her wheelchair. She attributes this disability due to her foot drop. Encouraged patient to lose weight and to follow through with outpatient polysomnography. Patient's chart, labs, images were reviewed and discussed with RN 07/06/2020 Patient transferred from [facility] floor to ICU overnight. Patient is tolerating 96% on 5 L nasal cannula. Patient's chart, labs, images were reviewed and discussed with RN 07/05/2020 No acute events overnight. Patient is tolerating BiPAP at night for at least 4 hours as reported. Patient is currently on 93% on 3 L nasal cannula. Patient's chart, labs, images were reviewed and discussed with RN 07/04/2020 Patient needs to be on BiPAP through the day. Improved ABG. Still having some wheezing. Patient's chart, labs, images were reviewed and discussed with RN 07/03/2020 No acute events overnight. Patient continues to be short of breath and wheezing. Currently on 10 L nonrebreathing mask. Patient's chart, labs, images were reviewed and discussed with RN 75-year-old female with past medical history of undiagnosed COPD on 2 L at night, CHF, who presents to the ER with complaints of shortness of breath for the past 2 months. She states her symptoms are worsening over the past 2 weeks. She reports associated productive cough over this time. Patient admits to roughly 10-year history of smoking in the 60's. Of note she also complains of l eft arm erythema with clear drainage for the past week. Upon evaluation in the ED patient's troponin was initially elevated at 0.152, with repeat 0.158. Cardiology was notified in the ED, and recommended medicine admit for further evaluation. Patient denies any chest pain or known sick contacts. Vitals/I&O Vitals/I&O: Vital Signs Date Time Temp Pulse Resp B/P (MAP) Pulse Ox O2 Delivery O2 Flow Rate FiO2 07/09/20 11:00 97.7 71 20 130/54 (79) 92 Nasal Cannula 2.0 97.7 I & O 07/08/20 07/08/20 07/09/20 15:00 23:00 07:00 Intake Total 480 ml 480 ml 120 ml Output Total 1300 ml 450 ml Balance -820 ml 480 ml -330 ml Physical Exam General: Alert Heart: Regular rate, Other Lungs: Clear Abdomen: Soft Extremities: No cyanosis, Other Skin: No breakdown, No significant lesion Labs Labs: Laboratory Tests Test 07/08/20 16:34 07/08/20 20:43 07/09/20 07:20 07/09/20 09:38 Glucose (Fingerstick) 125 mg/dL (70-99) 156 mg/dL (70-99) 121 mg/dL (70-99) O2 Saturation 93 % (92-99) Arterial Blood pH 7.41 (7.35-7.45) Arterial Blood pCO2 at Patient Temp 59 mmHg (35-46) Arterial Blood pO2 at Patient Temp 64 mmHg (65-108) Arterial Blood HCO3 36 mmol/L (21-28) Arterial Blood Base Excess 9 mmol/L (-3-3) FiO2 28/2lnc Test 07/09/20 11:38 Glucose (Fingerstick) 220 mg/dL (70-99) Assessment and Plan Assessmemt and Plan Problems Medical Problems: (1) Bacterial conjunctivitis of left eye Status: Acute (2) Bilateral pulmonary infiltrates on chest x-ray Status: Acute (3) Elevated troponin Status: Acute (4) Person under investigation for COVID-19 Status: Acute Comment Review of Relevant I have reviewed the following items tukcer (where applicable) has been applied. Medications: Current Medications Medications (Trade) Dose Ordered Sig/Mehul Route PRN Reason Start Time Stop Time Status Last Admin Dose Admin Prednisone (Prednisone) 50 mg DAILY PO 07/09/20 09:00 07/09/20 09:01 Enoxaparin Sodium (Lovenox 60mg Syringe) 60 mg Q12HR SQ 07/08/20 21:00 07/09/20 09:07 Prednisone (Prednisone) 40 mg DAILY PO 07/09/20 09:00 07/12/20 08:59 07/09/20 09:01 Justifications for Admission Other Justification Acute respiratory failure with hypoxia, COVID-19 JJ LÓPEZ MD Jul 09, 2020 13:52
[2020-07-09 15:00] VITALS: BP_SYST 148; BP_SYST 150; BP_DIAS 68; BP_DIAS 71
[2020-07-09 15:25] LABS: BASO % 0 % (0-3); EOS % 0 % (0-3); HEMATOCRIT 47.4 % (36.0-47.0); HEMOGLOBIN 14.8 g/dL (12.0-15.5); LYMPH # 0.3 x10^3/uL (1.0-4.8); LYMPH % 4 % (24-48); MEAN CORPUSCULAR HEMOGLOBIN 26 pg (25-35); MEAN CORPUSCULAR HGB CONC 31 g/dL (31-37); MEAN CORPUSCULAR VOLUME 84 fL (79-100); MONO # 0.3 x10^3/uL (0.0-1.1); MONO % 5 % (0-9); NEUT % 91 % (31-73); PLATELET COUNT 217 x10^3/uL (140-400); RED BLOOD COUNT 5.65 x10^6/uL (3.50-5.40); RED CELL DISTRIBUTION WIDTH 15.8 % (11.5-14.5); WHITE BLOOD COUNT 6.6 x10^3/uL (4.0-11.0)
[2020-07-09 16:30] LABS: CALCIUM 8.7 mg/dL (8.5-10.1); CREATININE 0.9 mg/dL (0.6-1.0); GFR 73.5; MAGNESIUM 2.6 mg/dL (1.8-2.4); PHOSPHORUS 2.4 mg/dL (2.6-4.7); POTASSIUM 4.4 mmol/L (3.5-5.1)
--- NOTE | 2020-07-09 18:40 | NUR ---
Received order from physician to obtain orthostatic vital signs, patient refused to complete.
[2020-07-09 19:00] VITALS: BP 126/68
[2020-07-09] MEDS: PRAMIPEXOLE 0.25 MG TABLET. PO SCH (19:28)
--- NOTE | 2020-07-09 20:34 | NUR ---
Patient wanted assistance to commode and asked patient to do orthostatic blood pressures and patient refused.
[2020-07-09] MEDS: ATORVASTATIN CALCIUM 40 MG TABLET. PO SCH (21:00)
[2020-07-09 22:44] VITALS: BP 131/75
--- NOTE | 2020-07-09 23:07 | NUR ---
Patient has been having nausea and vomiting more in the evening after medications. Reviewed patients medications again and patient stated she did not know atrovastatin was lipitor and said she had previous reaction of not feeling well and arthritis pain.
[2020-07-10 03:00] VITALS: BP 105/57
[2020-07-10] MEDS: PRAMIPEXOLE 0.25 MG TABLET. PO PRN (03:40)
[2020-07-10] MEDS: ACETAMINOPHEN 325 MG TABLET. PO PRN ×2 (03:40→20:28)
[2020-07-10] MEDS: IPRATROPIUM/ALBUTEROL 20/100mcg/INH INHALER. INH SCH ×4 (06:00→18:00)
[2020-07-10] MEDS: TOBRAMYCIN 0.3% OPHTH SOLUTION 5ML BOTTLE. OS SCH ×5 (06:00→20:34)
[2020-07-10 07:00] VITALS: BP 119/63
[2020-07-10] MEDS: INSULIN LISPRO 300 UNITS/3 ML VIAL. SQ SCH ×4 (07:30→20:35)
[2020-07-10] MEDS: predniSONE 20 MG TABLET PO SCH ×2 (09:00→09:03)
[2020-07-10] MEDS: GABAPENTIN 300 MG CAPSULE. PO SCH ×3 (09:00→20:28)
[2020-07-10] MEDS: ASPIRIN CHEWABLE 81 MG TABLET. PO SCH (09:00)
[2020-07-10] MEDS: LISINOPRIL 10 MG TABLET PO SCH (09:00)
[2020-07-10] MEDS: LACTOBACILLUS RHAMNOSUS GG 1 CAPSULE. PO SCH ×2 (09:04→20:28)
[2020-07-10] MEDS: FUROSEMIDE 20 MG TABLET PO SCH (09:05)
--- NOTE | 2020-07-10 09:49 | NUR ---
SS following up with discharge planning. SS reviewed pt chart and discussed with pt RN. Pt is currently requiring oxygen at two liters. Pt has home oxygen at home. COVID19 negative. PT/OT recommended detention unit. Pt declining detention unit and opting for home healthcare with [facility], ; fax [phone]. SS discussed with pt's daughter. Pt is a high readmission risk. Anticipating discharge to home today with [facility]. SS will continue to follow for discharge planning.
[2020-07-10 11:00] VITALS: BP 131/69
[2020-07-10] MEDS ORDERED: ONDA4TAB7 PO (12:22)
--- NOTE | 2020-07-10 12:24 | SNU/HH DC ---
DISCHARGE WITH HOME HEALTH DISCHARGE INFORMATION: Discharge Date: Jul 10, 2020 Final Diagnosis: Problems Medical Problems: (1) Bacterial conjunctivitis of left eye Status: Acute (2) Bilateral pulmonary infiltrates on chest x-ray Status: Acute (3) Elevated troponin Status: Acute (4) Person under investigation for COVID-19 Status: Acute Condition on Discharge: Guarded HOME HEALTH: Face to Face: I certify this patient is under my care and that I, or a nurse practitioner or physician's pharmacy sales assistant working with me, had a face to face encounter that meets the physician face to face encounter requirements with this patient on []. Medical Complications: CHF, Falls, HTN Senior Living For: Assess & Educate Safety, Assess/Skilled Observatio, Medication Management RN For Eval/Treatment: Yes Physical Therapy For: Evalulation/Treatment Home Health Aide For: Self-care Pt Meets Homebound Status: Fatigue w/ amb., Frequent falls w/ injury, Limited distance walking POST DISCHARGE ORDERS: Activity Instructions for Disc: Activity as tolerated Weight Bearing Status after Di: As tolerated DIET AFTER DISCHARGE: ADA CHECKS AFTER DISCHARGE: Checks after discharge: Check blood press - daily, Weigh Yourself Daily FOLLOW-UP: Follow up with: PCP within 2 weeks of discharge Follow Up With: Pulmonology for sleep study DC TO SNF LABS: CBC, CMP TREATMENT/EQUIPMENT ORDERS: Discharge Respiratory Equipmen: Oxygen CERTIFICATION STATEMENT: Certification Statement: Certification Statement: Based on the above finding, I certify that this patient is confined to the home and needs intermittent usp care, physical therapy and/or speech therapy, or continues to need occupational therapy.~ This patient is under my care, and I have initiated the establishment of the plan of care.~ This patient will be followed by myself or a community physician who will periodically review the plan of care. Home Meds Reported Medications [Vitamin D] No Conflict Check, PO DAILY 07/03/20 Vitamin E Acetate (VITAMIN E) 400 Unit Capsule, 400 UNIT PO DAILY for guzman pplement, CAP 07/03/20 Ascorbic Acid (VITAMIN C) 500 Mg Capsule.er, 1 CAP PO DAILY for supplement for 30 Days, #30 CAP 0 Refills 07/03/20 Metformin Hcl (METFORMIN HCL ER) 500 Mg Tab.er.24h, 500 MG PO DAILYWBKFT for ANTI-DIABETIC, TAB 0 Refills 07/03/20 Furosemide (LASIX) 20 Mg Tablet, 1 TAB PO DAILY for HTN for 30 Days, #30 TAB 0 Refills 07/03/20 Aspirin (ASPIRIN) 81 Mg Tab.chew, 1 TAB PO DAILY for heart, #30 TAB 3 Refills 07/03/20 Diltiazem Hcl (CARDIZEM CD) 360 Mg Cap.er.24h, 1 CAP PO DAILY for HTN, #30 CAP 5 Refills 07/03/20 Ibuprofen (MOTRIN IB) 200 Mg Tablet, 600 MG PO Q6HRS PRN for SEE ADMIN INSTRUCTIONS, TAB 07/02/20 Gabapentin (NEURONTIN) 600 Mg Tablet, 900 MG PO TID for NEUROGENIC PAIN, TAB 07/02/20 Discontinued Reported Medications Lisinopril (LISINOPRIL) 10 Mg Tablet, 1 TAB PO DAILY for HTN, #30 TAB 5 Refills 07/03/20 Hydrochlorothiazide (HYDROCHLOROTHIAZIDE TABLET ) 25 Mg Tablet, 25 MG PO DAILY for DIURETIC, TAB 0 Refills 07/03/20 JJ BULLOCK MD Jul 10, 2020 12:24
--- NOTE | 2020-07-10 12:49 | NUR ---
SS following up with discharge planning. Discharge orders for home healthcare received. Discharge orders phoned and faxed to [facility], ; fax [phone]. Pt's RN notified.
--- NOTE | 2020-07-10 13:56 | PDOC ---
PULMONARY PROGRESS NOTES DATE: 07/10/20 TIME: 13:54 Subjective Remains on N/ C oxygen no increased cough or SOA Feeling better today, wants to go home Vitals Vital Signs Date Time Temp Pulse Resp B/P (MAP) Pulse Ox O2 Delivery O2 Flow Rate FiO2 07/10/20 11:00 97.6 73 22 131/69 (89) 95 Nasal Cannula 2.0 97.6 ROS: No Nausea, No Chest Pain, No Abdominal Pain, No Increase Cough General: Alert, No acute distress Lungs: Clear Cardiovascular: S1 Abdomen: Soft, Other (obese) Extremities: Other (trace) Skin: Warm Labs Laboratory Tests Test 07/08/20 16:34 07/08/20 20:43 07/09/20 07:20 07/09/20 09:38 Glucose (Fingerstick) 125 mg/dL (70-99) 156 mg/dL (70-99) 121 mg/dL (70-99) O2 Saturation 93 % (92-99) Arterial Blood pH 7.41 (7.35-7.45) Arterial Blood pCO2 at Patient Temp 59 mmHg (35-46) Arterial Blood pO2 at Patient Temp 64 mmHg (65-108) Arterial Blood HCO3 36 mmol/L (21-28) Arterial Blood Base Excess 9 mmol/L (-3-3) FiO2 28/2lnc Test 07/09/20 11:38 07/09/20 14:22 07/09/20 17:19 07/09/20 19:53 Glucose (Fingerstick) 220 mg/dL (70-99) 142 mg/dL (70-99) 248 mg/dL (70-99) White Blood Count 6.6 x10^3/uL (4.0-11.0) Red Blood Count 5.65 x10^6/uL (3.50-5.40) Hemoglobin 14.8 g/dL (12.0-15.5) Hematocrit 47.4 % (36.0-47.0) Mean Corpuscular Volume 84 fL (79-100) Mean Corpuscular Hemoglobin 26 pg (25-35) Mean Corpuscular Hemoglobin Concent 31 g/dL (31-37) Red Cell Distribution Width 15.8 % (11.5-14.5) Platelet Count 217 x10^3/uL (140-400) Neutrophils (%) (Auto) 91 % (31-73) Lymphocytes (%) (Auto) 4 % (24-48) Monocytes (%) (Auto) 5 % (0-9) Eosinophils (%) (Auto) 0 % (0-3) Basophils (%) (Auto) 0 % (0-3) Neutrophils # (Auto) 6.0 x10^3/uL (1.8-7.7) Lymphocytes # (Auto) 0.3 x10^3/uL (1.0-4.8) Monocytes # (Auto) 0.3 x10^3/uL (0.0-1.1) Eosinophils # (Auto) 0.0 x10^3/uL (0.0-0.7) Basophils # (Auto) 0.0 x10^3/uL (0.0-0.2) Sodium Level 140 mmol/L (136-145) Potassium Level 4.4 mmol/L (3.5-5.1) Chloride Level 100 mmol/L (98-107) Carbon Dioxide Level 38 mmol/L (21-32) Anion Gap 2 (6-14) Blood Urea Nitrogen 34 mg/dL (7-20) Creatinine 0.9 mg/dL (0.6-1.0) Estimated GFR (Cockcroft-Gault) 73.5 Glucose Level 193 mg/dL (70-99) Calcium Level 8.7 mg/dL (8.5-10.1) Phosphorus Level 2.4 mg/dL (2.6-4.7) Magnesium Level 2.6 mg/dL (1.8-2.4) Test 07/10/20 07:23 07/10/20 12:46 Glucose (Fingerstick) 112 mg/dL (70-99) 130 mg/dL (70-99) Laboratory Tests Test 07/09/20 14:22 07/09/20 17:19 07/09/20 19:53 07/10/20 07:23 White Blood Count 6.6 x10^3/uL (4.0-11.0) Red Blood Count 5.65 x10^6/uL (3.50-5.40) Hemoglobin 14.8 g/dL (12.0-15.5) Hematocrit 47.4 % (36.0-47.0) Mean Corpuscular Volume 84 fL (79-100) Mean Corpuscular Hemoglobin 26 pg (25-35) Mean Corpuscular Hemoglobin Concent 31 g/dL (31-37) Red Cell Distribution Width 15.8 % (11.5-14.5) Platelet Count 217 x10^3/uL (140-400) Neutrophils (%) (Auto) 91 % (31-73) Lymphocytes (%) (Auto) 4 % (24-48) Monocytes (%) (Auto) 5 % (0-9) Eosinophils (%) (Auto) 0 % (0-3) Basophils (%) (Auto) 0 % (0-3) Neutrophils # (Auto) 6.0 x10^3/uL (1.8-7.7) Lymphocytes # (Auto) 0.3 x10^3/uL (1.0-4.8) Monocytes # (Auto) 0.3 x10^3/uL (0.0-1.1) Eosinophils # (Auto) 0.0 x10^3/uL (0.0-0.7) Basophils # (Auto) 0.0 x10^3/uL (0.0-0.2) Sodium Level 140 mmol/L (136-145) Potassium Level 4.4 mmol/L (3.5-5.1) Chloride Level 100 mmol/L (98-107) Carbon Dioxide Level 38 mmol/L (21-32) Anion Gap 2 (6-14) Blood Urea Nitrogen 34 mg/dL (7-20) Creatinine 0.9 mg/dL (0.6-1.0) Estimated GFR (Cockcroft-Gault) 73.5 Glucose Level 193 mg/dL (70-99) Calcium Level 8.7 mg/dL (8.5-10.1) Phosphorus Level 2.4 mg/dL (2.6-4.7) Magnesium Level 2.6 mg/dL (1.8-2.4) Glucose (Fingerstick) 142 mg/dL (70-99) 248 mg/dL (70-99) 112 mg/dL (70-99) Test 07/10/20 12:46 Glucose (Fingerstick) 130 mg/dL (70-99) Medications Active Scripts Medications Dose Route/Sig Max Daily Dose Days Date Category [Vitamin D] PO DAILY 07/03/20 Reported Vitamin E (Vitamin E Acetate) 400 Unit Capsule 400 Unit PO DAILY 07/03/20 Reported Vitamin C (Ascorbic Acid) 500 Mg Capsule.er 1 Cap PO DAILY 30 07/03/20 Reported Metformin Hcl Er (Metformin Hcl) 500 Mg Tab.er.24h 500 Mg PO DAILYWBKFT 07/03/20 Reported Lasix (Furosemide) 20 Mg Tablet 1 Tab PO DAILY 30 07/03/20 Reported Aspirin 81 Mg Tab.chew 1 Tab PO DAILY 07/03/20 Reported Cardizem Cd (Diltiazem Hcl) 360 Mg Cap.er.24h 1 Cap PO DAILY 07/03/20 Reported Lisinopril 10 Mg Tablet 1 Tab PO DAILY 07/03/20 Reported Hydrochlorothiazide Tablet (Hydrochlorothiazide) 25 Mg Tablet 25 Mg PO DAILY 07/03/20 Reported Motrin Ib (Ibuprofen) 200 Mg Tablet 600 Mg PO Q6HRS PRN 07/02/20 Reported Neurontin (Gabapentin) 600 Mg Tablet 900 Mg PO TID 07/02/20 Reported Comments ECHO <Conclusion> The left ventricular systolic function is normal. The Ejection Fraction is 60%. There is normal LV segmental wall motion. Transmitral Doppler flow pattern is Grade I-abnormal relaxation pattern. The right ventricle is mildly dilated. Trace tricuspid regurgitation with an estimated PAP of 39 mmHg. There is no evidence of significant pericardial effusion Impression . 1. Acute hypoxic and acute on chronic hypercapnic respiratory failure with audible wheezing and chest x-ray consistent with bilateral interstitial infiltrates. The findings are highly suggestive of cardiac asthma. She has no significant history of pulmonary asthma and no significant tobacco history. better with diuresis 2. Abnormal chest x-ray with bilateral interstitial infiltrates. No old x-ray available for comparison. This is likely secondary to diastolic congestive heart failure. 3. Morbid obesity with a body mass index of 53. She is at risk for sleep apnea. She also likely has obesity hypoventilation syndrome. Her bicarbonate is 35. had worsening hypercapnia. Rx with BIPAP 4. History of diastolic heart failure, details unknown. We will obtain an echocardiogram. 5. Low suspicion for COVID., ruled out Plan . Continue Supplemental oxygen to keep sats above 92 %, currently on 2 liters N/C BIPAP at night, as tolerated change steroids to po with taper NEBS Follow cardiology recs---Lasix PRN,ECHO reviewed EF WNL Social work for D/C planning -- home health Recommend outpatient sleep study-- Follow up outpatient with Dr. Pradhan PT/OT DVT/GI PPX D/W RN and RT ok to Discharge home today LESA PRADHAN MD Jul 10, 2020 13:56
[2020-07-10 14:33] VITALS: BP 161/62
[2020-07-10] MEDS: ONDANSETRON PF 4 MG/2 ML VIAL. IVP PRN (15:49)
[2020-07-10 19:35] VITALS: BP 108/78
[2020-07-10] MEDS: PRAMIPEXOLE 0.25 MG TABLET. PO SCH (20:28)
[2020-07-10] MEDS: CALCIUM CARBONATE 500 MG TAB.CHEW PO PRN (20:34)
[2020-07-10] MEDS: ONDANSETRON ODT 4 MG TAB.RAPDIS. PO PRN (22:47)
[2020-07-10 23:34] VITALS: BP 135/79
[2020-07-11] MEDS: CALCIUM CARBONATE 500 MG TAB.CHEW PO PRN ×2 (02:34→15:28)
[2020-07-11 03:39] VITALS: BP 136/76
[2020-07-11] MEDS: IPRATROPIUM/ALBUTEROL 20/100mcg/INH INHALER. INH SCH ×4 (06:00→18:00)
[2020-07-11] MEDS: TOBRAMYCIN 0.3% OPHTH SOLUTION 5ML BOTTLE. OS SCH (06:00)
[2020-07-11 07:00] VITALS: BP 117/70
[2020-07-11] MEDS: INSULIN LISPRO 300 UNITS/3 ML VIAL. SQ SCH ×4 (07:30→20:48)
--- NOTE | 2020-07-11 08:50 | PDOC ---
[employer] PROGRESS NOTE Date of Service DOS: DATE: 07/11/20 TIME: 08:48 Chief Complaint Chief Complaint COPD exacerbation Acute respiratory failure with hypoxia Elevated troponins COVID-19 negative Conjunctivitis Dehydration OHS/OSAy Morbid obesity History of Present Illness History of Present Illness 07/11/2020 Patient seen and examined in room today Patient asleep upon examination Discussed with RN Discussed with child support case officer Charts reviewed 07/09/2020 No acute events overnight. Patient once again did not wear her BiPAP machine overnight. She woke up with some nausea vomiting and was not able to eat her breakfast. ABG and CBC and labs were ordered. Encourage patient to work with physical therapy and get out of bed to chair at least twice a day. Patient is repeatedly saying I cannot get up and I have a high likelihood of having to come back because I just does not feel good. Patient's chart, labs, images were reviewed and discussed with RN 07/08/2020 No major events overnight. Patient did have an episode nausea vomiting last night. Unable to tolerate breakfast this morning. Will attempt to feed again for lunch. Patient is close to her home baseline oxygen requirements. Saturating 93% at 2-4 liters nasal cannula. Patient's chart, labs, images were reviewed and discussed with RN 07/07/2020 No acute events overnight. Patient is tolerating 96% on 5 L nasal cannula. Did not use any BiPAP overnight. Patient complains of having generalized weakness and will want to have 1 more day in the hospital. Patient has little motivation to ambulate on her own. She mainly uses the walker to transition from bed to her wheelchair. She attributes this disability due to her foot drop. Encouraged patient to lose weight and to follow through with outpatient polysomnography. Patient's chart, labs, images were reviewed and discussed with RN 07/06/2020 Patient transferred from [facility] floor to ICU overnight. Patient is tolerating 96% on 5 L nasal cannula. Patient's chart, labs, images were reviewed and discussed with RN 07/05/2020 No acute events overnight. Patient is tolerating BiPAP at night for at least 4 hours as reported. Patient is currently on 93% on 3 L nasal cannula. Patient's chart, labs, images were reviewed and discussed with RN 07/04/2020 Patient needs to be on BiPAP through the day. Improved ABG. Still having some wheezing. Patient's chart, labs, images were reviewed and discussed with RN 07/03/2020 No acute events overnight. Patient continues to be short of breath and wheezing. Currently on 10 L nonrebreathing mask. Patient's chart, labs, images were reviewed and discussed with RN 75-year-old female with past medical history of undiagnosed COPD on 2 L at night, CHF, who presents to the ER with complaints of shortness of breath for the past 2 months. She states her symptoms are worsening over the past 2 weeks. She reports associated productive cough over this time. Patient admits to roughly 10-year history of smoking in the 60's. Of note she also complains of left arm erythema with clear drainage for the past week. Upon evaluation in the ED patient's troponin was initially elevated at 0.152, with repeat 0.158. Cardiology was notified in the ED, and recommended medicine admit for further evaluation. Patient denies any chest pain or known sick contacts. Vitals/I&O Vitals/I&O: Vital Signs Date Time Temp Pulse Resp B/P (MAP) Pulse Ox O2 Delivery O2 Flow Rate FiO2 07/11/20 03:39 98.9 84 18 136/76 (96) 94 Nasal Cannula 2.0 98.9 I & O 07/10/20 07/10/20 07/11/20 15:00 23:00 07:00 Intake Total 200 ml 800 ml Output Total 350 ml Balance -150 ml 800 ml Physical Exam General: Alert Heart: Regular rate, Other Lungs: Clear Abdomen: Soft Extremities: No cyanosis, Other Skin: No breakdown, No significant lesion Labs Labs: Laboratory Tests Test 07/10/20 12:46 07/10/20 17:53 07/10/20 20:21 07/11/20 08:15 Glucose (Fingerstick) 130 mg/dL (70-99) 149 mg/dL (70-99) 183 mg/dL (70-99) 124 mg/dL (70-99) Assessment and Plan Assessmemt and Plan Problems Medical Problems: (1) Bacterial conjunctivitis of left eye Status: Acute (2) Bilateral pulmonary infiltrates on chest x-ray Status: Acute (3) Elevated troponin Status: Acute (4) Person under investigation for COVID-19 Status: Acute ASSESSMENT COPD exacerbation Acute respiratory failure with hypoxia Elevated troponins COVID-19 negative Conjunctivitis Dehydration OHS/OSAy Morbid obesity PLAN Continue monitoring Continue home meds DVT ppx Trend labs Full code Comment Review of Relevant I have reviewed the following items tucker (where applicable) has been applied. Medications: Current Medications Medications (Trade) Dose Ordered Sig/Mehul Route PRN Reason Start Time Stop Time Status Last Admin Dose Admin Ondansetron HCl (Zofran Odt) 4 mg PRN Q6HRS PRN PO NAUSEA/VOMITING 1ST CHOICE 07/10/20 22:45 07/10/20 22:47 Justifications for Admission Other Justification Acute respiratory failure with hypoxia, COVID-19 PUI KEAGAN HENDERSON III DO Jul 11, 2020 08:50
[2020-07-11] MEDS: LISINOPRIL 10 MG TABLET PO SCH ×2 (09:00→09:29)
[2020-07-11] MEDS: LACTOBACILLUS RHAMNOSUS GG 1 CAPSULE. PO SCH ×3 (09:00→20:48)
[2020-07-11] MEDS: predniSONE 20 MG TABLET PO SCH ×2 (09:00→09:28)
[2020-07-11] MEDS: ASPIRIN CHEWABLE 81 MG TABLET. PO SCH (09:29)
[2020-07-11] MEDS: FUROSEMIDE 20 MG TABLET PO SCH (09:29)
[2020-07-11] MEDS: GABAPENTIN 300 MG CAPSULE. PO SCH ×3 (10:49→20:47)
[2020-07-11 11:00] VITALS: BP 120/69
[2020-07-11 15:00] VITALS: BP 124/64
[2020-07-11] MEDS: PRAMIPEXOLE 0.25 MG TABLET. PO PRN (15:29)
[2020-07-11 19:00] VITALS: BP 117/58
[2020-07-11] MEDS: PRAMIPEXOLE 0.25 MG TABLET. PO SCH (20:47)
[2020-07-11 23:07] VITALS: BP 103/64
[2020-07-12] MEDS: CALCIUM CARBONATE 500 MG TAB.CHEW PO PRN ×4 (01:19→20:31)
[2020-07-12] MEDS: ONDANSETRON ODT 4 MG TAB.RAPDIS. PO PRN ×3 (01:20→20:31)
[2020-07-12 03:25] VITALS: BP 124/74
[2020-07-12] MEDS: ACETAMINOPHEN 325 MG TABLET. PO PRN (03:47)
[2020-07-12] MEDS: IPRATROPIUM/ALBUTEROL 20/100mcg/INH INHALER. INH SCH ×4 (06:00→14:12)
[2020-07-12 07:00] VITALS: BP 118/72
[2020-07-12] MEDS: INSULIN LISPRO 300 UNITS/3 ML VIAL. SQ SCH ×4 (07:30→21:00)
[2020-07-12] MEDS: LISINOPRIL 10 MG TABLET PO SCH (08:31)
[2020-07-12] MEDS: LACTOBACILLUS RHAMNOSUS GG 1 CAPSULE. PO SCH ×2 (09:00→21:00)
[2020-07-12] MEDS: ASPIRIN CHEWABLE 81 MG TABLET. PO SCH (09:02)
[2020-07-12] MEDS: predniSONE 20 MG TABLET PO SCH (09:02)
[2020-07-12] MEDS: FUROSEMIDE 20 MG TABLET PO SCH (09:03)
[2020-07-12] MEDS: predniSONE 10 MG TABLET PO SCH (09:03)
[2020-07-12] MEDS: GABAPENTIN 300 MG CAPSULE. PO SCH ×3 (09:03→20:31)
--- NOTE | 2020-07-12 10:47 | PDOC ---
[employer] PROGRESS NOTE Date of Service DOS: DATE: 07/12/20 TIME: 10:46 Chief Complaint Chief Complaint COPD exacerbation Acute respiratory failure with hypoxia Elevated troponins COVID-19 negative Conjunctivitis Dehydration OHS/OSAy Morbid obesity History of Present Illness History of Present Illness 07/12/2020 Patient seen and examined She is complaining of some nausea this morning Still on O2 per nasal cannula Discussed with RN Chart reviewed 07/11/2020 Patient seen and examined in room today Patient asleep upon examination Discussed with RN Discussed with major case detective Charts reviewed 07/09/2020 No acute events overnight. Patient once again did not wear her BiPAP machine overnight. She woke up with some nausea vomiting and was not able to eat her breakfast. ABG and CBC and labs were ordered. Encourage patient to work with physical therapy and get out of bed to chair at least twice a day. Patient is repeatedly saying I cannot get up and I have a high likelihood of having to come back because I just does not feel good. Patient's chart, labs, images were reviewed and discussed with RN 07/08/2020 No major events overnight. Patient did have an episode nausea vomiting last night. Unable to tolerate breakfast this morning. Will attempt to feed again for lunch. Patient is close to her home baseline oxygen requirements. Saturating 93% at 2-4 liters nasal cannula. Patient's chart, labs, images were reviewed and discussed with RN 07/07/2020 No acute events overnight. Patient is tolerating 96% on 5 L nasal cannula. Did not use any BiPAP overnight. Patient complains of having generalized weakness and will want to have 1 more day in the hospital. Patient has little motivation to ambulate on her own. She mainly uses the walker to transition from bed to her wheelchair. She attributes this disability due to her foot drop. Encouraged patient to lose weight and to follow through with outpatient polysomnography. Patient's chart, labs, images were reviewed and discussed with RN 07/06/2020 Patient transferred from Covid floor to ICU overnight. Patient is tolerating 96% on 5 L nasal cannula. Patient's chart, labs, images were reviewed and d iscussed with RN 07/05/2020 No acute events overnight. Patient is tolerating BiPAP at night for at least 4 hours as reported. Patient is currently on 93% on 3 L nasal cannula. Patient's chart, labs, images were reviewed and discussed with RN 07/04/2020 Patient needs to be on BiPAP through the day. Improved ABG. Still having some wheezing. Patient's chart, labs, images were reviewed and discussed with RN 07/03/2020 No acute events overnight. Patient continues to be short of breath and wheezing. Currently on 10 L nonrebreathing mask. Patient's chart, labs, images were reviewed and discussed with RN 75-year-old female with past medical history of undiagnosed COPD on 2 L at night, CHF, who presents to the ER with complaints of shortness of breath for the past 2 months. She states her symptoms are worsening over the past 2 weeks. She reports associated productive cough over this time. Patient admits to roughly 10-year history of smoking in the 60's. Of note she also complains of left arm erythema with clear drainage for the past week. Upon evaluation in the ED patient's troponin was initially elevated at 0.152, with repeat 0.158. Cardiology was notified in the ED, and recommended medicine admit for further evaluation. Patient denies any chest pain or known sick contacts. Vitals/I&O Vitals/I&O: Vital Signs Date Time Temp Pulse Resp B/P (MAP) Pulse Ox O2 Delivery O2 Flow Rate FiO2 07/12/20 09:03 75 118/72 07/12/20 08:00 Nasal Cannula 2.0 07/12/20 07:00 98.1 14 95 98.1 I & O 07/11/20 07/11/20 07/12/20 15:00 23:00 07:00 Intake Total 700 ml 320 ml 880 ml Balance 700 ml 320 ml 880 ml Physical Exam General: Alert Heart: Regular rate, Other Lungs: Clear Abdomen: Soft Extremities: No cyanosis, Other Skin: No breakdown, No significant lesion Labs Labs: Laboratory Tests Test 07/11/20 11:48 07/11/20 16:42 07/11/20 20:45 07/12/20 07:33 Glucose (Fingerstick) 114 mg/dL (70-99) 137 mg/dL (70-99) 184 mg/dL (70-99) 130 mg/dL (70-99) Assessment and Plan Assessmemt and Plan Problems Medical Problems: (1) Bacterial conjunctivitis of left eye Status: Acute (2) Bilateral pulmonary infiltrates on chest x-ray Status: Acute (3) Elevated troponin Status: Acute (4) Person under investigation for COVID-19 Status: Acute ASSESSMENT COPD exacerbation Acute respiratory failure with hypoxia Elevated troponins COVID-19 negative Conjunctivitis Dehydration OHS/OSAy Morbid obesity PLAN Continue monitoring As needed antiemetics Continue home meds DVT ppx Trend labs Full code Appreciate subspecialist Per pulmonary recommendations please see the following; Continue Supplemental oxygen to keep sats above 92 %, currently on 2 liters N/C BIPAP at night, as tolerated change steroids to po with taper NEBS Follow cardiology recs---Lasix PRN,ECHO reviewed EF WNL Social work for D/C planning -- home health Recommend outpatient sleep study-- Follow up outpatient with Dr. Quiroz PT/OT DVT/GI PPX Comment Review of Relevant I have reviewed the following items tucker (where applicable) has been applied. Medications: Current Medications Medications (Trade) Dose Ordered Sig/Mehul Route PRN Reason Start Time Stop Time Status Last Admin Dose Admin Prednisone (Prednisone) 30 mg DAILY PO 07/12/20 09:00 07/15/20 08:59 07/12/20 09:03 Justifications for Admission Other Justification Acute respiratory failure with hypoxia, COVID-19 KEAGAN ALLEN III DO Jul 12, 2020 10:47
[2020-07-12] MEDS: MAG HYDROX/ALUMINUM HYD/SIMETH 30 ML ORAL.SUSP PO PRN (10:54)
[2020-07-12 11:00] VITALS: BP 111/55
[2020-07-12 15:00] VITALS: BP 147/66
[2020-07-12 19:45] VITALS: BP 99/48
[2020-07-12] MEDS: PRAMIPEXOLE 0.25 MG TABLET. PO SCH (20:31)
[2020-07-12] MEDS ORDERED: ONDANSETRON PF 4 MG/2 ML VIAL. IVP PRN (22:15)
[2020-07-12 23:19] VITALS: BP 131/70
[2020-07-13 03:31] VITALS: BP 124/69
[2020-07-13] MEDS: IPRATROPIUM/ALBUTEROL 20/100mcg/INH INHALER. INH SCH ×4 (06:00→10:33)
[2020-07-13] MEDS: LISINOPRIL 10 MG TABLET PO SCH (06:36)
[2020-07-13 07:00] VITALS: BP 120/51
[2020-07-13] MEDS: INSULIN LISPRO 300 UNITS/3 ML VIAL. SQ SCH ×2 (07:30→11:30)
[2020-07-13] MEDS: ASPIRIN CHEWABLE 81 MG TABLET. PO SCH (08:28)
[2020-07-13] MEDS: FUROSEMIDE 20 MG TABLET PO SCH (08:29)
[2020-07-13] MEDS: predniSONE 20 MG TABLET PO SCH (08:29)
[2020-07-13] MEDS: GABAPENTIN 300 MG CAPSULE. PO SCH ×2 (08:30→11:13)
[2020-07-13] MEDS: predniSONE 10 MG TABLET PO SCH (08:30)
[2020-07-13] MEDS: LACTOBACILLUS RHAMNOSUS GG 1 CAPSULE. PO SCH (08:33)
--- NOTE | 2020-07-13 10:23 | PDOC ---
[employer] PROGRESS NOTE Date of Service DOS: DATE: 07/13/20 TIME: 10:22 Chief Complaint Chief Complaint COPD exacerbation Acute respiratory failure with hypoxia Elevated troponins COVID-19 negative Conjunctivitis Dehydration OHS/OSAy Morbid obesity History of Present Illness History of Present Illness 07/13/2020 Patient seen and examined She is still complaining of heart burn this morning DWRN Chart reviewed 07/12/2020 Patient seen and examined She is complaining of some nausea this morning Still on O2 per nasal cannula Discussed with RN Chart reviewed 07/11/2020 Patient seen and examined in room today Patient asleep upon examination Discussed with RN Discussed with case reviewer Charts reviewed 07/09/2020 No acute events overnight. Patient once again did not wear her BiPAP machine overnight. She woke up with some nausea vomiting and was not able to eat her breakfast. ABG and CBC and labs were ordered. Encourage patient to work with physical therapy and get out of bed to chair at least twice a day. Patient is repeatedly saying I cannot get up and I have a high likelihood of having to come back because I just does not feel good. Patient's chart, labs, images were reviewed and discussed with RN 07/08/2020 No major events overnight. Patient did have an episode nausea vomiting last night. Unable to tolerate breakfast this morning. Will attempt to feed again for lunch. Patient is close to her home baseline oxygen requirements. Saturating 93% at 2-4 liters nasal cannula. Patient's chart, labs, images were reviewed and discussed with RN 07/07/2020 No acute events overnight. Patient is tolerating 96% on 5 L nasal cannula. Did not use any BiPAP overnight. Patient complains of having generalized weakness and will want to have 1 more day in the hospital. Patient has little motivation to ambulate on her own. She mainly uses the walker to transition from bed to her wheelchair. She attributes this disability due to her foot drop. Encouraged patient to lose weight and to follow through with outpatient polysomnography. Patient's chart, labs, images were reviewed and discussed with RN 07/06/2020 Patient transferred from Covid floor to ICU overnight. Patient is tolerating 96% on 5 L nasal cannula. Patient's chart, labs, images were reviewed and discussed with RN 07/05/2020 No acute events overnight. Patient is tolerating BiPAP at night for at least 4 hours as reported. Patient is currently on 93% on 3 L nasal cannula. Patient's chart, labs, images were reviewed and discussed with RN 07/04/2020 Patient needs to be on BiPAP through the day. Improved ABG. Still having some wheezing. Patient's chart, labs, images were reviewed and discussed with RN 07/03/2020 No acute events overnight. Patient continues to be short of breath and wheezing. Currently on 10 L nonrebreathing mask. Patient's chart, labs, images were reviewed and discussed with RN 75-year-old female with past medical history of undiagnosed COPD on 2 L at night, CHF, who presents to the ER with complaints of shortness of breath for the past 2 months. She states her symptoms are worsening over the past 2 weeks. She reports associated productive cough over this time. Patient admits to roughly 10-year history of smoking in the 60's. Of note she also complains of left arm erythema with clear drainage for the past week. Upon evaluation in the ED patient's troponin was initially elevated at 0.152, with repeat 0.158. Cardiology was notified in the ED, and recommended medicine admit for further evaluation. Patient denies any chest pain or known sick contacts. Vitals/I&O Vitals/I&O: Vital Signs Date Time Temp Pulse Resp B/P (MAP) Pulse Ox O2 Delivery O2 Flow Rate FiO2 07/13/20 08:29 70 120/51 07/13/20 08:00 Nasal Cannula 2.0 07/13/20 07:00 98.2 14 94 98.2 I & O 07/12/20 07/12/20 07/13/20 15:00 23:00 07:00 Intake Total 180 ml 240 ml Balance 180 ml 240 ml Physical Exam General: Alert, Oriented X3, Cooperative Heart: Regular rate, Normal S1, Normal S2, Other Lungs: Clear Abdomen: Soft Extremities: No cyanosis, Other Skin: No breakdown, No significant lesion Labs Labs: Laboratory Tests Test 07/12/20 10:29 07/12/20 17:01 07/12/20 20:50 07/13/20 08:02 Glucose (Fingerstick) 130 mg/dL (70-99) 162 mg/dL (70-99) 209 mg/dL (70-99) 124 mg/dL (70-99) Assessment and Plan Assessmemt and Plan Assessment COPD exacerbation Acute respiratory failure with hypoxia Elevated troponins COVID-19 negative Conjunctivitis Dehydration OHS/OSAy Morbid obesity Plan started on clear liquid diet Started on Protonix 40 mg Started on Tobrex eye drops Started on clear liquid diet Discharge disposition pending for now continue the following: Full code DVT PPX PT/OT Continue home meds Trend labs Problems Medical Problems: (1) Bacterial conjunctivitis of left eye Status: Acute (2) Bilateral pulmonary infiltrates on chest x-ray Status: Acute (3) Elevated troponin Status: Acute (4) Person under investigation for COVID-19 Status: Acute Comment Review of Relevant I have reviewed the following items tucker (where applicable) has been applied. Justifications for Admission Other Justification Acute respiratory failure with hypoxia, COVID-19 KEAGAN ALLEN III DO Jul 13, 2020 10:23
[2020-07-13 11:00] VITALS: BP 110/51
[2020-07-13] MEDS ORDERED: PANTOPRAZOLE 40 MG TABLET.DR. PO SCH (11:30)
[2020-07-13] MEDS ORDERED: TOBRAMYCIN 0.3% OPHTH SOLUTION 5ML BOTTLE. OU SCH (12:00)
--- NOTE | 2020-07-13 15:42 | NUR ---
Discharge Note: PRUDENCE KLEIN Discharge instructions and discharge home medications reviewed with Patient and a copy given. All questions have been answered and understanding verbalized. The following instructions and handouts were given: information about medications, plan of care, follow up, home health with [facility], prescriptions to coal picker at [facility], pneumonia, SOA, elevated troponin, etc. Discontinued lines and drains: no IV line present. Patient discharged to home with home health, wheelchair used for mobility to discharge vehicle, grand daughter picked patient up at main entrance.
[2020-07-15] MEDS ORDERED: predniSONE 20 MG TABLET PO SCH (09:00)
--- NOTE | 2020-07-16 10:26 | DS ---
DATE OF DISCHARGE: 07/13/2020 ADMISSION DIAGNOSIS: Pneumonia. DISCHARGE DIAGNOSIS: Resolving pneumonia. HOSPITAL COURSE: The patient is a pleasant 75-year-old female who presented with shortness of breath and was hypoxic. She also had a slight bump in her troponin. We were concerned she could have COVID-19. She was admitted. We ruled out COVID-19. We went ahead and treated her for pneumonia over the next few days. She returned to her baseline. We discharged to home. DISPOSITION: Home. ACTIVITY: As tolerated. DIET: Low sodium. MEDICATIONS: Please see MRAD. TOTAL TIME: 34 minutes. RASHIDL Sriram HENDERSON DO DR: CASPER/kortney JOB#: [id number] / [id number]
--- NOTE | 2020-07-17 15:21 | NUR ---
Phone call from pt requesting a different HH provider. Notified Josy with [facility] to follow up with pt about transferring to another provider as pt on service with [facility].
[2020-07-18] MEDS ORDERED: predniSONE 10 MG TABLET PO SCH (09:00)
[2020-07-21] MEDS ORDERED: predniSONE 5 MG TABLET PO SCH (09:00)
== END 2020-07-13 15:56 | disposition home health service (06) | DRG 291 ==
LOC: ER 15:27 → ED HOLD 20:51 → 6 SOUTH 23:15 → CVICU 07-06 01:07 → 4 NORTH 07-10 18:51
PROVIDERS: ADMIT Family Medicine; ATTEND Family Medicine
PROC: 5A09357 Assistance with Respiratory Ventilation, Less than 24 Consecutive Hours, Continuous Positive Airway Pressure (ICD-10-PCS; principal; 2020-07-03)
PROC: 5A09357 Assistance with Respiratory Ventilation, Less than 24 Consecutive Hours, Continuous Positive Airway Pressure (ICD-10-PCS; 2020-07-04)
PROC: 5A09357 Assistance with Respiratory Ventilation, Less than 24 Consecutive Hours, Continuous Positive Airway Pressure (ICD-10-PCS; 2020-07-05)
DX: I11.0 Hypertensive heart disease with heart failure (principal); J18.9 Pneumonia, unspecified organism; J96.21 Acute and chronic respiratory failure with hypoxia; J96.22 Acute and chronic respiratory failure with hypercapnia; E66.2 Morbid (severe) obesity with alveolar hypoventilation; Z68.43 Body mass index [BMI] 50.0-59.9, adult; J44.1 Chronic obstructive pulmonary disease with (acute) exacerbation; I50.33 Acute on chronic diastolic (congestive) heart failure; E03.9 Hypothyroidism, unspecified; E78.5 Hyperlipidemia, unspecified; E86.0 Dehydration; F20.9 Schizophrenia, unspecified; H10.89 Other conjunctivitis; M19.011 Primary osteoarthritis, right shoulder; M19.012 Primary osteoarthritis, left shoulder; M21.379 Foot drop, unspecified foot; Z96.643 Presence of artificial hip joint, bilateral; F32.9 Major depressive disorder, single episode, unspecified; M19.90 Unspecified osteoarthritis, unspecified site; Z60.2 Problems related to living alone; E11.42 Type 2 diabetes mellitus with diabetic polyneuropathy; Z82.49 Family history of ischemic heart disease and other diseases of the circulatory system; Z87.891 Personal history of nicotine dependence; Z99.3 Dependence on wheelchair; Z99.81 Dependence on supplemental oxygen; Z20.822 Contact with and (suspected) exposure to COVID-19
CPT/HCPCS: 36415; 36600; 71045; 80048; 80053; 80061; 80307; 81001; 82553; 82805; 82962; 83036; 83605; 83735; 83880; 84100; 84443; 84484; 85007; 85025; 87040; 87077; 87086; 87186; 87804; 93005; 93306; 94660; 94760; 96361; 96365; 96375; J0456; J0696; J1650; J1815; J1940; J2270; J2405; J2920; J2930; J7030; J7512; U0003; 97535-GO; 99285-25; G0378

== ENCOUNTER 2020-07-30 13:48 | Inpatient (IN) | payer MEDICARE ==
[~2020-07-30] VITALS: Ht 170.2 cm; Wt 150.3 kg
[~2020-07-30 13:48] MED LIST: ASCO500C PO; ASPI-630 PO; DILT360C PO; FURO-69 PO; GABA600T PO; HYDR-2145 PO; IBUP200T44 PO; LISI10TA16 PO; METF-658 PO; ONDA4TAB7 PO; ROPI5TAB4 PO; VITA400C37 PO; VITAMIN D PO
[2020-07-30 14:20] LABS: BASE EXCESS COOX 3 mmol/L (-3-3); HCO3 COOX 29 mmol/L (21-28); METHEMOGLOBIN 0.3 % (0.0-1.9); OXYHEMOGLOBIN 95.2 %; PCO2 COOX 53 mmHg (35-46); PO2 COOX 94 mmHg (65-108); SAT O2 COOX 97 % (92-99)
[2020-07-30 14:36] LABS: BASO % 1 % (0-3); EOS # 0.2 x10^3/uL (0.0-0.7); EOS % 4 % (0-3); HEMATOCRIT 35.7 % (36.0-47.0); LYMPH # 0.8 x10^3/uL (1.0-4.8); LYMPH % 16 % (24-48); MEAN CORPUSCULAR HEMOGLOBIN 26 pg (25-35); MEAN CORPUSCULAR HGB CONC 31 g/dL (31-37); MEAN CORPUSCULAR VOLUME 83 fL (79-100); MONO # 0.5 x10^3/uL (0.0-1.1); MONO % 11 % (0-9); NEUT # 3.5 x10^3/uL (1.8-7.7); NEUT % 69 % (31-73); PLATELET COUNT 214 x10^3/uL (140-400); RED BLOOD COUNT 4.29 x10^6/uL (3.50-5.40); RED CELL DISTRIBUTION WIDTH 16.5 % (11.5-14.5)
--- NOTE | 2020-07-30 14:43 | EKG ---
[facility] [address] [place] [address] Test Date: 2020-07-30 Test Time: 14:24:41 Pat Name: PRUDENCE KLEIN Department: Room: Gender: F Meter Reader: : 1945 Requested By: LANEY RUTH Order Number: [id number] Reading MD: Measurements Intervals [place] Rate: 87 P: 41 MD: 156 QRS: -13 QRSD: 78 T: 99 QT: 386 QTc: 465 Interpretive Statements SINUS RHYTHM ATRIAL PREMATURE COMPLEX(ES), TRIGEMINY LEFTWARD AXIS T ABNORMALITY IN HIGH LATERAL LEADS ABNORMAL ECG RI6.01 No previous ECG available for comparison
[2020-07-30 14:48] LABS: CALCIUM 8.6 mg/dL (8.5-10.1); CREATININE 0.8 mg/dL (0.6-1.0); GFR 84.2; POTASSIUM 3.8 mmol/L (3.5-5.1)
--- NOTE | 2020-07-30 14:51 | RAD ---
EXAM: Chest, single view. HISTORY: Cough. COMPARISON: 07/04/2020 FINDINGS: A frontal view of the chest obtained. There has been interval increase in diffuse interstit ial prominence. There is no consolidation, pleural effusion or pneumothorax. There is a stable cardia c silhouette. IMPRESSION: Stable diffuse interstitial infiltrate. Electronically signed by: Karen Quintero MD (07/30/2020 2:49 PM) [id number]
[2020-07-30 14:54] LABS: ALBUMIN 2.9 g/dL (3.4-5.0); ALBUMIN/GLOBULIN RATIO 0.7 (1.0-1.7); C-REACTIVE PROTEIN 25.9 mg/L (0-3.3); TOTAL BILIRUBIN 0.4 mg/dL (0.2-1.0); TOTAL PROTEIN 7.2 g/dL (6.4-8.2)
[2020-07-30] MEDS ORDERED: cefTRIAXone IV Push 1 GM VIAL. IVP ONE (15:15)
[2020-07-30] MEDS ORDERED: DEXAMETHASONE SOD PHOS 4 MG/ML VIAL IVP ONE (15:15)
[2020-07-30] MEDS ORDERED: IOHEXOL 350 MG/ML 100 ML VIAL. IV ONE (15:30)
--- NOTE | 2020-07-30 17:26 | PDOC1 ---
History and Physical Date of Admission Date of Admission DATE: 07/30/20 TIME: 17:12 Identification/Chief Complaint Chief Complaint Shortness of breath Source Source: Chart review, Patient History of Present Illness History of Present Illness Patient is a 75-year-old female with past medical history of CHF and likely undiagnosed COPD, who presents to the ER with complaints of shortness of breath over the past few days. She reports associated weakness and nonproductive cough. Upon arrival in the ER she was saturating 80% on room air, which did improve with 4 L nasal cannula. She was recently admitted to our service on 07/02/2024 COPD exacerbation and elevated troponins. At that time troponins were elevated but stable, consistent with demand ischemia. Chest x-ray on 07/02 showed bilateral interstitial infiltrates. She is supposed to have a future appointment with her porcelain technician for pulmonary function test and formal diagnosis of COPD. Repeat chest x-ray today ER showed stable diffuse infiltrates. Will admit patient for further medical management. Past Medical History Cardiovascular: HTN Pulmonary: COPD CENTRAL NERVOUS SYSTEM: Periperal neuropathy, Other GI: No pertinent hx Heme/Onc: No pertinent hx Hepatobiliary: No pertinent hx Psych: No pertinent hx Musculoskeletal: low back pain, Osteoarthritis, Other Rheumatologic: No pertinent hx Infectious disease: No pertinent hx Renal/: No pertinent hx Endocrine: Diabetes Past Surgical History Past Surgical History: Total hip replacement Family History Family History: Heart Disease Social History Smoke: Quit ALCOHOL: none Drugs: None Current Medications Current Medications Current Medications Dexamethasone Sodium Phosphate (Decadron) 10 mg 1X ONCE IVP Last administered on 07/30/20at 15:42; Start 07/30/20 at 15:15; Stop 07/30/20 at 15:22; Status DC Ceftriaxone Sodium (Rocephin) 1 gm 1X ONCE IVP Last administered on 07/30/20at 15:45; Start 07/30/20 at 15:15; Stop 07/30/20 at 15:22; Status DC Iohexol (Omnipaque 350 Mg/ml) 100 ml 1X ONCE IV ; Start 07/30/20 at 15:30; Stop 07/30/20 at 15:31; Status DC Active Scripts Active Zofran (Ondansetron Hcl) 4 Mg Tablet 1 Tab PO Q8HRS PRN 30 Days Reported [Vitamin D] PO DAILY Vitamin E (Vitamin E Acetate) 400 Unit Capsule 400 Unit PO DAILY Vitamin C (Ascorbic Acid) 500 Mg Capsule.er 1 Cap PO DAILY 30 Days Metformin Hcl Er (Metformin Hcl) 500 Mg Tab.er.24h 500 Mg PO DAILYWBKFT Lasix (Furosemide) 20 Mg Tablet 1 Tab PO DAILY 30 Days Aspirin 81 Mg Tab.chew 1 Tab PO DAILY Cardizem Cd (Diltiazem Hcl) 360 Mg Cap.er.24h 1 Cap PO DAILY Motrin Ib (Ibuprofen) 200 Mg Tablet 600 Mg PO Q6HRS PRN Neurontin (Gabapentin) 600 Mg Tablet 900 Mg PO TID Allergies Allergies: Coded Allergies: atorvastatin (Verified Allergy, Mild, Nausea and Vomiting, 07/09/20) ROS Review of System GENERAL: Generalized weakness. No history of weight change, or fevers. SKIN: No bruising, hair changes or rashes. EYES: No blurred, double or loss of vision. NOSE AND THROAT: No history of nosebleeds, hoarseness or sore throat. HEART: Denies chest pain, denies palpitations. LUNGS: Shortness of breath, nonproductive cough.. Denies hemoptysis GASTROINTESTINAL: Denies nausea, vomiting, abdominal pain. GENITOURINARY: Denies dysuria, frequency, urgency, hematuria. NEUROLOGIC: Denies history of numbness, tingling, tremor or weakness. PSYCHIATRIC: Denies anxiety, denies depression. ENDOCRINE: No history of heat or cold intolerance, polyuria or polydipsia. EXTREMITIES: Denies muscle weakness, joint pain, pain on walking or stiffness. Physical Exam Physical Exam General: Alert, Oriented X3, Cooperative, mild distress, morbidly obese HEENT: Atraumatic, EOMI Lungs: Bilateral expiratory wheezing, bibasilar rales Heart: RRR, no rubs Cardiovascular: S1, S2 Abdomen: Normal bowel sounds, Soft, No tenderness Extremities: +1 bilateral leg edema Skin: No breakdown, No significant lesion Neuro: Normal speech, Sensation intact Psych/Mental Status: Mental status NL, Mood NL Vitals Vitals Vital Signs Date Time Temp Pulse Resp B/P (MAP) Pulse Ox O2 Delivery O2 Flow Rate FiO2 07/30/20 13:48 98.7 82 22 143/65 (91) 80 Room Air 98.7 Labs Labs Laboratory Tests Test 07/30/20 14:14 07/30/20 14:20 White Blood Count 5.0 x10^3/uL (4.0-11.0) Red Blood Count 4.29 x10^6/uL (3.50-5.40) Hemoglobin 11.0 g/dL (12.0-15.5) Hematocrit 35.7 % (36.0-47.0) Mean Corpuscular Volume 83 fL (79-100) Mean Corpuscular Hemoglobin 26 pg (25-35) Mean Corpuscular Hemoglobin Concent 31 g/dL (31-37) Red Cell Distribution Width 16.5 % (11.5-14.5) Platelet Count 214 x10^3/uL (140-400) Neutrophils (%) (Auto) 69 % (31-73) Lymphocytes (%) (Auto) 16 % (24-48) Monocytes (%) (Auto) 11 % (0-9) Eosinophils (%) (Auto) 4 % (0-3) Basophils (%) (Auto) 1 % (0-3) Neutrophils # (Auto) 3.5 x10^3/uL (1.8-7.7) Lymphocytes # (Auto) 0.8 x10^3/uL (1.0-4.8) Monocytes # (Auto) 0.5 x10^3/uL (0.0-1.1) Eosinophils # (Auto) 0.2 x10^3/uL (0.0-0.7) Basophils # (Auto) 0.0 x10^3/uL (0.0-0.2) Sodium Level 148 mmol/L (136-145) Potassium Level 3.8 mmol/L (3.5-5.1) Chloride Level 109 mmol/L (98-107) Carbon Dioxide Level 34 mmol/L (21-32) Anion Gap 5 (6-14) Blood Urea Nitrogen 12 mg/dL (7-20) Creatinine 0.8 mg/dL (0.6-1.0) Estimated GFR (Cockcroft-Gault) 84.2 BUN/Creatinine Ratio 15 (6-20) Glucose Level 123 mg/dL (70-99) Calcium Level 8.6 mg/dL (8.5-10.1) Total Bilirubin 0.4 mg/dL (0.2-1.0) Aspartate Amino Transf (AST/SGOT) 24 U/L (15-37) Alanine Aminotransferase (ALT/SGPT) 38 U/L (14-59) Alkaline Phosphatase 109 U/L (46-116) Lactate Dehydrogenase 255 U/L (81-234) Creatine Kinase 159 U/L (26-192) Troponin I Quantitative 0.149 ng/mL (0.000-0.055) C-Reactive Protein, Quantitative 25.9 mg/L (0-3.3) VE-Ghx-I-Type Natriuretic Peptide 771 pg/mL (0-449) Total Protein 7.2 g/dL (6.4-8.2) Albumin 2.9 g/dL (3.4-5.0) Albumin/Globulin Ratio 0.7 (1.0-1.7) O2 Saturation 97 % (92-99) Arterial Blood pH 7.36 (7.35-7.45) Arterial Blood pCO2 at Patient Temp 53 mmHg (35-46) Arterial Blood pO2 at Patient Temp 94 mmHg (65-108) Arterial Blood HCO3 29 mmol/L (21-28) Arterial Blood Base Excess 3 mmol/L (-3-3) Oxyhemoglobin 95.2 % Methemoglobin 0.3 % (0.0-1.9) Carbon Monoxide, Quantitative 1.8 % (0.0-1.9) FiO2 4l nc Laboratory Tests Test 07/30/20 14:14 07/30/20 14:20 White Blood Count 5.0 x10^3/uL (4.0-11.0) Red Blood Count 4.29 x10^6/uL (3.50-5.40) Hemoglobin 11.0 g/dL (12.0-15.5) Hematocrit 35.7 % (36.0-47.0) Mean Corpuscular Volume 83 fL (79-100) Mean Corpuscular Hemoglobin 26 pg (25-35) Mean Corpuscular Hemoglobin Concent 31 g/dL (31-37) Red Cell Distribution Width 16.5 % (11.5-14.5) Platelet Count 214 x10^3/uL (140-400) Neutrophils (%) (Auto) 69 % (31-73) Lymphocytes (%) (Auto) 16 % (24-48) Monocytes (%) (Auto) 11 % (0-9) Eosinophils (%) (Auto) 4 % (0-3) Basophils (%) (Auto) 1 % (0-3) Neutrophils # (Auto) 3.5 x10^3/uL (1.8-7.7) Lymphocytes # (Auto) 0.8 x10^3/uL (1.0-4.8) Monocytes # (Auto) 0.5 x10^3/uL (0.0-1.1) Eosinophils # (Auto) 0.2 x10^3/uL (0.0-0.7) Basophils # (Auto) 0.0 x10^3/uL (0.0-0.2) Sodium Level 148 mmol/L (136-145) Potassium Level 3.8 mmol/L (3.5-5.1) Chloride Level 109 mmol/L (98-107) Carbon Dioxide Level 34 mmol/L (21-32) Anion Gap 5 (6-14) Blood Urea Nitrogen 12 mg/dL (7-20) Creatinine 0.8 mg/dL (0.6-1.0) Estimated GFR (Cockcroft-Gault) 84.2 BUN/Creatinine Ratio 15 (6-20) Glucose Level 123 mg/dL (70-99) Calcium Level 8.6 mg/dL (8.5-10.1) Total Bilirubin 0.4 mg/dL (0.2-1.0) Aspartate Amino Transf (AST/SGOT) 24 U/L (15-37) Alanine Aminotransferase (ALT/SGPT) 38 U/L (14-59) Alkaline Phosphatase 109 U/L (46-116) Lactate Dehydrogenase 255 U/L (81-234) Creatine Kinase 159 U/L (26-192) Troponin I Quantitative 0.149 ng/mL (0.000-0.055) C-Reactive Protein, Quantitative 25.9 mg/L (0-3.3) QA-Nlq-C-Type Natriuretic Peptide 771 pg/mL (0-449) Total Protein 7.2 g/dL (6.4-8.2) Albumin 2.9 g/dL (3.4-5.0) Albumin/Globulin Ratio 0.7 (1.0-1.7) O2 Saturation 97 % (92-99) Arterial Blood pH 7.36 (7.35-7.45) Arterial Blood pCO2 at Patient Temp 53 mmHg (35-46) Arterial Blood pO2 at Patient Temp 94 mmHg (65-108) Arterial Blood HCO3 29 mmol/L (21-28) Arterial Blood Base Excess 3 mmol/L (-3-3) Oxyhemoglobin 95.2 % Methemoglobin 0.3 % (0.0-1.9) Carbon Monoxide, Quantitative 1.8 % (0.0-1.9) FiO2 4l nc Images Images CHEST AP ONLY EXAM: Chest, single view. HISTORY: Cough. COMPARISON: 07/04/2020 FINDINGS: A frontal view of the chest obtained. There has been interval increase in diffuse interstitial prominence. There is no consolidation, pleural effusion or pneumothorax. There is a stable cardiac silhouette. IMPRESSION: Stable diffuse interstitial infiltrate. VTE Prophylaxis Ordered VTE Prophylaxis Devices: No VTE Pharmacological Prophylaxi: Yes Assessment/Plan Assessment/Plan Acute on chronic hypercapnic respiratory failure Acute respiratory failure with hypoxia Acute COPD exacerbation Acute on chronic diastolic heart failure Elevated troponins COVID-19 PUI Malnutrition Plan: Patient recently admitted to our service with similar symptoms, most likely secondary to undiagnosed COPD. Echocardiogram obtained 06/29 showed EF 60%, with normal LV wall motion, elevated PAP. Consultations placed to cardiology for evaluation of elevated troponins; likely demand ischemia Continue to trend troponins; will diurese patient Will treat patient with antibiotics and steroids; patient received Rocephin and Decadron in ED. Wiill continue treatment with Levaquin and Decadron 6 mg daily. COVID-19 pending; influenza pending Consult to pulmonology for further recommendations Oxygen and supportive care Will consider initiating remdesivir when confirmed COVID-19 positive IV normal saline FEN - Cardiac diet PPX - Lovenox FULL CODE Dispo - inpatient for above Justifications for Admission Other Justification Acute respiratory failure with hypoxia, COVID-19 PUI THAIS BAUTISTA MD Jul 30, 2020 17:26
[2020-07-30] MEDS ORDERED: DEXTROSE 50% 25 GM / 50ML DISP.SYRIN. IV PRN (17:45)
--- NOTE | 2020-07-30 17:49 | ED.ADGEN ---
Past Medical History Past Medical History: Arthritis, CHF, COPD, Hypertension Past Surgical History: Hip Replacement Smoking Status: Former Smoker Alcohol Use: None General Adult EDM: Chief Complaint: SHORTNESS OF BREATH HPI: HPI: Patient is a 75-year-old female who presents to the emergency room complaining of generalized weakness and shortness of breath. She states that her symptoms first started a month ago and she was admitted at that time for similar symptoms. When she was discharged home she was feeling significantly better but states that now she is just as bad as she was when she went home. EMS states t hat they thought they smelled gas in her apartment and that she had a gas heater going. She denies any current chest pain. She has not had any known fevers. She has been coughing. She states that she cannot get up and go to the bathroom due to shortness of breath. Review of Systems: Review of Systems: Complete ROS is negative unless otherwise documented in HPI Current Medications: Current Medications Medications (Trade) Dose Ordered Sig/Mehul Start Time Stop Time Status Last Admin Dose Admin Ceftriaxone Sodium (Rocephin) 1 gm 1X ONCE 07/30/20 15:15 07/30/20 15:22 DC 07/30/20 15:45 1 GM Dexamethasone Sodium Phosphate (Decadron) 10 mg 1X ONCE 07/30/20 15:15 07/30/20 15:22 DC 07/30/20 15:42 10 MG Iohexol (Omnipaque 350 Mg/ml) 100 ml 1X ONCE 07/30/20 15:30 07/30/20 15:31 DC 07/30/20 18:40 100 ML Allergies: Allergies: Allergies Coded Allergies Type Severity Reaction Last Updated Verified atorvastatin Allergy Mild Nausea and Vomiting 07/09/20 Yes Physical Exam: PE: General: Awake, alert, NAD. Well Nourished, well hydrated. Cooperative HEENT: Atraumatic, EOMI, PERRL, airway patent, moist oral mucosa Neck: Supple, trachea midline Respiratory: Decreased breath sounds bilaterally with diffuse crackles, normal work of breathing CV: RRR, no murmur, cap refill <2 GI: Soft, nondistended, nontender, no masses MSK: No obvious deformities Skin: Warm, dry, intact Neuro: A&O x3, speech NL, sensory and motor grossly intact, no focal deficits Psych: Normal affect, normal mood, not suicidal or homicidal Current Patient Data: Labs: Laboratory Tests Test 07/30/20 14:14 07/30/20 14:20 07/30/20 16:49 White Blood Count 5.0 x10^3/uL (4.0-11.0) Red Blood Count 4.29 x10^6/uL (3.50-5.40) Hemoglobin 11.0 g/dL (12.0-15.5) L Hematocrit 35.7 % (36.0-47.0) L Mean Corpuscular Volume 83 fL (79-100) Mean Corpuscular Hemoglobin 26 pg (25-35) Mean Corpuscular Hemoglobin Concent 31 g/dL (31-37) Red Cell Distribution Width 16.5 % (11.5-14.5) H Platelet Count 214 x10^3/uL (140-400) Neutrophils (%) (Auto) 69 % (31-73) Lymphocytes (%) (Auto) 16 % (24-48) L Monocytes (%) (Auto) 11 % (0-9) H Eosinophils (%) (Auto) 4 % (0-3) H Basophils (%) (Auto) 1 % (0-3) Neutrophils # (Auto) 3.5 x10^3/uL (1.8-7.7) Lymphocytes # (Auto) 0.8 x10^3/uL (1.0-4.8) L Monocytes # (Auto) 0.5 x10^3/uL (0.0-1.1) Eosinophils # (Auto) 0.2 x10^3/uL (0.0-0.7) Basophils # (Auto) 0.0 x10^3/uL (0.0-0.2) Sodium Level 148 mmol/L (136-145) H Potassium Level 3.8 mmol/L (3.5-5.1) Chloride Level 109 mmol/L (98-107) H Carbon Dioxide Level 34 mmol/L (21-32) H Anion Gap 5 (6-14) L Blood Urea Nitrogen 12 mg/dL (7-20) Creatinine 0.8 mg/dL (0.6-1.0) Estimated GFR (Cockcroft-Gault) 84.2 BUN/Creatinine Ratio 15 (6-20) Glucose Level 123 mg/dL (70-99) H Calcium Level 8.6 mg/dL (8.5-10.1) Total Bilirubin 0.4 mg/dL (0.2-1.0) Aspartate Amino Transferase (AST) 24 U/L (15-37) Alanine Aminotransferase (ALT) 38 U/L (14-59) Alkaline Phosphatase 109 U/L (46-116) Lactate Dehydrogenase 255 U/L (81-234) H Creatine Kinase 159 U/L (26-192) Troponin I Quantitative 0.149 ng/mL (0.000-0.055) C-Reactive Protein, Quantitative 25.9 mg/L (0-3.3) H FY-Dpv-A-Type Natriuretic Peptide 771 pg/mL (0-449) H Total Protein 7.2 g/dL (6.4-8.2) Albumin 2.9 g/dL (3.4-5.0) L Albumin/Globulin Ratio 0.7 (1.0-1.7) L O2 Saturation 97 % (92-99) Arterial Blood pH 7.36 (7.35-7.45) Arterial Blood pCO2 at Patient Temp 53 mmHg (35-46) H Arterial Blood pO2 at Patient Temp 94 mmHg (65-108) Arterial Blood HCO3 29 mmol/L (21-28) H Arterial Blood Base Excess 3 mmol/L (-3-3) Oxyhemoglobin 95.2 % Methemoglobin 0.3 % (0.0-1.9) Carbon Monoxide, Quantitative 1.8 % (0.0-1.9) FiO2 4l nc Coronavirus (PCR) Not detected (Not Detected) Laboratory Tests 07/30/20 14:14 Laboratory Tests 07/30/20 14:14 Vital Signs: Vital Signs Date Time Temp Pulse Resp B/P (MAP) Pulse Ox O2 Delivery O2 Flow Rate FiO2 07/30/20 16:51 98.4 84 30 144/68 (93) 95 Nasal Cannula 4.0 98.4 EKG: EKG: [] Heart Score: Risk Factors: Risk Factors: DM, Current or recent (<one month) smoker, HTN, HLP, family history of CAD, obesity. Risk Scores: Score 0 - 3: 2.5% MACE over next 6 weeks - Discharge Home Score 4 - 6: 20.3% MACE over next 6 weeks - Admit for Clinical Observation Score 7 - 10: 72.7% MACE over next 6 weeks - Early Invasive Strategies Radiology/Procedures: Radiology/Procedures: [] Course & Med Decision Making: Course & Med Decision Making Pertinent Labs and Imaging studies reviewed. (See chart for details) Patient is 75-year-old female presents to the emergency room with shortness of breath. Patient overall is ill-appearing but is not in any distress. ABG with coox was done to rule out carbon monoxide poisoning and was normal. Patient has bilateral infiltrates on her chest x-ray that is similar to prior x-ray. She is requiring 3 L of oxygen does not wear oxygen at home. She will be admitted to the hospital for pulmonology and cardiology consultation. Dragon Disclaimer: Dragon Disclaimer: This electronic medical record was generated, in whole or in part, using a voice recognition dictation system. Departure Departure Impression: Primary Impression: Elevated troponin Additional Impressions: Pneumonia Respiratory failure with hypoxia Disposition: ADMITTED INPT THIS HOSP Condition: STABLE Referrals: UNKNOWN PCP NAME (PCP) Problem Qualifiers LANEY RUTH MD Jul 30, 2020 17:49
--- NOTE | 2020-07-30 19:04 | RAD ---
Exam: CT of chest with contrast INDICATION: Shortness of breath TECHNIQUE: Sequential axial images through the chest obtained following the administration of 100 mL of Omni 350 IV contrast. Sagittal and coronal reformatted images were reconstructed from the axial da ta and reviewed. 3-D reformatted images were reconstructed from the axial data and reviewed. Comparisons: Chest x-ray same day FINDINGS: No enlarged mediastinal lymph nodes are identified. Heart size is normal. No pericardial effusion. Mild coronary artery calcium lesions. Thoracic aorta h as a normal course and caliber. Pulmonary artery is not enlarged. No pulmonary embolus identified wit hin the main, lobar or segmental pulmonary arteries. Airways are patent. No consolidation or pneumothorax. There is mosaic attenuation noted lungs, likely related to air trapping. There is a 8 mm nodule right upper lobe series 4 image 15. There are trace bilateral pleural effusions. Visualized upper abdomen is unremarkable. No suspicious osseous lesions or acute fractures. IMPRESSION: 1. No pulmonary embolus identified within the main, lobar or segmental pulmonary arteries. 2. A 8 mm nodule at the right upper lobe. A 3 month follow-up chest CT is recommended to reassess. Exposure: One or more of the following in the visualized dose reduction techniques were utilized for this examination: 1. Automated exposure control 2. Adjustment of the MA and/or KV according to patient size 3. Use of iterative of reconstructive technique Electronically signed by: Narayan Reilly MD (07/30/2020 7:02 PM) [facility]
[2020-07-30] MEDS ORDERED: IOHEXOL 350 MG/ML 100 ML VIAL. ONE (20:50)
[2020-07-30 20:55] LABS: INFLUENZA A PATIENT NEGATIVE (NEGATIVE); INFLUENZA B PATIENT NEGATIVE (NEGATIVE)
[2020-07-30 22:30] VITALS: BP 143/73
[2020-07-30] MEDS: PRAMIPEXOLE 1 MG TABLET. PO PRN (23:08)
[2020-07-30] MEDS: GABAPENTIN 300 MG CAPSULE. PO SCH (23:08)
--- NOTE | 2020-07-31 00:18 | NUR ---
Admit to [facility] room 248 via [facility]. Transferred self from [place] to bed with 2 person assist. A/O x 4 on arrival. Forgetful. Cooperative. Orientated to unit and call light. Reviewed POC to include tele monitor and COVID isolation. Verbalized understanding. Resting in bed with call light at hand. Bed alarm on.
[2020-07-31] MEDS: ACETAMINOPHEN 500 MG TABLET PO PRN ×3 (00:56→18:09)
[2020-07-31 02:33] VITALS: BP 124/69
[2020-07-31 07:00] VITALS: BP 160/92
[2020-07-31] MEDS ORDERED: ENOXAPARIN 40 MG/0.4 ML SYRINGE. SQ SCH (07:15)
[2020-07-31 07:16] LABS: BASO % 0 % (0-3); EOS % 0 % (0-3); HEMATOCRIT 35.9 % (36.0-47.0); HEMOGLOBIN 10.8 g/dL (12.0-15.5); LYMPH # 0.6 x10^3/uL (1.0-4.8); LYMPH % 15 % (24-48); MEAN CORPUSCULAR HEMOGLOBIN 26 pg (25-35); MEAN CORPUSCULAR HGB CONC 30 g/dL (31-37); MEAN CORPUSCULAR VOLUME 85 fL (79-100); MONO # 0.2 x10^3/uL (0.0-1.1); MONO % 4 % (0-9); NEUT # 3.5 x10^3/uL (1.8-7.7); NEUT % 81 % (31-73); PLATELET COUNT 215 x10^3/uL (140-400); RED BLOOD COUNT 4.22 x10^6/uL (3.50-5.40); RED CELL DISTRIBUTION WIDTH 16.6 % (11.5-14.5); WHITE BLOOD COUNT 4.3 x10^3/uL (4.0-11.0)
--- NOTE | 2020-07-31 07:19 | PDOC ---
[employer] PROGRESS NOTE Date of Service DOS: DATE: 07/31/20 TIME: 07:06 Chief Complaint Chief Complaint A/P: Acute on chronic hypercapnic respiratory failure Acute respiratory failure with hypoxia Acute COPD exacerbation Acute on chronic diastolic heart failure Elevated troponins Hypernatremia COVID-19 PUI Malnutrition FEN - PPX - FULL CODE Dispo - inpatient History of Present Illness History of Present Illness Ms Davidson is a 75-year-old female with past medical history of CHF with preserved ejection fraction, morbid obesity, depression, hypertension, hyperlipidemia, hypothyroidism, and schizophrenia who presents to the ER with complaints of shortness of breath over the past few days. She reports associated weakness and nonproductive cough. Upon arrival in the ER she was saturating 80% on room air, which did improve with 4 L nasal cannula. She was recently admitted to our service on 07/02/2024 COPD exacerbation and elevated troponins. At that time troponins were elevated but stable, consistent with demand ischemia. Chest x-ray on 07/02 showed bilateral interstitial infiltrates. She is supposed to have a future appointment with her pulmonol ogist for pulmonary function test and formal diagnosis of COPD. Repeat chest x- ray 07/30 in the ER showed stable diffuse infiltrates. She underwent CTPA with no pulmonary embolus identified, but 8 mm nodule at the right upper lobe. EKG with lateral t-wave changes, troponin 0.1. Rapid influenza test negative, tested for COVID 19 and admitted for further care. Still very short of breath, trying to take off her O2, c/o dry nares. Feels "terrible". Myalgias and GI upset with nausea currently. Repeat troponin minimally decreased Vitals/I&O Vitals/I&O: Vital Signs Date Time Temp Pulse Resp B/P (MAP) Pulse Ox O2 Delivery O2 Flow Rate FiO2 07/31/20 02:33 97.9 87 20 124/69 (87) 94 Nasal Cannula 4.0 97.9 I & O 07/30/20 07/30/20 07/31/20 15:00 23:00 07:00 Intake Total 320 ml Balance 320 ml Physical Exam General: Alert Lungs: Clear Labs Labs: Laboratory Tests Test 07/30/20 14:14 07/30/20 14:20 07/30/20 20:29 White Blood Count 5.0 x10^3/uL (4.0-11.0) Red Blood Count 4.29 x10^6/uL (3.50-5.40) Hemoglobin 11.0 g/dL (12.0-15.5) Hematocrit 35.7 % (36.0-47.0) Mean Corpuscular Volume 83 fL (79-100) Mean Corpuscular Hemoglobin 26 pg (25-35) Mean Corpuscular Hemoglobin Concent 31 g/dL (31-37) Red Cell Distribution Width 16.5 % (11.5-14.5) Platelet Count 214 x10^3/uL (140-400) Neutrophils (%) (Auto) 69 % (31-73) Lymphocytes (%) (Auto) 16 % (24-48) Monocytes (%) (Auto) 11 % (0-9) Eosinophils (%) (Auto) 4 % (0-3) Basophils (%) (Auto) 1 % (0-3) Neutrophils # (Auto) 3.5 x10^3/uL (1.8-7.7) Lymphocytes # (Auto) 0.8 x10^3/uL (1.0-4.8) Monocytes # (Auto) 0.5 x10^3/uL (0.0-1.1) Eosinophils # (Auto) 0.2 x10^3/uL (0.0-0.7) Basophils # (Auto) 0.0 x10^3/uL (0.0-0.2) Sodium Level 148 mmol/L (136-145) Potassium Level 3.8 mmol/L (3.5-5.1) Chloride Level 109 mmol/L (98-107) Carbon Dioxide Level 34 mmol/L (21-32) Anion Gap 5 (6-14) Blood Urea Nitrogen 12 mg/dL (7-20) Creatinine 0.8 mg/dL (0.6-1.0) Estimated GFR (Cockcroft-Gault) 84.2 BUN/Creatinine Ratio 15 (6-20) Glucose Level 123 mg/dL (70-99) Calcium Level 8.6 mg/dL (8.5-10.1) Total Bilirubin 0.4 mg/dL (0.2-1.0) Aspartate Amino Transf (AST/SGOT) 24 U/L (15-37) Alanine Aminotransferase (ALT/SGPT) 38 U/L (14-59) Alkaline Phosphatase 109 U/L (46-116) Lactate Dehydrogenase 255 U/L (81-234) Creatine Kinase 159 U/L (26-192) Troponin I Quantitative 0.149 ng/mL (0.000-0.055) C-Reactive Protein, Quantitative 25.9 mg/L (0-3.3) IL-Vbx-E-Type Natriuretic Peptide 771 pg/mL (0-449) Total Protein 7.2 g/dL (6.4-8.2) Albumin 2.9 g/dL (3.4-5.0) Albumin/Globulin Ratio 0.7 (1.0-1.7) O2 Saturation 97 % (92-99) Arterial Blood pH 7.36 (7.35-7.45) Arterial Blood pCO2 at Patient Temp 53 mmHg (35-46) Arterial Blood pO2 at Patient Temp 94 mmHg (65-108) Arterial Blood HCO3 29 mmol/L (21-28) Arterial Blood Base Excess 3 mmol/L (-3-3) Oxyhemoglobin 95.2 % Methemoglobin 0.3 % (0.0-1.9) Carbon Monoxide, Quantitative 1.8 % (0.0-1.9) FiO2 4l nc Influenza Type A Antigen Negative (NEGATIVE) Influenza Type B Antigen Negative (NEGATIVE) Assessment and Plan Assessmemt and Plan Problems Medical Problems: (1) Elevated troponin Status: Acute (2) Pneumonia Status: Acute (3) Respiratory failure with hypoxia Status: Acute Comment Review of Relevant I have reviewed the following items tucker (where applicable) has been applied. Medications: Current Medications Medications (Trade) Dose Ordered Sig/Mehul Route PRN Reason Start Time Stop Time Status Last Admin Dose Admin Dexamethasone Sodium Phosphate (Decadron) 10 mg 1X ONCE IVP 07/30/20 15:15 07/30/20 15:22 DC 07/30/20 15:42 Ceftriaxone Sodium (Rocephin) 1 gm 1X ONCE IVP 07/30/20 15:15 07/30/20 15:22 DC 07/30/20 15:45 Iohexol (Omnipaque 350 Mg/ml) 100 ml 1X ONCE IV 07/30/20 15:30 07/30/20 15:31 DC 07/30/20 18:40 Gabapentin (Neurontin) 900 mg TID PO 07/30/20 21:00 07/30/20 23:08 Levofloxacin/ Dextrose 150 ml @ 100 mls/hr Q24H IV 07/30/20 18:00 08/03/20 19:29 07/30/20 19:09 Pramipexole Dihydrochloride (miraPEX) 1 mg PRN QHS PRN PO RESTLESS LEG 07/30/20 23:00 07/30/20 23:08 Acetaminophen (Tylenol) 1,000 mg PRN Q6HRS PRN PO MILD PAIN / TEMP > 100.3'F 07/31/20 00:45 07/31/20 00:56 Justifications for Admission Other Justification Acute respiratory failure with hypoxia, COVID-19 AIDAN MATSON MD Jul 31, 2020 07:19
[2020-07-31 07:23] LABS: CALCIUM 8.8 mg/dL (8.5-10.1); CREATININE 0.6 mg/dL (0.6-1.0); GFR 117.3; POTASSIUM 4.5 mmol/L (3.5-5.1)
[2020-07-31] MEDS: INSULIN LISPRO 300 UNITS/3 ML VIAL. SQ SCH ×3 (08:00→17:00)
[2020-07-31] MEDS: GABAPENTIN 300 MG CAPSULE. PO SCH ×4 (08:57→20:03)
[2020-07-31] MEDS: ASPIRIN CHEWABLE 81 MG TABLET. PO SCH (08:57)
[2020-07-31] MEDS ORDERED: FUROSEMIDE 20 MG TABLET PO SCH (09:00)
[2020-07-31] MEDS: DEXAMETHASONE SOD PHOS 4 MG/ML VIAL IVP SCH (09:00)
[2020-07-31] MEDS: PRAMIPEXOLE 1 MG TABLET. PO PRN ×2 (09:23→19:57)
--- NOTE | 2020-07-31 09:44 | PDOC2 ---
CARDIAC CONSULT DATE OF CONSULT Date of Consult DATE: 07/31/20 TIME: 09:29 REASON FOR CONSULT Reason for Consult: Elevated trop, Diastolic CHF REFERRING PHYSICIAN Referring Physician: Mary Ann SOURCE Source: Chart review, Patient HISTORY OF PRESENT ILLNESS HISTORY OF PRESENT ILLNESS This is a pleasant 75 yo female admitted for complains of shortness of breath. This has been going on for about a week. Worse with exertion. No palpitations and no chest pain. She uses O2 at 2L at home but still in the 80s when EMS chec ked her. She has been having nonproductive cough with some mild leg swelling. No fever or chills. NO loss of taste or smell. She was here in 06/2020 and negative for covid-19 at that time with mild troponin treated for CHF and COPD. She has not been tested for sleep apnea but again uses oxygen at home. PAST MEDICAL HISTORY Past Medical History Cardiovascular: HTN, HLP Pulmonary: COPD CENTRAL NERVOUS SYSTEM: Periperal neuropathy, Other (No pertinent history) GI: No pertinent hx Heme/Onc: No pertinent hx Hepatobiliary: No pertinent hx Psych: No pertinent hx Musculoskeletal: low back pain, Osteoarthritis, Other (WC bound) Rheumatologic: No pertinent hx Infectious disease: No pertinent hx ENT: No pertinent hx, Other (conjunctivitis) Renal/: No pertinent hx Endocrine: Diabetes (2) Dermatology: No pertinent hx PAST SURGICAL HISTORY Past Surgical History Total hip replacement (right) FAMILY HISTORY Family History: Heart Disease SOCIAL HISTORY Smoke: Quit ALCOHOL: none Drugs: None Lives: with Family CURRENT MEDICATIONS CURRENT MEDICATIONS Current Medications Medications (Trade) Dose Ordered Sig/Mehul Route PRN Reason Start Time Stop Time Status Last Admin Dose Admin Dexamethasone Sodium Phosphate (Decadron) 10 mg 1X ONCE IVP 07/30/20 15:15 07/30/20 15:22 DC 07/30/20 15:42 Ceftriaxone Sodium (Rocephin) 1 gm 1X ONCE IVP 07/30/20 15:15 07/30/20 15:22 DC 07/30/20 15:45 Iohexol (Omnipaque 350 Mg/ml) 100 ml 1X ONCE IV 07/30/20 15:30 07/30/20 15:31 DC 07/30/20 18:40 Aspirin (Aspirin Chewable) 81 mg DAILY PO 07/31/20 09:00 07/31/20 08:57 Furosemide (Lasix) 20 mg DAILY PO 07/31/20 09:00 07/31/20 08:57 Diltiazem HCl (Cardizem 24hr Cd) 360 mg DAILY PO 07/31/20 09:00 07/31/20 08:59 Gabapentin (Neurontin) 900 mg TID PO 07/30/20 21:00 07/31/20 08:57 Levofloxacin/ Dextrose 150 ml @ 100 mls/hr Q24H IV 07/30/20 18:00 08/03/20 19:29 07/30/20 19:09 Dexamethasone Sodium Phosphate (Decadron) 6 mg DAILY IVP 07/31/20 09:00 07/31/20 09:00 Pramipexole Dihydrochloride (miraPEX) 1 mg PRN QHS PRN PO RESTLESS LEG 07/30/20 23:00 07/31/20 09:23 Acetaminophen (Tylenol) 1,000 mg PRN Q6HRS PRN PO MILD PAIN / TEMP > 100.3'F 07/31/20 00:45 07/31/20 09:18 Enoxaparin Sodium (Lovenox 60mg Syringe) 60 mg Q12HR SQ 07/31/20 09:00 07/31/20 09:01 ALLERGIES ALLERGIES: Coded Allergies: atorvastatin (Verified Allergy, Mild, Nausea and Vomiting, 07/09/20) ROS Review of System 14 point ROS evaluated with pertinent positives noted per HPI PHYSICAL EXAM General: Alert, Oriented X3, Cooperative, No acute distress HEENT: Atraumatic, Mucous membr. moist/pink Lungs: Other (diminished) Heart: Regular rate (SR), Other (distant heart sounds) Abdomen: Soft, No tenderness, Other (obese) Extremities: No cyanosis, Other (1+ bilateral LE pitting edema) Skin: No breakdown, No significant lesion Neuro: Normal speech, Sensation intact Psych/Mental Status: Mental status NL, Mood NL MUSCULOSKELETAL: Osteoarthritic changes both hands VITALS/I&O VITALS/I&O: Vital Signs Date Time Temp Pulse Resp B/P (MAP) Pulse Ox O2 Delivery O2 Flow Rate FiO2 07/31/20 08:59 80 160/92 07/31/20 07:00 97.9 20 99 Nasal Cannula 4.0 97.9 I & O 07/30/20 07/30/20 07/31/20 15:00 23:00 07:00 Intake Total 320 ml Balance 320 ml LABS Lab: Laboratory Tests Test 07/30/20 14:14 07/30/20 14:20 07/30/20 20:29 07/31/20 06:29 White Blood Count 5.0 x10^3/uL (4.0-11.0) 4.3 x10^3/uL (4.0-11.0) Red Blood Count 4.29 x10^6/uL (3.50-5.40) 4.22 x10^6/uL (3.50-5.40) Hemoglobin 11.0 g/dL (12.0-15.5) L 10.8 g/dL (12.0-15.5) L Hematocrit 35.7 % (36.0-47.0) L 35.9 % (36.0-47.0) L Mean Corpuscular Volume 83 fL (79-100) 85 fL (79-100) Mean Corpuscular Hemoglobin 26 pg (25-35) 26 pg (25-35) Mean Corpuscular Hemoglobin Concent 31 g/dL (31-37) 30 g/dL (31-37) L Red Cell Distribution Width 16.5 % (11.5-14.5) H 16.6 % (11.5-14.5) H Platelet Count 214 x10^3/uL (140-400) 215 x10^3/uL (140-400) Neutrophils (%) (Auto) 69 % (31-73) 81 % (31-73) H Lymphocytes (%) (Auto) 16 % (24-48) L 15 % (24-48) L Monocytes (%) (Auto) 11 % (0-9) H 4 % (0-9) Eosinophils (%) (Auto) 4 % (0-3) H 0 % (0-3) Basophils (%) (Auto) 1 % (0-3) 0 % (0-3) Neutrophils # (Auto) 3.5 x10^3/uL (1.8-7.7) 3.5 x10^3/uL (1.8-7.7) Lymphocytes # (Auto) 0.8 x10^3/uL (1.0-4.8) L 0.6 x10^3/uL (1.0-4.8) L Monocytes # (Auto) 0.5 x10^3/uL (0.0-1.1) 0.2 x10^3/uL (0.0-1.1) Eosinophils # (Auto) 0.2 x10^3/uL (0.0-0.7) 0.0 x10^3/uL (0.0-0.7) Basophils # (Auto) 0.0 x10^3/uL (0.0-0.2) 0.0 x10^3/uL (0.0-0.2) Sodium Level 148 mmol/L (136-145) H 143 mmol/L (136-145) Potassium Level 3.8 mmol/L (3.5-5.1) 4.5 mmol/L (3.5-5.1) Chloride Level 109 mmol/L (98-107) H 105 mmol/L (98-107) Carbon Dioxide Level 34 mmol/L (21-32) H 34 mmol/L (21-32) H Anion Gap 5 (6-14) L 4 (6-14) L Blood Urea Nitrogen 12 mg/dL (7-20) 16 mg/dL (7-20) Creatinine 0.8 mg/dL (0.6-1.0) 0.6 mg/dL (0.6-1.0) Estimated GFR (Cockcroft-Gault) 84.2 117.3 BUN/Creatinine Ratio 15 (6-20) Glucose Level 123 mg/dL (70-99) H 135 mg/dL (70-99) H Calcium Level 8.6 mg/dL (8.5-10.1) 8.8 mg/dL (8.5-10.1) Total Bilirubin 0.4 mg/dL (0.2-1.0) Aspartate Amino Transferase (AST) 24 U/L (15-37) Alanine Aminotransferase (ALT) 38 U/L (14-59) Alkaline Phosphatase 109 U/L (46-116) Lactate Dehydrogenase 255 U/L (81-234) H Creatine Kinase 159 U/L (26-192) Troponin I Quantitative 0.149 ng/mL (0.000-0.055) 0.136 ng/mL (0.000-0.055) C-Reactive Protein, Quantitative 25.9 mg/L (0-3.3) H IP-[id number]-[id number]-Type Natriuretic Peptide 771 pg/mL (0-449) H Total Protein 7.2 g/dL (6.4-8.2) Albumin 2.9 g/dL (3.4-5.0) L Albumin/Globulin Ratio 0.7 (1.0-1.7) L O2 Saturation 97 % (92-99) Arterial Blood pH 7.36 (7.35-7.45) Arterial Blood pCO2 at Patient Temp 53 mmHg (35-46) H Arterial Blood pO2 at Patient Temp 94 mmHg (65-108) Arterial Blood HCO3 29 mmol/L (21-28) H Arterial Blood Base Excess 3 mmol/L (-3-3) Oxyhemoglobin 95.2 % Methemoglobin 0.3 % (0.0-1.9) Carbon Monoxide, Quantitative 1.8 % (0.0-1.9) FiO2 4l nc Influenza Type A Antigen Negative (NEGATIVE) Influenza Type B Antigen Negative (NEGATIVE) Procalcitonin < 0.10 ng/mL (0.00-0.10) Laboratory Tests 07/30/20 14:14 07/31/20 06:29 Laboratory Tests 07/30/20 14:14 07/31/20 06:29 ECHOCARDIOGRAM ECHOCARDIOGRAM <Conclusion> The left ventricular systolic function is normal. The Ejection Fraction is 60%. There is normal LV segmental wall motion. Transmitral Doppler flow pattern is Grade I-abnormal relaxation pattern. The right ventricle is mildly dilated. Trace tricuspid regurgitation with an estimated PAP of 39 mmHg. There is no evidence of significant pericardial effusion. DATE: 07/07/20 [id number] ASSESSMENT/PLAN ASSESSMENT/PLAN 1. Acute on chronic hypercapnic respiratory failure with AECOPD, diastolic CHF and likely CODY. NO PE per CTA 2. Acute on chronic diastolic heart failure: Recent LVEF 60% 3. Mild troponin elevation: peak 0.14 same as prior top level last month. No acute EKG changes, possibly demand mediated 4. HTN: controlled 5. HLP 6. DM2: Per IM 7. Morbid obesity 8. PUI 9. suspect CODY Recommendations Lasix therapy. Continue ASA, will verify statin allergy. Continue cardizem Await Covid-19 test and if negative then will consider for 2 day MPI given her persistent trop elevation and SOA. Continue pulmonary optimization. Decadron and levaquin ongoing. QTc 465. Repeat EKG tomorrow. Lung optimization as per pulm Follow up in our office with Dr. Bustillos as scheduled.on 08/21 9:45 AM RYAN LU APRN Jul 31, 2020 09:44
[2020-07-31] MEDS ORDERED: FUROSEMIDE 40 MG/4 ML VIAL. IVP ONE (09:45)
[2020-07-31 10:49] VITALS: BP 141/75
--- NOTE | 2020-07-31 10:55 | CONS ---
DATE OF CONSULTATION: PULMONARY CONSULTATION ATTENDING PHYSICIAN: Dr. Carlos Reese. REASON FOR CONSULTATION: Respiratory failure. HISTORY OF PRESENT ILLNESS: The patient is known to us. She is a 75-year-old female who is morbidly obese with a BMI of 54. She has history of chronic hypoxic and hypercapnic respiratory failure. During her hospitalization in late June, I was consulted and she had audible wheezing and was related to diastolic congestive heart failure, which improved with Lasix. She was brought into the hospital with complaint of dizziness. She did not have any significant shortness of breath, no cough, no fever, no chills, no headaches, no nausea, vomiting or diarrhea. Her CT angiogram was reviewed. There was no evidence of any central pulmonary embolism. There was 8 mm nodule in the right upper lobe. There was some mild streaky atelectasis seen in the left lung. Her arterial blood gases reveal a pH of 7.36, pCO2 of 53 and a pO2 of 94 on 4 liters nasal cannula. The patient's blood pressure has been in the 130s to 160s systolic. PAST MEDICAL HISTORY: Significant for history of morbid obesity, history of diastolic congestive heart failure, history of normal ejection fraction, history of morbid obesity with a BMI of 53, depression, hypertension, hyperlipidemia, hypothyroidism, and schizophrenia. PAST SURGICAL HISTORY: Bilateral hip replacement. FAMILY HISTORY: Coronary artery disease. Noncontributory to lungs. SOCIAL HISTORY: Smoked for 10 years before quitting in the 60s. REVIEW OF SYSTEMS: Twelve-point system obtained. Pertinent positives discussed in my history of present illness, otherwise noncontributory. All systems that were negative were reviewed as well. MEDICATIONS: All reviewed as listed in the MRAD. PHYSICAL EXAMINATION: VITAL SIGNS: Reviewed. She is afebrile, pulse ox is 99% on 4 liters. NECK: Supple. LUNGS: Clear. CARDIOVASCULAR: With a regular rate. ABDOMEN: Soft, obese. EXTREMITIES: With trace pitting edema. LABORATORY DATA: Reviewed. Influenza screen negative. BUN 16, creatinine 0.6. White cell count 4.3, hemoglobin 10.8 and platelets are 215. IMPRESSION: 1. Kudrm-es-[id number] hypercapnic respiratory failure secondary to likely suspected acute on chronic diastolic heart failure. Cannot exclude a component of right heart failure. She had minimal tobacco use for 10 years only. 2. Underlying diastolic heart failure. Last ejection fraction was 60%. 3. Underlying obstructive sleep apnea/obesity hypoventilation syndrome with chronic hypercapnia. 4. Dizziness. No evidence of pulmonary embolism by CTA chest. RECOMMENDATIONS: 1. From a pulmonary standpoint, clinically, she is improving. Her ABGs shows almost compensated hypercapnia. 2. Continue present oxygen. 3. Taper steroids. 4. Lovenox for DVT prophylaxis. 5. Oral Lasix as prescribed. 6. Follow cardiology recommendations. 7. Antibiotics can be discontinued soon. 8. We will follow along with you. SAMANTHA MARSH MD DR: MILTON/kortney JOB#: [id number] / [id number]
--- NOTE | 2020-07-31 12:03 | NUR ---
SS following for discharge planning. SS reviewed pt chart and discussed with pt RN. Pt is from home and is currently requiring oxygen at four liters nasal canula. Pt has home oxygen at home. Pt on IV Levaquin. COVID19 test pending. PT/OT ordered. SS notified that pt is current on services with [facility], ; fax [phone]. SS will continue to follow for discharge planning.
[2020-07-31 14:59] VITALS: BP 147/83
[2020-07-31 19:55] VITALS: BP 145/76
[2020-07-31] MEDS: LACTOBACILLUS RHAMNOSUS GG 1 CAPSULE. PO SCH ×2 (19:57→20:04)
[2020-07-31 22:45] VITALS: BP 141/81
[2020-08-01] MEDS: ACETAMINOPHEN 500 MG TABLET PO PRN ×2 (02:45→12:42)
--- NOTE | 2020-08-01 02:45 | NUR ---
Patient allowed 1000mg Tylenol but only wanted 500mg at this time. Gave only 1 500 mg Tylenol tab instead of 2 at this time.
[2020-08-01 03:45] VITALS: BP 136/69
[2020-08-01 06:46] LABS: BASO % 1 % (0-3); EOS % 0 % (0-3); HEMATOCRIT 36.4 % (36.0-47.0); HEMOGLOBIN 11.1 g/dL (12.0-15.5); LYMPH # 0.8 x10^3/uL (1.0-4.8); LYMPH % 17 % (24-48); MEAN CORPUSCULAR HEMOGLOBIN 25 pg (25-35); MEAN CORPUSCULAR HGB CONC 30 g/dL (31-37); MEAN CORPUSCULAR VOLUME 84 fL (79-100); MONO # 0.5 x10^3/uL (0.0-1.1); MONO % 11 % (0-9); NEUT # 3.5 x10^3/uL (1.8-7.7); NEUT % 72 % (31-73); PLATELET COUNT 268 x10^3/uL (140-400); RED BLOOD COUNT 4.36 x10^6/uL (3.50-5.40); RED CELL DISTRIBUTION WIDTH 16.4 % (11.5-14.5); WHITE BLOOD COUNT 4.8 x10^3/uL (4.0-11.0)
[2020-08-01 06:59] LABS: CALCIUM 9.3 mg/dL (8.5-10.1); CREATININE 0.7 mg/dL (0.6-1.0); GFR 98.2; POTASSIUM 3.9 mmol/L (3.5-5.1)
[2020-08-01 07:00] VITALS: BP 158/84
--- NOTE | 2020-08-01 07:55 | PDOC ---
[employer] PROGRESS NOTE Date of Service DOS: DATE: 08/01/20 TIME: 07:54 Chief Complaint Chief Complaint A/P: Acute on chronic hypercapnic respiratory failure Acute respiratory failure with hypoxia Acute COPD exacerbation Acute on chronic diastolic heart failure Elevated troponins Hypernatremia COVID-19 PUI Malnutrition FEN - PPX - FULL CODE Dispo - inpatient History of Present Illness History of Present Illness Ms Dvaidson is a 75-year-old female with past medical history of CHF with preserved ejection fraction, morbid obesity, depression, hypertension, hyperlipidemia, hypothyroidism, and schizophrenia who presents to the ER with complaints of shortness of breath over the past few days. She reports associated weakness and nonproductive cough. Upon arrival in the ER she was saturating 80% on room air, which did improve with 4 L nasal cannula. She was recently admitted to our service on 07/02/2024 COPD exacerbation and elevated troponins. At that time troponins were elevated but stable, consistent with demand ischemia. Chest x-ray on 07/02 showed bilateral interstitial infiltrates. She is supposed to have a future appointment with her pulmonol ogist for pulmonary function test and formal diagnosis of COPD. Repeat chest x- ray 07/30 in the ER showed stable diffuse infiltrates. She underwent CTPA with no pulmonary embolus identified, but 8 mm nodule at the right upper lobe. EKG with lateral t-wave changes, troponin 0.1. Rapid influenza test negative, tested for COVID 19 and admitted for further care. 07/31: Still very short of breath, trying to take off her O2, c/o dry nares. Feels "terrible". Myalgias and GI upset with nausea currently. Repeat troponin minimally decreased Feeling improved today. N.p.o. for am stress testing per cardiology. Still requiring 4 L nasal cannulated O2 though she is saturating at 96%. Notes that she is on 2 L nasal cannula at home. She is somewhat anxious to leave the hospital. Still dizzy and with blurred vision, notes her vision blurring for the past year, has been seen by ophthalmology outpatient noted with cataracts. Plan: F/u stress testing Meclizine prn D/c planning - may need increased O2 and already has home health in place Vitals/I&O Vitals/I&O: Vital Signs Date Time Temp Pulse Resp B/P (MAP) Pulse Ox O2 Delivery O2 Flow Rate FiO2 08/01/20 03:45 97.8 83 22 136/69 (91) 94 Nasal Cannula 4.0 97.8 I & O 07/31/20 07/31/20 08/01/20 15:00 23:00 07:00 Intake Total 450 ml 490 ml 430 ml Output Total 2500 ml 700 ml Balance 450 ml -2010 ml -270 ml Physical Exam General: Alert, Oriented X3, Cooperative, No acute distress Heart: Regular rate (SR), Other (distant heart sounds) Lungs: Clear Abdomen: Soft, No tenderness, Other (obese) Extremities: No cyanosis, Other (1+ bilateral LE pitting edema) Skin: No breakdown, No significant lesion Labs Labs: Laboratory Tests Test 07/31/20 08:03 07/31/20 11:33 07/31/20 14:53 07/31/20 16:15 Glucose (Fingerstick) 140 mg/dL (70-99) 135 mg/dL (70-99) 140 mg/dL (70-99) SARS-CoV-2 Antigen (Rapid) Negative (NEGATIVE) Test 07/31/20 20:00 08/01/20 05:50 Glucose (Fingerstick) 192 mg/dL (70-99) White Blood Count 4.8 x10^3/uL (4.0-11.0) Red Blood Count 4.36 x10^6/uL (3.50-5.40) Hemoglobin 11.1 g/dL (12.0-15.5) Hematocrit 36.4 % (36.0-47.0) Mean Corpuscular Volume 84 fL (79-100) Mean Corpuscular Hemoglobin 25 pg (25-35) Mean Corpuscular Hemoglobin Concent 30 g/dL (31-37) Red Cell Distribution Width 16.4 % (11.5-14.5) Platelet Count 268 x10^3/uL (140-400) Neutrophils (%) (Auto) 72 % (31-73) Lymphocytes (%) (Auto) 17 % (24-48) Monocytes (%) (Auto) 11 % (0-9) Eosinophils (%) (Auto) 0 % (0-3) Basophils (%) (Auto) 1 % (0-3) Neutrophils # (Auto) 3.5 x10^3/uL (1.8-7.7) Lymphocytes # (Auto) 0.8 x10^3/uL (1.0-4.8) Monocytes # (Auto) 0.5 x10^3/uL (0.0-1.1) Eosinophils # (Auto) 0.0 x10^3/uL (0.0-0.7) Basophils # (Auto) 0.0 x10^3/uL (0.0-0.2) Sodium Level 145 mmol/L (136-145) Potassium Level 3.9 mmol/L (3.5-5.1) Chloride Level 104 mmol/L (98-107) Carbon Dioxide Level 36 mmol/L (21-32) Anion Gap 5 (6-14) Blood Urea Nitrogen 19 mg/dL (7-20) Creatinine 0.7 mg/dL (0.6-1.0) Estimated GFR (Cockcroft-Gault) 98.2 Glucose Level 124 mg/dL (70-99) Calcium Level 9.3 mg/dL (8.5-10.1) Assessment and Plan Assessmemt and Plan Problems Medical Problems: (1) Elevated troponin Status: Acute (2) Pneumonia Status: Acute (3) Respiratory failure with hypoxia Status: Acute Comment Review of Relevant I have reviewed the following items tucker (where applicable) has been applied. Medications: Current Medications Medications (Trade) Dose Ordered Sig/Mehul Route PRN Reason Start Time Stop Time Status Last Admin Dose Admin Aspirin (Aspirin Chewable) 81 mg DAILY PO 07/31/20 09:00 07/31/20 08:57 Furosemide (Lasix) 20 mg DAILY PO 07/31/20 09:00 07/31/20 14:28 DC 07/31/20 08:57 Diltiazem HCl (Cardizem 24hr Cd) 360 mg DAILY PO 07/31/20 09:00 07/31/20 08:59 Dexamethasone Sodium Phosphate (Decadron) 6 mg DAILY IVP 07/31/20 09:00 07/31/20 09:00 Enoxaparin Sodium (Lovenox 60mg Syringe) 60 mg Q12HR SQ 07/31/20 09:00 07/31/20 19:58 Furosemide (Lasix) 40 mg 1X ONCE IVP 07/31/20 09:45 07/31/20 09:46 DC 07/31/20 11:30 Justifications for Admission Other Justification Acute respiratory failure with hypoxia, COVID-19 CALEBI AIDAN HOFFMAN MD Aug 01, 2020 07:55
[2020-08-01] MEDS: INSULIN LISPRO 300 UNITS/3 ML VIAL. SQ SCH ×3 (08:00→17:00)
[2020-08-01] MEDS ORDERED: REGADENOSON 0.4 MG/5 ML DISP.SYRIN. IV ONE (08:45)
[2020-08-01] MEDS: LACTOBACILLUS RHAMNOSUS GG 1 CAPSULE. PO SCH ×2 (09:00→20:30)
[2020-08-01] MEDS: GABAPENTIN 300 MG CAPSULE. PO SCH ×3 (09:00→20:28)
--- NOTE | 2020-08-01 10:52 | PDOC ---
PULMONARY PROGRESS NOTES DATE: 08/01/20 TIME: 10:47 Subjective Pt. is resting on 4 liters N/C has ongoing Dizziness denies increased cough or SOA afebrile Vitals Vital Signs Date Time Temp Pulse Resp B/P (MAP) Pulse Ox O2 Delivery O2 Flow Rate FiO2 08/01/20 07:00 97.8 84 22 158/84 (108) 92 Nasal Cannula 4.0 97.8 ROS: No Nausea, No Chest Pain, No Abdominal Pain, No Increase Cough General: Alert, Oriented X4, No acute distress Lungs: Clear Cardiovascular: S1 Abdomen: Soft, Other (obese ) Neuro Exam: Alert, Oriented Extremities: Other Skin: Warm, Dry Labs Laboratory Tests Test 07/30/20 14:14 07/30/20 14:20 07/30/20 16:49 07/30/20 20:29 White Blood Count 5.0 x10^3/uL (4.0-11.0) Red Blood Count 4.29 x10^6/uL (3.50-5.40) Hemoglobin 11.0 g/dL (12.0-15.5) Hematocrit 35.7 % (36.0-47.0) Mean Corpuscular Volume 83 fL (79-100) Mean Corpuscular Hemoglobin 26 pg (25-35) Mean Corpuscular Hemoglobin Concent 31 g/dL (31-37) Red Cell Distribution Width 16.5 % (11.5-14.5) Platelet Count 214 x10^3/uL (140-400) Neutrophils (%) (Auto) 69 % (31-73) Lymphocytes (%) (Auto) 16 % (24-48) Monocytes (%) (Auto) 11 % (0-9) Eosinophils (%) (Auto) 4 % (0-3) Basophils (%) (Auto) 1 % (0-3) Neutrophils # (Auto) 3.5 x10^3/uL (1.8-7.7) Lymphocytes # (Auto) 0.8 x10^3/uL (1.0-4.8) Monocytes # (Auto) 0.5 x10^3/uL (0.0-1.1) Eosinophils # (Auto) 0.2 x10^3/uL (0.0-0.7) Basophils # (Auto) 0.0 x10^3/uL (0.0-0.2) Sodium Level 148 mmol/L (136-145) Potassium Level 3.8 mmol/L (3.5-5.1) Chloride Level 109 mmol/L (98-107) Carbon Dioxide Level 34 mmol/L (21-32) Anion Gap 5 (6-14) Blood Urea Nitrogen 12 mg/dL (7-20) Creatinine 0.8 mg/dL (0.6-1.0) Estimated GFR (Cockcroft-Gault) 84.2 BUN/Creatinine Ratio 15 (6-20) Glucose Level 123 mg/dL (70-99) Calcium Level 8.6 mg/dL (8.5-10.1) Total Bilirubin 0.4 mg/dL (0.2-1.0) Aspartate Amino Transf (AST/SGOT) 24 U/L (15-37) Alanine Aminotransferase (ALT/SGPT) 38 U/L (14-59) Alkaline Phosphatase 109 U/L (46-116) Lactate Dehydrogenase 255 U/L (81-234) Creatine Kinase 159 U/L (26-192) Troponin I Quantitative 0.149 ng/mL (0.000-0.055) C-Reactive Protein, Quantitative 25.9 mg/L (0-3.3) OG-Wnt-M-Type Natriuretic Peptide 771 pg/mL (0-449) Total Protein 7.2 g/dL (6.4-8.2) Albumin 2.9 g/dL (3.4-5.0) Albumin/Globulin Ratio 0.7 (1.0-1.7) O2 Saturation 97 % (92-99) Arterial Blood pH 7.36 (7.35-7.45) Arterial Blood pCO2 at Patient Temp 53 mmHg (35-46) Arterial Blood pO2 at Patient Temp 94 mmHg (65-108) Arterial Blood HCO3 29 mmol/L (21-28) Arterial Blood Base Excess 3 mmol/L (-3-3) Oxyhemoglobin 95.2 % Methemoglobin 0.3 % (0.0-1.9) Carbon Monoxide, Quantitative 1.8 % (0.0-1.9) FiO2 4l nc Coronavirus (PCR) Not detected (Not Detected) Influenza Type A Antigen Negative (NEGATIVE) Influenza Type B Antigen Negative (NEGATIVE) Test 07/31/20 06:29 07/31/20 08:03 07/31/20 11:33 07/31/20 14:53 White Blood Count 4.3 x10^3/uL (4.0-11.0) Red Blood Count 4.22 x10^6/uL (3.50-5.40) Hemoglobin 10.8 g/dL (12.0-15.5) Hematocrit 35.9 % (36.0-47.0) Mean Corpuscular Volume 85 fL (79-100) Mean Corpuscular Hemoglobin 26 pg (25-35) Mean Corpuscular Hemoglobin Concent 30 g/dL (31-37) Red Cell Distribution Width 16.6 % (11.5-14.5) Platelet Count 215 x10^3/uL (140-400) Neutrophils (%) (Auto) 81 % (31-73) Lymphocytes (%) (Auto) 15 % (24-48) Monocytes (%) (Auto) 4 % (0-9) Eosinophils (%) (Auto) 0 % (0-3) Basophils (%) (Auto) 0 % (0-3) Neutrophils # (Auto) 3.5 x10^3/uL (1.8-7.7) Lymphocytes # (Auto) 0.6 x10^3/uL (1.0-4.8) Monocytes # (Auto) 0.2 x10^3/uL (0.0-1.1) Eosinophils # (Auto) 0.0 x10^3/uL (0.0-0.7) Basophils # (Auto) 0.0 x10^3/uL (0.0-0.2) Sodium Level 143 mmol/L (136-145) Potassium Level 4.5 mmol/L (3.5-5.1) Chloride Level 105 mmol/L (98-107) Carbon Dioxide Level 34 mmol/L (21-32) Anion Gap 4 (6-14) Blood Urea Nitrogen 16 mg/dL (7-20) Creatinine 0.6 mg/dL (0.6-1.0) Estimated GFR (Cockcroft-Gault) 117.3 Glucose Level 135 mg/dL (70-99) Calcium Level 8.8 mg/dL (8.5-10.1) Troponin I Quantitative 0.136 ng/mL (0.000-0.055) Procalcitonin < 0.10 ng/mL (0.00-0.10) Glucose (Fingerstick) 140 mg/dL (70-99) 135 mg/dL (70-99) SARS-CoV-2 Antigen (Rapid) Negative (NEGATIVE) Test 07/31/20 16:15 07/31/20 20:00 08/01/20 05:50 08/01/20 07:24 Glucose (Fingerstick) 140 mg/dL (70-99) 192 mg/dL (70-99) 121 mg/dL (70-99) White Blood Count 4.8 x10^3/uL (4.0-11.0) Red Blood Count 4.36 x10^6/uL (3.50-5.40) Hemoglobin 11.1 g/dL (12.0-15.5) Hematocrit 36.4 % (36.0-47.0) Mean Corpuscular Volume 84 fL (79-100) Mean Corpuscular Hemoglobin 25 pg (25-35) Mean Corpuscular Hemoglobin Concent 30 g/dL (31-37) Red Cell Distribution Width 16.4 % (11.5-14.5) Platelet Count 268 x10^3/uL (140-400) Neutrophils (%) (Auto) 72 % (31-73) Lymphocytes (%) (Auto) 17 % (24-48) Monocytes (%) (Auto) 11 % (0-9) Eosinophils (%) (Auto) 0 % (0-3) Basophils (%) (Auto) 1 % (0-3) Neutrophils # (Auto) 3.5 x10^3/uL (1.8-7.7) Lymphocytes # (Auto) 0.8 x10^3/uL (1.0-4.8) Monocytes # (Auto) 0.5 x10^3/uL (0.0-1.1) Eosinophils # (Auto) 0.0 x10^3/uL (0.0-0.7) Basophils # (Auto) 0.0 x10^3/uL (0.0-0.2) Sodium Level 145 mmol/L (136-145) Potassium Level 3.9 mmol/L (3.5-5.1) Chloride Level 104 mmol/L (98-107) Carbon Dioxide Level 36 mmol/L (21-32) Anion Gap 5 (6-14) Blood Urea Nitrogen 19 mg/dL (7-20) Creatinine 0.7 mg/dL (0.6-1.0) Estimated GFR (Cockcroft-Gault) 98.2 Glucose Level 124 mg/dL (70-99) Calcium Level 9.3 mg/dL (8.5-10.1) Laboratory Tests Test 07/31/20 11:33 07/31/20 14:53 07/31/20 16:15 07/31/20 20:00 Glucose (Fingerstick) 135 mg/dL (70-99) 140 mg/dL (70-99) 192 mg/dL (70-99) SARS-CoV-2 Antigen (Rapid) Negative (NEGATIVE) Test 08/01/20 05:50 08/01/20 07:24 White Blood Count 4.8 x10^3/uL (4.0-11.0) Red Blood Count 4.36 x10^6/uL (3.50-5.40) Hemoglobin 11.1 g/dL (12.0-15.5) Hematocrit 36.4 % (36.0-47.0) Mean Corpuscular Volume 84 fL (79-100) Mean Corpuscular Hemoglobin 25 pg (25-35) Mean Corpuscular Hemoglobin Concent 30 g/dL (31-37) Red Cell Distribution Width 16.4 % (11.5-14.5) Platelet Count 268 x10^3/uL (140-400) Neutrophils (%) (Auto) 72 % (31-73) Lymphocytes (%) (Auto) 17 % (24-48) Monocytes (%) (Auto) 11 % (0-9) Eosinophils (%) (Auto) 0 % (0-3) Basophils (%) (Auto) 1 % (0-3) Neutrophils # (Auto) 3.5 x10^3/uL (1.8-7.7) Lymphocytes # (Auto) 0.8 x10^3/uL (1.0-4.8) Monocytes # (Auto) 0.5 x10^3/uL (0.0-1.1) Eosinophils # (Auto) 0.0 x10^3/uL (0.0-0.7) Basophils # (Auto) 0.0 x10^3/uL (0.0-0.2) Sodium Level 145 mmol/L (136-145) Potassium Level 3.9 mmol/L (3.5-5.1) Chloride Level 104 mmol/L (98-107) Carbon Dioxide Level 36 mmol/L (21-32) Anion Gap 5 (6-14) Blood Urea Nitrogen 19 mg/dL (7-20) Creatinine 0.7 mg/dL (0.6-1.0) Estimated GFR (Cockcroft-Gault) 98.2 Glucose Level 124 mg/dL (70-99) Calcium Level 9.3 mg/dL (8.5-10.1) Glucose (Fingerstick) 121 mg/dL (70-99) Medications Active Scripts Medications Dose Route/Sig Max Daily Dose Days Date Category Zofran (Ondansetron Hcl) 4 Mg Tablet 1 Tab PO Q8HRS PRN 30 07/10/20 Rx [Vitamin D] PO DAILY 07/03/20 Reported Vitamin E (Vitamin E Acetate) 400 Unit Capsule 400 Unit PO DAILY 07/03/20 Reported Vitamin C (Ascorbic Acid) 500 Mg Capsule.er 1 Cap PO DAILY 30 07/03/20 Reported Metformin Hcl Er (Metformin Hcl) 500 Mg Tab.er.24h 500 Mg PO DAILYWBKFT 07/03/20 Reported Lasix (Furosemide) 20 Mg Tablet 1 Tab PO DAILY 30 07/03/20 Reported Aspirin 81 Mg Tab.chew 1 Tab PO DAILY 07/03/20 Reported Cardizem Cd (Diltiazem Hcl) 360 Mg Cap.er.24h 1 Cap PO DAILY 07/03/20 Reported Motrin Ib (Ibuprofen) 200 Mg Tablet 600 Mg PO Q6HRS PRN 07/02/20 Reported Neurontin (Gabapentin) 600 Mg Tablet 900 Mg PO TID 07/02/[address] chest IMPRESSION: 1. No pulmonary embolus identified within the main, lobar or segmental pulmonary arteries. 2. A 8 mm nodule at the right upper lobe. A 3 month follow-up chest CT is recommended to reassess. Impression . IMPRESSION: 1. Smqoz-re-ejmfspz hypercapnic respiratory failure secondary to likely suspected acute on chronic diastolic heart failure. Cannot exclude a component of right heart failure. She had minimal tobacco use for 10 years only. 2. Underlying diastolic heart failure. Last ejection fraction was 60%. 3. Underlying obstructive sleep apnea/obesity hypoventilation syndrome with chronic hypercapnia. 4. Dizziness. No evidence of pulmonary embolism by CTA chest. Plan . RECOMMENDATIONS: Continue Supplemental oxygen to keep sats above 92%, currently on 5 liters N/C Follow Cardiology recs Continue levaquin continue steroids with taper Covid -[address] of chest reviewed 8mm nodule will need follow CT chest in 3 months PT/OT DVT/GI PPX D/W RN PT. is Full code SAMANTHA MARSH MD Aug 01, 2020 10:52
[2020-08-01 11:00] VITALS: BP 181/79
[2020-08-01] MEDS: ASPIRIN CHEWABLE 81 MG TABLET. PO SCH (12:34)
[2020-08-01] MEDS: FUROSEMIDE 20 MG TABLET PO SCH (12:34)
[2020-08-01] MEDS: PRAMIPEXOLE 1 MG TABLET. PO PRN ×2 (12:35→20:48)
[2020-08-01] MEDS: DEXAMETHASONE SOD PHOS 4 MG/ML VIAL IVP SCH (12:37)
--- NOTE | 2020-08-01 13:06 | PDOC ---
RYAN LU GUZZL[employer] BUILDER 08/01/20 1306: CARDIO Progress Notes Date and Time Date of Service 08/01/2020 Time of Evaluation 1250 Subjective Subjective: No Chest Pain, No Palpitations, Other (SOA better) Vitals Vitals Vital Signs Date Time Temp Pulse Resp B/P (MAP) Pulse Ox O2 Delivery O2 Flow Rate FiO2 08/01/20 12:35 65 181/79 08/01/20 11:00 96.9 22 93 Nasal Cannula 3.0 96.9 Weight Weight [ ] Input and Output Intake and Output Intake and Output 08/01/20 07:00 Intake Total 1370 ml Output Total 3200 ml Balance -1830 ml Intake Oral 1220 ml IV Total 150 ml Output Urine Total 3200 ml Laboratory Labs Laboratory Tests Test 07/31/20 14:53 07/31/20 16:15 07/31/20 20:00 08/01/20 05:50 SARS-CoV-2 Antigen (Rapid) Negative (NEGATIVE) Glucose (Fingerstick) 140 mg/dL (70-99) 192 mg/dL (70-99) White Blood Count 4.8 x10^3/uL (4.0-11.0) Red Blood Count 4.36 x10^6/uL (3.50-5.40) Hemoglobin 11.1 g/dL (12.0-15.5) Hematocrit 36.4 % (36.0-47.0) Mean Corpuscular Volume 84 fL (79-100) Mean Corpuscular Hemoglobin 25 pg (25-35) Mean Corpuscular Hemoglobin Concent 30 g/dL (31-37) Red Cell Distribution Width 16.4 % (11.5-14.5) Platelet Count 268 x10^3/uL (140-400) Neutrophils (%) (Auto) 72 % (31-73) Lymphocytes (%) (Auto) 17 % (24-48) Monocytes (%) (Auto) 11 % (0-9) Eosinophils (%) (Auto) 0 % (0-3) Basophils (%) (Auto) 1 % (0-3) Neutrophils # (Auto) 3.5 x10^3/uL (1.8-7.7) Lymphocytes # (Auto) 0.8 x10^3/uL (1.0-4.8) Monocytes # (Auto) 0.5 x10^3/uL (0.0-1.1) Eosinophils # (Auto) 0.0 x10^3/uL (0.0-0.7) Basophils # (Auto) 0.0 x10^3/uL (0.0-0.2) Sodium Level 145 mmol/L (136-145) Potassium Level 3.9 mmol/L (3.5-5.1) Chloride Level 104 mmol/L (98-107) Carbon Dioxide Level 36 mmol/L (21-32) Anion Gap 5 (6-14) Blood Urea Nitrogen 19 mg/dL (7-20) Creatinine 0.7 mg/dL (0.6-1.0) Estimated GFR (Cockcroft-Gault) 98.2 Glucose Level 124 mg/dL (70-99) Calcium Level 9.3 mg/dL (8.5-10.1) Test 08/01/20 07:24 08/01/20 12:24 Glucose (Fingerstick) 121 mg/dL (70-99) 112 mg/dL (70-99) Physical Exam HEENT: Neck Supple W Full Motion Chest: Symmetric LUNGS: Other (diminished) Heart: RRR (SR) Abdomen: Other (obese) Extremities: No Edema Neurology: alert, oriented, follow commands Assessment Assessment 1. Acute on chronic hypercapnic respiratory failure with AECOPD, diastolic CHF and likely CODY. NO PE per CTA 2. Acute on chronic diastolic heart failure: Recent LVEF 60% 3. Mild troponin elevation: peak 0.14 same as prior top level last month. No acute EKG changes, possibly demand mediated 4. HTN: labile episodes 5. HLP 6. DM2: Per IM 7. Morbid obesity 8. PUI 9. suspect CODY Recommendations Lasix therapy. Continue ASA, will verify statin allergy. Continue cardizem. Will start on losartan. Hydralazine IV PRN 2 day MPI starting today Continue pulmonary optimization. Decadron and levaquin ongoing. QTc 473. Lung optimization as per pulm Follow up in our office with Dr. Raymond as scheduled.on 08/21 9:45 AM Justicifation of Admission Dx: Justifications for Admission: Justification of Admission Dx: Yes HENRI RAYMOND MD 08/01/20 1606: CARDIO Progress Notes Assessment Assessment Patient seen and examined I agree with our nurse practitioners assessment and plan. Acute on chronic hypercapnic respiratory failure with AECOPD, diastolic CHF and likely CODY. NO PE per CTA. Improved. Acute on chronic diastolic heart failure: Recent LVEF 60%. Continuing Lasix. Mild troponin elevation: peak 0.14 same as prior top level last month. No acute EKG changes, possibly demand mediated. MPI testing today. Initial scans were minimally abnormal and we will need to proceed with rest scans tomorrow. HTN: labile episodes HLP DM2: Per IM Morbid obesity suspect CODY RYAN LU APRN Aug 01, 2020 13:06 HENRI RAYMOND MD Aug 01, 2020 16:06
[2020-08-01] MEDS ORDERED: LOSA25TA54 PO (14:11)
[2020-08-01] MEDS ORDERED: LEVO750T5 PO (14:11)
--- NOTE | 2020-08-01 14:13 | SNU/HH DC ---
DISCHARGE WITH HOME HEALTH DISCHARGE INFORMATION: Discharge Date: Aug 01, 2020 Final Diagnosis: Problems Medical Problems: (1) Elevated troponin Status: Acute (2) Pneumonia Status: Acute (3) Respiratory failure with hypoxia Status: Acute Condition on Discharge: Stable CODE STATUS: Code Status: Full HOME HEALTH: Face to Face: I certify this patient is under my care and that I, or a nurse practitioner or physician's payroll assistant working with me, had a face to face encounter that meets the physician face to face encounter requirements with this patient on 08/01/2020. Medical Complications: CHF, COPD Jail For: Assess Cardiopulm Status, Assess & Educate Safety, Medication Management RN For Eval/Treatment: Yes Physical Therapy For: Evalulation/Treatment Occupational Therapy For: Evaluation/Treatment Pt Meets Homebound Status: Limited distance walking POST DISCHARGE ORDERS: Activity Instructions for Disc: Activity as tolerated Weight Bearing Status after Di: As tolerated DIET AFTER DISCHARGE: Cardiac CHECKS AFTER DISCHARGE: Checks after discharge: Check blood press - daily, Check blood sugar, ac/hs, Weigh Yourself Daily FOLLOW-UP: DC TO SNF LABS: CBC, CMP TREATMENT/EQUIPMENT ORDERS: Discharge Respiratory Equipmen: Oxygen CERTIFICATION STATEMENT: Certification Statement: Certification Statement: Based on the above finding, I certify that this patient is confined to the home and needs intermittent detention care, physical therapy and/or speech therapy, or continues to need occupational therapy.~ This patient is under my care, and I have initiated the establishment of the plan of care.~ This patient will be followed by myself or a community physician who will periodically review the plan of care. Home Meds Active Scripts Levofloxacin (LEVOFLOXACIN) 750 Mg Tablet, 1 TAB PO DAILY for HCAP for 5 Days, #5 TAB Prov:AIDAN HOFFMAN MD 08/01/20 Losartan Potassium (LOSARTAN POTASSIUM ) 25 Mg Tablet, 25 MG PO DAILY for CHF for 30 Days, #30 TAB 2 Refills Prov:AIDAN HOFFMAN MD 08/01/20 Ondansetron Hcl (ZOFRAN) 4 Mg Tablet, 1 TAB PO Q8HRS PRN for NAUSEA for 30 Days, #90 TAB Prov:JJ BULLOCK MD 07/10/20 Reported Medications [Vitamin D] No Conflict Check, PO DAILY 07/03/20 Vitamin E Acetate (VITAMIN E) 400 Unit Capsule, 400 UNIT PO DAILY for supplement, CAP 07/03/20 Ascorbic Acid (VITAMIN C) 500 Mg Capsule.er, 1 CAP PO DAILY for supplement for 3 0 Days, #30 CAP 0 Refills 07/03/20 Metformin Hcl (METFORMIN HCL ER) 500 Mg Tab.er.24h, 500 MG PO DAILYWBKFT for ANTI-DIABETIC, TAB 0 Refills 07/03/20 Furosemide (LASIX) 20 Mg Tablet, 1 TAB PO DAILY for HTN for 30 Days, #30 TAB 0 Refills 07/03/20 Aspirin (ASPIRIN) 81 Mg Tab.chew, 1 TAB PO DAILY for heart, #30 TAB 3 Refills 07/03/20 Diltiazem Hcl (CARDIZEM CD) 360 Mg Cap.er.24h, 1 CAP PO DAILY for HTN, #30 CAP 5 Refills 07/03/20 Gabapentin (NEURONTIN) 600 Mg Tablet, 900 MG PO TID for NEUROGENIC PAIN, TAB 07/02/20 Discontinued Reported Medications Ibuprofen (MOTRIN IB) 200 Mg Tablet, 600 MG PO Q6HRS PRN for SEE ADMIN INSTRUCTIONS, TAB 07/02/20 AIDAN HOFFMAN MD Aug 01, 2020 14:13
--- NOTE | 2020-08-01 14:52 | NUR ---
SS following up with discharge planning. SS reviewed pt chart and discussed with pt RN. Pt is currently requiring oxygen at three liters nasal canula. Pt has home oxygen. COVID19 negative. Pt current on services with [facility], ; fax [phone]. PT/OT recommended correction unit. SS met with pt and discussed correction unit and discharge planning. Pt declined correction unit. Pt stated that she is going to facility and is returning to home with home healthcare. Pt reported that she has a lead case manager with the [employer] and is calling her to arrange caregiver. SS phoned and faxed discharge orders and referral to [facility]. Per RN, currently awaiting stress test to be read. SS will continue to follow for discharge planning.
[2020-08-01 15:00] VITALS: BP 135/71
[2020-08-01] MEDS ORDERED: hydrALAZINE 20 MG/ML VIAL. IVP PRN (15:00)
[2020-08-01] MEDS: LOSARTAN POTASSIUM 25 MG TABLET. PO SCH (15:11)
[2020-08-01 19:55] VITALS: BP 139/65
[2020-08-01 23:40] VITALS: BP 141/61
[2020-08-02 04:50] VITALS: BP 148/77
--- NOTE | 2020-08-02 06:32 | PDOC ---
PULMONARY PROGRESS NOTES DATE: 08/02/20 TIME: 06:31 Subjective Pt. is resting on 3 liters N/C on home 02 2lpm denies increased cough or SOA Vitals Vital Signs Date Time Temp Pulse Resp B/P (MAP) Pulse Ox O2 Delivery O2 Flow Rate FiO2 08/02/20 04:50 98.0 71 23 148/77 (100) 93 Nasal Cannula 3.0 98.0 ROS: No Nausea, No Chest Pain, No Abdominal Pain, No Increase Cough General: Alert, Oriented X4, No acute distress Lungs: Clear Cardiovascular: S1 Abdomen: Soft, Other (obese ) Neuro Exam: Alert, Oriented Extremities: Other Skin: Warm, Dry Labs Laboratory Tests Test 07/31/20 08:03 07/31/20 11:33 07/31/20 14:53 07/31/20 16:15 Glucose (Fingerstick) 140 mg/dL (70-99) 135 mg/dL (70-99) 140 mg/dL (70-99) SARS-CoV-2 Antigen (Rapid) Negative (NEGATIVE) Test 07/31/20 20:00 08/01/20 05:50 08/01/20 07:24 08/01/20 12:24 Glucose (Fingerstick) 192 mg/dL (70-99) 121 mg/dL (70-99) 112 mg/dL (70-99) White Blood Count 4.8 x10^3/uL (4.0-11.0) Red Blood Count 4.36 x10^6/uL (3.50-5.40) Hemoglobin 11.1 g/dL (12.0-15.5) Hematocrit 36.4 % (36.0-47.0) Mean Corpuscular Volume 84 fL (79-100) Mean Corpuscular Hemoglobin 25 pg (25-35) Mean Corpuscular Hemoglobin Concent 30 g/dL (31-37) Red Cell Distribution Width 16.4 % (11.5-14.5) Platelet Count 268 x10^3/uL (140-400) Neutrophils (%) (Auto) 72 % (31-73) Lymphocytes (%) (Auto) 17 % (24-48) Monocytes (%) (Auto) 11 % (0-9) Eosinophils (%) (Auto) 0 % (0-3) Basophils (%) (Auto) 1 % (0-3) Neutrophils # (Auto) 3.5 x10^3/uL (1.8-7.7) Lymphocytes # (Auto) 0.8 x10^3/uL (1.0-4.8) Monocytes # (Auto) 0.5 x10^3/uL (0.0-1.1) Eosinophils # (Auto) 0.0 x10^3/uL (0.0-0.7) Basophils # (Auto) 0.0 x10^3/uL (0.0-0.2) Sodium Level 145 mmol/L (136-145) Potassium Level 3.9 mmol/L (3.5-5.1) Chloride Level 104 mmol/L (98-107) Carbon Dioxide Level 36 mmol/L (21-32) Anion Gap 5 (6-14) Blood Urea Nitrogen 19 mg/dL (7-20) Creatinine 0.7 mg/dL (0.6-1.0) Estimated GFR (Cockcroft-Gault) 98.2 Glucose Level 124 mg/dL (70-99) Calcium Level 9.3 mg/dL (8.5-10.1) Test 08/01/20 17:35 08/01/20 20:32 Glucose (Fingerstick) 150 mg/dL (70-99) 194 mg/dL (70-99) Laboratory Tests Test 08/01/20 07:24 08/01/20 12:24 08/01/20 17:35 08/01/20 20:32 Glucose (Fingerstick) 121 mg/dL (70-99) 112 mg/dL (70-99) 150 mg/dL (70-99) 194 mg/dL (70-99) Medications Active Scripts Medications Dose Route/Sig Max Daily Dose Days Date Category Zofran (Ondansetron Hcl) 4 Mg Tablet 1 Tab PO Q8HRS PRN 30 07/10/20 Rx [Vitamin D] PO DAILY 07/03/20 Reported Vitamin E (Vitamin E Acetate) 400 Unit Capsule 400 Unit PO DAILY 07/03/20 Reported Vitamin C (Ascorbic Acid) 500 Mg Capsule.er 1 Cap PO DAILY 30 07/03/20 Reported Metformin Hcl Er (Metformin Hcl) 500 Mg Tab.er.24h 500 Mg PO DAILYWBKFT 07/03/20 Reported Lasix (Furosemide) 20 Mg Tablet 1 Tab PO DAILY 30 07/03/20 Reported Aspirin 81 Mg Tab.chew 1 Tab PO DAILY 07/03/20 Reported Cardizem Cd (Diltiazem Hcl) 360 Mg Cap.er.24h 1 Cap PO DAILY 07/03/20 Reported Motrin Ib (Ibuprofen) 200 Mg Tablet 600 Mg PO Q6HRS PRN 07/02/20 Reported Neurontin (Gabapentin) 600 Mg Tablet 900 Mg PO TID 07/02/[address] chest IMPRESSION: 1. No pulmonary embolus identified within the main, lobar or segmental pulmonary arteries. 2. A 8 mm nodule at the right upper lobe. A 3 month follow-up chest CT is recommended to reassess. Impression . IMPRESSION: 1. Uccwq-os-gcqhlrb hypercapnic respiratory failure secondary to likely suspected acute on chronic diastolic heart failure. Cannot exclude a component of right heart failure. She had minimal tobacco use for 10 years only. 2. Underlying diastolic heart failure. Last ejection fraction was 60%. 3. Underlying obstructive sleep apnea/obesity hypoventilation syndrome with chronic hypercapnia. 4. Dizziness. No evidence of pulmonary embolism by CTA chest. Plan . RECOMMENDATIONS: Continue Supplemental oxygen to keep sats above 9o% on home 02 2lpm Follow Cardiology recs Continue levaquin continue steroids with taper Covid -[address] of chest reviewed 8mm nodule will need follow CT chest in 3 months PT/OT DVT/GI PPX D/W RN PT. is Full code MAT BECERRIL MD Aug 02, 2020 06:32
[2020-08-02 07:00] VITALS: BP 144/80
[2020-08-02] MEDS: INSULIN LISPRO 300 UNITS/3 ML VIAL. SQ SCH ×3 (08:00→17:37)
[2020-08-02 08:35] LABS: BASO % 1 % (0-3); EOS % 0 % (0-3); HEMOGLOBIN 11.6 g/dL (12.0-15.5); LYMPH # 0.8 x10^3/uL (1.0-4.8); LYMPH % 14 % (24-48); MEAN CORPUSCULAR HEMOGLOBIN 26 pg (25-35); MEAN CORPUSCULAR HGB CONC 31 g/dL (31-37); MEAN CORPUSCULAR VOLUME 83 fL (79-100); MONO # 0.6 x10^3/uL (0.0-1.1); MONO % 10 % (0-9); NEUT # 4.1 x10^3/uL (1.8-7.7); NEUT % 75 % (31-73); PLATELET COUNT 264 x10^3/uL (140-400); RED BLOOD COUNT 4.56 x10^6/uL (3.50-5.40); RED CELL DISTRIBUTION WIDTH 16.5 % (11.5-14.5); WHITE BLOOD COUNT 5.5 x10^3/uL (4.0-11.0)
[2020-08-02] MEDS: LACTOBACILLUS RHAMNOSUS GG 1 CAPSULE. PO SCH ×3 (09:00→21:57)
[2020-08-02] MEDS: CALCIUM CARBONATE 500 MG TAB.CHEW PO PRN (09:07)
[2020-08-02] MEDS: GABAPENTIN 300 MG CAPSULE. PO SCH ×3 (09:08→21:57)
[2020-08-02] MEDS: FUROSEMIDE 20 MG TABLET PO SCH (09:09)
[2020-08-02] MEDS: ASPIRIN CHEWABLE 81 MG TABLET. PO SCH (09:09)
[2020-08-02] MEDS: LOSARTAN POTASSIUM 25 MG TABLET. PO SCH (09:09)
[2020-08-02] MEDS: DEXAMETHASONE SOD PHOS 4 MG/ML VIAL IVP SCH (09:10)
[2020-08-02] MEDS ORDERED: FAMOTIDINE 20 MG/2 ML VIAL IVP ONE (09:15)
[2020-08-02] MEDS: MECLIZINE HCL 12.5 MG TABLET. PO PRN (09:16)
[2020-08-02 09:17] LABS: CALCIUM 9.1 mg/dL (8.5-10.1); CREATININE 0.6 mg/dL (0.6-1.0); GFR 117.3; POTASSIUM 4.1 mmol/L (3.5-5.1)
--- NOTE | 2020-08-02 09:27 | PDOC ---
[facility] PROGRESS NOTE Date of Service DOS: DATE: 08/02/20 TIME: 09:15 Chief Complaint Chief Complaint A/P: Acute on chronic hypercapnic respiratory failure Acute respiratory failure with hypoxia Acute COPD exacerbation Acute on chronic diastolic heart failure Elevated troponins Hypernatremia COVID-19 PUI Malnutrition FEN - PPX - FULL CODE Dispo - inpatient History of Present Illness History of Present Illness Ms Davidson is a 75-year-old female with past medical history of CHF with preserved ejection fraction, morbid obesity, depression, hypertension, hyperlipidemia, hypothyroidism, and schizophrenia who presents to the ER with complaints of shortness of breath over the past few days. She reports associated weakness and nonproductive cough. Upon arrival in the ER she was saturating 80% on room air, which did improve with 4 L nasal cannula. She was recently admitted to our service on 07/02/2024 COPD exacerbation and elevated troponins. At that time troponins were elevated but stable, consistent with demand ischemia. Chest x-ray on 07/02 showed bilateral interstitial infiltrates. She is supposed to have a future appointment with her pulmonol ogist for pulmonary function test and formal diagnosis of COPD. Repeat chest x- ray 07/30 in the ER showed stable diffuse infiltrates. She underwent CTPA with no pulmonary embolus identified, but 8 mm nodule at the right upper lobe. EKG with lateral t-wave changes, troponin 0.1. Rapid influenza test negative, tested for COVID 19 and admitted for further care. 07/31: Still very short of breath, trying to take off her O2, c/o dry nares. Feels "terrible". Myalgias and GI upset with nausea currently. Repeat troponin minimally decreased 08/01: Feeling improved today. N.p.o. for am stress testing per cardiology. Still requiring 4 L nasal cannulated O2 though she is saturating at 96%. Notes that she is on 2 L nasal cannula at home. She is somewhat anxious to leave the hospital. Still dizzy and with blurred vision, notes her vision blurring for the past year, has been seen by ophthalmology outpatient noted with cataracts. Still little dizzy. Shortness of breath is not improved. Still complaining of her blurred vision but does note this is chronic. She has some indigestion that was improved with Pepcid and Tums. Going for second have her stress test today. Plan: F/u stress testing Meclizine prn D/c planning - may need increased O2 and already has home health in place, she is questioning whether she needs 24/ care currently. Vitals/I&O Vitals/I&O: Vital Signs Date Time Temp Pulse Resp B/P (MAP) Pulse Ox O2 Delivery O2 Flow Rate FiO2 08/02/20 07:00 98.2 68 18 144/80 (101) 91 Nasal Cannula 3.0 98.2 I & O 08/01/20 08/01/20 08/02/20 14:55 22:55 06:55 Intake Total 200 ml 225 ml 300 ml Output Total 400 ml 700 ml Balance 200 ml -175 ml -400 ml Physical Exam General: Alert, Oriented X3, Cooperative, No acute distress Heart: Regular rate (SR), Other (distant heart sounds) Lungs: Clear Abdomen: Soft, No tenderness, Other (obese) Extremities: No cyanosis, Other (1+ bilateral LE pitting edema) Skin: No breakdown, No significant lesion Labs Labs: Laboratory Tests Test 08/01/20 12:24 08/01/20 17:35 08/01/20 20:32 08/02/20 07:34 Glucose (Fingerstick) 112 mg/dL (70-99) 150 mg/dL (70-99) 194 mg/dL (70-99) 130 mg/dL (70-99) Test 08/02/20 08:10 White Blood Count 5.5 x10^3/uL (4.0-11.0) Red Blood Count 4.56 x10^6/uL (3.50-5.40) Hemoglobin 11.6 g/dL (12.0-15.5) Hematocrit 38.0 % (36.0-47.0) Mean Corpuscular Volume 83 fL (79-100) Mean Corpuscular Hemoglobin 26 pg (25-35) Mean Corpuscular Hemoglobin Concent 31 g/dL (31-37) Red Cell Distribution Width 16.5 % (11.5-14.5) Platelet Count 264 x10^3/uL (140-400) Neutrophils (%) (Auto) 75 % (31-73) Lymphocytes (%) (Auto) 14 % (24-48) Monocytes (%) (Auto) 10 % (0-9) Eosinophils (%) (Auto) 0 % (0-3) Basophils (%) (Auto) 1 % (0-3) Neutrophils # (Auto) 4.1 x10^3/uL (1.8-7.7) Lymphocytes # (Auto) 0.8 x10^3/uL (1.0-4.8) Monocytes # (Auto) 0.6 x10^3/uL (0.0-1.1) Eosinophils # (Auto) 0.0 x10^3/uL (0.0-0.7) Basophils # (Auto) 0.0 x10^3/uL (0.0-0.2) Assessment and Plan Assessmemt and Plan Problems Medical Problems: (1) Elevated troponin Status: Acute (2) Pneumonia Status: Acute (3) Respiratory failure with hypoxia Status: Acute Comment Review of Relevant I have reviewed the following items tucker (where applicable) has been applied. Medications: Current Medications Medications (Trade) Dose Ordered Sig/Mehul Route PRN Reason Start Time Stop Time Status Last Admin Dose Admin Pramipexole Dihydrochloride (miraPEX) 1 mg PRN BID PRN PO RESTLESS LEG 08/01/20 11:15 08/01/20 20:48 Losartan Potassium (Cozaar) 25 mg DAILY PO 08/01/20 13:30 08/01/20 15:11 Justifications for Admission Other Justification Acute respiratory failure with hypoxia, COVID-19 AIDAN MATSON MD Aug 02, 2020 09:27
[2020-08-02 11:00] VITALS: BP 119/62
--- NOTE | 2020-08-02 13:02 | RAD ---
MR#: [id number] Date of Study: 08/01/2020 Ordering Physician: RYAN LU, Referring Physician: KAREN PEARCE Tech: RT Getachew Graham) (N) APPROVED REPORT Test Type: Pharmacological Stress Nurse/Tech: Cecille Harvey RN Test Indications: Chest Pain Cardiac History: HTN, See EMR. Medications: ASA, See EMR. Medical History: COPD, DM, See EMR. Resting ECG: SR w/ PACs Resting Heart Rate: 72 bpm Resting Blood Pressure: 148/74mmHg Pretest Chest Pain: No chest pain Nurse/Tech Notes Lungs CTA, Heart tones regular. Consent: The procedure was explained to the patient in lay terms. Informed consent was witnessed. Emanuel eout was entered into [employer]. History and Stress Test performed by RT Getachew Graham) (N) Pharm. Details Pharmacologic stress testing was performed using 0.4mg per 5ml of regadenoson given intravenously ove r 7-10 seconds. Stress Symptoms No chest pain or symptoms. POST EXERCISE Reason for Termination: Infusion complete Max HR: 87 bpm Max Blood Pressure: 153/66mmHg Blood Pressure response to exercise: Normal blood pressure response during stress. Heart Rate response to exercise: WNL Chest Pain: No. Arrhythmia: Yes. Frequent PACs ST Change: No. INTERPRETATION Stress EKG Conclusion: The resting EKG shows a sinus rhythm with PACs and nonspecific ST-T wave vo es. The stress EKG shows no significant changes from baseline. No EKG evidence of stress-induced ischemia. Imaging Protocol IMAGE PROTOCOL: Stress Tc-99m/rest Tc-99m 2 days Rest: Stress: Viability: Radiopharm.Tc99m FehsiyjsmMw60n Sestamibi Xhgr16xKf 31mCi Duration 10min. 10min. Img Date 08/02/2020 08/01/2020 Inj-Img Pvzb63iam. 90min. Rest Admin Site:IV - Left HandAdministrator:RT Gladys (Katarzyna)(N) Stress Admin Site: IV - Left HandAdministrator: RT Getachew Graham)(N) STRESS DATA End Diast. Vol.128.0mlAv. Heart Rate79.0bpm End Syst. Vol.49.0mlCO Index BSA0.0L/min Myocardial Dsmr653.0gEject. Alpsuwfg14.0% Stress Rates Pk. Fill Rate3.30EDV/secLVtime Pk. Fill 216.11msec Pk. Empty Rate3.68ESV/secLVtime Pk. Uhaqn071.21msec 1/3 Pk. Fill1.01EDV/sec Stress Scores Regional WT1.00Summed WT16.00 Regional WM0.00Summed WM5.00 LV Perfusion The stress scans showed minimal septal apical thinning. The rest scans showed minimal septal apical thinning. Nuclear imaging shows no significant reversible ischemia. There is a minimal fixed defect in the septal apical region most consistent with an attenuation defec t. Wall Motion Left ventricular systolic function is normal. There are no regional wall motion abnormalities. Ejec tion fraction is 61%. LV Perf. Quant 17 Seg. SSS4.00 Stress Defect Extent (% LAD)16.90Rest Defect Extent (% LAD)Rev. Defect Extent (% LAD) Stress Defect Extent (% LCX) 13.80Rest Defect Extent (% LCX)Rev. Defect Extent (% LCX) Stress Defect Extent (% RCA)0.00Rest Defect Extent (% RCA)Rev. Defect Extent (% RCA) Stress Defect Extent (% RACQUEL)10.20Rest Defect Extent (% RACQUEL)Rev. Defect Extent (% RACQUEL) IMPRESSION LV Perfusion Summary: Normal, Equivocal, Abnormal Conclusion 1. No EKG evidence of stress-induced ischemia. 2. Nuclear images showed no significant reversible ischemia. 3. Nuclear images show a slight fixed defect in the septal apical region most consistent with an atte nuation defect on a 2-day study. 4. Left ventricular systolic function is normal with no regional wall motion abnormalities and an eje ction fraction of 61%. 5. Moderately low to low risk study. Signed by : Osman Fang MD Electronically Approved : 08/02/2020 13:02:31
[2020-08-02 15:00] VITALS: BP 141/72
--- NOTE | 2020-08-02 15:00 | NUR ---
RN NOTE patient transferred from 248 to 210 by bed. Patient placed on tele monitor and purwick set up. Patient oriented to room and unit protocols. Food ordered per patient request. This RN received report from Mamadou RN and agrees with previous line service supervisor. Will continue to monitor.
--- NOTE | 2020-08-02 17:57 | NUR ---
RN NOTE patient asked this RN to assist her with bag patient pulled out a wallet with mina this RN unsure of the amount. patient declined security taking her money stating its alright. patient also had tums and said she would take some this RN provided education regarding taking home medications without doctors orders in the hospital and the importance of doctors knowing what medications patients are on to be able to treat patient appropriately. patient then stated no other nurse has said anything about her taking the medications and that its ok. patients belongings placed in closet per protocol. At the time this RN left patients room patient did not have tums out to take.
[2020-08-02 19:59] VITALS: BP 141/72
[2020-08-02] MEDS: PRAMIPEXOLE 1 MG TABLET. PO PRN (21:58)
[2020-08-02] MEDS: FAMOTIDINE 20 MG TABLET. PO SCH (21:58)
[2020-08-02 23:13] VITALS: BP 139/62
[2020-08-03 03:20] VITALS: BP 144/75
[2020-08-03] MEDS: ACETAMINOPHEN 500 MG TABLET PO PRN ×2 (03:48→16:03)
[2020-08-03 06:36] LABS: CALCIUM 8.9 mg/dL (8.5-10.1); CREATININE 0.8 mg/dL (0.6-1.0); GFR 84.2; POTASSIUM 4.1 mmol/L (3.5-5.1)
[2020-08-03 06:45] LABS: BASO % 1 % (0-3); EOS % 0 % (0-3); HEMATOCRIT 38.9 % (36.0-47.0); HEMOGLOBIN 11.6 g/dL (12.0-15.5); LYMPH # 0.8 x10^3/uL (1.0-4.8); LYMPH % 14 % (24-48); MEAN CORPUSCULAR HEMOGLOBIN 25 pg (25-35); MEAN CORPUSCULAR HGB CONC 30 g/dL (31-37); MEAN CORPUSCULAR VOLUME 84 fL (79-100); MONO # 0.8 x10^3/uL (0.0-1.1); MONO % 14 % (0-9); NEUT # 3.8 x10^3/uL (1.8-7.7); NEUT % 71 % (31-73); PLATELET COUNT 284 x10^3/uL (140-400); RED BLOOD COUNT 4.64 x10^6/uL (3.50-5.40); RED CELL DISTRIBUTION WIDTH 16.6 % (11.5-14.5); WHITE BLOOD COUNT 5.4 x10^3/uL (4.0-11.0)
[2020-08-03 07:00] VITALS: BP 150/84
[2020-08-03] MEDS: INSULIN LISPRO 300 UNITS/3 ML VIAL. SQ SCH ×3 (08:00→16:56)
[2020-08-03] MEDS: FAMOTIDINE 20 MG TABLET. PO SCH ×2 (08:49→20:13)
[2020-08-03] MEDS: ASPIRIN CHEWABLE 81 MG TABLET. PO SCH (08:50)
[2020-08-03] MEDS: LACTOBACILLUS RHAMNOSUS GG 1 CAPSULE. PO SCH ×2 (08:50→20:13)
[2020-08-03] MEDS: GABAPENTIN 300 MG CAPSULE. PO SCH ×3 (08:50→20:13)
[2020-08-03] MEDS: FUROSEMIDE 20 MG TABLET PO SCH (08:51)
[2020-08-03] MEDS: LOSARTAN POTASSIUM 25 MG TABLET. PO SCH (08:51)
[2020-08-03] MEDS: DEXAMETHASONE SOD PHOS 4 MG/ML VIAL IVP SCH (08:55)
[2020-08-03] MEDS: CALCIUM CARBONATE 500 MG TAB.CHEW PO PRN ×2 (10:27→16:03)
[2020-08-03] MEDS: MECLIZINE HCL 12.5 MG TABLET. PO PRN (10:44)
[2020-08-03] MEDS: PRAMIPEXOLE 1 MG TABLET. PO PRN (10:44)
[2020-08-03 11:00] VITALS: BP 139/70
--- NOTE | 2020-08-03 11:50 | PDOC ---
PULMONARY PROGRESS NOTES DATE: 08/03/20 TIME: 11:40 Subjective Pt. is resting on 3 liters N/C on home 02 2lpm is dizzy denies increased cough or SOA Vitals Vital Signs Date Time Temp Pulse Resp B/P (MAP) Pulse Ox O2 Delivery O2 Flow Rate FiO2 08/03/20 08:51 73 150/84 08/03/20 07:00 97.8 16 98 Nasal Cannula 3.0 97.8 ROS: No Nausea, No Chest Pain, No Abdominal Pain, No Increase Cough General: Alert, Oriented X4, No acute distress Lungs: Clear Cardiovascular: S1 Abdomen: Soft, Other (obese ) Neuro Exam: Alert, Oriented Extremities: Other Skin: Warm, Dry Labs Laboratory Tests Test 08/01/20 12:24 08/01/20 17:35 08/01/20 20:32 08/02/20 07:34 Glucose (Fingerstick) 112 mg/dL (70-99) 150 mg/dL (70-99) 194 mg/dL (70-99) 130 mg/dL (70-99) Test 08/02/20 08:10 08/02/20 12:15 08/02/20 16:56 08/02/20 20:08 White Blood Count 5.5 x10^3/uL (4.0-11.0) Red Blood Count 4.56 x10^6/uL (3.50-5.40) Hemoglobin 11.6 g/dL (12.0-15.5) Hematocrit 38.0 % (36.0-47.0) Mean Corpuscular Volume 83 fL (79-100) Mean Corpuscular Hemoglobin 26 pg (25-35) Mean Corpuscular Hemoglobin Concent 31 g/dL (31-37) Red Cell Distribution Width 16.5 % (11.5-14.5) Platelet Count 264 x10^3/uL (140-400) Neutrophils (%) (Auto) 75 % (31-73) Lymphocytes (%) (Auto) 14 % (24-48) Monocytes (%) (Auto) 10 % (0-9) Eosinophils (%) (Auto) 0 % (0-3) Basophils (%) (Auto) 1 % (0-3) Neutrophils # (Auto) 4.1 x10^3/uL (1.8-7.7) Lymphocytes # (Auto) 0.8 x10^3/uL (1.0-4.8) Monocytes # (Auto) 0.6 x10^3/uL (0.0-1.1) Eosinophils # (Auto) 0.0 x10^3/uL (0.0-0.7) Basophils # (Auto) 0.0 x10^3/uL (0.0-0.2) Sodium Level 144 mmol/L (136-145) Potassium Level 4.1 mmol/L (3.5-5.1) Chloride Level 102 mmol/L (98-107) Carbon Dioxide Level 38 mmol/L (21-32) Anion Gap 4 (6-14) Blood Urea Nitrogen 21 mg/dL (7-20) Creatinine 0.6 mg/dL (0.6-1.0) Estimated GFR (Cockcroft-Gault) 117.3 Glucose Level 117 mg/dL (70-99) Calcium Level 9.1 mg/dL (8.5-10.1) Glucose (Fingerstick) 137 mg/dL (70-99) 186 mg/dL (70-99) 130 mg/dL (70-99) Test 08/03/20 05:00 08/03/20 07:58 White Blood Count 5.4 x10^3/uL (4.0-11.0) Red Blood Count 4.64 x10^6/uL (3.50-5.40) Hemoglobin 11.6 g/dL (12.0-15.5) Hematocrit 38.9 % (36.0-47.0) Mean Corpuscular Volume 84 fL (79-100) Mean Corpuscular Hemoglobin 25 pg (25-35) Mean Corpuscular Hemoglobin Concent 30 g/dL (31-37) Red Cell Distribution Width 16.6 % (11.5-14.5) Platelet Count 284 x10^3/uL (140-400) Neutrophils (%) (Auto) 71 % (31-73) Lymphocytes (%) (Auto) 14 % (24-48) Monocytes (%) (Auto) 14 % (0-9) Eosinophils (%) (Auto) 0 % (0-3) Basophils (%) (Auto) 1 % (0-3) Neutrophils # (Auto) 3.8 x10^3/uL (1.8-7.7) Lymphocytes # (Auto) 0.8 x10^3/uL (1.0-4.8) Monocytes # (Auto) 0.8 x10^3/uL (0.0-1.1) Eosinophils # (Auto) 0.0 x10^3/uL (0.0-0.7) Basophils # (Auto) 0.0 x10^3/uL (0.0-0.2) Sodium Level 145 mmol/L (136-145) Potassium Level 4.1 mmol/L (3.5-5.1) Chloride Level 103 mmol/L (98-107) Carbon Dioxide Level 38 mmol/L (21-32) Anion Gap 4 (6-14) Blood Urea Nitrogen 25 mg/dL (7-20) Creatinine 0.8 mg/dL (0.6-1.0) Estimated GFR (Cockcroft-Gault) 84.2 Glucose Level 119 mg/dL (70-99) Calcium Level 8.9 mg/dL (8.5-10.1) Glucose (Fingerstick) 109 mg/dL (70-99) Laboratory Tests Test 08/02/20 12:15 08/02/20 16:56 08/02/20 20:08 08/03/20 05:00 Glucose (Fingerstick) 137 mg/dL (70-99) 186 mg/dL (70-99) 130 mg/dL (70-99) White Blood Count 5.4 x10^3/uL (4.0-11.0) Red Blood Count 4.64 x10^6/uL (3.50-5.40) Hemoglobin 11.6 g/dL (12.0-15.5) Hematocrit 38.9 % (36.0-47.0) Mean Corpuscular Volume 84 fL (79-100) Mean Corpuscular Hemoglobin 25 pg (25-35) Mean Corpuscular Hemoglobin Concent 30 g/dL (31-37) Red Cell Distribution Width 16.6 % (11.5-14.5) Platelet Count 284 x10^3/uL (140-400) Neutrophils (%) (Auto) 71 % (31-73) Lymphocytes (%) (Auto) 14 % (24-48) Monocytes (%) (Auto) 14 % (0-9) Eosinophils (%) (Auto) 0 % (0-3) Basophils (%) (Auto) 1 % (0-3) Neutrophils # (Auto) 3.8 x10^3/uL (1.8-7.7) Lymphocytes # (Auto) 0.8 x10^3/uL (1.0-4.8) Monocytes # (Auto) 0.8 x10^3/uL (0.0-1.1) Eosinophils # (Auto) 0.0 x10^3/uL (0.0-0.7) Basophils # (Auto) 0.0 x10^3/uL (0.0-0.2) Sodium Level 145 mmol/L (136-145) Potassium Level 4.1 mmol/L (3.5-5.1) Chloride Level 103 mmol/L (98-107) Carbon Dioxide Level 38 mmol/L (21-32) Anion Gap 4 (6-14) Blood Urea Nitrogen 25 mg/dL (7-20) Creatinine 0.8 mg/dL (0.6-1.0) Estimated GFR (Cockcroft-Gault) 84.2 Glucose Level 119 mg/dL (70-99) Calcium Level 8.9 mg/dL (8.5-10.1) Test 08/03/20 07:58 Glucose (Fingerstick) 109 mg/dL (70-99) Medications Active Scripts Medications Dose Route/Sig Max Daily Dose Days Date Category Zofran (Ondansetron Hcl) 4 Mg Tablet 1 Tab PO Q8HRS PRN 07/10/20 Rx [Vitamin D] PO DAILY 07/03/20 Reported Vitamin E (Vitamin E Acetate) 400 Unit Capsule 400 Unit PO DAILY 07/03/20 Reported Vitamin C (Ascorbic Acid) 500 Mg Capsule.er 1 Cap PO DAILY 07/03/20 Reported Metformin Hcl Er (Metformin Hcl) 500 Mg Tab.er.24h 500 Mg PO DAILYWBKFT 07/03/20 Reported Lasix (Furosemide) 20 Mg Tablet 1 Tab PO DAILY 07/03/20 Reported Aspirin 81 Mg Tab.chew 1 Tab PO DAILY 07/03/20 Reported Cardizem Cd (Diltiazem Hcl) 360 Mg Cap.er.24h 1 Cap PO DAILY 07/03/20 Reported Motrin Ib (Ibuprofen) 200 Mg Tablet 600 Mg PO Q6HRS PRN 07/02/20 Reported Neurontin (Gabapentin) 600 Mg Tablet 900 Mg PO TID 07/02/[address] chest IMPRESSION: 1. No pulmonary embolus identified within the main, lobar or segmental pulmonary arteries. 2. A 8 mm nodule at the right upper lobe. A 3 month follow-up chest CT is recommended to reassess. Impression . IMPRESSION: 1. [place]-ku-ibuahzw hypercapnic respiratory failure secondary to likely suspected acute on chronic diastolic heart failure. Cannot exclude a component of right heart failure. She had minimal tobacco use for 10 years only. 2. Underlying diastolic heart failure. Last ejection fraction was 60%. 3. Underlying obstructive sleep apnea/obesity hypoventilation syndrome with chronic hypercapnia. 4. Dizziness. No evidence of pulmonary embolism by CTA chest. Plan . RECOMMENDATIONS: Continue Supplemental oxygen to keep sats above 9o% on home 02 2lpm Follow Cardiology recs Continue levaquin change to prednisoe 20 mg daily w taper Covid -[address] of chest reviewed 8mm nodule will need follow CT chest in 3 months PT/OT DVT/GI PPX D/W RN PT. is Full code MAT BECERRIL MD Aug 03, 2020 11:50
[2020-08-03 15:00] VITALS: BP 144/70
[2020-08-03] MEDS: TOBRAMYCIN 0.3% OPHTH SOLUTION 5ML BOTTLE. OU SCH ×2 (17:38→23:28)
[2020-08-03 19:00] VITALS: BP 157/91
[2020-08-03 23:01] VITALS: BP 142/82
[2020-08-04 02:51] VITALS: BP 158/94
[2020-08-04 04:43] LABS: BASO % 0 % (0-3); EOS % 0 % (0-3); HEMATOCRIT 41.2 % (36.0-47.0); HEMOGLOBIN 12.5 g/dL (12.0-15.5); LYMPH # 0.8 x10^3/uL (1.0-4.8); LYMPH % 13 % (24-48); MEAN CORPUSCULAR HEMOGLOBIN 26 pg (25-35); MEAN CORPUSCULAR HGB CONC 30 g/dL (31-37); MEAN CORPUSCULAR VOLUME 84 fL (79-100); MONO # 0.9 x10^3/uL (0.0-1.1); MONO % 15 % (0-9); NEUT # 4.4 x10^3/uL (1.8-7.7); NEUT % 72 % (31-73); PLATELET COUNT 284 x10^3/uL (140-400); RED CELL DISTRIBUTION WIDTH 16.8 % (11.5-14.5); WHITE BLOOD COUNT 6.2 x10^3/uL (4.0-11.0)
[2020-08-04 05:00] LABS: CALCIUM 9.1 mg/dL (8.5-10.1); CREATININE 0.6 mg/dL (0.6-1.0); GFR 117.3; POTASSIUM 3.9 mmol/L (3.5-5.1)
[2020-08-04] MEDS: TOBRAMYCIN 0.3% OPHTH SOLUTION 5ML BOTTLE. OU SCH ×3 (05:12→17:56)
[2020-08-04 07:00] VITALS: BP 146/77
[2020-08-04] MEDS: INSULIN LISPRO 300 UNITS/3 ML VIAL. SQ SCH ×3 (08:00→17:00)
[2020-08-04] MEDS: FAMOTIDINE 20 MG TABLET. PO SCH ×2 (08:41→21:43)
[2020-08-04] MEDS: ASPIRIN CHEWABLE 81 MG TABLET. PO SCH (08:41)
[2020-08-04] MEDS: LOSARTAN POTASSIUM 25 MG TABLET. PO SCH (08:42)
[2020-08-04] MEDS: LACTOBACILLUS RHAMNOSUS GG 1 CAPSULE. PO SCH ×2 (08:42→21:43)
[2020-08-04] MEDS: FUROSEMIDE 20 MG TABLET PO SCH (08:42)
[2020-08-04] MEDS: ACETAMINOPHEN 500 MG TABLET PO PRN (08:43)
[2020-08-04] MEDS: GABAPENTIN 300 MG CAPSULE. PO SCH ×3 (08:43→21:44)
[2020-08-04] MEDS: predniSONE 20 MG TABLET PO SCH (08:47)
[2020-08-04] MEDS: PRAMIPEXOLE 1 MG TABLET. PO PRN (08:53)
[2020-08-04 10:36] VITALS: BP 106/64
--- NOTE | 2020-08-04 10:46 | PDOC ---
PULMONARY PROGRESS NOTES DATE: 08/04/20 TIME: 10:46 Subjective Pt. is up to W/C working with Physical therapy Reports ongoing Dizziness denies increased cough or SOA, on baseline oxygen requirement Vitals Vital Signs Date Time Temp Pulse Resp B/P (MAP) Pulse Ox O2 Delivery O2 Flow Rate FiO2 08/04/20 10:36 98.7 69 18 106/64 (78) 94 Nasal Cannula 3.0 98.7 ROS: No Nausea, No Chest Pain, No Abdominal Pain, No Increase Cough General: Alert, Oriented X4, No acute distress Lungs: Clear Cardiovascular: S1 Abdomen: Soft, Other (obese ) Neuro Exam: Alert, Oriented Extremities: Other Skin: Warm, Dry Labs Laboratory Tests Test 08/02/20 12:15 08/02/20 16:56 08/02/20 20:08 08/03/20 05:00 Glucose (Fingerstick) 137 mg/dL (70-99) 186 mg/dL (70-99) 130 mg/dL (70-99) White Blood Count 5.4 x10^3/uL (4.0-11.0) Red Blood Count 4.64 x10^6/uL (3.50-5.40) Hemoglobin 11.6 g/dL (12.0-15.5) Hematocrit 38.9 % (36.0-47.0) Mean Corpuscular Volume 84 fL (79-100) Mean Corpuscular Hemoglobin 25 pg (25-35) Mean Corpuscular Hemoglobin Concent 30 g/dL (31-37) Red Cell Distribution Width 16.6 % (11.5-14.5) Platelet Count 284 x10^3/uL (140-400) Neutrophils (%) (Auto) 71 % (31-73) Lymphocytes (%) (Auto) 14 % (24-48) Monocytes (%) (Auto) 14 % (0-9) Eosinophils (%) (Auto) 0 % (0-3) Basophils (%) (Auto) 1 % (0-3) Neutrophils # (Auto) 3.8 x10^3/uL (1.8-7.7) Lymphocytes # (Auto) 0.8 x10^3/uL (1.0-4.8) Monocytes # (Auto) 0.8 x10^3/uL (0.0-1.1) Eosinophils # (Auto) 0.0 x10^3/uL (0.0-0.7) Basophils # (Auto) 0.0 x10^3/uL (0.0-0.2) Sodium Level 145 mmol/L (136-145) Potassium Level 4.1 mmol/L (3.5-5.1) Chloride Level 103 mmol/L (98-107) Carbon Dioxide Level 38 mmol/L (21-32) Anion Gap 4 (6-14) Blood Urea Nitrogen 25 mg/dL (7-20) Creatinine 0.8 mg/dL (0.6-1.0) Estimated GFR (Cockcroft-Gault) 84.2 Glucose Level 119 mg/dL (70-99) Calcium Level 8.9 mg/dL (8.5-10.1) Test 08/03/20 07:58 08/03/20 12:05 08/03/20 16:48 08/03/20 20:52 Glucose (Fingerstick) 109 mg/dL (70-99) 128 mg/dL (70-99) 124 mg/dL (70-99) 202 mg/dL (70-99) Test 08/04/20 04:15 08/04/20 07:11 White Blood Count 6.2 x10^3/uL (4.0-11.0) Red Blood Count 4.90 x10^6/uL (3.50-5.40) Hemoglobin 12.5 g/dL (12.0-15.5) Hematocrit 41.2 % (36.0-47.0) Mean Corpuscular Volume 84 fL (79-100) Mean Corpuscular Hemoglobin 26 pg (25-35) Mean Corpuscular Hemoglobin Concent 30 g/dL (31-37) Red Cell Distribution Width 16.8 % (11.5-14.5) Platelet Count 284 x10^3/uL (140-400) Neutrophils (%) (Auto) 72 % (31-73) Lymphocytes (%) (Auto) 13 % (24-48) Monocytes (%) (Auto) 15 % (0-9) Eosinophils (%) (Auto) 0 % (0-3) Basophils (%) (Auto) 0 % (0-3) Neutrophils # (Auto) 4.4 x10^3/uL (1.8-7.7) Lymphocytes # (Auto) 0.8 x10^3/uL (1.0-4.8) Monocytes # (Auto) 0.9 x10^3/uL (0.0-1.1) Eosinophils # (Auto) 0.0 x10^3/uL (0.0-0.7) Basophils # (Auto) 0.0 x10^3/uL (0.0-0.2) Sodium Level 145 mmol/L (136-145) Potassium Level 3.9 mmol/L (3.5-5.1) Chloride Level 104 mmol/L (98-107) Carbon Dioxide Level 39 mmol/L (21-32) Anion Gap 2 (6-14) Blood Urea Nitrogen 24 mg/dL (7-20) Creatinine 0.6 mg/dL (0.6-1.0) Estimated GFR (Cockcroft-Gault) 117.3 Glucose Level 116 mg/dL (70-99) Calcium Level 9.1 mg/dL (8.5-10.1) Glucose (Fingerstick) 118 mg/dL (70-99) Laboratory Tests Test 08/03/20 12:05 08/03/20 16:48 08/03/20 20:52 08/04/20 04:15 Glucose (Fingerstick) 128 mg/dL (70-99) 124 mg/dL (70-99) 202 mg/dL (70-99) White Blood Count 6.2 x10^3/uL (4.0-11.0) Red Blood Count 4.90 x10^6/uL (3.50-5.40) Hemoglobin 12.5 g/dL (12.0-15.5) Hematocrit 41.2 % (36.0-47.0) Mean Corpuscular Volume 84 fL (79-100) Mean Corpuscular Hemoglobin 26 pg (25-35) Mean Corpuscular Hemoglobin Concent 30 g/dL (31-37) Red Cell Distribution Width 16.8 % (11.5-14.5) Platelet Count 284 x10^3/uL (140-400) Neutrophils (%) (Auto) 72 % (31-73) Lymphocytes (%) (Auto) 13 % (24-48) Monocytes (%) (Auto) 15 % (0-9) Eosinophils (%) (Auto) 0 % (0-3) Basophils (%) (Auto) 0 % (0-3) Neutrophils # (Auto) 4.4 x10^3/uL (1.8-7.7) Lymphocytes # (Auto) 0.8 x10^3/uL (1.0-4.8) Monocytes # (Auto) 0.9 x10^3/uL (0.0-1.1) Eosinophils # (Auto) 0.0 x10^3/uL (0.0-0.7) Basophils # (Auto) 0.0 x10^3/uL (0.0-0.2) Sodium Level 145 mmol/L (136-145) Potassium Level 3.9 mmol/L (3.5-5.1) Chloride Level 104 mmol/L (98-107) Carbon Dioxide Level 39 mmol/L (21-32) Anion Gap 2 (6-14) Blood Urea Nitrogen 24 mg/dL (7-20) Creatinine 0.6 mg/dL (0.6-1.0) Estimated GFR (Cockcroft-Gault) 117.3 Glucose Level 116 mg/dL (70-99) Calcium Level 9.1 mg/dL (8.5-10.1) Test 08/04/20 07:11 Glucose (Fingerstick) 118 mg/dL (70-99) Medications Active Scripts Medications Dose Route/Sig Max Daily Dose Days Date Category Zofran (Ondansetron Hcl) 4 Mg Tablet 1 Tab PO Q8HRS PRN 30 07/10/20 Rx [Vitamin D] PO DAILY 07/03/20 Reported Vitamin E (Vitamin E Acetate) 400 Unit Capsule 400 Unit PO DAILY 07/03/20 Reported Vitamin C (Ascorbic Acid) 500 Mg Capsule.er 1 Cap PO DAILY 30 07/03/20 Reported Metformin Hcl Er (Metformin Hcl) 500 Mg Tab.er.24h 500 Mg PO DAILYWBKFT 07/03/20 Reported Lasix (Furosemide) 20 Mg Tablet 1 Tab PO DAILY 30 07/03/20 Reported Aspirin 81 Mg Tab.chew 1 Tab PO DAILY 07/03/20 Reported Cardizem Cd (Diltiazem Hcl) 360 Mg Cap.er.24h 1 Cap PO DAILY 07/03/20 Reported Motrin Ib (Ibuprofen) 200 Mg Tablet 600 Mg PO Q6HRS PRN 07/02/20 Reported Neurontin (Gabapentin) 600 Mg Tablet 900 Mg PO TID 07/02/[address] chest IMPRESSION: 1. No pulmonary embolus identified within the main, lobar or segmental pulmonary arteries. 2. A 8 mm nodule at the right upper lobe. A 3 month follow-up chest CT is recommended to reassess. Impression . IMPRESSION: 1. Ptnlf-lj-xrvckor hypercapnic respiratory failure secondary to likely suspected acute on chronic diastolic heart failure. Cannot exclude a component of right heart failure. She had minimal tobacco use for 10 years only. 2. Underlying diastolic heart failure. Last ejection fraction was 60%. 3. Underlying obstructive sleep apnea/obesity hypoventilation syndrome with chronic hypercapnia. 4. Dizziness. No evidence of pulmonary embolism by CTA chest. Plan . RECOMMENDATIONS: Continue Supplemental oxygen to keep sats above 92% on 2 liters N/C which is home oxygen requirement Follow Cardiology recs-- stress test negative Continue levaquin for full course continue po steroids with taper Covid -[address] of chest reviewed 8mm nodule will need follow CT chest in 3 months PT/OT DVT/GI PPX D/W RN PT. is Full code Pt. is stable from pulmonary standpoint, we will sign off please call with any questions or concerns SAMANTHA MARSH MD Aug 04, 2020 10:46
--- NOTE | 2020-08-04 10:51 | CONS ---
DATE OF CONSULTATION: 08/04/2020 ATTENDING PHYSICIAN: Dr. Carlos Reese. REASON FOR CONSULTATION: The patient was seen at the request of Dr. Johnson for rehab evaluation. HISTORY OF PRESENT ILLNESS: This is a 75-year-old right-handed female admitted through the Emergency Room on 07/30/2020 with increased shortness of breath over the last few days prior to the hospitalization with associated weakness and nonproductive cough. The patient was noted in the Emergency Room with oxygen saturation of 80% on room air which did improve with 4 liters of oxygen by nasal cannula. The patient with COPD exacerbation and elevated troponins, was admitted to this medical center on 07/02/2020. She was diagnosed as having demand ischemia. Chest x-ray at that time revealed bilateral interstitial infiltrates. The patient was discharged to home with oxygen by nasal cannula at 2 liters per minute. The patient also with history of congestive heart failure, hypertension, peripheral neuropathy, chronic lower back pain, osteoarthritis status post bilateral total hip arthroplasty, and diabetes mellitus. She also had lumbar spine surgery that left her with right foot drop with associated neuralgia. FAMILY HISTORY: The patient had family history of heart disease. SOCIAL HISTORY: The patient lives alone and basically uses a wheelchair to get around. ALLERGIES: She is known allergic to ATORVASTATIN. She complains of dizziness. The patient also complains of overgrown toenails. PHYSICAL EXAMINATION: Physical exam today revealed a middle-aged female. She is alert, oriented to time, place, person and circumstance and follows commands appropriately, moves all 4 extremities voluntarily where she had 4+/5 grade muscle strength with no active right foot dorsiflexion and plantar flexion. She had muscle atrophy involving right leg muscles. She had decreased sensory perception over dorsal aspect of right foot and hyperesthesia to touch and pinprick sensation over the plantar aspect of right foot. Knee and ankle jerks are absent. She had crepitus on range of motion of her knee joint with some limitation of knee joint range of motion and knee joint effusion. The patient had overgrown toenails. She is independent, rolling from side to side. She is using oxygen by nasal cannula. I have not tested her transfers or ambulation skills at this time. She admits basically she gets around at wheelchair level. ASSESSMENT: This is a middle-aged female with diabetes mellitus with peripheral neuropathy and also status post lumbar spine surgery in the past with right foot drop, both dorsiflexor and plantar flexor weakness, overgrown toenails, obesity, hypertension, congestive heart failure, chronic obstructive pulmonary disease. RECOMMENDATIONS: To obtain her right ankle foot orthosis to support her right ankle. At this time, she is not interested in knee joint injections to help ease her pain. To ask podiatry to trim her toenails. Home when medically stable with home health followup. Dr. Johnson, I appreciate asking me to participate in the care of this interesting patient. I will be glad to follow her with you as needed for rehabilitation. SHIKHA BROWN MD DR: MARAL/kortney JOB#: [id number] / [id number]
[2020-08-04] MEDS: CALCIUM CARBONATE 500 MG TAB.CHEW PO PRN ×2 (13:05→18:08)
[2020-08-04 14:35] VITALS: BP 130/76
--- NOTE | 2020-08-04 16:20 | PDOC ---
[facility] [facility] PROGRESS NOTE Date of Service DOS: DATE: 08/04/20 TIME: 16:05 Chief Complaint Chief Complaint A/P: Acute on chronic hypercapnic respiratory failure Acute respiratory failure with hypoxia Acute COPD exacerbation Acute on chronic diastolic heart failure Elevated troponins Hypernatremia COVID-19 PUI Malnutrition FEN - PPX - FULL CODE Dispo - inpatient History of Present Illness History of Present Illness Ms Davidson is a 75-year-old female with past medical history of CHF with preserved ejection fraction, morbid obesity, depression, hypertension, hyperlipidemia, hypothyroidism, and schizophrenia who presents to the ER with complaints of shortness of breath over the past few days. She reports associated weakness and nonproductive cough. Upon arrival in the ER she was saturating 80% on room air, which did improve with 4 L nasal cannula. She was recently admitted to our service on 07/02/2024 COPD exacerbation and elevated troponins. At that time troponins were elevated but stable, consistent with demand ischemia. Chest x-ray on 07/02 showed bilateral interstitial infiltrates. She is supposed to have a future appointment with her pulmon ologist for pulmonary function test and formal diagnosis of COPD. Repeat chest x-ray 07/30 in the ER showed stable diffuse infiltrates. She underwent CTPA with no pulmonary embolus identified, but 8 mm nodule at the right upper lobe. EKG with lateral t-wave changes, troponin 0.1. Rapid influenza test negative, tested for COVID 19 and admitted for further care. 07/31: Still very short of breath, trying to take off her O2, c/o dry nares. Feels "terrible". Myalgias and GI upset with nausea currently. Repeat troponin minimally decreased 08/01: Feeling improved today. N.p.o. for am stress testing per cardiology. Still requiring 4 L nasal cannulated O2 though she is saturating at 96%. Notes that she is on 2 L nasal cannula at home. She is somewhat anxious to leave the hospital. Still dizzy and with blurred vision, notes her vision blurring for the past year, has been seen by ophthalmology outpatient noted with cataracts. Still little dizzy. Shortness of breath is not improved. Still complaining of her blurred vision but does note this is chronic. She has some indigestion that was improved with Pepcid and Tums. Going for second have her stress test today. 08/04/20 No acute events overnight. Saturating 94% on 3NC. > 50% time spent in patient chart, labs, and image review and discussion with RN and SW Plan: Meclizine prn D/c planning - may need increased O2 and already has home health in place, she is questioning whether she needs 31/01 care currently. Vitals/I&O Vitals/I&O: Vital Signs Date Time Temp Pulse Resp B/P (MAP) Pulse Ox O2 Delivery O2 Flow Rate FiO2 08/04/20 14:35 98.4 78 18 130/76 (94) 92 Nasal Cannula 3.0 98.4 I & O 08/03/20 08/03/20 08/04/20 15:00 23:00 07:00 Intake Total 360 ml 180 ml 0 ml Output Total 1000 ml 1200 ml 600 ml Balance -640 ml -1020 ml -600 ml Physical Exam General: Alert, Oriented X3, Cooperative, No acute distress Heart: Regular rate (SR), Other (distant heart sounds) Lungs: Clear Abdomen: Soft, No tenderness, Other (obese) Extremities: No cyanosis, Other (1+ bilateral LE pitting edema) Skin: No breakdown, No significant lesion Labs Labs: Laboratory Tests Test 08/03/20 16:48 08/03/20 20:52 08/04/20 04:15 08/04/20 07:11 Glucose (Fingerstick) 124 mg/dL (70-99) 202 mg/dL (70-99) 118 mg/dL (70-99) White Blood Count 6.2 x10^3/uL (4.0-11.0) Red Blood Count 4.90 x10^6/uL (3.50-5.40) Hemoglobin 12.5 g/dL (12.0-15.5) Hematocrit 41.2 % (36.0-47.0) Mean Corpuscular Volume 84 fL (79-100) Mean Corpuscular Hemoglobin 26 pg (25-35) Mean Corpuscular Hemoglobin Concent 30 g/dL (31-37) Red Cell Distribution Width 16.8 % (11.5-14.5) Platelet Count 284 x10^3/uL (140-400) Neutrophils (%) (Auto) 72 % (31-73) Lymphocytes (%) (Auto) 13 % (24-48) Monocytes (%) (Auto) 15 % (0-9) Eosinophils (%) (Auto) 0 % (0-3) Basophils (%) (Auto) 0 % (0-3) Neutrophils # (Auto) 4.4 x10^3/uL (1.8-7.7) Lymphocytes # (Auto) 0.8 x10^3/uL (1.0-4.8) Monocytes # (Auto) 0.9 x10^3/uL (0.0-1.1) Eosinophils # (Auto) 0.0 x10^3/uL (0.0-0.7) Basophils # (Auto) 0.0 x10^3/uL (0.0-0.2) Sodium Level 145 mmol/L (136-145) Potassium Level 3.9 mmol/L (3.5-5.1) Chloride Level 104 mmol/L (98-107) Carbon Dioxide Level 39 mmol/L (21-32) Anion Gap 2 (6-14) Blood Urea Nitrogen 24 mg/dL (7-20) Creatinine 0.6 mg/dL (0.6-1.0) Estimated GFR (Cockcroft-Gault) 117.3 Glucose Level 116 mg/dL (70-99) Calcium Level 9.1 mg/dL (8.5-10.1) Test 08/04/20 11:15 Glucose (Fingerstick) 127 mg/dL (70-99) Assessment and Plan Assessmemt and Plan Problems Medical Problems: (1) Elevated troponin Status: Acute (2) Pneumonia Status: Acute (3) Respiratory failure with hypoxia Status: Acute Comment Review of Relevant I have reviewed the following items tucker (where applicable) has been applied. Medications: Current Medications Medications (Trade) Dose Ordered Sig/Mehul Route PRN Reason Start Time Stop Time Status Last Admin Dose Admin Prednisone (Prednisone) 20 mg DAILY PO 08/04/20 09:00 08/04/20 08:47 Tobramycin Sulfate (Tobrex Ophth Soln) 1 drop Q6HRS OU 08/03/20 18:00 08/04/20 12:59 Justifications for Admission Other Justification Acute respiratory failure with hypoxia, COVID-19 JJ LÓPEZ MD Aug 04, 2020 16:20
[2020-08-04 19:45] VITALS: BP 144/70
[2020-08-04 23:40] VITALS: BP 132/67
[2020-08-05 03:00] VITALS: BP 149/68
[2020-08-05] MEDS: ACETAMINOPHEN 500 MG TABLET PO PRN ×2 (05:31→23:38)
[2020-08-05] MEDS: CALCIUM CARBONATE 500 MG TAB.CHEW PO PRN ×2 (05:31→19:44)
[2020-08-05] MEDS: TOBRAMYCIN 0.3% OPHTH SOLUTION 5ML BOTTLE. OU SCH ×4 (05:38→18:21)
[2020-08-05 07:00] VITALS: BP 148/76
[2020-08-05] MEDS: INSULIN LISPRO 300 UNITS/3 ML VIAL. SQ SCH ×3 (08:00→17:00)
[2020-08-05] MEDS: FAMOTIDINE 20 MG TABLET. PO SCH ×2 (08:41→19:59)
[2020-08-05] MEDS: GABAPENTIN 300 MG CAPSULE. PO SCH ×3 (08:41→20:00)
[2020-08-05] MEDS: LACTOBACILLUS RHAMNOSUS GG 1 CAPSULE. PO SCH ×2 (08:41→19:59)
[2020-08-05] MEDS: FUROSEMIDE 20 MG TABLET PO SCH (08:41)
[2020-08-05] MEDS: ASPIRIN CHEWABLE 81 MG TABLET. PO SCH (08:41)
[2020-08-05] MEDS: LOSARTAN POTASSIUM 25 MG TABLET. PO SCH (08:42)
[2020-08-05] MEDS: predniSONE 20 MG TABLET PO SCH (08:42)
[2020-08-05 11:00] VITALS: BP 124/82
[2020-08-05] MEDS ORDERED: BUPIVACAINE MPF 0.25% 10 ML VIAL. IJ ONE (11:30)
[2020-08-05] MEDS ORDERED: methylPREDNISolone ACETATE 40 MG/ML VIAL. IM ONE (11:30)
--- NOTE | 2020-08-05 11:44 | NUR ---
SS following up with discharge planning. SS reviewed pt chart and discussed with pt RN. Pt is currently requiring oxygen at three liters nasal canula. COVID19 negative. Pt has home oxygen. PT/OT recommended detention unit. Pt declining detention unit and requesting to return to home with [facility], ; fax [phone]. Pt accepted on services with [facility]. Pt had injections in knees today. SS will continue to follow for discharge planning.
--- NOTE | 2020-08-05 11:47 | PDOC ---
PROGRESS NOTES Date of Service DATE: 08/05/20 TIME: 11:43 Subjective Subjective She c/o knee stiffness and pain and about her toe nails being too long and wants her knee joint injected. Objective Objective Vital Signs Date Time Temp Pulse Resp B/P (MAP) Pulse Ox O2 Delivery O2 Flow Rate FiO2 08/05/20 08:42 68 149/68 08/05/20 08:00 Nasal Cannula 3.0 08/05/20 07:00 98.1 20 97 98.1 Intake and Output 08/05/20 07:00 Intake Total 1900 ml Output Total 1350 ml Balance 550 ml Intake Oral 1900 ml Output Urine Total 1350 ml # Voids 4 # Bowel Movements 1 Physical Exam Physical Exam She is alert,supine in bed and she continues with pain on ROM of her knees and right foot drop. Assessment Assessment Problems Medical Problems: (1) Elevated troponin Status: Acute (2) Pneumonia Status: Acute (3) Respiratory failure with hypoxia Status: Acute Plan Plan of Care At her request,I have injected her left knee joint under aseptic skin technique,after alcohol skin prep, with 2 ml of 0.25% marcaine solution mixed with 1 ml of depo-medrol 40 mg/ 1 ml solution and she tolerated the procedure satisfactorily without any side effects. Comment Review of Relevant I have reviewed the following items tucker (where applicable) has been applied. Labs Laboratory Tests Test 08/03/20 12:05 08/03/20 16:48 08/03/20 20:52 08/04/20 04:15 Glucose (Fingerstick) 128 mg/dL (70-99) 124 mg/dL (70-99) 202 mg/dL (70-99) White Blood Count 6.2 x10^3/uL (4.0-11.0) Red Blood Count 4.90 x10^6/uL (3.50-5.40) Hemoglobin 12.5 g/dL (12.0-15.5) Hematocrit 41.2 % (36.0-47.0) Mean Corpuscular Volume 84 fL (79-100) Mean Corpuscular Hemoglobin 26 pg (25-35) Mean Corpuscular Hemoglobin Concent 30 g/dL (31-37) Red Cell Distribution Width 16.8 % (11.5-14.5) Platelet Count 284 x10^3/uL (140-400) Neutrophils (%) (Auto) 72 % (31-73) Lymphocytes (%) (Auto) 13 % (24-48) Monocytes (%) (Auto) 15 % (0-9) Eosinophils (%) (Auto) 0 % (0-3) Basophils (%) (Auto) 0 % (0-3) Neutrophils # (Auto) 4.4 x10^3/uL (1.8-7.7) Lymphocytes # (Auto) 0.8 x10^3/uL (1.0-4.8) Monocytes # (Auto) 0.9 x10^3/uL (0.0-1.1) Eosinophils # (Auto) 0.0 x10^3/uL (0.0-0.7) Basophils # (Auto) 0.0 x10^3/uL (0.0-0.2) Sodium Level 145 mmol/L (136-145) Potassium Level 3.9 mmol/L (3.5-5.1) Chloride Level 104 mmol/L (98-107) Carbon Dioxide Level 39 mmol/L (21-32) Anion Gap 2 (6-14) Blood Urea Nitrogen 24 mg/dL (7-20) Creatinine 0.6 mg/dL (0.6-1.0) Estimated GFR (Cockcroft-Gault) 117.3 Glucose Level 116 mg/dL (70-99) Calcium Level 9.1 mg/dL (8.5-10.1) Test 08/04/20 07:11 08/04/20 11:15 08/04/20 16:12 08/04/20 21:01 Glucose (Fingerstick) 118 mg/dL (70-99) 127 mg/dL (70-99) 187 mg/dL (70-99) 143 mg/dL (70-99) Test 08/05/20 07:40 Glucose (Fingerstick) 113 mg/dL (70-99) Laboratory Tests Test 08/04/20 16:12 08/04/20 21:01 08/05/20 07:40 Glucose (Fingerstick) 187 mg/dL (70-99) 143 mg/dL (70-99) 113 mg/dL (70-99) Medications Current Medications Dexamethasone Sodium Phosphate (Decadron) 10 mg 1X ONCE IVP Last administered on 07/30/20at 15:42; Start 07/30/20 at 15:15; Stop 07/30/20 at 15:22; Status DC Ceftriaxone Sodium (Rocephin) 1 gm 1X ONCE IVP Last administered on 07/30/20at 15:45; Start 07/30/20 at 15:15; Stop 07/30/20 at 15:22; Status DC Iohexol (Omnipaque 350 Mg/ml) 100 ml 1X ONCE IV Last administered on 07/30/20at 18:40; Start 07/30/20 at 15:30; Stop 07/30/20 at 15:31; Status DC Aspirin (Aspirin Chewable) 81 mg DAILY PO Last administered on 08/05/20at 08:41; Start 07/31/20 at 09:00 Furosemide (Lasix) 20 mg DAILY PO Last administered on 07/31/20at 08:57; Start 07/31/20 at 09:00; Stop 07/31/20 at 14:28; Status DC Diltiazem HCl (Cardizem 24hr Cd) 360 mg DAILY PO Last administered on 08/05/20at 08:42; Start 07/31/20 at 09:00 Gabapentin (Neurontin) 900 mg TID PO Last administered on 08/05/20at 08:41; Start 07/30/20 at 21:00 Levofloxacin/ Dextrose 150 ml @ 100 mls/hr Q24H IV Last administered on 08/02/20at 17:25; Start 07/30/20 at 18:00; Stop 08/03/20 at 12:40; Status DC Dexamethasone Sodium Phosphate (Decadron) 6 mg DAILY IVP Last administered on 08/03/20at 08:55; Start 07/31/20 at 09:00; Stop 08/03/20 at 11:43; Status DC Insulin Human Lispro (HumaLOG) 3 units TIDWMEALS SQ Last administered on 07/12 09/28at 17:37; Start 07/31/20 at 08:00 Dextrose (Dextrose 50%-Water Syringe) 12.5 gm PRN Q15MIN PRN IV SEE COMMENTS; Start 07/30/20 at 17:45 Iohexol (Omnipaque 350 Mg/ml) 100 ml STK-MED ONCE .ROUTE ; Start 07/30/20 at 20:50; Stop 07/30/20 at 20:50; Status DC Pramipexole Dihydrochloride (miraPEX) 1 mg PRN QHS PRN PO RESTLESS LEG Last administered on 07/31/20at 19:57; Start 07/30/20 at 23:00; Stop 08/01/20 at 11:13; Status DC Acetaminophen (Tylenol) 1,000 mg PRN Q6HRS PRN PO MILD PAIN / TEMP > 100.3'F Last administered on 08/05/20at 05:31; Start 07/31/20 at 00:45 Enoxaparin Sodium (Lovenox 40mg Syringe) 40 mg Q24H SQ ; Start 07/31/20 at 07:15; Status UNV Enoxaparin Sodium (Lovenox 60mg Syringe) 60 mg Q12HR SQ Last administered on 08/05/20at 08:43; Start 07/31/20 at 09:00 Furosemide (Lasix) 40 mg 1X ONCE IVP Last administered on 07/31/20at 11:30; Start 07/31/20 at 09:45; Stop 07/31/20 at 09:46; Status DC Furosemide (Lasix) 40 mg DAILY PO Last administered on 08/05/20at 08:41; Start 08/01/20 at 09:00 Lactobacillus Rhamnosus (Culturelle) 1 cap BID PO Last administered on 08/05/20at 08:41; Start 07/31/20 at 21:00 Regadenoson (Lexiscan) 0.4 mg 1X ONCE IV Last administered on 08/01/20at 11:22; Start 08/01/20 at 08:45; Stop 08/01/20 at 08:46; Status DC Pramipexole Dihydrochloride (miraPEX) 1 mg PRN BID PRN PO RESTLESS LEG Last administered on 08/04/20at 08:53; Start 08/01/20 at 11:15 Losartan Potassium (Cozaar) 25 mg DAILY PO Last administered on 08/05/20at 08:42; Start 08/01/20 at 13:30 Meclizine HCl (Antivert) 12.5 mg PRN Q6HRS PRN PO DIZZINESS Last administered on 08/03/20at 10:44; Start 08/01/20 at 14:00 Hydralazine HCl (Apresoline Inj) 10 mg PRN Q4HRS PRN IVP ELEVATED BP, SEE COMMENTS; Start 08/01/20 at 15:00 Calcium Carbonate/ Glycine (Tums) 500 mg PRN Q3HRS PRN PO INDIGESTION Last administered on 08/05/20at 05:31; Start 08/02/20 at 09:00 Famotidine (Pepcid Vial) 20 mg 1X ONCE IVP Last administered on 08/02/20at 09:16; Start 08/02/20 at 09:15; Stop 08/02/20 at 09:17; Status DC Famotidine (Pepcid) 20 mg BID PO Last administered on 08/05/20at 08:41; Start 08/02/20 at 21:00 Prednisone (Prednisone) 20 mg DAILY PO Last administered on 08/05/20at 08:42; Start 08/04/20 at 09:00 Tobramycin Sulfate (Tobrex Ophth Soln) 1 drop Q6HRS OU Last administered on 08/05/20at 05:38; Start 08/03/20 at 18:00 Levofloxacin (Levaquin) 750 mg DAILY16 PO Last administered on 08/04/20at 16:00; Start 08/03/20 at 16:00 Lorazepam (Ativan) 0.25 mg PRN Q8HRS PRN PO ANXIETY / AGITATION; Start 08/05/20 at 00:00 Methylprednisolone Acetate (DEPO-Medrol 40MG VIAL) 40 mg 1X ONCE IM Last administered on 08/05/20at 11:30; Start 08/05/20 at 11:30; Stop 08/05/20 at 11:31; Status DC Bupivacaine HCl (Sensorcaine-Mpf 0.25%) 10 ml 1X ONCE IJ Last administered on 08/05/20at 11:30; Start 08/05/20 at 11:30; Stop 08/05/20 at 11:31; Status DC Active Scripts Active Levofloxacin 750 Mg Tablet 1 Tab PO DAILY 5 Days Losartan Potassium (Losartan Potassium) 25 Mg Tablet 25 Mg PO DAILY 30 Days Zofran (Ondansetron Hcl) 4 Mg Tablet 1 Tab PO Q8HRS PRN 30 Days Reported [Vitamin D] PO DAILY Vitamin E (Vitamin E Acetate) 400 Unit Capsule 400 Unit PO DAILY Vitamin C (Ascorbic Acid) 500 Mg Capsule.er 1 Cap PO DAILY 30 Days Metformin Hcl Er (Metformin Hcl) 500 Mg Tab.er.24h 500 Mg PO DAILYWBKFT Lasix (Furosemide) 20 Mg Tablet 1 Tab PO DAILY 30 Days Aspirin 81 Mg Tab.chew 1 Tab PO DAILY Cardizem Cd (Diltiazem Hcl) 360 Mg Cap.er.24h 1 Cap PO DAILY Neurontin (Gabapentin) 600 Mg Tablet 900 Mg PO TID Vitals/I & O Vital Sign - Last 24 Hours 08/04/20 08/04/20 08/04/20 08/04/20 14:35 19:45 20:00 23:40 Temp 98.4 98.4 98.5 98.4 98.4 98.5 Pulse 78 74 62 Resp 18 20 20 B/P (MAP) 130/76 (94) 144/70 (94) 132/67 (88) Pulse Ox 92 94 93 O2 Delivery Nasal Cannula Nasal Cannula Nasal Cannula Nasal Cannula O2 Flow Rate 3.0 3.0 3.0 3.0 08/05/20 08/05/20 08/05/20 08/05/20 03:00 07:00 08:00 08:42 Temp 98.1 98.1 98.1 98.1 Pulse 68 76 68 Resp 20 20 B/P (MAP) 149/68 (95) 148/76 (100) 149/68 Pulse Ox 97 97 O2 Delivery Nasal Cannula Nasal Cannula Nasal Cannula O2 Flow Rate 3.0 3.0 3.0 08/05/20 08:42 Pulse 68 B/P (MAP) 149/68 Intake and Output 08/04/20 08/04/20 08/05/20 15:00 23:00 07:00 Intake Total 700 ml 1200 ml Output Total 500 ml 850 ml Balance 200 ml 350 ml Justifications for Admission Other Justification Acute respiratory failure with hypoxia, COVID-19 SHIKHA HOUSTON MD Aug 05, 2020 11:47
--- NOTE | 2020-08-05 12:27 | PDOC ---
[employer] PROGRESS NOTE Date of Service DOS: DATE: 08/05/20 TIME: 12:25 Chief Complaint Chief Complaint A/P: Acute on chronic hypercapnic respiratory failure Acute respiratory failure with hypoxia Acute COPD exacerbation Acute on chronic diastolic heart failure Elevated troponins Hypernatremia COVID-19 infection ruled out Malnutrition Chronic knee pain status post steroid injection 08/05/2020 FEN -cardiac diet PPX -Lovenox FULL CODE Dispo - inpatient, patient will need to go home with 2 L liters nasal cannula on home oxygen. Patient declined SNF will return home on [facility] health History of Present Illness History of Present Illness Ms Davidson is a 75-year-old female with past medical history of CHF with preserved ejection fraction, morbid obesity, depression, hypertension, hyperlipidemia, hypothyroidism, and schizophrenia who presents to the ER with complaints of shortness of breath over the past few days. She reports associated weakness and nonproductive cough. Upon arrival in the ER she was saturating 80% on room air, which did improve with 4 L nasal cannula. She was recently admitted to our service on 07/02/2024 COPD exacerbation and elevated troponins. At that time troponins were elevated but stable, consistent with demand ischemia. Chest x-ray on 07/02 showed bilateral interstitial infiltrates. She is supposed to have a future appointment with her concrete pipe maker for pulmonary function test and formal diagnosis of COPD. Repeat chest x-ray 07/30 in the ER showed stable diffuse infiltrates. She underwent CTPA with no pulmonary embolus identified, but 8 mm nodule at the right upper lobe. EKG with lateral t-wave changes, troponin 0.1. Rapid influenza test negative, tested for COVID 19 and admitted for further care. 07/31: Still very short of breath, trying to take off her O2, c/o dry nares. Feels "terrible". Myalgias and GI upset with nausea currently. Repeat troponin minimally decreased 08/01: Feeling improved today. N.p.o. for am stress testing per cardiology. Still requiring 4 L nasal cannulated O2 though she is saturating at 96%. Notes that she is on 2 L nasal cannula at home. She is somewhat anxious to leave the hospital. Still dizzy and with blurred vision, notes her vision blurring for the past year, has been seen by ophthalmology outpatient noted with cataracts. Still little dizzy. Shortness of breath is not improved. Still complaining of her blurred vision but does note this is chronic. She has some indigestion that was improved with Pepcid and Tums. Going for second have her stress test today. 08/04/20 No acute events overnight. Saturating 94% on 3NC. > 50% time spent in patient chart, labs, and image review and discussion with RN and SW 08/05/2020 No acute events overnight. Patient saturating 97% on 3 L neck nasal cannula. Status post knee injection today. Patient's chart, labs, images were reviewed and discussed with RN Plan: Meclizine prn D/c planning - may need increased O2 and already has home health in place, she is questioning whether she needs / care currently. Vitals/I&O Vitals/I&O: Vital Signs Date Time Temp Pulse Resp B/P (MAP) Pulse Ox O2 Delivery O2 Flow Rate FiO2 08/05/20 11:00 97.8 94 22 124/82 (96) 95 Nasal Cannula 3.0 97.8 I & O 08/04/20 08/04/20 08/05/20 15:00 23:00 07:00 Intake Total 700 ml 1200 ml Output Total 500 ml 850 ml Balance 200 ml 350 ml Physical Exam General: Alert, Oriented X3, Cooperative, No acute distress Heart: Regular rate (SR), Other (distant heart sounds) Lungs: Clear Abdomen: Soft, No tenderness, Other (obese) Extremities: No cyanosis, Other (1+ bilateral LE pitting edema) Skin: No breakdown, No significant lesion Labs Labs: Laboratory Tests Test 08/04/20 16:12 08/04/20 21:01 08/05/20 07:40 08/05/20 11:44 Glucose (Fingerstick) 187 mg/dL (70-99) 143 mg/dL (70-99) 113 mg/dL (70-99) 124 mg/dL (70-99) Assessment and Plan Assessmemt and Plan Problems Medical Problems: (1) Elevated troponin Status: Acute (2) Pneumonia Status: Acute (3) Respiratory failure with hypoxia Status: Acute Comment Review of Relevant I have reviewed the following items tucker (where applicable) has been applied. Medications: Current Medications Medications (Trade) Dose Ordered Sig/Mehul Route PRN Reason Start Time Stop Time Status Last Admin Dose Admin Methylprednisolone Acetate (DEPO-Medrol 40MG VIAL) 40 mg 1X ONCE IM 08/05/20 11:30 08/05/20 11:31 DC 08/05/20 11:30 Bupivacaine HCl (Sensorcaine-Mpf 0.25%) 10 ml 1X ONCE IJ 08/05/20 11:30 08/05/20 11:31 DC 08/05/20 11:30 Justifications for Admission Other Justification Acute respiratory failure with hypoxia, COVID-19 JJ LÓPEZ MD Aug 05, 2020 12:27
[2020-08-05 14:58] VITALS: BP 110/64
--- NOTE | 2020-08-05 19:45 | PDOC2 ---
CONSULT Date of Consult Date of Consult DATE: 08/05/20 TIME: 19:24 Reason for Consult Reason for Consult: Long, painful, fungal nails. Referring Physician Referring Physician: Dr. Owens Identification/Chief Complaint Chief Complaint Patient is complaining of painful and long, fungal nails. Source Source: Patient History of Present Illness Reason for Visit: Patient is 75 year old female who is admitted for pnemonia and respiratory failure, was seen bedside for painful and long fungal nails. Patient has DM and relates that she was told that she is borderline diabetic and her sugars go up when she eats sweets. Patient reports that she has not been able to cut her toenails for a long time (months) and they are curving and causing pain. Patient mentions that she has a right foot drop, s/p back surgery. Patient denies any recent trauma to the feet. Past Medical History Cardiovascular: HTN Pulmonary: COPD CENTRAL NERVOUS SYSTEM: Periperal neuropathy, Other GI: No pertinent hx Heme/Onc: No pertinent hx Hepatobiliary: No pertinent hx Psych: No pertinent hx Musculoskeletal: low back pain, Osteoarthritis, Other Rheumatologic: No pertinent hx Infectious disease: No pertinent hx Renal/: No pertinent hx Endocrine: Diabetes Past Surgical History Past Surgical History: Total hip replacement Family History Family History: Heart Disease Social History Quit ALCOHOL: none Drugs: None Lives: with Family Current Problem List Problem List Problems Medical Problems: (1) Elevated troponin Status: Acute (2) Pneumonia Status: Acute (3) Respiratory failure with hypoxia Status: Acute Current Medications Current Medications Current Medications Dexamethasone Sodium Phosphate (Decadron) 10 mg 1X ONCE IVP Last administered on 07/30/20at 15:42; Start 07/30/20 at 15:15; Stop 07/30/20 at 15:22; Status DC Ceftriaxone Sodium (Rocephin) 1 gm 1X ONCE IVP Last administered on 07/30/20at 15:45; Start 07/30/20 at 15:15; Stop 07/30/20 at 15:22; Status DC Iohexol (Omnipaque 350 Mg/ml) 100 ml 1X ONCE IV Last administered on 07/30/20at 18:40; Start 07/30/20 at 15:30; Stop 07/30/20 at 15:31; Status DC Aspirin (Aspirin Chewable) 81 mg DAILY PO Last administered on 08/05/20at 08:41; Start 07/31/20 at 09:00 Furosemide (Lasix) 20 mg DAILY PO Last administered on 07/31/20at 08:57; Start 07/31/20 at 09:00; Stop 07/31/20 at 14:28; Status DC Diltiazem HCl (Cardizem 24hr Cd) 360 mg DAILY PO Last administered on 08/05/20at 08:42; Start 07/31/20 at 09:00 Gabapentin (Neurontin) 900 mg TID PO Last administered on 08/05/20at 13:21; Start 07/30/20 at 21:00 Levofloxacin/ Dextrose 150 ml @ 100 mls/hr Q24H IV Last administered on 08/02/20at 17:25; Start 07/30/20 at 18:00; Stop 08/03/20 at 12:40; Status DC Dexamethasone Sodium Phosphate (Decadron) 6 mg DAILY IVP Last administered on 08/03/20at 08:55; Start 07/31/20 at 09:00; Stop 08/03/20 at 11:43; Status DC Insulin Human Lispro (HumaLOG) 3 units TIDWMEALS SQ Last administered on 08/02/20at 17:37; Start 07/31/20 at 08:00 Dextrose (Dextrose 50%-Water Syringe) 12.5 gm PRN Q15MIN PRN IV SEE COMMENTS; Start 07/30/20 at 17:45 Iohexol (Omnipaque 350 Mg/ml) 100 ml STK-MED ONCE .ROUTE ; Start 07/30/20 at 20:50; Stop 07/30/20 at 20:50; Status DC Pramipexole Dihydrochloride (miraPEX) 1 mg PRN QHS PRN PO RESTLESS LEG Last administered on 07/31/20at 19:57; Start 07/30/20 at 23:00; Stop 08/01/20 at 11:13; Status DC Acetaminophen (Tylenol) 1,000 mg PRN Q6HRS PRN PO MILD PAIN / TEMP > 100.3'F Last administered on 08/05/20at 05:31; Start 07/31/20 at 00:45 Enoxaparin Sodium (Lovenox 40mg Syringe) 40 mg Q24H SQ ; Start 07/31/20 at 07:15; Status UNV Enoxaparin Sodium (Lovenox 60mg Syringe) 60 mg Q12HR SQ Last administered on 08/05/20at 08:43; Start 07/31/20 at 09:00 Furosemide (Lasix) 40 mg 1X ONCE IVP Last administered on 07/31/20at 11:30; Start 07/31/20 at 09:45; Stop 07/31/20 at 09:46; Status DC Furosemide (Lasix) 40 mg DAILY PO Last administered on 08/05/20at 08:41; Start 08/01/20 at 09:00 Lactobacillus Rhamnosus (Culturelle) 1 cap BID PO Last administered on 08/05/20at 08:41; Start 07/31/20 at 21:00 Regadenoson (Lexiscan) 0.4 mg 1X ONCE IV Last administered on 08/01/20at 11:22; Start 08/01/20 at 08:45; Stop 08/01/20 at 08:46; Status DC Pramipexole Dihydrochloride (miraPEX) 1 mg PRN BID PRN PO RESTLESS LEG Last administered on 08/04/20at 08:53; Start 08/01/20 at 11:15 Losartan Potassium (Cozaar) 25 mg DAILY PO Last administered on 08/05/20at 08:42; Start 08/01/20 at 13:30 Meclizine HCl (Antivert) 12.5 mg PRN Q6HRS PRN PO DIZZINESS Last administered on 08/03/20at 10:44; Start 08/01/20 at 14:00 Hydralazine HCl (Apresoline Inj) 10 mg PRN Q4HRS PRN IVP ELEVATED BP, SEE COMMENTS; Start 08/01/20 at 15:00 Calcium Carbonate/ Glycine (Tums) 500 mg PRN Q3HRS PRN PO INDIGESTION Last administered on 08/05/20at 05:31; Start 08/02/20 at 09:00 Famotidine (Pepcid Vial) 20 mg 1X ONCE IVP Last administered on 08/02/20at 09:16; Start 08/02/20 at 09:15; Stop 08/02/20 at 09:17; Status DC Famotidine (Pepcid) 20 mg BID PO Last administered on 08/05/20at 08:41; Start 08/02/20 at 21:00 Prednisone (Prednisone) 20 mg DAILY PO Last administered on 08/05/20at 08:42; Start 08/04/20 at 09:00 Tobramycin Sulfate (Tobrex Ophth Soln) 1 drop Q6HRS OU Last administered on 08/05/20at 18:21; Start 08/03/20 at 18:00 Levofloxacin (Levaquin) 750 mg DAILY16 PO Last administered on 08/05/20at 18:20; Start 08/03/20 at 16:00 Lorazepam (Ativan) 0.25 mg PRN Q8HRS PRN PO ANXIETY / AGITATION; Start 08/05/20 at 00:00 Methylprednisolone Acetate (DEPO-Medrol 40MG VIAL) 40 mg 1X ONCE IM Last administered on 08/05/20at 11:30; Start 08/05/20 at 11:30; Stop 08/05/20 at 11:31; Status DC Bupivacaine HCl (Sensorcaine-Mpf 0.25%) 10 ml 1X ONCE IJ Last administered on 08/05/20at 11:30; Start 08/05/20 at 11:30; Stop 08/05/20 at 11:31; Status DC Active Scripts Active Levofloxacin 750 Mg Tablet 1 Tab PO DAILY 5 Days Losartan Potassium (Losartan Potassium) 25 Mg Tablet 25 Mg PO DAILY 30 Days Zofran (Ondansetron Hcl) 4 Mg Tablet 1 Tab PO Q8HRS PRN 30 Days Reported [Vitamin D] PO DAILY Vitamin E (Vitamin E Acetate) 400 Unit Capsule 400 Unit PO DAILY Vitamin C (Ascorbic Acid) 500 Mg Capsule.er 1 Cap PO DAILY 30 Days Metformin Hcl Er (Metformin Hcl) 500 Mg Tab.er.24h 500 Mg PO DAILYWBKFT Lasix (Furosemide) 20 Mg Tablet 1 Tab PO DAILY 30 Days Aspirin 81 Mg Tab.chew 1 Tab PO DAILY Cardizem Cd (Diltiazem Hcl) 360 Mg Cap.er.24h 1 Cap PO DAILY Neurontin (Gabapentin) 600 Mg Tablet 900 Mg PO TID Allergies Allergies: Coded Allergies: atorvastatin (Verified Adverse Reaction, Mild, Nausea and Vomiting, 08/02/20) ROS General: YES: Other (Recent weight gain); No: Chills, Night Sweats, Fatigue, Malaise, Appetite Musculoskeletal: Yes Muscular Weakness, Yes Other (Foot drop) Skin: Yes Dry Skin, Yes Nail Changes Physical Exam General: Alert, Oriented X3, Cooperative, No acute distress Extremities: Other (Palpable pedal pulses, Bilateral LE. Mild edema noted BLE.) Skin: Other (Nails are elongated, thickened dystrophic and discolored with subungal debris noted, right foot - digits 1,2,3 and left foot digits 1,2,3,4. No open lesions noted. No erythema noted. DIffuse xerosis noted.) Neuro: Other (Epicritic sensation mildly diminished at the digits, BLE.) MUSCULOSKELETAL: Other (+ POP at the thickened and elongated nail sites. Foot drop noted, right LE.) Vitals VITALS Vital Signs Date Time Temp Pulse Resp B/P (MAP) Pulse Ox O2 Delivery O2 Flow Rate FiO2 08/05/20 14:58 98.7 91 22 110/64 (79) 92 Nasal Cannula 2.0 98.7 Labs Labs Laboratory Tests Test 08/03/20 20:52 08/04/20 04:15 08/04/20 07:11 08/04/20 11:15 Glucose (Fingerstick) 202 mg/dL (70-99) 118 mg/dL (70-99) 127 mg/dL (70-99) White Blood Count 6.2 x10^3/uL (4.0-11.0) Red Blood Count 4.90 x10^6/uL (3.50-5.40) Hemoglobin 12.5 g/dL (12.0-15.5) Hematocrit 41.2 % (36.0-47.0) Mean Corpuscular Volume 84 fL (79-100) Mean Corpuscular Hemoglobin 26 pg (25-35) Mean Corpuscular Hemoglobin Concent 30 g/dL (31-37) Red Cell Distribution Width 16.8 % (11.5-14.5) Platelet Count 284 x10^3/uL (140-400) Neutrophils (%) (Auto) 72 % (31-73) Lymphocytes (%) (Auto) 13 % (24-48) Monocytes (%) (Auto) 15 % (0-9) Eosinophils (%) (Auto) 0 % (0-3) Basophils (%) (Auto) 0 % (0-3) Neutrophils # (Auto) 4.4 x10^3/uL (1.8-7.7) Lymphocytes # (Auto) 0.8 x10^3/uL (1.0-4.8) Monocytes # (Auto) 0.9 x10^3/uL (0.0-1.1) Eosinophils # (Auto) 0.0 x10^3/uL (0.0-0.7) Basophils # (Auto) 0.0 x10^3/uL (0.0-0.2) Sodium Level 145 mmol/L (136-145) Potassium Level 3.9 mmol/L (3.5-5.1) Chloride Level 104 mmol/L (98-107) Carbon Dioxide Level 39 mmol/L (21-32) Anion Gap 2 (6-14) Blood Urea Nitrogen 24 mg/dL (7-20) Creatinine 0.6 mg/dL (0.6-1.0) Estimated GFR (Cockcroft-Gault) 117.3 Glucose Level 116 mg/dL (70-99) Calcium Level 9.1 mg/dL (8.5-10.1) Test 08/04/20 16:12 08/04/20 21:01 08/05/20 07:40 08/05/20 11:44 Glucose (Fingerstick) 187 mg/dL (70-99) 143 mg/dL (70-99) 113 mg/dL (70-99) 124 mg/dL (70-99) Test 08/05/20 16:33 Glucose (Fingerstick) 179 mg/dL (70-99) Laboratory Tests Test 08/04/20 21:01 08/05/20 07:40 08/05/20 11:44 08/05/20 16:33 Glucose (Fingerstick) 143 mg/dL (70-99) 113 mg/dL (70-99) 124 mg/dL (70-99) 179 mg/dL (70-99) Assessment/Plan Assessment/Plan Assessment: Onychomycosis DM with neuropathy Foot drop, RLE Plan: Debrided all the nails mechanically and electrically with relief in pain noted to the site. Microbleed noted at the right hallux nail, which was cleaned and bacitracin ointment applied to the site. Patient advised to monitor the site for any issues. Discussed about appropriate nail care with patient. Discussed about DM and appropriate foot care. Patient advised to check her feet daily for any issues/ cuts / bruises / wounds. Discussed about AFO for the right foot, with the patient. Dr. Owens has ordered an AFO for the patient. Patient to followup in clinic as an outpatient for future diabetic foot care. If any issues or concerns please contact. Thank you for the consult. Ant Fletcher [phone] ANT HOLMAN DPM Aug 05, 2020 19:45
[2020-08-05 19:52] VITALS: BP 190/79
[2020-08-05 22:56] VITALS: BP 154/76
[2020-08-05] MEDS: PRAMIPEXOLE 1 MG TABLET. PO PRN (23:02)
[2020-08-05] MEDS: LORazepam 0.5 MG TABLET PO PRN (23:28)
[2020-08-06 03:05] VITALS: BP 157/55
[2020-08-06] MEDS: TOBRAMYCIN 0.3% OPHTH SOLUTION 5ML BOTTLE. OU SCH ×4 (06:00→18:08)
[2020-08-06 07:00] VITALS: BP 106/68
[2020-08-06] MEDS: FAMOTIDINE 20 MG TABLET. PO SCH ×2 (08:26→20:55)
[2020-08-06] MEDS: GABAPENTIN 300 MG CAPSULE. PO SCH ×3 (08:26→20:55)
[2020-08-06] MEDS: LACTOBACILLUS RHAMNOSUS GG 1 CAPSULE. PO SCH ×2 (08:26→20:55)
[2020-08-06] MEDS: ACETAMINOPHEN 500 MG TABLET PO PRN ×2 (08:27→20:58)
[2020-08-06] MEDS: ASPIRIN CHEWABLE 81 MG TABLET. PO SCH (08:27)
[2020-08-06] MEDS: predniSONE 20 MG TABLET PO SCH (08:27)
[2020-08-06] MEDS: FUROSEMIDE 20 MG TABLET PO SCH (08:27)
[2020-08-06] MEDS: LOSARTAN POTASSIUM 25 MG TABLET. PO SCH (08:29)
[2020-08-06] MEDS: INSULIN LISPRO 300 UNITS/3 ML VIAL. SQ SCH ×3 (08:38→17:00)
--- NOTE | 2020-08-06 08:53 | PDOC ---
PROGRESS NOTES Date of Service DATE: 08/06/20 TIME: 08:49 Subjective Subjective She feels better with her left knee and with her toe nails trimmed. Objective Objective Vital Signs Date Time Temp Pulse Resp B/P (MAP) Pulse Ox O2 Delivery O2 Flow Rate FiO2 08/06/20 08:29 70 157/55 08/06/20 03:05 98.3 20 96 Nasal Cannula 2.0 98.3 Intake and Output0 08/06/20 06:59 Intake Total 2100 ml Output Total 2300 ml Balance -200 ml Intake Oral 2100 ml Output Urine Total 2300 ml # Bowel Movements 1 Physical Exam Physical Exam She is alert,supine in bed and she continues with right foot drop. She has not received her right AFO and she also need diabetic shoes as she never had them. With her right AFO she should be able to walk for short distances with roller walker. Assessment Assessment Problems Medical Problems: (1) Elevated troponin Status: Acute (2) Pneumonia Status: Acute (3) Respiratory failure with hypoxia Status: Acute Plan Plan of [facility] with home health follow up when medically stable. Comment Review of Relevant I have reviewed the following items tucker (where applicable) has been applied. Labs Laboratory Tests Test 08/04/20 11:15 08/04/20 16:12 08/04/20 21:01 08/05/20 07:40 Glucose (Fingerstick) 127 mg/dL (70-99) 187 mg/dL (70-99) 143 mg/dL (70-99) 113 mg/dL (70-99) Test 08/05/20 11:44 08/05/20 16:33 08/05/20 20:07 08/06/20 08:12 Glucose (Fingerstick) 124 mg/dL (70-99) 179 mg/dL (70-99) 161 mg/dL (70-99) 154 mg/dL (70-99) Laboratory Tests Test 08/05/20 11:44 08/05/20 16:33 08/05/20 20:07 08/06/20 08:12 Glucose (Fingerstick) 124 mg/dL (70-99) 179 mg/dL (70-99) 161 mg/dL (70-99) 154 mg/dL (70-99) Medications Current Medications Dexamethasone Sodium Phosphate (Decadron) 10 mg 1X ONCE IVP Last administered on 07/30/20at 15:42; Start 07/30/20 at 15:15; Stop 07/30/20 at 15:22; Status DC Ceftriaxone Sodium (Rocephin) 1 gm 1X ONCE IVP Last administered on 07/30/20at 15:45; Start 07/30/20 at 15:15; Stop 07/30/20 at 15:22; Status DC Iohexol (Omnipaque 350 Mg/ml) 100 ml 1X ONCE IV Last administered on 07/30/20at 18:40; Start 07/30/20 at 15:30; Stop 07/30/20 at 15:31; Status DC Aspirin (Aspirin Chewable) 81 mg DAILY PO Last administered on 08/06/20at 08:27; Start 07/31/20 at 09:00 Furosemide (Lasix) 20 mg DAILY PO Last administered on 07/31/20at 08:57; Start 07/31/20 at 09:00; Stop 07/31/20 at 14:28; Status DC Diltiazem HCl (Cardizem 24hr Cd) 360 mg DAILY PO Last administered on 08/06/20at 08:29; Start 07/31/20 at 09:00 Gabapentin (Neurontin) 900 mg TID PO Last administered on 08/06/20at 08:26; Start 07/30/20 at 21:00 Levofloxacin/ Dextrose 150 ml @ 100 mls/hr Q24H IV Last administered on 1at 17:25; Start 07/30/20 at 18:00; Stop 08/03/20 at 12:40; Status DC Dexamethasone Sodium Phosphate (Decadron) 6 mg DAILY IVP Last administered on 08/03/20at 08:55; Start 07/31/20 at 09:00; Stop 08/03/20 at 11:43; Status DC Insulin Human Lispro (HumaLOG) 3 units TIDWMEALS SQ Last administered on 08/06/20at 08:38; Start 07/31/20 at 08:00 Dextrose (Dextrose 50%-Water Syringe) 12.5 gm PRN Q15MIN PRN IV SEE COMMENTS; Start 07/30/20 at 17:45 Iohexol (Omnipaque 350 Mg/ml) 100 ml STK-MED ONCE .ROUTE ; Start 07/30/20 at 20:50; Stop 07/30/20 at 20:50; Status DC Pramipexole Dihydrochloride (miraPEX) 1 mg PRN QHS PRN PO RESTLESS LEG Last administered on 07/31/20at 19:57; Start 07/30/20 at 23:00; Stop 08/01/20 at 11:13; Status DC Acetaminophen (Tylenol) 1,000 mg PRN Q6HRS PRN PO MILD PAIN / TEMP > 100.3'F Last administered on 08/06/20at 08:27; Start 07/31/20 at 00:45 Enoxaparin Sodium (Lovenox 40mg Syringe) 40 mg Q24H SQ ; Start 07/31/20 at 07:15; Status UNV Enoxaparin Sodium (Lovenox 60mg Syringe) 60 mg Q12HR SQ Last administered on 08/06/20at 08:30; Start 07/31/20 at 09:00 Furosemide (Lasix) 40 mg 1X ONCE IVP Last administered on 07/31/20at 11:30; Start 07/31/20 at 09:45; Stop 07/31/20 at 09:46; Status DC Furosemide (Lasix) 40 mg DAILY PO Last administered on 08/06/20at 08:27; Start 08/01/20 at 09:00 Lactobacillus Rhamnosus (Culturelle) 1 cap BID PO Last administered on 08/06/20at 08:26; Start 07/31/20 at 21:00 Regadenoson (Lexiscan) 0.4 mg 1X ONCE IV Last administered on 08/01/20at 11:22; Start 08/01/20 at 08:45; Stop 08/01/20 at 08:46; Status DC Pramipexole Dihydrochloride (miraPEX) 1 mg PRN BID PRN PO RESTLESS LEG Last administered on 08/05/20at 23:02; Start 08/01/20 at 11:15 Losartan Potassium (Cozaar) 25 mg DAILY PO Last administered on 08/06/20at 08:29; Start 08/01/20 at 13:30 Meclizine HCl (Antivert) 12.5 mg PRN Q6HRS PRN PO DIZZINESS Last administered on 08/03/20at 10:44; Start 08/01/20 at 14:00 Hydralazine HCl (Apresoline Inj) 10 mg PRN Q4HRS PRN IVP ELEVATED BP, SEE COMMENTS; Start 08/01/20 at 15:00 Calcium Carbonate/ Glycine (Tums) 500 mg PRN Q3HRS PRN PO INDIGESTION Last administered on 08/05/20at 19:44; Start 08/02/20 at 09:00 Famotidine (Pepcid Vial) 20 mg 1X ONCE IVP Last administered on 08/02/20at 09:16; Start 08/02/20 at 09:15; Stop 08/02/20 at 09:17; Status DC Famotidine (Pepcid) 20 mg BID PO Last administered on 08/06/20at 08:26; Start 08/02/20 at 21:00 Prednisone (Prednisone) 20 mg DAILY PO Last administered on 08/06/20at 08:27; Start 08/04/20 at 09:00 Tobramycin Sulfate (Tobrex Ophth Soln) 1 drop Q6HRS OU Last administered on 08/06/20at 06:00; Start 08/03/20 at 18:00 Levofloxacin (Levaquin) 750 mg DAILY16 PO Last administered on 08/05/20at 18:20; Start 08/03/20 at 16:00 Lorazepam (Ativan) 0.25 mg PRN Q8HRS PRN PO ANXIETY / AGITATION Last administered on 08/05/20at 23:28; Start 08/05/20 at 00:00 Methylprednisolone Acetate (DEPO-Medrol 40MG VIAL) 40 mg 1X ONCE IM Last administered on 08/05/20at 11:30; Start 08/05/20 at 11:30; Stop 08/05/20 at 11:31; Status DC Bupivacaine HCl (Sensorcaine-Mpf 0.25%) 10 ml 1X ONCE IJ Last administered on 08/05/20at 11:30; Start 08/05/20 at 11:30; Stop 08/05/20 at 11:31; Status DC Active Scripts Active Levofloxacin 750 Mg Tablet 1 Tab PO DAILY 5 Days Losartan Potassium (Losartan Potassium) 25 Mg Tablet 25 Mg PO DAILY 30 Days Zofran (Ondansetron Hcl) 4 Mg Tablet 1 Tab PO Q8HRS PRN 30 Days Reported [Vitamin D] PO DAILY Vitamin E (Vitamin E Acetate) 400 Unit Capsule 400 Unit PO DAILY Vitamin C (Ascorbic Acid) 500 Mg Capsule.er 1 Cap PO DAILY 30 Days Metformin Hcl Er (Metformin Hcl) 500 Mg Tab.er.24h 500 Mg PO DAILYWBKFT Lasix (Furosemide) 20 Mg Tablet 1 Tab PO DAILY 30 Days Aspirin 81 Mg Tab.chew 1 Tab PO DAILY Cardizem Cd (Diltiazem Hcl) 360 Mg Cap.er.24h 1 Cap PO DAILY Neurontin (Gabapentin) 600 Mg Tablet 900 Mg PO TID Vitals/I & O Vital Sign - Last 24 Hours 08/05/20 08/05/20 08/05/20 08/05/20 11:00 14:58 19:52 20:00 Temp 97.8 98.7 98.5 97.8 98.7 98.5 Pulse 94 91 100 Resp 22 22 20 B/P (MAP) 124/82 (96) 110/64 (79) 190/79 (116) Pulse Ox 95 92 92 O2 Delivery Nasal Cannula Nasal Cannula Nasal Cannula Nasal Cannula O2 Flow Rate 3.0 2.0 2.0 2.0 08/05/20 08/06/20 08/06/20 08/06/20 22:56 03:05 08:29 08:29 Temp 98.4 98.3 98.4 98.3 Pulse 83 70 70 70 Resp 19 20 B/P (MAP) 154/76 (102) 157/55 (89) 157/55 157/55 Pulse Ox 94 96 O2 Delivery Nasal Cannula Nasal Cannula O2 Flow Rate 2.0 2.0 Intake and Output 08/05/20 08/05/20 08/06/20 14:59 22:59 06:59 Intake Total 600 ml 1000 ml 500 ml Output Total 900 ml 1400 ml Balance -300 ml 1000 ml -900 ml Justifications for Admission Other Justification Acute respiratory failure with hypoxia, COVID-19 SHIKHA HOUSTON MD Aug 06, 2020 08:52
--- NOTE | 2020-08-06 09:03 | PDOC ---
[facility] PROGRESS NOTE Date of Service DOS: DATE: 08/06/20 TIME: 08:59 Chief Complaint Chief Complaint Pneumonia History of Present Illness History of Present Illness Ms Davidson is a 75-year-old female with past medical history of CHF with preserved ejection fraction, morbid obesity, depression, hypertension, hyperlipidemia, hypothyroidism, and schizophrenia who presents to the ER with complaints of shortness of breath over the past few days. She reports associated weakness and nonproductive cough. Upon arrival in the ER she was saturating 80% on room air, which did improve with 4 L nasal cannula. She was recently admitted to our service on 07/02/2024 COPD exacerbation and elevated troponins. At that time troponins were elevated but stable, consistent with demand ischemia. Chest x-ray on 07/02 showed bilateral interstitial infiltrates. 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 Repeat chest x-ray 07/30 in the ER showed stable diffuse infiltrates. She underwent CTPA with no pulmonary embolus identified, but 8 mm nodule at the right upper lobe. EKG with lateral t-wave changes, troponin 0.1. Rapid influenza test negative, tested for COVID 19 and admitted for further care. 07/31: Still very short of breath, trying to take off her O2, c/o dry nares. Feels "terrible". Myalgias and GI upset with nausea currently. Repeat troponin minimally decreased 08/01: Feeling improved today. N.p.o. for am stress testing per cardiology. Still requiring 4 L nasal cannulated O2 though she is saturating at 96%. Notes that she is on 2 L nasal cannula at home. She is somewhat anxious to leave the hospital. Still dizzy and with blurred vision, notes her vision blurring for the past year, has been seen by ophthalmology outpatient noted with cataracts. Still little dizzy. Shortness of breath is not improved. Still complaining of her blurred vision but does note this is chronic. She has some indigestion that was improved with Pepcid and Tums. Going for second have her stress test today. 08/04/20 No acute events overnight. Saturating 94% on 3NC. > 50% time spent in patient chart, labs, and image review and discussion with RN and SW 08/05/2020 No acute events overnight. Patient saturating 97% on 3 L neck nasal cannula. Status post knee injection today. Patient's chart, labs, images were reviewed and discussed with RN 08/06/2020 -Patient seen and examined -MARLENI RN -Chart reviewed Vitals/I&O Vitals/I&O: Vital Signs Date Time Temp Pulse Resp B/P (MAP) Pulse Ox O2 Delivery O2 Flow Rate FiO2 08/06/20 08:29 70 157/55 08/06/20 07:00 98.3 20 95 Nasal Cannula 2.0 98.3 I & O 08/05/20 08/05/20 08/06/20 15:00 23:00 07:00 Intake Total 600 ml 1000 ml 500 ml Output Total 900 ml 1400 ml Balance -300 ml 1000 ml -900 ml Physical Exam General: Alert, Oriented X3, Cooperative, No acute distress Heart: Regular rate (SR), Other (distant heart sounds) Lungs: Clear Abdomen: Normal bowel sounds, Soft, No tenderness, No hepatosplenomegaly, Other (obese) Extremities: No clubbing, No cyanosis, No edema, Other (Palpable pedal pulses, Bilateral LE. Mild edema noted BLE.) Skin: No rashes, No breakdown, No significant lesion, Other (Nails are elongated, thickened dystrophic and discolored with subungal debris noted, right foot - digits 1,2,3 and left foot digits 1,2,3,4. No open lesions noted. No erythema noted. DIffuse xerosis noted.) Labs Labs: Laboratory Tests Test 08/05/20 11:44 08/05/20 16:33 08/05/20 20:07 08/06/20 08:12 Glucose (Fingerstick) 124 mg/dL (70-99) 179 mg/dL (70-99) 161 mg/dL (70-99) 154 mg/dL (70-99) Review of Systems Review of Systems: Denies headache, no clubbing Assessment and Plan Assessmemt and Plan Problems Medical Problems: (1) Elevated troponin Status: Acute (2) Pneumonia Status: Acute (3) Respiratory failure with hypoxia Status: Acute 08/06/2020 A: Acute on chronic hypercapnic respiratory failure Acute respiratory failure with hypoxia Acute COPD exacerbation Acute on chronic diastolic heart failure Elevated troponins Hypernatremia COVID-19 infection ruled out Malnutrition Chronic knee pain status post steroid injection 08/05/2020 P: PT/OT Encourage PO IV Antibiotics Titrate O2 DVT prophylaxis Await sub-specialist input Await [employer] for right foot Comment Review of Relevant I have reviewed the following items tucker (where applicable) has been applied. Medications: Current Medications Medications (Trade) Dose Ordered Sig/Mehul Route PRN Reason Start Time Stop Time Status Last Admin Dose Admin Methylprednisolone Acetate (DEPO-Medrol 40MG VIAL) 40 mg 1X ONCE IM 08/05/20 11:30 08/05/20 11:31 DC 08/05/20 11:30 Bupivacaine HCl (Sensorcaine-Mpf 0.25%) 10 ml 1X ONCE IJ 08/05/20 11:30 08/05/20 11:31 DC 08/05/20 11:30 Justifications for Admission Other Justification Acute respiratory failure with hypoxia, COVID-19 KEAGAN ALLEN III DO Aug 06, 2020 09:02
--- NOTE | 2020-08-06 10:01 | SNU/HH DC ---
DISCHARGE WITH HOME HEALTH DISCHARGE INFORMATION: Discharge Date: Aug 01, 2020 Final Diagnosis: Problems Medical Problems: (1) Elevated troponin Status: Acute (2) Pneumonia Status: Acute (3) Respiratory failure with hypoxia Status: Acute Condition on Discharge: Stable CODE STATUS: Code Status: Full HOME HEALTH: Face to Face: I certify this patient is under my care and that I, or a nurse practitioner or physician's parking assistant working with me, had a face to face encounter that meets the physician face to face encounter requirements with this patient on []. RN For Eval/Treatment: Yes Physical Therapy For: Evalulation/Treatment Occupational Therapy For: Evaluation/Treatment Pt Meets Homebound Status: Limited distance walking POST DISCHARGE ORDERS: Activity Instructions for Disc: Activity as tolerated Weight Bearing Status after Di: As tolerated DIET AFTER DISCHARGE: Cardiac CHECKS AFTER DISCHARGE: Checks after discharge: Check blood press - daily, Check blood sugar, ac/hs, Weigh Yourself Daily FOLLOW-UP: DC TO SNF LABS: CBC, CMP TREATMENT/EQUIPMENT ORDERS: Discharge Respiratory Equipmen: Oxygen (2L at home) CERTIFICATION STATEMENT: Certification Statement: Certification Statement: Based on the above finding, I certify that this patient is confined to the home and needs intermittent long-term care, physical therapy and/or speech therapy, or continues to need occupational therapy.~ This patient is under my care, and I have initiated the establishment of the plan of care.~ This patient will be followed by myself or a community physician who will periodically review the plan of care. Home Meds Active Scripts Famotidine (FAMOTIDINE) 20 Mg Tablet, 20 MG PO BID for stomach acid for 30 Days, #60 TAB Prov:CASTLE,NIAL K III DO 08/06/20 Tobramycin Ophth (TOBRAMYCIN OPHTH DROPS) 5 Ml Drops, 1 DROP OU Q6HRS for eye irritation for 30 Days, #1 DROP Prov:CASTLE,NIAL K III DO 08/06/20 Furosemide (FUROSEMIDE) 20 Mg Tablet, 40 MG PO DAILY for diuretic for 30 Days, #60 TAB Prov:CASTLE,NIAL K III DO 08/06/20 Levofloxacin (LEVOFLOXACIN) 750 Mg Tablet, 750 MG PO DAILY16 for infection for 3 Days, #3 TAB Prov:CASTLE,NIAL K III DO 08/06/20 Losartan Potassium (LOSARTAN POTASSIUM ) 25 Mg Tablet, 25 MG PO DAILY for CHF for 30 Days, #30 TAB 2 Refills Prov:AIDAN HOFFMAN MD 08/01/20 Ondansetron Hcl (ZOFRAN) 4 Mg Tablet, 1 TAB PO Q8HRS PRN for NAUSEA for 30 Days, #90 TAB Prov:JJ BULLOCK MD 07/10/20 Reported Medications [Vitamin D] No Conflict Check, PO DAILY 07/03/20 Vitamin E Acetate (VITAMIN E) 400 Unit Capsule, 400 UNIT PO DAILY for supplement, CAP 07/03/20 Ascorbic Acid (VITAMIN C) 500 Mg Capsule.er, 1 CAP PO DAILY for supplement for 30 Days, #30 CAP 0 Refills 07/03/20 Metformin Hcl (METFORMIN HCL ER) 500 Mg Tab.er.24h, 500 MG PO DAILYWBKFT for ANTI-DIABETIC, TAB 0 Refills 07/03/20 Furosemide (LASIX) 20 Mg Tablet, 1 TAB PO DAILY for HTN for 30 Days, #30 TAB 0 Refills 07/03/20 Aspirin (ASPIRIN) 81 Mg Tab.chew, 1 TAB PO DAILY for heart, #30 TAB 3 Refills 07/03/20 Diltiazem Hcl (CARDIZEM CD) 360 Mg Cap.er.24h, 1 CAP PO DAILY for HTN, #30 CAP 5 Refills 07/03/20 Gabapentin (NEURONTIN) 600 Mg Tablet, 900 MG PO TID for NEUROGENIC PAIN, TAB 07/02/20 Discontinued Reported Medications Ibuprofen (MOTRIN IB) 200 Mg Tablet, 600 MG PO Q6HRS PRN for SEE ADMIN INSTRUCTIONS, TAB 07/02/20 KEAGAN HENDERSON III DO Aug 06, 2020 10:01
[2020-08-06] MEDS ORDERED: TOBR5DRO6 OU (10:13)
[2020-08-06] MEDS ORDERED: FURO20TA3 PO (10:13)
[2020-08-06] MEDS ORDERED: FAMO20TA5 PO (10:13)
[2020-08-06] MEDS ORDERED: LEVO750T5 PO (10:13)
--- NOTE | 2020-08-06 10:35 | PDOC1 ---
History and Physical Date of Admission Date of Admission DATE: 08/06/20 TIME: 10:34 Identification/Chief Complaint Problems: (1) Pneumonia (2) Respiratory failure with hypoxia (3) Elevated troponin Past Medical History Cardiovascular: HTN Pulmonary: COPD CENTRAL NERVOUS SYSTEM: Periperal neuropathy, Other GI: No pertinent hx Heme/Onc: No pertinent hx Hepatobiliary: No pertinent hx Psych: No pertinent hx Musculoskeletal: low back pain, Osteoarthritis, Other Rheumatologic: No pertinent hx Infectious disease: No pertinent hx Renal/: No pertinent hx Endocrine: Diabetes Past Surgical History Past Surgical History: Total hip replacement Family History Family History: Heart Disease Social History Smoke: Quit ALCOHOL: none Drugs: None Current Problem List Problem List Problems Medical Problems: (1) Elevated troponin Status: Acute (2) Pneumonia Status: Acute (3) Respiratory failure with hypoxia Status: Acute Current Medications Current Medications Current Medications Dexamethasone Sodium Phosphate (Decadron) 10 mg 1X ONCE IVP Last administered on 07/30/20at 15:42; Start 07/30/20 at 15:15; Stop 07/30/20 at 15:22; Status DC Ceftriaxone Sodium (Rocephin) 1 gm 1X ONCE IVP Last administered on 07/30/20at 15:45; Start 07/30/20 at 15:15; Stop 07/30/20 at 15:22; Status DC Iohexol (Omnipaque 350 Mg/ml) 100 ml 1X ONCE IV Last administered on 07/30/20at 18:40; Start 07/30/20 at 15:30; Stop 07/30/20 at 15:31; Status DC Aspirin (Aspirin Chewable) 81 mg DAILY PO Last administered on 08/06/20at 08:27; Start 07/31/20 at 09:00 Furosemide (Lasix) 20 mg DAILY PO Last administered on 07/31/20at 08:57; Start 07/31/20 at 09:00; Stop 07/31/20 at 14:28; Status DC Diltiazem HCl (Cardizem 24hr Cd) 360 mg DAILY PO Last administered on 08/06/20at 08:29; Start 07/31/20 at 09:00 Gabapentin (Neurontin) 900 mg TID PO Last administered on 08/06/20at 08:26; Start 07/30/20 at 21:00 Levofloxacin/ Dextrose 150 ml @ 100 mls/hr Q24H IV Last administered on 08/02/20at 17:25; Start 07/30/20 at 18:00; Stop 08/03/20 at 12:40; Status DC Dexamethasone Sodium Phosphate (Decadron) 6 mg DAILY IVP Last administered on 08/03/20at 08:55; Start 07/31/20 at 09:00; Stop 08/03/20 at 11:43; Status DC Insulin Human Lispro (HumaLOG) 3 units TIDWMEALS SQ Last administered on 08/06/20at 08:38; Start 07/31/20 at 08:00 Dextrose (Dextrose 50%-Water Syringe) 12.5 gm PRN Q15MIN PRN IV SEE COMMENTS; Start 07/30/20 at 17:45 Iohexol (Omnipaque 350 Mg/ml) 100 ml STK-MED ONCE .ROUTE ; Start 07/30/20 at 20:50; Stop 07/30/20 at 20:50; Status DC Pramipexole Dihydrochloride (miraPEX) 1 mg PRN QHS PRN PO RESTLESS LEG Last administered on 07/31/20at 19:57; Start 07/30/20 at 23:00; Stop 08/01/20 at 11:13; Status DC Acetaminophen (Tylenol) 1,000 mg PRN Q6HRS PRN PO MILD PAIN / TEMP > 100.3'F Last administered on 08/06/20at 08:27; Start 07/31/20 at 00:45 Enoxaparin Sodium (Lovenox 40mg Syringe) 40 mg Q24H SQ ; Start 07/31/20 at 07:15; Status UNV Enoxaparin Sodium (Lovenox 60mg Syringe) 60 mg Q12HR SQ Last administered on 08/06/20at 08:30; Start 07/31/20 at 09:00 Furosemide (Lasix) 40 mg 1X ONCE IVP Last administered on 07/31/20at 11:30; Start 07/31/20 at 09:45; Stop 07/31/20 at 09:46; Status DC Furosemide (Lasix) 40 mg DAILY PO Last administered on 08/06/20at 08:27; Start 08/01/20 at 09:00 Lactobacillus Rhamnosus (Culturelle) 1 cap BID PO Last administered on 08/06/20at 08:26; Start 07/31/20 at 21:00 Regadenoson (Lexiscan) 0.4 mg 1X ONCE IV Last administered on 08/01/20at 11:22; Start 08/01/20 at 08:45; Stop 08/01/20 at 08:46; Status DC Pramipexole Dihydrochloride (miraPEX) 1 mg PRN BID PRN PO RESTLESS LEG Last administered on 08/05/20at 23:02; Start 08/01/20 at 11:15 Losartan Potassium (Cozaar) 25 mg DAILY PO Last administered on 08/06/20at 08:29; Start 08/01/20 at 13:30 Meclizine HCl (Antivert) 12.5 mg PRN Q6HRS PRN PO DIZZINESS Last administered on 08/03/20at 10:44; Start 08/01/20 at 14:00 Hydralazine HCl (Apresoline Inj) 10 mg PRN Q4HRS PRN IVP ELEVATED BP, SEE COMMENTS; Start 08/01/20 at 15:00 Calcium Carbonate/ Glycine (Tums) 500 mg PRN Q3HRS PRN PO INDIGESTION Last administered on 08/05/20at 19:44; Start 08/02/20 at 09:00 Famotidine (Pepcid Vial) 20 mg 1X ONCE IVP Last administered on 08/02/20at 09:16; Start 08/02/20 at 09:15; Stop 08/02/20 at 09:17; Status DC Famotidine (Pepcid) 20 mg BID PO Last administered on 08/06/20at 08:26; Start 08/02/20 at 21:00 Prednisone (Prednisone) 20 mg DAILY PO Last administered on 08/06/20at 08:27; Start 08/04/20 at 09:00 Tobramycin Sulfate (Tobrex Ophth Soln) 1 drop Q6HRS OU Last administered on 08/06/20at 06:00; Start 08/03/20 at 18:00 Levofloxacin (Levaquin) 750 mg DAILY16 PO Last administered on 08/05/20at 18:20; Start 08/03/20 at 16:00 Lorazepam (Ativan) 0.25 mg PRN Q8HRS PRN PO ANXIETY / AGITATION Last administered on 08/05/20at 23:28; Start 08/05/20 at 00:00 Methylprednisolone Acetate (DEPO-Medrol 40MG VIAL) 40 mg 1X ONCE IM Last administered on 08/05/20at 11:30; Start 08/05/20 at 11:30; Stop 08/05/20 at 11:31; Status DC Bupivacaine HCl (Sensorcaine-Mpf 0.25%) 10 ml 1X ONCE IJ Last administered on 08/05/20at 11:30; Start 08/05/20 at 11:30; Stop 08/05/20 at 11:31; Status DC Active Scripts Active Famotidine 20 Mg Tablet 20 Mg PO BID 30 Days Tobramycin Ophth Drops (Tobramycin Sulfate) 5 Ml Drops 1 Drop OU Q6HRS 30 Days Furosemide 20 Mg Tablet 40 Mg PO DAILY 30 Days Levofloxacin 750 Mg Tablet 750 Mg PO DAILY16 3 Days Losartan Potassium (Losartan Potassium) 25 Mg Tablet 25 Mg PO DAILY 30 Days Zofran (Ondansetron Hcl) 4 Mg Tablet 1 Tab PO Q8HRS PRN 30 Days Reported [Vitamin D] PO DAILY Vitamin E (Vitamin E Acetate) 400 Unit Capsule 400 Unit PO DAILY Vitamin C (Ascorbic Acid) 500 Mg Capsule.er 1 Cap PO DAILY 30 Days Metformin Hcl Er (Metformin Hcl) 500 Mg Tab.er.24h 500 Mg PO DAILYWBKFT Lasix (Furosemide) 20 Mg Tablet 1 Tab PO DAILY 30 Days Aspirin 81 Mg Tab.chew 1 Tab PO DAILY Cardizem Cd (Diltiazem Hcl) 360 Mg Cap.er.24h 1 Cap PO DAILY Neurontin (Gabapentin) 600 Mg Tablet 900 Mg PO TID Allergies Allergies: Coded Allergies: atorvastatin (Verified Adverse Reaction, Mild, Nausea and Vomiting, 08/02/20) Vitals Vitals Vital Signs Date Time Temp Pulse Resp B/P (MAP) Pulse Ox O2 Delivery O2 Flow Rate FiO2 08/06/20 08:29 70 157/55 08/06/20 08:00 Nasal Cannula 3.0 08/06/20 07:00 98.3 20 95 98.3 Labs Labs Laboratory Tests Test 08/04/20 11:15 08/04/20 16:12 08/04/20 21:01 08/05/20 07:40 Glucose (Fingerstick) 127 mg/dL (70-99) 187 mg/dL (70-99) 143 mg/dL (70-99) 113 mg/dL (70-99) Test 08/05/20 11:44 08/05/20 16:33 08/05/20 20:07 08/06/20 08:12 Glucose (Fingerstick) 124 mg/dL (70-99) 179 mg/dL (70-99) 161 mg/dL (70-99) 154 mg/dL (70-99) Laboratory Tests Test 08/05/20 11:44 08/05/20 16:33 08/05/20 20:07 08/06/20 08:12 Glucose (Fingerstick) 124 mg/dL (70-99) 179 mg/dL (70-99) 161 mg/dL (70-99) 154 mg/dL (70-99) VTE Prophylaxis Ordered VTE Prophylaxis Devices: No VTE Pharmacological Prophylaxi: Yes KEAGAN HENDERSON III DO Aug 06, 2020 10:35
[2020-08-06 11:00] VITALS: BP 133/74
--- NOTE | 2020-08-06 12:32 | NUR ---
SS following up with discharge planning. SS reviewed pt chart and discussed with pt RN. Pt is currently requiring oxygen at three liters nasal canula. Pt has home oxygen. Discharge orders received for home with home healthcare. Pt accepted on services with [facility], ; fax [phone]. Discharge orders phoned and faxed to [facility]. Pt requesting transportation to home. Pt will discharge to home today via [facility] transportation between 1500 and 1530. Pt, pt's family, and pt's RN notified.
--- NOTE | 2020-08-06 13:30 | NUR ---
Pt has complaints of dizziness and states she isn't sure how she will be able to go home like this. Pt requesting to speak with case management and she now wishes to go to a rehab center. Anusha in to speak with patient. [facility] Social work sending referral. Will follow up with social work.
--- NOTE | 2020-08-06 14:14 | NUR ---
SS following up with discharge planning. Pt now requesting senior care unit at [facility], ; fax [phone]. PT/OT recommended senior care unit. SS phoned and faxed referral to [facility]. SS currently awaiting acceptance decision. Updated COVID19 test requested for [facility]. SS discussed with case management associate and Dr. Adame. SS will continue to follow for discharge planning.
[2020-08-06 14:38] VITALS: BP 111/52
--- NOTE | 2020-08-06 15:03 | NUR ---
SS following up with discharge planning. Pt accepted at [facility] pending insurance authorization and new COVID19 test result. Pt being swabbed for COVID19 today for placement. SS will continue to follow for discharge planning.
[2020-08-06] MEDS: CALCIUM CARBONATE 500 MG TAB.CHEW PO PRN (16:16)
[2020-08-06 19:00] VITALS: BP 135/72
--- NOTE | 2020-08-06 19:00 | NUR ---
transferred from 210 to room 434.
[2020-08-06] MEDS: LORazepam 0.5 MG TABLET PO PRN (20:55)
[2020-08-06] MEDS: MECLIZINE HCL 12.5 MG TABLET. PO PRN (20:55)
[2020-08-06] MEDS: PRAMIPEXOLE 1 MG TABLET. PO PRN (21:54)
[2020-08-06 23:00] VITALS: BP 156/64
[2020-08-07 02:47] VITALS: BP 156/78
[2020-08-07] MEDS: ACETAMINOPHEN 500 MG TABLET PO PRN (04:37)
[2020-08-07] MEDS: TOBRAMYCIN 0.3% OPHTH SOLUTION 5ML BOTTLE. OU SCH ×3 (05:26→13:20)
[2020-08-07 07:00] VITALS: BP 114/75
[2020-08-07] MEDS: INSULIN LISPRO 300 UNITS/3 ML VIAL. SQ SCH ×2 (08:00→12:00)
[2020-08-07] MEDS: FAMOTIDINE 20 MG TABLET. PO SCH (08:42)
[2020-08-07] MEDS: FUROSEMIDE 20 MG TABLET PO SCH (08:42)
[2020-08-07] MEDS: GABAPENTIN 300 MG CAPSULE. PO SCH ×2 (08:42→13:23)
[2020-08-07] MEDS: ASPIRIN CHEWABLE 81 MG TABLET. PO SCH (08:42)
[2020-08-07] MEDS: predniSONE 20 MG TABLET PO SCH (08:42)
[2020-08-07] MEDS: LACTOBACILLUS RHAMNOSUS GG 1 CAPSULE. PO SCH (08:43)
[2020-08-07] MEDS: LOSARTAN POTASSIUM 25 MG TABLET. PO SCH (08:43)
[2020-08-07] MEDS ORDERED: EZETIMIBE 10 MG TABLET. PO SCH (09:00)
[2020-08-07 09:09] LABS: ALBUMIN/GLOBULIN RATIO 0.7 (1.0-1.7); CALCIUM 9.8 mg/dL (8.5-10.1); CREATININE 0.7 mg/dL (0.6-1.0); GFR 98.2; TOTAL BILIRUBIN 0.3 mg/dL (0.2-1.0); TOTAL PROTEIN 7.1 g/dL (6.4-8.2)
[2020-08-07 09:11] LABS: BASO # 0.1 x10^3/uL (0.0-0.2); BASO % 1 % (0-3); EOS % 1 % (0-3); HEMATOCRIT 42.2 % (36.0-47.0); LYMPH # 1.5 x10^3/uL (1.0-4.8); LYMPH % 19 % (24-48); MEAN CORPUSCULAR HEMOGLOBIN 26 pg (25-35); MEAN CORPUSCULAR HGB CONC 31 g/dL (31-37); MEAN CORPUSCULAR VOLUME 83 fL (79-100); MONO # 0.8 x10^3/uL (0.0-1.1); MONO % 10 % (0-9); NEUT # 5.3 x10^3/uL (1.8-7.7); NEUT % 69 % (31-73); PLATELET COUNT 296 x10^3/uL (140-400); RED BLOOD COUNT 5.06 x10^6/uL (3.50-5.40); RED CELL DISTRIBUTION WIDTH 16.9 % (11.5-14.5); WHITE BLOOD COUNT 7.7 x10^3/uL (4.0-11.0)
--- NOTE | 2020-08-07 09:39 | NUR ---
AI following. Discussed with RN, pt accepted at [facility] pending insurance auth. KOURTNEYID result back negative. Awaiting insurance auth. Pt ready to discharge. AI will continue to follow. Addendum: 08/07/20 at 1345 by ALANA CLOUD [employer] is doing auto auth currently. [facility] will collect pt between [phone]. RN notified.
--- NOTE | 2020-08-07 09:59 | PDOC ---
PROGRESS NOTES Date of Service DATE: 08/07/20 TIME: 09:55 Subjective Subjective She admits SOB with exertion. Objective Objective Vital Signs Date Time Temp Pulse Resp B/P (MAP) Pulse Ox O2 Delivery O2 Flow Rate FiO2 08/07/20 08:44 70 114/75 08/07/20 07:00 97.5 17 93 Nasal Cannula 3.0 97.5 Intake and Output 08/07/20 07:00 Intake Total 1350 ml Output Total 1300 ml Balance 50 ml Intake Oral 1350 ml Output Urine Total 1300 ml # Voids 3 # Bowel Movements 1 Physical Exam Physical Exam She transfers with minimal assistance as for nursing staff. She is alert,supine in bed and agreeable for going to SNF. She needs diabetic shoes and right ankle foot orthosis to help with her foot drop. Assessment Assessment Problems Medical Problems: (1) Elevated troponin Status: Acute (2) Pneumonia Status: Acute (3) Respiratory failure with hypoxia Status: Acute Plan Plan of Care Agree with plans fo SNF transfer when arrangements are completed. Comment Review of Relevant I have reviewed the following items tucker (where applicable) has been applied. Labs Laboratory Tests Test 08/05/20 11:44 08/05/20 16:33 08/05/20 20:07 08/06/20 08:12 Glucose (Fingerstick) 124 mg/dL (70-99) 179 mg/dL (70-99) 161 mg/dL (70-99) 154 mg/dL (70-99) Test 08/06/20 12:20 08/06/20 16:30 08/06/20 17:03 08/06/20 20:48 Glucose (Fingerstick) 123 mg/dL (70-99) 127 mg/dL (70-99) 161 mg/dL (70-99) Coronavirus (PCR) Not detected (Not Detected) Test 08/07/20 07:22 08/07/20 08:08 Glucose (Fingerstick) 101 mg/dL (70-99) White Blood Count 7.7 x10^3/uL (4.0-11.0) Red Blood Count 5.06 x10^6/uL (3.50-5.40) Hemoglobin 13.0 g/dL (12.0-15.5) Hematocrit 42.2 % (36.0-47.0) Mean Corpuscular Volume 83 fL (79-100) Mean Corpuscular Hemoglobin 26 pg (25-35) Mean Corpuscular Hemoglobin Concent 31 g/dL (31-37) Red Cell Distribution Width 16.9 % (11.5-14.5) Platelet Count 296 x10^3/uL (140-400) Neutrophils (%) (Auto) 69 % (31-73) Lymphocytes (%) (Auto) 19 % (24-48) Monocytes (%) (Auto) 10 % (0-9) Eosinophils (%) (Auto) 1 % (0-3) Basophils (%) (Auto) 1 % (0-3) Neutrophils # (Auto) 5.3 x10^3/uL (1.8-7.7) Lymphocytes # (Auto) 1.5 x10^3/uL (1.0-4.8) Monocytes # (Auto) 0.8 x10^3/uL (0.0-1.1) Eosinophils # (Auto) 0.0 x10^3/uL (0.0-0.7) Basophils # (Auto) 0.1 x10^3/uL (0.0-0.2) Sodium Level 143 mmol/L (136-145) Potassium Level 4.0 mmol/L (3.5-5.1) Chloride Level 101 mmol/L (98-107) Carbon Dioxide Level 38 mmol/L (21-32) Anion Gap 4 (6-14) Blood Urea Nitrogen 23 mg/dL (7-20) Creatinine 0.7 mg/dL (0.6-1.0) Estimated GFR (Cockcroft-Gault) 98.2 BUN/Creatinine Ratio 33 (6-20) Glucose Level 105 mg/dL (70-99) Calcium Level 9.8 mg/dL (8.5-10.1) Total Bilirubin 0.3 mg/dL (0.2-1.0) Aspartate Amino Transf (AST/SGOT) 24 U/L (15-37) Alanine Aminotransferase (ALT/SGPT) 46 U/L (14-59) Alkaline Phosphatase 98 U/L (46-116) Total Protein 7.1 g/dL (6.4-8.2) Albumin 3.0 g/dL (3.4-5.0) Albumin/Globulin Ratio 0.7 (1.0-1.7) Laboratory Tests Test 08/06/20 12:20 08/06/20 16:30 08/06/20 17:03 08/06/20 20:48 Glucose (Fingerstick) 123 mg/dL (70-99) 127 mg/dL (70-99) 161 mg/dL (70-99) Coronavirus (PCR) Not detected (Not Detected) Test 08/07/20 07:22 08/07/20 08:08 Glucose (Fingerstick) 101 mg/dL (70-99) White Blood Count 7.7 x10^3/uL (4.0-11.0) Red Blood Count 5.06 x10^6/uL (3.50-5.40) Hemoglobin 13.0 g/dL (12.0-15.5) Hematocrit 42.2 % (36.0-47.0) Mean Corpuscular Volume 83 fL (79-100) Mean Corpuscular Hemoglobin 26 pg (25-35) Mean Corpuscular Hemoglobin Concent 31 g/dL (31-37) Red Cell Distribution Width 16.9 % (11.5-14.5) Platelet Count 296 x10^3/uL (140-400) Neutrophils (%) (Auto) 69 % (31-73) Lymphocytes (%) (Auto) 19 % (24-48) Monocytes (%) (Auto) 10 % (0-9) Eosinophils (%) (Auto) 1 % (0-3) Basophils (%) (Auto) 1 % (0-3) Neutrophils # (Auto) 5.3 x10^3/uL (1.8-7.7) Lymphocytes # (Auto) 1.5 x10^3/uL (1.0-4.8) Monocytes # (Auto) 0.8 x10^3/uL (0.0-1.1) Eosinophils # (Auto) 0.0 x10^3/uL (0.0-0.7) Basophils # (Auto) 0.1 x10^3/uL (0.0-0.2) Sodium Level 143 mmol/L (136-145) Potassium Level 4.0 mmol/L (3.5-5.1) Chloride Level 101 mmol/L (98-107) Carbon Dioxide Level 38 mmol/L (21-32) Anion Gap 4 (6-14) Blood Urea Nitrogen 23 mg/dL (7-20) Creatinine 0.7 mg/dL (0.6-1.0) Estimated GFR (Cockcroft-Gault) 98.2 BUN/Creatinine Ratio 33 (6-20) Glucose Level 105 mg/dL (70-99) Calcium Level 9.8 mg/dL (8.5-10.1) Total Bilirubin 0.3 mg/dL (0.2-1.0) Aspartate Amino Transf (AST/SGOT) 24 U/L (15-37) Alanine Aminotransferase (ALT/SGPT) 46 U/L (14-59) Alkaline Phosphatase 98 U/L (46-116) Total Protein 7.1 g/dL (6.4-8.2) Albumin 3.0 g/dL (3.4-5.0) Albumin/Globulin Ratio 0.7 (1.0-1.7) Medications Current Medications Dexamethasone Sodium Phosphate (Decadron) 10 mg 1X ONCE IVP Last administered on 07/30/20at 15:42; Start 07/30/20 at 15:15; Stop 07/30/20 at 15:22; Status DC Ceftriaxone Sodium (Rocephin) 1 gm 1X ONCE IVP Last administered on 07/30/20at 15:45; Start 07/30/20 at 15:15; Stop 07/30/20 at 15:22; Status DC Iohexol (Omnipaque 350 Mg/ml) 100 ml 1X ONCE IV Last administered on 07/30/20at 18:40; Start 07/30/20 at 15:30; Stop 07/30/20 at 15:31; Status DC Aspirin (Aspirin Chewable) 81 mg DAILY PO Last administered on 08/07/20at 08:42; Start 07/31/20 at 09:00 Furosemide (Lasix) 20 mg DAILY PO Last administered on 07/31/20at 08:57; Start 07/31/20 at 09:00; Stop 07/31/20 at 14:28; Status DC Diltiazem HCl (Cardizem 24hr Cd) 360 mg DAILY PO Last administered on 08/07/20at 08:44; Start 07/31/20 at 09:00 Gabapentin (Neurontin) 900 mg TID PO Last administered on 08/07/20at 08:42; Start 07/30/20 at 21:00 Levofloxacin/ Dextrose 150 ml @ 100 mls/hr Q24H IV Last administered on 08/02/20at 17:25; Start 07/30/20 at 18:00; Stop 08/03/20 at 12:40; Status DC Dexamethasone Sodium Phosphate (Decadron) 6 mg DAILY IVP Last administered on 08/03/20at 08:55; Start 07/31/20 at 09:00; Stop 08/03/20 at 11:43; Status DC Insulin Human Lispro (HumaLOG) 3 units TIDWMEALS SQ Last administered on 08/06/20at 08:38; Start 07/31/20 at 08:00 Dextrose (Dextrose 50%-Water Syringe) 12.5 gm PRN Q15MIN PRN IV SEE COMMENTS; Start 07/30/20 at 17:45 Iohexol (Omnipaque 350 Mg/ml) 100 ml STK-MED ONCE .ROUTE ; Start 07/30/20 at 20:50; Stop 07/30/20 at 20:50; Status DC Pramipexole Dihydrochloride (miraPEX) 1 mg PRN QHS PRN PO RESTLESS LEG Last administered on 07/31/20at 19:57; Start 07/30/20 at 23:00; Stop 08/01/20 at 11:13; Status DC Acetaminophen (Tylenol) 1,000 mg PRN Q6HRS PRN PO MILD PAIN / TEMP > 100.3'F Last administered on 08/07/20at 04:37; Start 07/31/20 at 00:45 Enoxaparin Sodium (Lovenox 40mg Syringe) 40 mg Q24H SQ ; Start 07/31/20 at 07:15; Status UNV Enoxaparin Sodium (Lovenox 60mg Syringe) 60 mg Q12HR SQ Last administered on 08/07/20at 08:45; Start 07/31/20 at 09:00 Furosemide (Lasix) 40 mg 1X ONCE IVP Last administered on 07/31/20at 11:30; Start 07/31/20 at 09:45; Stop 07/31/20 at 09:46; Status DC Furosemide (Lasix) 40 mg DAILY PO Last administered on 08/07/20at 08:42; Start 08/01/20 at 09:00 Lactobacillus Rhamnosus (Culturelle) 1 cap BID PO Last administered on 08/06/20at 20:55; Start 07/31/20 at 21:00 Regadenoson (Lexiscan) 0.4 mg 1X ONCE IV Last administered on 08/01/20at 11:22; Start 08/01/20 at 08:45; Stop 08/01/20 at 08:46; Status DC Pramipexole Dihydrochloride (miraPEX) 1 mg PRN BID PRN PO RESTLESS LEG Last administered on 08/06/20at 21:54; Start 08/01/20 at 11:15 Losartan Potassium (Cozaar) 25 mg DAILY PO Last administered on 08/07/20 08:43; Start 08/01/20 at 13:30 Meclizine HCl (Antivert) 12.5 mg PRN Q6HRS PRN PO DIZZINESS Last administered on 08/06/20at 20:55; Start 08/01/20 at 14:00 Hydralazine HCl (Apresoline Inj) 10 mg PRN Q4HRS PRN IVP ELEVATED BP, SEE COMMENTS; Start 08/01/20 at 15:00 Calcium Carbonate/ Glycine (Tums) 500 mg PRN Q3HRS PRN PO INDIGESTION Last administered on 08/06/20at 16:16; Start 08/02/20 at 09:00 Famotidine (Pepcid Vial) 20 mg 1X ONCE IVP Last administered on 08/02/20at 09:16; Start 08/02/20 at 09:15; Stop 08/02/20 at 09:17; Status DC Famotidine (Pepcid) 20 mg BID PO Last administered on 08/07/20at 08:42; Start 08/02/20 at 21:00 Prednisone (Prednisone) 20 mg DAILY PO Last administered on 08/07/20 08:42; Start 08/04/20 at 09:00 Tobramycin Sulfate (Tobrex Ophth Soln) 1 drop Q6HRS OU Last administered on 08/07/20 05:26; Start 08/03/20 at 18:00 Levofloxacin (Levaquin) 750 mg DAILY16 PO Last administered on 08/06/20at 16:16; Start 08/03/20 at 16:00 Lorazepam (Ativan) 0.25 mg PRN Q8HRS PRN PO ANXIETY / AGITATION Last admini stered on 08/06/20at 20:55; Start 08/05/20 at 00:00 Methylprednisolone Acetate (DEPO-Medrol 40MG VIAL) 40 mg 1X ONCE IM Last ad ministered on 08/05/20at 11:30; Start 08/05/20 at 11:30; Stop 08/05/20 at 11:31; Status DC Bupivacaine HCl (Sensorcaine-Mpf 0.25%) 10 ml 1X ONCE IJ Last administered on 08/05/20at 11:30; Start 08/05/20 at 11:30; Stop 08/05/20 at 11:31; Status DC EZETIMIBE (Zetia) 10 mg DAILY PO Last administered on 08/07/20at 08:43; Start 08/07/20 at 09:00 Active Scripts Active Famotidine 20 Mg Tablet 20 Mg PO BID 30 Days Tobramycin Ophth Drops (Tobramycin Sulfate) 5 Ml Drops 1 Drop OU Q6HRS 30 Days Furosemide 20 Mg Tablet 40 Mg PO DAILY 30 Days Levofloxacin 750 Mg Tablet 750 Mg PO DAILY16 3 Days Losartan Potassium (Losartan Potassium) 25 Mg Tablet 25 Mg PO DAILY 30 Days Zofran (Ondansetron Hcl) 4 Mg Tablet 1 Tab PO Q8HRS PRN 30 Days Reported [Vitamin D] PO DAILY Vitamin E (Vitamin E Acetate) 400 Unit Capsule 400 Unit PO DAILY Vitamin C (Ascorbic Acid) 500 Mg Capsule.er 1 Cap PO DAILY 30 Days Metformin Hcl Er (Metformin Hcl) 500 Mg Tab.er.24h 500 Mg PO DAILYWBKFT Lasix (Furosemide) 20 Mg Tablet 1 Tab PO DAILY 30 Days Aspirin 81 Mg Tab.chew 1 Tab PO DAILY Cardizem Cd (Diltiazem Hcl) 360 Mg Cap.er.24h 1 Cap PO DAILY Neurontin (Gabapentin) 600 Mg Tablet 900 Mg PO TID Vitals/I & O Vital Sign - Last 24 Hours 08/06/20 08/06/20 08/06/20 08/06/20 11:00 14:38 19:00 20:04 Temp 98.5 98.8 98.5 98.5 98.8 98.5 Pulse 88 96 74 Resp 20 18 18 B/P (MAP) 133/74 (93) 111/52 (71) 135/72 (93) Pulse Ox 94 91 93 O2 Delivery Nasal Cannula Nasal Cannula Nasal Cannula Nasal Cannula O2 Flow Rate 2.0 2.0 2.0 3.0 08/06/20 08/07/20 08/07/20 08/07/20 23:00 02:47 07:00 08:43 Temp 98.8 98.6 97.5 98.8 98.6 97.5 Pulse 75 81 70 70 Resp 18 18 17 B/P (MAP) 156/64 (94) 156/78 (104) 114/75 (88) 114/75 Pulse Ox 94 91 93 O2 Delivery Nasal Cannula Nasal Cannula Nasal Cannula O2 Flow Rate 2.0 2.0 3.0 08/07/20 08:44 Pulse 70 B/P (MAP) 114/75 Intake and Output 0 08/06/20 08/06/20 08/07/20 15:00 23:00 07:00 Intake Total 1000 ml 350 ml Output Total 1300 ml Balance 1000 ml -950 ml Justifications for Admission Other Justification Acute respiratory failure with hypoxia, COVID-19 SHIKHA HOUSTON MD Aug 07, 2020 09:59
[2020-08-07 11:00] VITALS: BP 111/78
--- NOTE | 2020-08-07 11:17 | SNU/HH DC ---
DISCHARGE ORDERS DISCHARGE INFORMATION: DISCHARGE DATE: Aug 01, 2020 FINAL DIAGNOSIS Problems Medical Problems: (1) Elevated troponin Status: Acute (2) Pneumonia Status: Acute (3) Respiratory failure with hypoxia Status: Acute CONDITION ON DISCHARGE: Stable CODE STATUS: Code Status: Full HALF-WAY: SNF STAY <30 DAYS: Yes HOSPICE: HOSPICE: No HOSPICE EVAL & TREAT: No LTAC: ADMIT TO LTAC: No POST DISCHARGE ORDERS: ACTIVITY ORDERS: Activity as tolerated WEIGHT BEARING STATUS: As tolerated DIET AFTER DISCHARGE: Cardiac CHECKS AFTER DISCHARGE: CHECKS AFTER DISCHARGE: Check blood press - daily, Check blood sugar, ac/hs, Weigh Yourself Daily FOLLOW-UP: PHYSICIAN FOLLOW-UP: Dr. Bustillos on 08/21 at 9:45 am ADDITIONAL FOLLOW-UP: Dr. Quiroz on 10/21 at 11 am LAB ORDERS FOR FOLLOW-UP: CBC, CMP TREATMENT/EQUIPMENT ORDERS: ADAPTIVE EQUIPMENT NEEDED: None RESPIRATORY EQUIPMENT NEEDED: Oxygen Physical Therapy For: Evalulation/Treatment Occupational Therapy For: Evaluation/Treatment DISCHARGE MEDICATIONS: Home Meds Active Scripts Famotidine (FAMOTIDINE) 20 Mg Tablet, 20 MG PO BID for stomach acid for 30 Days, #60 TAB Prov:CASTLE,NIAL K III DO 08/06/20 Tobramycin Ophth (TOBRAMYCIN OPHTH DROPS) 5 Ml Drops, 1 DROP OU Q6HRS for eye irritation for 30 Days, #1 DROP Prov:CASTLE,NIAL K III DO 08/06/20 Furosemide (FUROSEMIDE) 20 Mg Tablet, 40 MG PO DAILY for diuretic for 30 Days, #60 TAB Prov:CASTLE,NIAL K III DO 08/06/20 Levofloxacin (LEVOFLOXACIN) 750 Mg Tablet, 750 MG PO DAILY16 for infection for 3 Days, #3 TAB Prov:CASTLE,NIAL K III DO 08/06/20 Losartan Potassium (LOSARTAN POTASSIUM ) 25 Mg Tablet, 25 MG PO DAILY for CHF for 30 Days, #30 TAB 2 Refills Prov:AIDAN HOFFMAN MD 08/01/20 Ondansetron Hcl (ZOFRAN) 4 Mg Tablet, 1 TAB PO Q8HRS PRN for NAUSEA for 30 Days, #90 TAB Prov:JJ BULLOCK MD 07/10/20 Reported Medications [Vitamin D] No Conflict Check, PO DAILY 07/03/20 Vitamin E Acetate (VITAMIN E) 400 Unit Capsule, 400 UNIT PO DAILY for supplement, CAP 07/03/20 Ascorbic Acid (VITAMIN C) 500 Mg Capsule.er, 1 CAP PO DAILY for supplement for 30 Days, #30 CAP 0 Refills 07/03/20 Metformin Hcl (METFORMIN HCL ER) 500 Mg Tab.er.24h, 500 MG PO DAILYWBKFT for ANTI-DIABETIC, TAB 0 Refills 07/03/20 Furosemide (LASIX) 20 Mg Tablet, 1 TAB PO DAILY for HTN for 30 Days, #30 TAB 0 Refills 07/03/20 Aspirin (ASPIRIN) 81 Mg Tab.chew, 1 TAB PO DAILY for heart, #30 TAB 3 Refills 07/03/20 Diltiazem Hcl (CARDIZEM CD) 360 Mg Cap.er.24h, 1 CAP PO DAILY for HTN, #30 CAP 5 Refills 07/03/20 Gabapentin (NEURONTIN) 600 Mg Tablet, 900 MG PO TID for NEUROGENIC PAIN, TAB 07/02/20 Discontinued Reported Medications Ibuprofen (MOTRIN IB) 200 Mg Tablet, 600 MG PO Q6HRS PRN for SEE ADMIN INSTRUCTIONS, TAB 07/02/20 KEAGAN HENDERSON III DO Aug 07, 2020 11:17
--- NOTE | 2020-08-07 11:30 | PDOC ---
[employer] PROGRESS NOTE Date of Service DOS: DATE: 08/07/20 TIME: 11:28 Chief Complaint Chief Complaint Pneumonia History of Present Illness History of Present Illness Ms Davidson is a 75-year-old female with past medical history of CHF with preserved ejection fraction, morbid obesity, depression, hypertension, hyperlipidemia, hypothyroidism, and schizophrenia who presents to the ER with complaints of shortness of breath over the past few days. She reports associated weakness and nonproductive cough. Upon arrival in the ER she was saturating 80% on room air, which did improve with 4 L nasal cannula. She was recently admitted to our service on 07/02/2024 COPD exacerbation and elevated troponins. At that time troponins were elevated but stable, consistent with demand ischemia. Chest x-ray on 07/02 showed bilateral interstitial infiltrates. She is supposed to have a future appointment with her financial advocate for pulmonary function test and formal diagnosis of COPD. Repeat chest x-ray 07/30 in the ER showed stable diffuse infiltrates. She underwent CTPA with no pulmonary embolus identified, but 8 mm nodule at the right upper lobe. EKG with lateral t-wave changes, troponin 0.1. Rapid influenza test negative, tested for COVID 19 and admitted for further care. 07/31: Still very short of breath, trying to take off her O2, c/o dry nares. Feels "terrible". Myalgias and GI upset with nausea currently. Repeat troponin minimally decreased 08/01: Feeling improved today. N.p.o. for am stress testing per cardiology. Still requiring 4 L nasal cannulated O2 though she is saturating at 96%. Notes that she is on 2 L nasal cannula at home. She is somewhat anxious to leave the hospital. Still dizzy and with blurred vision, notes her vision blurring for the past year, has been seen by ophthalmology outpatient noted with cataracts. Still little dizzy. Shortness of breath is not improved. Still complaining of her blurred vision but does note this is chronic. She has some indigestion that was improved with Pepcid and Tums. Going for second have her stress test today. 08/04/20 No acute events overnight. Saturating 94% on 3NC. > 50% time spent in patient chart, labs, and image review and discussion with RN and SW 08/05/2020 No acute events overnight. Patient saturating 97% on 3 L neck nasal cannula. Status post knee injection today. Patient's chart, labs, images were reviewed and discussed with RN 08/06/2020 -Patient seen and examined -DW RN -Chart reviewed 08/07/2020 -Patient seen and examined -DW RN -Chart reviewed -DW showcase maker -discussed d/c with pt -pt complains of restless legs Vitals/I&O Vitals/I&O: Vital Signs Date Time Temp Pulse Resp B/P (MAP) Pulse Ox O2 Delivery O2 Flow Rate FiO2 08/07/20 08:44 70 114/75 08/07/20 08:15 Nasal Cannula 3.0 08/07/20 07:00 97.5 17 93 97.5 I & O 08/06/20 08/06/20 08/07/20 15:00 23:00 07:00 Intake Total 1000 ml 350 ml Output Total 1300 ml Balance 1000 ml -950 ml Physical Exam General: Alert, Oriented X3, Cooperative, No acute distress Heart: Regular rate (SR), Other (distant heart sounds) Lungs: Clear Abdomen: Normal bowel sounds, Soft, No tenderness, No hepatosplenomegaly, Other (obese) Extremities: No clubbing, No cyanosis, No edema, Other (Palpable pedal pulses, Bilateral LE. Mild edema noted BLE.) Skin: No rashes, No breakdown, No significant lesion, Other (Nails are elongated, thickened dystrophic and discolored with subungal debris noted, right foot - digits 1,2,3 and left foot digits 1,2,3,4. No open lesions noted. No erythema noted. DIffuse xerosis noted.) Labs Labs: Laboratory Tests Test 08/06/20 12:20 08/06/20 16:30 08/06/20 17:03 08/06/20 20:48 Glucose (Fingerstick) 123 mg/dL (70-99) 127 mg/dL (70-99) 161 mg/dL (70-99) Coronavirus (PCR) Not detected (Not Detected) Test 08/07/20 07:22 08/07/20 08:08 08/07/20 11:12 Glucose (Fingerstick) 101 mg/dL (70-99) 126 mg/dL (70-99) White Blood Count 7.7 x10^3/uL (4.0-11.0) Red Blood Count 5.06 x10^6/uL (3.50-5.40) Hemoglobin 13.0 g/dL (12.0-15.5) Hematocrit 42.2 % (36.0-47.0) Mean Corpuscular Volume 83 fL (79-100) Mean Corpuscular Hemoglobin 26 pg (25-35) Mean Corpuscular Hemoglobin Concent 31 g/dL (31-37) Red Cell Distribution Width 16.9 % (11.5-14.5) Platelet Count 296 x10^3/uL (140-400) Neutrophils (%) (Auto) 69 % (31-73) Lymphocytes (%) (Auto) 19 % (24-48) Monocytes (%) (Auto) 10 % (0-9) Eosinophils (%) (Auto) 1 % (0-3) Basophils (%) (Auto) 1 % (0-3) Neutrophils # (Auto) 5.3 x10^3/uL (1.8-7.7) Lymphocytes # (Auto) 1.5 x10^3/uL (1.0-4.8) Monocytes # (Auto) 0.8 x10^3/uL (0.0-1.1) Eosinophils # (Auto) 0.0 x10^3/uL (0.0-0.7) Basophils # (Auto) 0.1 x10^3/uL (0.0-0.2) Sodium Level 143 mmol/L (136-145) Potassium Level 4.0 mmol/L (3.5-5.1) Chloride Level 101 mmol/L (98-107) Carbon Dioxide Level 38 mmol/L (21-32) Anion Gap 4 (6-14) Blood Urea Nitrogen 23 mg/dL (7-20) Creatinine 0.7 mg/dL (0.6-1.0) Estimated GFR (Cockcroft-Gault) 98.2 BUN/Creatinine Ratio 33 (6-20) Glucose Level 105 mg/dL (70-99) Calcium Level 9.8 mg/dL (8.5-10.1) Total Bilirubin 0.3 mg/dL (0.2-1.0) Aspartate Amino Transf (AST/SGOT) 24 U/L (15-37) Alanine Aminotransferase (ALT/SGPT) 46 U/L (14-59) Alkaline Phosphatase 98 U/L (46-116) Total Protein 7.1 g/dL (6.4-8.2) Albumin 3.0 g/dL (3.4-5.0) Albumin/Globulin Ratio 0.7 (1.0-1.7) Review of Systems Review of Systems: pt denies changet in vision and change in mentation Assessment and Plan Assessmemt and Plan Problems Medical Problems: (1) Elevated troponin Status: Acute (2) Pneumonia Status: Acute (3) Respiratory failure with hypoxia Status: Acute Assessment pneumonia, hypoxia Plan - pt will be d/c to SNU today in afternoon - monitor O2 levels Comment Review of Relevant I have reviewed the following items tucker (where applicable) has been applied. Medications: Current Medications Medications (Trade) Dose Ordered Sig/Mehul Route PRN Reason Start Time Stop Time Status Last Admin Dose Admin EZETIMIBE (Zetia) 10 mg DAILY PO 08/07/20 09:00 08/07/20 08:43 Justifications for Admission Other Justification Acute respiratory failure with hypoxia, COVID-19 KEAGAN ALLEN III DO Aug 07, 2020 11:30
--- NOTE | 2020-08-07 13:44 | DS ---
DATE OF DISCHARGE: 08/07/2020 ADMISSION DIAGNOSES: Hypercapnic respiratory failure, possible COVID-19, chronic obstructive pulmonary disease, elevated troponin, acute on chronic systolic and diastolic heart failure, malnutrition. DISCHARGE DIAGNOSES: Resolving pneumonia, resolving hypercapnic respiratory failure. CONSULTS: Dr. Owens, Dr. Paige and Dr. Munson. PROCEDURES: None. HOSPITAL COURSE: The patient is a pleasant middle-aged female who presented with hypercapnic respiratory failure. She was admitted and the above consults were obtained. We gave her IV antibiotics. We titrated her O2 per nasal cannula, did DVT prophylaxis, physical therapy and occupational therapy. We had Dr. Owens see the patient as well. He got her set up for a foot brace as she has right foot drop. Basically, over the past several days, she has returned to her baseline, but she is quite weak. She gets dizzy and wants to go to rehab. We got her set up to go to [facility]. We are going to discharge to [facility]. ACTIVITY: As tolerated. DIET: Low sodium. MEDICATIONS: Please see the MRAD. TOTAL TIME: 34 minutes. NIAL Sriram HENDERSON DO DR: CASPER/kortney JOB#: [id number] / [id number]
--- NOTE | 2020-08-07 16:09 | NUR ---
Patient discharge today around 3 pm and then transferred to [facility]. Patient was alert and IV removed. Nurse exchange report was given via phone to Esther BORGES at [facility].
--- NOTE | 2020-09-02 13:52 | DS ---
DATE OF DISCHARGE: 08/07/2020 She was admitted. DICTATION ENDS HERE KAEGAN HENDERSON DO DR: CASPER/kortney JOB#: [id number] / [id number]
== END 2020-08-07 15:00 | DRG 193 ==
LOC: ER 13:48 → ED HOLD 17:41 → 2 SOUTH 22:00 → 2 NORTH 08-02 14:11 → 4 NORTH 08-06 19:11
PROVIDERS: ADMIT Family Medicine; ATTEND Family Medicine
PROC: 0HBRXZZ Excision of Toe Nail, External Approach (ICD-10-PCS; principal; 2020-07-30)
PROC: 0HBRXZZ Excision of Toe Nail, External Approach (ICD-10-PCS; 2020-07-30)
PROC: 0HBRXZZ Excision of Toe Nail, External Approach (ICD-10-PCS; 2020-07-30)
PROC: 0HBRXZZ Excision of Toe Nail, External Approach (ICD-10-PCS; 2020-07-30)
PROC: 0HBRXZZ Excision of Toe Nail, External Approach (ICD-10-PCS; 2020-07-30)
PROC: 0HBRXZZ Excision of Toe Nail, External Approach (ICD-10-PCS; 2020-07-30)
PROC: 0HBRXZZ Excision of Toe Nail, External Approach (ICD-10-PCS; 2020-07-30)
PROC: 0HBRXZZ Excision of Toe Nail, External Approach (ICD-10-PCS; 2020-07-30)
PROC: 0HBRXZZ Excision of Toe Nail, External Approach (ICD-10-PCS; 2020-07-30)
PROC: 0HBRXZZ Excision of Toe Nail, External Approach (ICD-10-PCS; 2020-07-30)
DX: J18.9 Pneumonia, unspecified organism (principal); I50.43 Acute on chronic combined systolic (congestive) and diastolic (congestive) heart failure; J96.22 Acute and chronic respiratory failure with hypercapnia; E46 Unspecified protein-calorie malnutrition; E66.2 Morbid (severe) obesity with alveolar hypoventilation; E87.0 Hyperosmolality and hypernatremia; I24.8 Other forms of acute ischemic heart disease; J44.0 Chronic obstructive pulmonary disease with (acute) lower respiratory infection; J98.11 Atelectasis; J44.1 Chronic obstructive pulmonary disease with (acute) exacerbation; Z68.43 Body mass index [BMI] 50.0-59.9, adult; I11.0 Hypertensive heart disease with heart failure; E03.9 Hypothyroidism, unspecified; B35.1 Tinea unguium; E11.42 Type 2 diabetes mellitus with diabetic polyneuropathy; E78.5 Hyperlipidemia, unspecified; F20.9 Schizophrenia, unspecified; G25.81 Restless legs syndrome; G89.29 Other chronic pain; M21.371 Foot drop, right foot; Z20.822 Contact with and (suspected) exposure to COVID-19; Z82.49 Family history of ischemic heart disease and other diseases of the circulatory system; Z87.891 Personal history of nicotine dependence; Z96.643 Presence of artificial hip joint, bilateral; Z99.3 Dependence on wheelchair; F32.9 Major depressive disorder, single episode, unspecified; G62.9 Polyneuropathy, unspecified; H26.9 Unspecified cataract; M19.90 Unspecified osteoarthritis, unspecified site; Z88.8 Allergy status to other drugs, medicaments and biological substances; Z60.2 Problems related to living alone
CPT/HCPCS: 36415; 36600; 71045; 71275; 78452; 80048; 80053; 82550; 82805; 82962; 83615; 83880; 84145; 84484; 85025; 86140; 87426; 87804; 93005; 93017; 96374; 96375; A9500; J0696; J1030; J1100; J1650; J1815; J1940; J1956; J2785; J3490; J7512; Q9967; U0003; 97110-GP; 97530-GO; 97530-GP; 97535-GO; 99285-25; G0378; J8597